=== PATIENT | female | born 1955 | race Caucasian/White ===

== ENCOUNTER → 2019-01-30 17:32 | Outpatient (CLI) | payer OTHER, SELFPAY ==
[2019-01-30 15:15] VITALS: BMI 23.4
[2019-02-05 11:19] LABS: HPV APTIMA, High Risk Negative (Negative)
== END ==
PROVIDERS: Referring Provider Nurse Practitioner Women's Health; Visit Provider Nurse Practitioner Women's Health
DX: Z12.4 Encounter for screening for malignant neoplasm of cervix (principal)
CPT/HCPCS: 87624; 88175; G0145

== ENCOUNTER → 2019-02-12 07:04 | Outpatient (CLI) | payer OTHER, SELFPAY ==
[2019-01-30 15:15] VITALS: BMI 23.4
--- NOTE | 2019-02-12 07:09 | BI_ITS ---
MAMMOGRAPHY - BILATERAL SCREENING REASON FOR EXAM: Female, 63 years old. Routine annual screening examination. PERTINENT HISTORY: Aunts with breast cancer. History of remote left excisional breast biopsy. TECHNIQUE: Digital bilateral breast jenelle (3D mammographic acquisition) in the CC and MLO projections. 2-D mediolateral oblique (MLO) and craniocaudad (CC) views of both breasts were obtained. CAD: Full Field Digital Mammography with Computer Added Detection was performed. COMPARISON: Comparison is made with prior outside examination dated November 16, 2011. FINDINGS: Breast Composition: The breasts are heterogeneously dense, which may obscure small masses. There are no dominant masses or suspicious calcifications. No other significant abnormalities are identified. There has been no significant change since the prior study. BI/SCREENING MAMM (CAD), BILAT IMPRESSION: Stable bilateral screening mammogram. Yearly follow-up mammogram recommended. (A) ASSESSMENT CATEGORY: BIRADS Category 1: Negative. A letter regarding these results will be sent to the patient by the facility within 30 days. Approximately 10% of breast cancers are not detected by mammography. A normal mammogram should not delay biopsy of a clinically suspicious abnormality. [id number] Electronically Signed: Jacob Crandall, at 14:30 EDT , Service support ,
[2019-02-12 09:50] LABS: Cholesterol 196 mg/dL (200); Glucose 92 mg/dL (74-106); High Density Lipoprotein 80 mg/dL; Triglycerides 58 mg/dL; Very Low Density Lipoprotein 12 mg/dL (5-40)
[2019-02-12 10:15] LABS: Vitamin D,25 Hydroxy 12.3 ng/mL (29.95-100.01)
== END ==
PROVIDERS: Referring Provider Obstetrics & Gynecology; Visit Provider Obstetrics & Gynecology
DX: Z12.31 Encounter for screening mammogram for malignant neoplasm of breast (principal); Z13.220 Encounter for screening for lipoid disorders; Z13.1 Encounter for screening for diabetes mellitus; Z13.21 Encounter for screening for nutritional disorder; Z80.3 Family history of malignant neoplasm of breast
CPT/HCPCS: 36415; 77063; 77067; 80061; 82306; 82947

== ENCOUNTER → 2022-05-30 | Outpatient (CLI) | payer MEDICARE, BC, SELFPAY ==
--- NOTE | 2022-05-30 11:41 | BI_ITS ---
MAMMOGRAPHY - BILATERAL SCREENING REASON FOR EXAM: Female, 66 years old. Routine annual screening examination. PERTINENT HISTORY: Aunt with breast cancer. Remote left excisional breast biopsy. TECHNIQUE: Digital bilateral breast uday (3D mammographic acquisition) in the CC and MLO projections. 2-D mediolateral oblique (MLO) and craniocaudad (CC) views of both breasts were obtained. CAD: Full Field Digital Mammography with Computer Added Detection was performed. COMPARISON: Comparison is made with prior study of 02/12/2019. FINDINGS: Breast Composition: The breasts are heterogeneously dense, which may obscure small masses. There are no dominant masses or suspicious calcifications. No other significant abnormalities are identified. There has been no significant change since the prior study. BI/SCRN MAMM (CAD)W/UDAY BILAT IMPRESSION: Stable bilateral screening mammogram. Yearly follow-up mammogram recommended. (A) ASSESSMENT CATEGORY: BIRADS Category 1: Negative. A letter regarding these results will be sent to the patient by the facility within 30 days. Approximately 10% of breast cancers are not detected by mammography. A normal mammogram should not delay biopsy of a clinically suspicious abnormality. [id number] Electronically Signed: Jacob Crandall MD at 12:55 EDT ,
[2022-05-30 13:47] LABS: Cholesterol 174 mg/dL (200); Glucose 92 mg/dL (74-106); High Density Lipoprotein 60 mg/dL; Thyroid Stim Hormone (TSH) 0.84 uIU/mL (0.358-3.74); Triglycerides 48 mg/dL; Very Low Density Lipoprotein 10 mg/dL (5-40)
[2022-05-30 14:30] LABS: Vitamin D,25 Hydroxy 33.4 ng/mL
[2022-06-03 12:19] LABS: HPV Reflexed? NOT INDICATED
== END | disposition home or self-care (01) ==
PROVIDERS: PCP Family Medicine; Referring Provider Obstetrics & Gynecology; Visit Provider Obstetrics & Gynecology
DX: Z12.31 Encounter for screening mammogram for malignant neoplasm of breast (principal); Z13.1 Encounter for screening for diabetes mellitus; Z13.220 Encounter for screening for lipoid disorders; Z01.419 Encounter for gynecological examination (general) (routine) without abnormal findings; Z13.29 Encounter for screening for other suspected endocrine disorder; Z13.21 Encounter for screening for nutritional disorder; Z80.3 Family history of malignant neoplasm of breast
CPT/HCPCS: 36415; 77063; 77067; 80061; 82306; 82947; 84443; 88175; G0145

== ENCOUNTER 2022-09-15 05:28 | Day surgery (SDC) | payer MEDICARE, BC, SELFPAY ==
[2022-09-15] VITALS (13 sets, daily range): BP systolic 97–135; BP diastolic 59–79; PULSE 59–70; RESP 16–18; TEMP 36.1–37; O2SAT 97–100; BMI 24.0
--- NOTE | 2022-09-15 05:57 | PCM.HP.STD ---
[facility] - General General Date of Service: 09/15/22 Chief Complaint: Screening for intestinal cancer HPI Narrative TETE HOWARD, is a 66 F who presents who presents for screening colonoscopy. Her previous one was 10 years prior. She has no particular complaints. No abdominal pain or bright red blood per rectum or melena. She otherwise enjoys good health. FORMERLY [facility] Medical History (Updated 09/12/22 @ 08:21 by Celena Waddell) Arthritis Cardiology follow-up encounter History of echocardiogram History of stress test Migraine headache MRSA infection Post-menopausal Wears glasses Home Medications calcium carbonate 500 mg-vitamin D3 3.125 mcg (125 unit) tablet 1 tab PO DAILY 09/12/22 [History Last Taken Unknown] Allergy/AdvReac Type Severity Reaction Status Date / Time codeine Allergy Mild nausea Verified 09/15/22 05:49 Family History Mother Hypertension Father Hypertension Heart disease Surgical History (Updated 09/12/22 @ 08:21 by Celena Waddell) History of History of colonoscopy Hx of bilateral cataract extraction Hx of left knee surgery Hx of right knee surgery S/P left breast biopsy s/p toe surgery Social History Smoking Status: Never smoker alcohol intake: never substance use type: does not use caffeine: Yes what type of physical activity do you participate in: none seatbelt use: always do you feel safe at home: Yes additional social history: -Gabriel- Retired Patient works at [employer] in [facility] Constitutional Constitutional: Reports systems reviewed and no addt'l complaints, except as documented Cardiovascular Cardiovascular: Denies chest pain Respiratory/Chest Respiratory/Chest: Denies shortness of breath at rest Gastrointestinal Gastrointestinal: Denies abdominal pain, change in bowel habits, hematochezia or melena Vital Signs Vital Signs Vital Signs: 09/15/22 05:50 09/15/22 05:52 Temperature 98.2 F Temperature Source Temporal Pulse Rate 67 Respiratory Rate 18 Respiratory Pattern Normal Blood Pressure 127/73 H Blood Pressure Mean 91 Blood Pressure Source Monitor Blood Pressure Position Semi-Fowlers Blood Pressure Location Left Arm Pulse Ox 100 Oxygen Delivery Method Room Air Weight Weight: 144 lb 6.4 oz Body Mass Index (BMI) 24.0 Physical Exam Const alert, oriented x3 and no apparent distress General Appearance: cooperative and comfortable Eyes General Eye: normal appearance of both eyes Neck General: normal visual inspection Chest inspection of chest normal Resp Effort and Inspection: able to speak in complete sentences and symmetric chest movement Auscultation: clear to auscultation bilaterally Cardio regular rate and regular rhythm GI soft to palpation, non-tender and non-distended Extremity no calf tenderness Neuro oriented x3 Psych thought process normal Assessment & Plan Assessment/Plan (1) Encounter for screening for malignant neoplasm of colon: PLAN: I recommended the patient a screening colonoscopy with possible biopsy or polypectomy as indicated. She is aware of the technique, benefit, risk, alternatives. She presents via open access today. We will proceed as noted. Chepe Jason M.D., F.A.C.S.
[2022-09-15] MEDS: Lactated Ringers 1,000 ML 15 ML IV (05:59)
--- NOTE | 2022-09-15 06:50 | OP.COLON_ITS ---
Patient Name: Suad Pereira Procedure Date: 09/15/2022 6:16 AM Date of : 1955 Age: 66 Procedure: Colonoscopy Indications: Screening for colorectal malignant neoplasm Providers: Chepe Jason MD Medicines: Midazolam 3.5 mg IV, Meperidine 100 mg IV Patient Profile: Last Colonoscopy: 10 years ago. Complications: No immediate complications. Procedure: Pre-Anesthesia Assessment: - Prior to the procedure, a History and Physical was performed, and patient medications and allergies were reviewed. The patient's tolerance of previous anesthesia was also reviewed. The risks and benefits of the procedure and the sedation options and risks were discussed with the patient. All questions were answered, and informed consent was obtained. Prior Anticoagulants: The patient has taken no previous anticoagulant or antiplatelet agents. ASA Grade Assessment: II - A patient with mild systemic disease. After reviewing the risks and benefits, the patient was deemed in satisfactory condition to undergo the procedure. After I obtained informed consent, the scope was passed under direct vision. Throughout the procedure, the patient's blood pressure, pulse, and oxygen saturations were monitored continuously. The Colonoscope was introduced through the anus and advanced to the cecum, identified by appendiceal orifice and ileocecal valve. The colonoscopy was performed without difficulty. The patient tolerated the procedure well. The quality of the bowel preparation was good. The ileocecal valve and the appendiceal orifice were photographed. Moderate Sedation: Moderate (conscious) sedation was personally administered by the endoscopist. The following parameters were monitored: oxygen saturation, heart rate, blood pressure, and response to care. Total physician intraservice time was 15 minutes. Scope In: 6:31:42 AM Scope Withdrawal Time 0 hours 6 minutes 49 seconds Scope Out: 6:45:59 AM Total Procedure Duration Time 0 hours 14 minutes 17 seconds Findings: Hemorrhoids were found on perianal exam. Multiple diverticula were found in the entire colon. The exam was otherwise without abnormality. Impression: - Hemorrhoids found on perianal exam. - Diverticulosis in the entire examined colon. - The examination was otherwise normal. - No specimens collected. Recommendation: - Discharge patient to home. - Resume previous diet. - Continue present medications. - Repeat colonoscopy in 10 years for screening purposes. Procedure Code(s): --- Professional --- 68305, Colonoscopy, flexible; diagnostic, including collection of specimen(s) by brushing or washing, when performed (separate procedure) 60690, 59, Moderate sedation services provided by the same physician or other qualified health director career services performing the diagnostic or therapeutic service that the sedation supports, requiring the presence of an independent trained observer to assist in the monitoring of the patient's level of consciousness and physiological status; initial 15 minutes of intraservice time, patient age 5 years or older Diagnosis Code(s): --- Professional --- Z12.11, Encounter for screening for malignant neoplasm of colon K64.9, Unspecified hemorrhoids K57.30, Diverticulosis of large intestine without perforation or abscess without bleeding CPT copyright 2017 [employer]. All rights reserved. The codes documented in this report are preliminary and upon manager social responsibility review may be revised to meet current compliance requirements. Chepe Jason MD 09/15/2022 6:50:09 AM This report has been signed electronically. Number of Addenda: 0 Note Initiated On: 09/15/2022 6:16 AM
--- NOTE | 2022-09-15 06:51 | OP.CCLET_ITS ---
09/15/2022 Chepe Meyer Md Re : Colonoscopy procedure for Suad Pereira Dear Betsy This procedure was performed on Thursday, September 15, 2022. My impressions and recommendations are as follows: Impressions : - Hemorrhoids found on perianal exam. - Diverticulosis in the entire examined colon. - The examination was otherwise normal. - No specimens collected. Recommendations : - Discharge patient to home. - Resume previous diet. - Continue present medications. - Repeat colonoscopy in 10 years for screening purposes. My findings are described in the full procedure note, which is enclosed. If I can be of further assistance, please feel free to contact me at Doctor phone number(s): Work: . Sincerely, Chepe Jason MD 09/15/2022 6:50:09 AM This report has been signed electronically.
== END 2022-09-15 07:52 | disposition home or self-care (01) ==
LOC: EN 05:29 → AC 05:29
PROVIDERS: PCP Family Medicine; Referring Provider Family Medicine; Visit Provider Surgery
PROC: 0DJD8ZZ Inspection of Lower Intestinal Tract, Via Natural or Artificial Opening Endoscopic (ICD-10-PCS; CPT 45378; principal; 2022-09-15 06:25)
DX: Z12.11 Encounter for screening for malignant neoplasm of colon (principal); K57.30 Diverticulosis of large intestine without perforation or abscess without bleeding; K64.9 Unspecified hemorrhoids; M19.90 Unspecified osteoarthritis, unspecified site; Z78.0 Asymptomatic menopausal state
CPT/HCPCS: G0121; 99152; 99153; J7120

== ENCOUNTER → 2022-11-22 | Outpatient (CLI) | payer MEDICARE, BC, SELFPAY ==
[2022-11-22 18:23] LABS: Pathologist Comment May follow
[2022-11-22 19:14] LABS: Synovial Fld Mononuclear WBC # 0.119 10^3/ul; Synovial Fld Mononuclear WBC % 94.5 %; Synovial Fld Polynuclear WBC # 0.007 10^3/uL; Synovial Fld Polynuclear WBC % 5.5 %
[2022-11-22 21:19] LABS: AUTO B FLUID DILUENT BKGD CT WBC <0.1 RBC <0.01 (W<.1,R<.01); Appearance /Synovial Fluid Clear (CLEAR); CRYSTALS, BODY FLUID See PATH REV; Color / Synovial Fluid Yellow (Pale Yellow); Source / Synovial Fluid NG; Source- Body Fluid SYNOVIAL
[2022-11-22 21:20] LABS: Lymph 15 %; Monocyte /Synovial Fluid 80 %; Neutrophil 5 % (0-25)
[2022-11-22 21:21] LABS: Body Fluid QC Type(s) BF2Q,BF3Q
[2022-11-23 15:07] LABS: RBC /Synovial Fluid 7 /mm3 (0)
[2022-11-24 09:41] LABS: Pathologist Review Reviewed
== END | disposition home or self-care (01) ==
PROVIDERS: PCP Family Medicine; Visit Provider Physician Assistant
DX: S83.8X1D Sprain of other specified parts of right knee, subsequent encounter (principal)
CPT/HCPCS: 87070; 87075; 87205; 89050; 89051; 89060

== ENCOUNTER → 2023-03-20 | Outpatient (CLI) | payer MEDICARE, BC, SELFPAY ==
--- NOTE | 2023-03-20 10:00 | ASPOS_PTH ---
PATIENT: TETE HOWARD LOC: LAB U#:[id number] AGE/SX: 67/F ROOM: RE03/20/[address]: Dr. Shashi Durant MD : 1955 BED: DIS: 03/20/2023 SPEC #: [id number] RECD: 03/20/23 10:26 STATUS: KATE BRIGHT #: [id number] RYAN: 03/20/23 10:[address]: Shashi Durant DEPT: CYTOLOGY RECD BY: Radha Díaz ENTERED: 03/20/23 10:27 SP TYPE: ASP HERE OTHR DR: Dr. Chepe Meyer MD Tissues: Mandible, NOS Procedures: Surgery Specimen Level IV Cytology Other Fine Needle Asp on Site HEADER OPERATION: Fine needle aspiration left submandibular mass PRE-OP DIAGNOSIS: Left submandibular mass TISSUE SUBMITTED: Left submandibular mass fluid DIAGNOSIS CYTOLOGY Left submandibular gland mass, fine needle aspiration (cytospin and cell block): Oncocytic cells present. See comment. AM:shari 03/21/2023 COMMENT An FNA is performed and the specimen is evaluated at the time of FNA by Dr. Mendoza. 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 Clinical correlation is suggested. Case has been reviewed in consultation with Dr. Sarabia who concurs with the above diagnosis. IDC:SJ CYTOLOGY STUDY Slides are reviewed. CYTOLOGY GROSS Received is 0.2 ml of reddish fluid labeled with the patient's name, and designated left submandibular mass. Five imprints and one pap are made from the submitted fluid and the rest is added to CytoLyt for cell block preparation. Submitted for cytology study. / AM:shari 03/20/2023 TC:5 CPT: 77468, 53724, 37177, 81443
== END | disposition home or self-care (01) ==
LOC: LAB 09:32
PROVIDERS: PCP Family Medicine; Referring Provider Otolaryngology; Visit Provider Otolaryngology
DX: R22.0 Localized swelling, mass and lump, head (principal); K11.23 Chronic sialoadenitis
CPT/HCPCS: 10021; 88161; 88305

== ENCOUNTER → 2023-04-26 | Outpatient (CLI) | payer MEDICARE, BC, SELFPAY ==
--- NOTE | 2023-04-26 07:30 | SUBM_PTH ---
PATIENT: TETE HOWARD LOC: REANNA U#:[id number] AGE/SX: 67/F ROOM: RE04/26/[address]: Dr. Shashi Durant MD : 1955 BED: DIS: 04/26/2023 SPEC #: [id number] RECD: 04/27/23 07:24 STATUS: KATE REQ #: [id number] RYAN: 04/26/23 07:[address]: Shashi Durant DEPT: SURGICAL PATHOLOGY RECD BY: Radha Díaz Tissues: Salivary gland, NOS Procedures: Surgery Specimen Level V Comments: @ Originally on account #[id number] Req #[id number] @ Ordering doctor for SUV edited from CONV. to @ by RGOOD at 04/27/23 142 @ Submitting doctor edited from CONV. to @ by RGOOD at 04/27/231421 HEADER OPERATION: Left submandibular gland excision PRE-OP DIAGNOSIS: Neoplasm of submandibular salivary glands TISSUE SUBMITTED: Left submandibular gland MICROSCOPIC DIAGNOSIS Left submandibular gland, excision: Chronic inflammation. Negative for malignancy. See comment. AVRIL:shari 04/30/2023 COMMENT The entire specimen is examined. No obvious tumor is noted. Please make reference to previous specimen ([id number]), left submandibular gland mass, FNA (smears and cell block) with diagnosis of ?oncocytic cells present.? MICROSCOPIC DESCRIPTION Slides are reviewed. GROSS DESCRIPTION Received in fixative is one container labeled with the patient's name and designated left submandibular gland. The specimen consists of irregular yellow glandular tissue weighing 10 gm and measuring 4.0 x 3.0 x 2.0 cm. Sections do not reveal any obvious mass lesion. The entire specimen is submitted in eight cassettes from one end to another end. / AVRIL:shari 04/27/2023 TC:3 CPT: 07604 ADDENDUM ADDENDUM ADDENDUM ADDENDUM ADDENDUM 05/14/2023 12:18 ADDENDUM 05/14/2023 12:18 ADDENDUM 05/14/2023 12:18 ADDENDUM 05/14/2023 12:18 ADDENDUM 05/14/2023 12:18 Multifocal oncocytic metaplasia noted. Case has been reviewed in consultation with Dr. Mendoza who concurs with the above diagnosis. IDC:AM
== END | disposition home or self-care (01) ==
LOC: LABSPEC 15:22
PROVIDERS: PCP Family Medicine; Referring Provider Otolaryngology; Visit Provider Otolaryngology
DX: K11.23 Chronic sialoadenitis (principal)
CPT/HCPCS: 88307

== ENCOUNTER → 2023-05-31 | Outpatient (CLI) | payer MEDICARE, BC, SELFPAY ==
--- NOTE | 2023-05-31 12:38 | BI_ITS ---
MAMMOGRAPHY - BILATERAL SCREENING REASON FOR EXAM: Female, 67 years old. Routine annual screening examination. PERTINENT HISTORY: Aunts with breast cancer. Remote left excisional breast biopsy. TECHNIQUE: Digital bilateral breast uday (3D mammographic acquisition) in the CC and MLO projections. 2-D mediolateral oblique (MLO) and craniocaudad (CC) views of both breasts were obtained. CAD: Full Field Digital Mammography with Computer Added Detection was performed. COMPARISON: Comparison is made with prior study dated May 30, 2022 and February 12, 2019. FINDINGS: Breast Composition: The breasts are heterogeneously dense, which may obscure small masses. There are no dominant masses or suspicious calcifications. No other significant abnormalities are identified. There has been no significant change since the prior study. BI/SCRN MAMM (CAD)W/UDAY BILAT IMPRESSION: Stable bilateral screening mammogram. Yearly follow-up mammogram recommended. (A) ASSESSMENT CATEGORY: BIRADS Category 1: Negative. A letter regarding these results will be sent to the patient by the facility within 30 days. Approximately 10% of breast cancers are not detected by mammography. A normal mammogram should not delay biopsy of a clinically suspicious abnormality. [id number] Electronically Signed: Jacob Crandall MD at 13:47 EDT ,
== END | disposition home or self-care (01) ==
LOC: OPBI 12:36
PROVIDERS: PCP Family Medicine; Referring Provider Obstetrics & Gynecology; Visit Provider Obstetrics & Gynecology
DX: Z12.31 Encounter for screening mammogram for malignant neoplasm of breast (principal)
CPT/HCPCS: 77063; 77067

== ENCOUNTER → 2023-06-25 | Outpatient (CLI) | payer MEDICARE, BC, SELFPAY ==
[2023-06-27 07:08] LABS: QNTFERON TB Mitogen Value > 10.00 IU/mL (.); QNTFERON TB Nil Value 0.05 IU/mL (.); QNTFERON TB1+ Ag Value 0.05 IU/mL (.); QNTFERON TB2+ Ag Value 0.07 IU/mL (.); QNTIFERON TB Positive Criteria Negative (Negative)
== END | disposition home or self-care (01) ==
LOC: LAB 17:35
PROVIDERS: PCP Family Medicine; Referring Provider Internal Medicine Pulmonary Disease; Visit Provider Internal Medicine Pulmonary Disease
DX: R05.9 Cough, unspecified (principal)
CPT/HCPCS: 86480

== ENCOUNTER → 2023-06-29 | Outpatient (CLI) | payer MEDICARE, BC, SELFPAY ==
--- NOTE | 2023-06-29 13:34 | CT_ITS ---
EXAM: CT CHEST WITHOUT INTRAVENOUS CONTRAST CLINICAL INDICATION: COUGH TECHNIQUE: Helically acquired images were obtained of the chest without intravenous contrast. This CT exam was performed using one or more of the following dose reduction techniques: automated exposure control, adjustment of the mA and/or kV according to patient size, and/or use of iterative reconstruction technique. COMPARISON: No relevant prior studies available. FINDINGS: LUNGS AND PLEURAL SPACES: Airspace disease in the left upper lobe. Mild airspace disease in the right upper lobe. Tree-in-bud pattern in the left lower lobe. No mass. No pleural effusion or thickening. HEART: Unremarkable. Heart size is normal. No pericardial effusion. No significant coronary artery calcifications. MEDIASTINUM: Unremarkable. No mediastinal or hilar adenopathy. Esophagus is unremarkable. No hiatal hernia. THYROID: Unremarkable. No thyroid lesions. BONES/JOINTS: Unremarkable. No suspicious lytic or blastic abnormality. VASCULATURE: Unremarkable. Thoracic aorta is non-dilated. CT/Chest without Contrast IMPRESSION: Bilateral airspace disease consistent with pneumonia. Electronically Signed: Erica Allison MD at 23:51 EDT Reading Location ID and State: [id number] / Tel , Service support ,
== END | disposition home or self-care (01) ==
LOC: CT 13:29
PROVIDERS: PCP Family Medicine; Referring Provider Internal Medicine Pulmonary Disease; Visit Provider Internal Medicine Pulmonary Disease
DX: R05.9 Cough, unspecified (principal); J18.9 Pneumonia, unspecified organism; R91.8 Other nonspecific abnormal finding of lung field
CPT/HCPCS: 71250

== ENCOUNTER 2023-07-04 07:25 | Day surgery (SDC) | payer MEDICARE, BC, SELFPAY ==
[2023-07-04] VITALS (7 sets, daily range): BP systolic 109–142; BP diastolic 69–86; PULSE 67–86; RESP 16; TEMP 35.9–36.6; O2SAT 98–100; BMI 21.4
[2023-07-04] MEDS: Lactated Ringers 1,000 ML 15 ML IV (08:07)
--- NOTE | 2023-07-04 08:30 | FLU_PTH ---
PATIENT: TETE HOWARD LOC: EN U#:[id number] AGE/SX: 67/F ROOM: RE07/04/[address]: Dr. Chepe Argueta MD : 1955 BED: DIS: 07/04/2023 SPEC #: [id number] RECD: 07/04/23 13:35 STATUS: KATE DEANGELO #: [id number] RYAN: 07/04/23 08:[address]: Chepe Argueta V DEPT: CYTOLOGY RECD BY: Radha Díaz ENTERED: 07/04/23 13:35 SP TYPE: Fluid OTHR DR: Dr. Chepe Meyer MD Tissues: A - Bronchus of left upper lobe B - Bronchus of left lower lobe Procedures: Special Stain Group II Special Stain Group I Surgery Specimen Level IV AFB Stain (control) GMS Stain (control) Cytospin Fluid HEADER OPERATION: Bronchoscopy (MAC) with lavage PRE-OP DIAGNOSIS: Rule out non-tuberculosis mycobacterium TISSUE SUBMITTED: A - Left upper lobe BAL, B - Left lower lobe BAL DIAGNOSIS CYTOLOGY A. Left upper lobe of lung, bronchioalveolar lavage (cytospin and cell block): Negative for malignant cells. Acute inflammation. Negative for acid-fast bacilli and fungal organisms. B. Left lower lobe of lung, bronchioalveolar lavage (cytospin and cell block): Negative for malignant cells. Acute inflammation. Negative for acid-fast bacilli and fungal organisms. AM:shari 07/05/2023 COMMENT A & B. AFB and GMS stains with matched controls were used in the evaluation of this case. CYTOLOGY STUDY Slides are reviewed. CYTOLOGY GROSS A - Received is 15 ml of pink cloudy mucoid fluid labeled with the patient's name and and designated per the requisition as left upper lobe BAL. Submitted for cytology preparation including cell block. B - Received is 10 ml of pink cloudy mucoid fluid labeled with the patient's name and and designated per the requisition as left lower lobe BAL. Submitted for cytology preparation including cell block. / shari 07/05/2023 TC:2 CPT: 93549 x2, 40978 x2, 25871 x4
[2023-07-04] MEDS: Phenylephrine 0.25% 15 ML NASAL.SRY 15 SPRAY NASAL (09:41)
[2023-07-04] MEDS: Lidocaine 2% (5ml sdv) 5 ML VIAL.MPF (09:41)
[2023-07-04] MEDS: Lidocaine Jelly 2% 20 ML Syringe (URO-JET) 1 APPLIC (09:41)
--- NOTE | 2023-07-04 09:56 | OP.BRONCH_ITS ---
Patient Name: Suad Pereira Procedure Date: 07/04/2023 9:14 AM Date of : 1955 Age: 67 Procedure: Bronchoscopy Indications: Unresolving left upper lobe infiltrate Providers: Chepe Argueta MD Medicines: Lidocaine applied to nares and subglottic space, Lidocaine 2% applied to nares 2 mL, Lidocaine 2% applied to the tracheobronchial tree 8 mL Complications: No immediate complications Procedure: Pre-Anesthesia Assessment: - A History and Physical has been performed. The patient's medications, allergies and sensitivities have been reviewed. - The risks and benefits of the procedure and the sedation options and risks were discussed with the patient. All questions were answered and informed consent was obtained. - Pre-procedure physical examination revealed no contraindications to sedation. After I obtained informed consent, the scope was passed under direct vision. Throughout the procedure, the patient's blood pressure, pulse, and oxygen saturations were monitored continuously. The bronchoscope was introduced through the left nostril and advanced to the tracheobronchial tree of both lungs. The procedure was accomplished without difficulty. The patient tolerated the procedure well. see anastheis note Findings: The bronchoscope was advanced until wedged at the desired location for bronchoalveolar lavage. BAL was performed in the LEE ANN inferior lingular segment (B5) of the lung and sent for cell count, bacterial culture, viral smears & culture, and fungal & AFB analysis and cytology. 80 mL of fluid were instilled. 30 mL were returned. The return was cloudy. Mucous plugs were present in the return fluid. Multiple specimens were obtained and pooled into one specimen, which was sent for analysis. Impression: - Unresolving left upper lobe infiltrate - Bronchoalveolar lavage was performed. Recommendation: - Await test results. - Await test results. Procedure Code(s): --- Professional --- 20260, Bronchoscopy, rigid or flexible, including fluoroscopic guidance, when performed; with bronchial alveolar lavage Diagnosis Code(s): --- Professional --- R91.8, Other nonspecific abnormal finding of lung field CPT copyright 2021 [employer]. All rights reserved. The codes documented in this report are preliminary and upon wheat buyer review may be revised to meet current compliance requirements. MD Chepe James MD 07/04/2023 9:55:11 AM This report has been signed electronically. Number of Addenda: 0 Note Initiated On: 07/04/2023 9:14 AM
[2023-07-04 10:40] LABS: Cytology, Body Fluid / CSF SEE PATHOLOGY REPORT
[2023-07-04 10:42] LABS: Cytology, Body Fluid / CSF SEE PATHOLOGY REPORT
[2023-07-04 12:59] LABS: Lymphocytes 3 %; Macrophages 1 %; Neutrophil (Segs) 96 %
[2023-07-04 13:00] LABS: Appearance/Body Fluid CLOUDY; Color/Body Fluid COLORLESS
[2023-07-04 13:01] LABS: Body Fluid QC Type(s) BF1Q; Red Cell Count/Body Fluid 1070 /mm3; White Blood Count/Body Fluid 2885 /mm3
[2023-07-04 13:07] LABS: Lymphocytes 3 %; Macrophages 4 %; Mesothelial Cells 0 %; Monocytes 1 %; Neutrophil (Segs) 92 %
[2023-07-04 13:08] LABS: Appearance/Body Fluid CLOUDY; Color/Body Fluid COLORLESS; Red Cell Count/Body Fluid 1582 /mm3; Source- Body Fluid BRONCHIAL LAVAGE; White Blood Count/Body Fluid 1183 /mm3
[2023-07-04 13:09] LABS: Body Fluid QC Type(s) BF1Q; Source- Body Fluid BRONCHIAL LAVAGE
[2023-07-05 13:00] LABS: Pathologist Comment/Body Fluid Reviewed
== END 2023-07-04 10:32 | disposition home or self-care (01) ==
LOC: EN 07:26
PROVIDERS: PCP Family Medicine; Referring Provider Family Medicine; Visit Provider Internal Medicine Pulmonary Disease
PROC: 0BJ08ZZ Inspection of Tracheobronchial Tree, Via Natural or Artificial Opening Endoscopic (ICD-10-PCS; CPT 31622; principal; 2023-07-04 08:30)
DX: J18.9 Pneumonia, unspecified organism (principal); I10 Essential (primary) hypertension; Z79.51 Long term (current) use of inhaled steroids; R07.1 Chest pain on breathing
CPT/HCPCS: 31624; J3490; 87015; 87070; 87101; 87116; 87205; 87206; 88108; 88305; 88312; 88313; 89050; J7120; J2405

== ENCOUNTER → 2024-04-21 | Outpatient (CLI) | payer MEDICARE, BC, SELFPAY ==
--- NOTE | 2024-04-21 13:08 | US_ITS ---
INDICATION: MULTIPLE NODULES EXAMINATION: Ultrasound US Thyroid (eg thyroid, parathyroid, parotid) TECHNIQUE: Gonzales scale and color doppler imaging was performed of the thyroid gland. COMPARISON: FINDINGS: RIGHT THYROID LOBE: 4.8 x 1.3 x 1.4 cm. Homogeneous echotexture with normal vascularity. [There is a lower pole heterogeneous 1.3 x 1.3 x 0.5 cm nodule LEFT THYROID LOBE: 3.6 x 1.6 x 1.4 cm. Homogeneous echotexture with normal vascularity. [There is an upper pole 1.0 x 0.6 x 0.5 cm solid nodule. ISTHMUS: 7 mm. Heterogeneous nodules or lobulated single nodule measuring 1.5 x 1.7 x 0.7 cm and 1.3 x 1.2 x 0.7 cm. US/Thyroid IMPRESSION: Bilateral heterogeneous nodules as noted. Cytologic evaluation if needed. Electronically Signed: Adolfo Queen DO at 21:07 EDT ,
== END | disposition home or self-care (01) ==
PROVIDERS: PCP Family Medicine; Referring Provider Family Medicine; Visit Provider Family Medicine
DX: Z12.31 Encounter for screening mammogram for malignant neoplasm of breast (principal); M85.88 Other specified disorders of bone density and structure, other site; E04.2 Nontoxic multinodular goiter; Z79.899 Other long term (current) drug therapy
CPT/HCPCS: 76536

== ENCOUNTER → 2024-05-19 | Outpatient (CLI) | payer MEDICARE, BC, SELFPAY ==
--- NOTE | 2024-05-19 09:00 | BI_ITS ---
MAMMOGRAPHY - BILATERAL DIAGNOSTIC REASON FOR EXAM: Female, 68 years old. left breast pain PERTINENT HISTORY: Non-contributory. TECHNIQUE: Digital examination. Mediolateral oblique (MLO) and craniocaudad (CC) views of both breasts were obtained. CAD: CAD was performed on this study. COMPARISON: 05/31/2023 FINDINGS: Breast Composition: The breasts are heterogeneously dense, which may obscure small masses. There are no dominant masses or suspicious calcifications. No other significant abnormalities are identified. BI/DIAG MAMM W/CAD, BILAT IMPRESSION: Stable bilateral diagnostic mammogram. ASSESSMENT CATEGORY: BIRADS Category 1: Negative. A letter regarding these results will be sent to the patient by the facility within 30 days. FOLLOW UP RECOMMENDATION: Yearly follow up mammogram recommended. (A) Approximately 10% of breast cancers are not detected by mammography. A normal mammogram should not delay biopsy of a clinically suspicious abnormality. Electronically Signed: Loyd Corona MD at 9:51 EDT ,
== END | disposition home or self-care (01) ==
LOC: OPBI 08:58
PROVIDERS: PCP Family Medicine; Referring Provider Nurse Practitioner Family; Visit Provider Nurse Practitioner Family
DX: N64.4 Mastodynia (principal)
CPT/HCPCS: 77062; 77066; G0279

== ENCOUNTER 2025-01-28 12:30 | Day surgery (SDC) | payer MEDICARE, BC, SELFPAY ==
--- NOTE | 2025-01-26 15:54 | PAT.ANESEVAL ---
Pre-Assessment Diagnosis/Proposed Procedure Planned Operative Procedure(s): BRONCHOSCOPY Anesthesia History Anesthesia History - energy project manager: Anesthesia History - energy project manager Hx Hospitalization No 01/26/25 15:23 Any Problems With Anesthesia No 01/26/25 15:23 Cholinesterase deficiency No 01/26/25 15:23 You/Your Family Experience No 01/26/25 15:23 fever (hyperthermia) with Relationship Recent Exposure to Contagious No 07/04/23 07:54 Disease Does patient have nerve No 01/26/25 15:23 stimulator Patient instructed to have device shut off --Does patient have Pacemaker or ICD? When Was Last Pacemaker Check QUESTION #4 FULL TEXT: You/Your Family Experience fever (hyperthermia) with Anesthesia Last Oral Intake Last Oral intake: Last Oral Intake NPO since Meds taken in AM with sips of water? Meds patient instructed to take am of surgery PONV PONV - energy project manager: PONV - energy project manager Female Yes 01/26/25 15:23 HX of Motion Sickness No 01/26/25 15:23 HX of N/V After Surgery No 01/26/25 15:23 Non-Smoker Yes 01/26/25 15:23 Duration of Surgery greater Yes 01/26/25 15:23 than 60 minutes Number of Risk Factors 3 01/26/25 15:23 PONV Score Moderate Risk 01/26/25 15:23 Height & Weight Height & Weight: Anesthesia: Height & Weight Height 5 ft 5 in 05/14/24 15:08 Respiratory Assessment Respiratory Assessment - energy project manager: Respiratory Tract Infection Hx - energy project manager Hx Respiratory Tract Infection No 01/26/25 15:23 STOP Sleep Apnea STOP Sleep Apnea - energy project manager: STOP Sleep Apnea - energy project manager Hx Hypertension No 01/26/25 15:23 Hx Sleep Apnea No 01/26/25 15:23 CPAP BIPAP Do you snore loudly (louder No 01/26/25 15:23 than talking or can be heard Do you often feel tired/ No 01/26/25 15:23 fatigued/ sleepy during daytime? Has anyone observed you stop No 01/26/25 15:23 breathing during sleep? STOP Results Negative 01/26/25 15:23 QUESTION #5 FULL TEXT : Do you snore loudly (louder than talking or can be heard through closed doors)? Tobacco Use History Tobacco Use History - energy project manager: Tobacco Use History - energy project manager Tobacco Use Smoking Status Never smoker 01/26/25 15:23 Hx Tobacco Use No 01/26/25 15:23 Years Smoking Packs Smoked per Day Smoking Cessation Date was within the last 15 years Hx Smoking Cessation Date Hx Smoking Cessation Counseling Hematologic Medial History Hematologic Hx - energy project manager: Hematologic Medical Hx - documentation improvement specialist Hx of Blood Transfusion No 01/26/25 15:23 Hx of Transfusion in last 3 No 01/26/25 15:23 Months Date of Last Transfusion (if within last 3 months) Ever experience any problems No 01/26/25 15:23 with transfusion(s)? Specify any problems Hx of Preganancy in last 3 No 01/26/25 15:23 Months Nurse Filling Out Transfusion DSCHRIBER 01/26/25 15:23 & Questions: Date: 01/26/25 01/26/25 15:23 Time: 15:24 01/26/25 15:23 Patient unable to answer at this time (ie. confused, unrespo /Reproduction History /Reproductive History - energy project manager: /Reproductive Hx- energy project manager Hx Now No 01/26/25 15:23 Gestational Age (in weeks): EDC: Hx Hx Para Hx Section SAB No 01/26/25 15:23 PFSH Medical History (Updated 01/26/25 @ 15:29 by Stephany Roberts) Pulmonary mycobacterial infection Non-smoker Multinodular goiter Wears glasses Post-menopausal MRSA infection Arthritis History of echocardiogram History of stress test Cardiology follow-up encounter Home Medications ?Medication ?Instructions ?Recorded ?Last Taken ?Type calcium 500 mg (as 1 tab PO DAILY 09/12/22 Unknown History carbonate)-vitamin D3 3.125 mcg (125 unit) tablet Allergy/AdvReac Type Severity Reaction Status Date / Time codeine Allergy Mild nausea Verified 01/26/25 15:21 Family History Mother Hypertension Father Hypertension Heart disease Surgical History (Updated 01/26/25 @ 15:29 by Stephany Roberts) History of bronchoscopy Hx of parotidectomy Hx of bilateral cataract extraction Hx of right knee surgery Hx of left knee surgery History of colonoscopy s/p toe surgery History of S/P left breast biopsy Social History Smoking Status: Never smoker alcohol intake: never substance use type: does not use caffeine: Yes what type of physical activity do you participate in: none seatbelt use: always do you feel safe at home: Yes additional social history: -Gabriel- Retired Patient works at [employer] in [place] [employer]: Pertinent Findings Pertinent Findings Stress test pertinent findings: 05/19/2022. Negative Echo (EF%) pertinent findings: 05/19/2022 normal size function EF 55 to 60%. PA pressure 28 Consult pertinent findings: Cardiology 12/03/2024 at [facility]. Atypical chest pain. Unlikely cardiac. Previous nuclear stress test normal. Hypertension. No change. 1 year follow-up. Recommendation Anesthesia Recommendation Anesthesia recommendation: OPTIMIZED for anesthesia
[2025-01-28] VITALS (7 sets, daily range): BP systolic 106–131; BP diastolic 60–73; PULSE 68–73; RESP 12–16; TEMP 36.5–36.9; O2SAT 95–100; BMI 20.5
--- NOTE | 2025-01-28 12:41 | PCM.PRE.AN2 ---
ASA Classification* ASA Classification ASA Classification: 3 Assessment & Plan Anesthesia* Anesthesia Assessment Anesthesia Assessment: Discussed sedation and/or anesthesia options, risks, benefits, and alternatives with patient/parents/legal guardian/POA. Questions invited. The patient/parents/legal guardian/POA seems to understand and agrees to proceed with anesthesia plan. Reviewed the physical assessment, medical history, allergy history and patient home medications list prior to surgery/procedure/anesthetic and documented any changes. Performed airway and anesthesia risk assessments. Anesthesia Type Anesthesia Type: MAC Anesthesia Focused Assessment* Airway Assessment Mouth opens: >3 cm Mallampati Score: II Focused Labs Anesthesia Preop lab: CBC CHEMISTRY Glucose 92 mg/dL (74-106) 05/30/22 12:39 05/30/22 TSH 0.84 uIU/mL (0.358-3.74) 05/30/22 12:39 05/30/22 COAG Pre-Assessment Diagnosis/Proposed Procedure Planned Operative Procedure(s): BRONCHOSCOPY Anesthesia History Anesthesia History - financial services assistant: Anesthesia History - financial services assistant Hx Hospitalization No 01/26/25 15:23 Any Problems With Anesthesia No 01/26/25 15:23 Cholinesterase deficiency No 01/26/25 15:23 You/Your Family Experience No 01/26/25 15:23 fever (hyperthermia) with Relationship Recent Exposure to Contagious No 07/04/23 07:54 Disease Does patient have nerve No 01/26/25 15:23 stimulator Patient instructed to have device shut off --Does patient have Pacemaker or ICD? When Was Last Pacemaker Check QUESTION #4 FULL TEXT: You/Your Family Experience fever (hyperthermia) with Anesthesia Last Oral Intake Last Oral intake: Last Oral Intake NPO since Meds taken in AM with sips of water? Meds patient instructed to take am of surgery PONV PONV - financial services assistant: PONV - financial services assistant Female Yes 01/26/25 15:23 HX of Motion Sickness No 01/26/25 15:23 HX of N/V After Surgery No 01/26/25 15:23 Non-Smoker Yes 01/26/25 15:23 Duration of Surgery greater Yes 01/26/25 15:23 than 60 minutes Number of Risk Factors 3 01/26/25 15:23 PONV Score Moderate Risk 01/26/25 15:23 Height & Weight Height & Weight: Anesthesia: Height & Weight Height 5 ft 5 in 05/14/24 15:08 Respiratory Assessment Respiratory Assessment - financial services assistant: Respiratory Tract Infection Hx - financial services assistant Hx Respiratory Tract Infection No 01/26/25 15:23 STOP Sleep Apnea STOP Sleep Apnea - financial services assistant: STOP Sleep Apnea - financial services assistant Hx Hypertension No 01/26/25 15:23 Hx Sleep Apnea No 01/26/25 15:23 CPAP BIPAP Do you snore loudly (louder No 01/26/25 15:23 than talking or can be heard Do you often feel tired/ No 01/26/25 15:23 fatigued/ sleepy during daytime? Has anyone observed you stop No 01/26/25 15:23 breathing during sleep? STOP Results Negative 01/26/25 15:23 QUESTION #5 FULL TEXT : Do you snore loudly (louder than talking or can be heard through closed doors)? Tobacco Use History Tobacco Use History - financial services assistant: Tobacco Use History - financial services assistant Tobacco Use Smoking Status Never smoker 01/26/25 15:23 Hx Tobacco Use No 01/26/25 15:23 Years Smoking Packs Smoked per Day Smoking Cessation Date was within the last 15 years Hx Smoking Cessation Date Hx Smoking Cessation Counseling Hematologic Medial History Hematologic Hx - financial services assistant: Hematologic Medical Hx - feed research aide Hx of Blood Transfusion No 01/26/25 15:23 Hx of Transfusion in last 3 No 01/26/25 15:23 Months Date of Last Transfusion (if within last 3 months) Ever experience any problems No 01/26/25 15:23 with transfusion(s)? Specify any problems Hx of Preganancy in last 3 No 01/26/25 15:23 Months Nurse Filling Out Transfusion DSCHRIBER 01/26/25 15:23 & Questions: Date: 01/26/25 01/26/25 15:23 Time: 15:24 01/26/25 15:23 Patient unable to answer at this time (ie. confused, unrespo /Reproduction History /Reproductive History - financial services assistant: /Reproductive Hx- financial services assistant Hx Now No 01/26/25 15:23 Gestational Age (in weeks): EDC: Hx Hx Para Hx Section SAB No 01/26/25 15:23 PFSH Medical History Pulmonary mycobacterial infection Non-smoker Multinodular goiter Wears glasses Post-menopausal MRSA infection Arthritis History of echocardiogram History of stress test Cardiology follow-up encounter Home Medications ?Medication ?Instructions ?Recorded ?Last Taken ?Type calcium 500 mg (as 1 tab PO DAILY 09/12/22 Unknown History carbonate)-vitamin D3 3.125 mcg (125 unit) tablet Allergy/AdvReac Type Severity Reaction Status Date / Time codeine Allergy Mild nausea Verified 01/26/25 15:21 Family History Mother Hypertension Father Hypertension Heart disease Surgical History History of bronchoscopy Hx of parotidectomy Hx of bilateral cataract extraction Hx of right knee surgery Hx of left knee surgery History of colonoscopy s/p toe surgery History of S/P left breast biopsy Social History Smoking Status: Never smoker alcohol intake: never substance use type: does not use caffeine: Yes what type of physical activity do you participate in: none seatbelt use: always do you feel safe at home: Yes additional social history: -Gabriel- Retired Patient works at [employer] in [place] Review of Systems (Anesthesia) ROS Narrative System reviewed and no additional complaints, except as documented.
[2025-01-28] MEDS: Lidocaine 2% (5ml sdv) 5 ML VIAL.MPF ×2 (14:02→14:08)
[2025-01-28] MEDS: Phenylephrine 0.25% 15 ML NASAL.SRY 15 SPRAY NASAL (14:02)
[2025-01-28] MEDS: Lidocaine Jelly 2% 20 ML Syringe (URO-JET) 1 APPLIC (14:07)
--- NOTE | 2025-01-28 14:11 | PCM.POST.ANE ---
Anesthesia: Postop Eval I Current Vital Signs Temperature: 97.8 F Pulse Rate: 68 Blood Pressure: 107/61 Respiratory Rate: 16 Pulse Ox: 96 Oxygen Delivery Method: Room Air Assessment Airway patent: Yes Spontaneous unlabored respirations: Yes Mental status: Awake nausea: No Vomiting: No Anesthesia Complication: No Fluid Hydration Crystalloid volume administer (ml): 0 Total IV fluid infused: 0 Progress Note Anesthesia document: Postop Eval 1 completed: Yes
--- NOTE | 2025-01-28 14:13 | OP.BRONCH_ITS ---
Patient Name: Suad Pereira Procedure Date: 01/28/2025 12:58 PM Date of : 1955 Age: 69 Procedure: Bronchoscopy Indications: Atelectasis of the left upper lobe Providers: Chepe Argueta MD Referring MD: Chepe Meyer Md Medicines: Lidocaine applied to nares and subglottic space, Lidocaine 2% applied to cords 8 mL Complications: No immediate complications Procedure: Pre-Anesthesia Assessment: - The History and Physical was reviewed prior to the procedure. The patient's medications, allergies and sensitivities have also been reviewed. After I obtained informed consent, the scope was passed under direct vision. Throughout the procedure, the patient's blood pressure, pulse, and oxygen saturations were monitored continuously.The procedure was accomplished without difficulty. The patient tolerated the procedure well. The bronchoscope was introduced through the and advanced to the. Findings: The bronchoscope was advanced until wedged at the desired location for bronchoalveolar lavage. BAL was performed in the LEE ANN anterior segment (B3) of the lung and sent for cell count, bacterial culture, viral smears & culture, fungal & AFB analysis and cytology for immunocompromised host protocol. 120 mL of fluid were instilled. 40 mL were returned. The return was cloudy. There were no mucoid plugs in the return fluid. [Multi samples]. Impression: - No specimens collected. MD Chepe James MD 01/28/2025 2:13:12 PM This report has been signed electronically. Number of Addenda: 0 Note Initiated On: 01/28/2025 12:58 PM
--- NOTE | 2025-01-28 14:29 | POSTOPAN2_ITS ---
Anesthesia Postop Eval I Sum Postop Eval Completion status Anesthesia document: Postop Eval 1 completed: Yes Anesthesia Postop Eval I Summary Anesthesia Postop Eval I Summary: Anesthesia Postop Eval I: Assessment Summary Airway patent Yes 01/28/25 14:12 [email or web address] Spontaneous unlabored Yes 01/28/25 14:12 [email or web address] respirations Mental status Awake 01/28/25 14:12 [email or web address] nausea No 01/28/25 14:12 [email or web address] Vomiting No 01/28/25 14:12 [email or web address] Anesthesia Postop Eval I: Fluid Summary Crystalloid volume administer 0 01/28/25 14:12 [email or web address] (ml) Colloids volume administered ( ml) Blood Product volume administered (ml) Total IV fluid infused 0 01/28/25 14:12 [email or web address] Anesthesia Postop Eval I: Summary Notes Anesthesia Complication No 01/28/25 14:12 [email or web address] Anesthesia Complication Comment: Post-operative progress note Anesthesia: Postop Eval II Evaluation Mental status: Awake Pain Level: 0 nausea: No Vomiting: No
--- NOTE | 2025-01-28 14:29 | PCM.POSTANE2 ---
Anesthesia Postop Eval I Sum Postop Eval Completion status Anesthesia document: Postop Eval 1 completed: Yes Anesthesia Postop Eval I Summary Anesthesia Postop Eval I Summary: Anesthesia Postop Eval I: Assessment Summary Airway patent Yes 01/28/25 14:12 [email or web address] Spontaneous unlabored Yes 01/28/25 14:12 [email or web address] respirations Mental status Awake 01/28/25 14:12 [email or web address] nausea No 01/28/25 14:12 [email or web address] Vomiting No 01/28/25 14:12 [email or web address] Anesthesia Postop Eval I: Fluid Summary Crystalloid volume administer 0 01/28/25 14:12 [email or web address] (ml) Colloids volume administered ( ml) Blood Product volume administered (ml) Total IV fluid infused 0 01/28/25 14:12 [email or web address] Anesthesia Postop Eval I: Summary Notes Anesthesia Complication No 01/28/25 14:12 [email or web address] Anesthesia Complication Comment: Post-operative progress note Anesthesia: Postop Eval II Evaluation Mental status: Awake Pain Level: 0 nausea: No Vomiting: No
[2025-01-28 14:41] LABS: Pathologist Comment/Body Fluid May follow
[2025-01-28 19:32] LABS: Neutrophil (Segs) 76 %
[2025-01-28 19:33] LABS: Lymphocytes 15 %; Mesothelial Cells 5 %; Monocytes 4 %
[2025-01-28 20:42] LABS: Appearance/Body Fluid TURBID; Color/Body Fluid COLORLESS; Source- Body Fluid BRONCHIAL LAVAGE
== END 2025-01-28 15:06 | disposition home or self-care (01) ==
LOC: EN 12:35 → AC 13:08
PROVIDERS: PCP Family Medicine; Referring Provider Family Medicine; Visit Provider Internal Medicine Pulmonary Disease
PROC: 0BJ08ZZ Inspection of Tracheobronchial Tree, Via Natural or Artificial Opening Endoscopic (ICD-10-PCS; CPT 31622; principal; 2025-01-28 13:15)
DX: J98.11 Atelectasis (principal); Z22.7 Latent tuberculosis; I10 Essential (primary) hypertension
CPT/HCPCS: 31624; 87015; 87070; 87101; 87116; 87205; 87206; 89050; A4216

== ENCOUNTER 2025-02-02 07:26 | Outpatient (CLI) | payer MEDICARE, BC, SELFPAY ==
--- NOTE | 2025-02-02 07:27 | CT_ITS ---
PROCEDURE: CHEST WITHOUT CONTRAST 02/02/2025 REASON FOR EXAM: NON TB MICROBACTERIAL TECHNIQUE: Chest CT without contrast. Coronal and Sagittal reconstruction series were provided. One or more dose reduction techniques were used (e.g., Automated exposure control, adjustment of the mA and/or kV according to patient size, use of iterative reconstruction technique COMPARISON: Comparison is made with prior study dated June 29, 2023. RADIATION DOSE SUMMARY: CTDlvol: 6.08 mGy DLP: 220.33 mGycm FINDINGS: Hardware: None Lymph nodes: No significant adenopathy seen. Heart and Vasculature: Unremarkable Coronary Artery Calcifications: Absent Lungs and Airways: Mild degree of scarring with focal bronchiectasis in the lingular segment of the left upper lobe. There is also evidence of mild scarring in the posterior aspect of the left upper lobe. There has been improvement as compared to prior study. Pleura: Unremarkable Upper Abdomen: Unremarkable Bones: Mild degree of degenerative changes. CT/Chest without Contrast IMPRESSION: Mild scarring in the lingula segment of the left upper lobe with focal bronchie ctasis as well as scarring in the posterior aspect of the left upper lobe. This has improved. Reading Location: [facility]
== END 2025-02-02 23:59 | disposition home or self-care (01) ==
LOC: CT 07:27
PROVIDERS: PCP Family Medicine; Referring Provider Internal Medicine Pulmonary Disease; Visit Provider Internal Medicine Pulmonary Disease
DX: A15.9 Respiratory tuberculosis unspecified (principal)
CPT/HCPCS: 71250

== ENCOUNTER → 2025-06-25 | Outpatient (CLI) | payer MEDICARE, BC, SELFPAY ==
--- NOTE | 2025-06-25 17:42 | CT_ITS ---
PROCEDURE: CHEST WITHOUT CONTRAST 06/25/2025 REASON FOR EXAM: PULMONARY MYCOBACTERIAL INFECTION TECHNIQUE: Chest CT without contrast. Coronal and Sagittal reconstruction series were provided. One or more dose reduction techniques were used (e.g., Automated exposure control, adjustment of the mA and/or kV according to patient size, use of iterative reconstruction technique RADIATION DOSE SUMMARY: CTDlvol: 6.1 mGy DLP: 222.73 mGycm COMPARISON: Prior study dated February 02, 2025. FINDINGS: Hardware: None Lymph nodes: Small benign-appearing axillary lymph nodes. Small mediastinal lymphadenopathy. Heart and Vasculature: The heart is not enlarged. Minimal anterior pericardial thickening. Coronary Artery Calcifications: Absent Lungs and Airways: Mild emphysematous changes are present. Stable minimal volume loss in the lingula segment of the left upper lobe with evidence of bronchiectasis and scarring. Nodular thickening of the left major fissure. The largest nodule measures 6.7 mm. This is located in the medial aspect of the fissure. This is unchanged. Pleura: Thickening of the left major fissure with the fissure nodules as described. Upper Abdomen: Unremarkable Bones: Degenerative changes of the thoracic spine. CT/Chest without Contrast IMPRESSION: Coronary artery calcification (CAC) is is absent Stable scarring in the lingular segment of the left upper lobe with stable appe arance of the nodular density seen in the left major fissure. Hyperinflation and mild degree of emphysematous changes. Reading Location: [facility]
--- OUTSIDE RECORDS SUMMARY | 2025-06-25 17:45 | XMS RPT_ITS | CCD ---
Author Organization [facility] Care Team Providers Care Motor Room Controller Name Role Phone Dr. Syl Valdez Attending Provider [phone] Dr. Benson Kasper Primary Care Provider Dr. Benson Kasper Referring Provider Dr. Benson Kasper Primary Care Provider Dr. Benson Kasper Referring Provider [phone] Dr. Benson Jason Attending Provider Dr. Benson Jason Other Provider MAJO DOWNS, DR THAPA Primary Care Unavailable MAJO DOWNS, DR THAPA Attending Unavailable MAJO DOWNS, DR THAPA Primary Care Unavailable MAJO DOWNS, DR THAPA Attending Unavailable MAJO DOWNS, DR THAPA Attending Unavailable MAJO DOWNS, DR THAPA Primary Care Unavailable Dr. Benson Kasper Primary Care Provider Dr. Benson Kasper Referring Provider Dr. Aryan Luis Attending Provider Dr. Syl Valdez Attending Provider MAJO DOWNS, Sanjay THAPA Unavailable SHASHI DURANT MD Unavailable [place] Unavailable Unavailable BENSON ARGUETA Unavailable Unavailable ORTHOPEDICS, GENERAL Unavailable Unavailable PHYSICAL THERAPY, CONSULT Unavailable Joe WERNER MD, ALANIS England Unavailable Yuliet ZARATE MD Unavailable Venita MALONE, Daisy Unavailable Unavailable Liberty Moss Unavailable Unavailable Adan MALONE, Judith Unavailable Unavaila dasha Madrid RN, Nava Unavailable Unavailable ALPHONSO DOWNS, VEENA Licona Unavailable [phone] ADRIANA DENNEY Unavailable Unavailable GRATE RN, IZAIAH Unavailable Unavailable Unavailable Unavailable KING HIMANSHU, ARYAN Garcia Unavailable Alanis Werner Primary Care Provider UnavailSanjay Bates MD Unavailable [phone] Sanjay Kasper MD Unavailable Sanjay Kasper MD Primary Care Provider [phone] Sanjay KASPER Primary Care Unavailable JASMIN JACKSON Attending Unavailabl e BENDARAM, LIBRADO COUCH Attending Unavaila ALANIS Howe Primary Care Unavailable BENDARAM, LIBRADO COUCH Attending Unavaila ALANIS Howe Primary Care Unavailable BENDARAM, LIBRADO COUCH Referring Unavaila ALANIS Howe Primary Care Unavailable ALANIS WERNER Primary Care Unavailable BENDARAM, LIBRADO COUCH Attending Unavaila ble KORSHERIF, Sanjay THAPA Primary Care Unavailable SELF Referring Unavailable BENDARAM, LIBRADO COUCH Attending Unavaila ble MAJO, Sanjay THAPA Primary Care Unavailable BENDARAM, LIBRADO KHOA Attending Unavaila ble MAJO, Sanjay THAPA Primary Care Unavailable BENDARAM, LIBRADO COUCH Referring Unavaila ble MAJO, R ALANIS Primary Care Unavailable BENDARAM, LIBRADO COUCH Referring Unavaila ble BENDARAM, LIBRADO COUCH Referring Unavaila ble ALANIS WERNER Primary Care Unavailable Dr. Benson Kasper MD Primary Care Provider [phone] Dr. Benson Kasper MD Referring Provider Dr. Benson Argueta MD, V Attending Provider Dr. Benson Argueta MD, V Referring Provider BENSON ARGUETA V Primary Care Unavailable Sanjay KASPER Consulting Unavailable BENSON ARGUETA V Admitting Unavailable BENSON ARGUETA V Attending Unavailable PROVIDER, UNKNOWN Consulting Unavailable PROVIDER, UNKNOWN Consulting Unavailable PROVIDER, UNKNOWN Consulting Unavailable BENSON ARGUETA V Primary Care Unavailable Sanjay KASPER Consulting Unavailable SIBILIA, BENSON V Admitting Unavailable SIBILIA, BENSON V Attending Unavailable PROVIDER, UNKNOWN Consulting Unavailable PROVIDER, UNKNOWN Consulting Unavailable PROVIDER, UNKNOWN Consulting Unavailable MAJO, Sanjay THAPA Consulting Unavailable BHAVIK GALVAN MD Admitting Unavailable BHAVIK GALVAN MD Attending Unavailable BHAVIK GALVAN MD Primary Care Unavailable PROVIDER, UNKNOWN Consulting Unavailable PROVIDER, UNKNOWN Consulting Unavailable PROVIDER, UNKNOWN Consulting Unavailable SIBILIA, BENSON V Primary Care Unavailable KORNHAUS, R ALANIS Referring Unavailable KORNHAUS, R ALANIS Consulting Unavailable SIBILIA, BENSON V Admitting Unavailable SIBILIA, BENSON V Attending Unavailable PROVIDER, UNKNOWN Consulting Unavailable PROVIDER, UNKNOWN Consulting Unavailable PROVIDER, UNKNOWN Consulting Unavailable SIBILIA, BENSON V Consulting Unavailable SIBILIA, BENSON V Primary Care Unavailable SIBILIA, BENSON V Admitting Unavailable SIBILIA, BENSON V Attending Unavailable PROVIDER, UNKNOWN Consulting Unavailable PROVIDER, UNKNOWN Consulting Unavailable PROVIDER, UNKNOWN Consulting Unavailable KORNHAUS, R ALANIS Consulting Unavailable SIBILIA, BENSON V Primary Care Unavailable SIBILIA, BENSON V Admitting Unavailable SIBILIA, BENSON V Attending Unavailable PROVIDER, UNKNOWN Consulting Unavailable PROVIDER, UNKNOWN Consulting Unavailable PROVIDER, UNKNOWN Consulting Unavailable SIBILIA, BENSON V Primary Care Unavailable KORNHAUS, R ALANIS Consulting Unavailable SIBILIA, BENSON V Admitting Unavailable SIBILIA, BENSON V Attending Unavailable PROVIDER, UNKNOWN Consulting Unavailable PROVIDER, UNKNOWN Consulting Unavailable PROVIDER, UNKNOWN Consulting Unavailable Kornhaus, Benson Primary Care Unavailable Kornhaus, Benson Referring Unavailable Sibilia, Benson V Attending Unavailable Sibilia, Benson V Referring Unavailable Kornhaus, Benson Primary Care Unavailable Sibilia, Benson V Attending Unavailable Kornhaus, Benson Primary Care Unavailable Sibilia, Benson V Attending Unavailable Sibilia, Benson V Referring Unavailable Syl Valdez Attending Unavailable Kornhaus, Benson Primary Care Unavailable Kornhaus, Benson Referring Unavailable Allergies Allergy Classification Reported Allergen(s) Allergy Type Date of Onset Reaction(s) Facility Opioid Agonists (5 sources) Codeine Drug Allergy 06-06-2023 [facility], [facility] (20 sources) Codeine; Translations: [CODEINE] Drug Allergy 06-27-2018 Vomiting [facility] (20 sources) Codeine Drug Allergy 06-06-2023 [facility] (1 source) Codeine Drug Allergy 01-28-2025 [facility] Repository Medications Current Medications Medication Drug Class(es) Dates Sig (Normalized) Sig (Original) calcium carbonate 750 mg chewable tablet (10 sources) take 1 tablet by mouth once daily calcium Carbonate 300 mg, 750mg, (TUMS) 300 mg (750 mg) chewable tablet Take 1 tablet by mouth once daily. Active calcium carbonate 1250 mg / cholecalciferol 125 unt oral tablet (20 sources) Vitamin D Start: 09-12-2022 Calcium Carbonate-Vitamin D3 (Calcium 500 + D (D3)) 500 mg-3.125 mcg (125 unit) Tablet Active 1 {tbl} PO DAILY September 12, 2022 12:00am Start: 07-01-2022 End: 02-16-2024 calcium carbonate 600 mg-vit lopez D3 10 mcg (400 unit) tablet ; 1 (one) Tablet bid for 30 days Quantity: 60 {Tablet} Refills: 2 Ordered: 16-Feb-2024 KRIA Nathan Start: 01-Jul-2022 End: 16-Feb-2024 Status: Inactive Start: 07-01-2022 take 1 tablet by [facility] twice daily calcium carbonate-vitamin D3 600 mg-10 mcg (400 unit) oral tablet ; 1 (one) Tablet bid for 30 days Quantity: 60 {Tablet} Refills: 2 Ordered: 01-Jul-2022 KIRA Arellano Judith Start: 01-Jul-2022 cephalexin 500 mg oral capsule (1 source) Cephalosporin Antibacterial Start: 11-21-2024 End: 11-26-2024 take 1 capsule by mouth three times daily cephALEXin (KEFLEX) 500 mg capsule Take 1 capsule by mouth three times a day for 5 days. 15 capsule 11/21/2024 11/26/2024 Active clobetasol propionate 0.5 mg/ml topical cream (4 sources) Corticosteroid Start: 11-21-2024 clobetasol (TEMOVATE) 0.05 % cream Apply topically bid to red, scaly patches or fissures on hands 60 g 11/21/2024 Active Start: 11-21-2024 clobetasol (TE MOVATE) 0.05 % cream Apply topically bid to hands when red/scaly/sore 120 g 2 11/21/2024 Active Completed/Discontinued Medications Medication Drug Class(es) Dates Sig (Normalized) Sig (Original) amoxicillin 875 mg / clavulanate 125 mg oral tablet (20 sources) Penicillin-class Antibacterial Start: 02-22-2023 End: 03-04-2023 take 1 tablet by mouth twice daily amoxicillin-pot clavulanate 875-125 mg oral tablet ; 1 (one) tablet bid for 10 days Quantity: 20 {Tablet} Refills: 0 Ordered: 05-Mar-2023 MD Sanjay KASPER Start: 22-Feb-2023 End: 04-Mar-2023 Status: Inactive Start: 12-07-2022 End: 12-14-2022 take 1 tablet by mouth twice daily amoxicillin-pot clavulanate 875-125 mg oral tablet ; 1 Tablet two times daily for 7 days Quantity: 14 {Tablet} Refills: 0 Ordered: 02-Jan-2023 MD VEENA WERNER Start: 07-Dec-2022 End: 14-Dec-2022 Status: Inactive Start: 11-20-2017 End: 11-30-2017 take 1 tablet by mouth twice daily Augmentin 875-125 MG Oral Tablet ; 1 (one) Tablet bid for 10 days Quantity: 20 {Tablet} Refills: 0 Ordered: 13-Mar-2018 MD Sanjay KASPER Start: 20-Nov-2017 End: 30-Nov-2017 Status: Inactive azithromycin 500 mg oral tablet (20 sources) Macrolide Antimicrobial Start: 05-14-2024 End: 01-26-2025 take 1 mg by mouth once daily Azithromycin 500 mg tablet Discontinued 0 PO .COMPLEX May 14, 2024 12:00am January 26, 2025 3:21pm For 500 mg dose pack: take 500 mg once daily for 3 days PO Start: 07-05-2023 take 1 tablet by boo three times weekly azithromycin (ZITHROMAX) 500 mg tablet Take 500 mg by mouth three times a week. Mon sun and sun07/05/2023 Active Comment on above: Dr. Ellie galeasbenzaprine hydrochloride 10 mg oral tablet (20 sources) Muscle Relaxant Start: 2014 End: 2015 take 1 tablet by mouth at bedtime as needed Cyclobenzaprine HCl 10 MG Oral Tablet ; 1 (one) Tablet at bedtime, as needed for 0 days Quantity: 7 {Tablet} Refills: 1 Ordered: 10-Nov-2016 KIRA Arellano Start: 23-Nov-2014 End: 10-Nov-2016 Status: Inactive Comments: Medication taken as needed. Comment on above: Medication taken as needed. doxycycline hyclate 100 mg oral tablet (20 sources) Tetracycline-class Drug Start: 2021 End: 2021 take 1 tablet by mouth twice daily Doxycycline Hyclate 100 MG Oral Tablet ; 1 (one) Tablet bid for 10 days Quantity: 20 {Tablet} Refills: 0 Ordered: 01-Jul-2022 MD Sanjay KASPER Start: 01-Jul-2022 End: 11-Jul-2022 Status: Inactive ethambutol hydrochloride 400 mg oral tablet (20 sources) Antimycobacterial Start: 2023 End: 2024 take 1 tablet by mouth three times weekly Ethambutol (Myambutol) 400 mg tablet Discontinued 400 mg PO 3 TIMES A WEEK May 14, 2024 12:00am January 26, 2025 3:22pm Start: 07-05-2023 take 1 tablet by mouth once et hambutol (MYAMBUTOL) 400 mg tablet Take 400 mg by mouth every Sunday, Sunday, and Sunday. 07/05/2023 Active ethambutoL 400 m g tablet ; 3 three times per week (400 mg) Comments: Dr. Argueta Comment on above: Dr. Argueta Fluticasone Furoate (20 sources) Corticosteroid Start: 05-31-2023 End: 01-26-2025 Fluticasone Furoate 200 mcg/actuation blister with device Discontinued 1 NMA INHALATION DAILY May 31, 2023 12:00am January 26, 2025 3:22pm Start: 05-31-2023 Fluticasone Fu roate Active 1 INH INHALATION DAILY May 31, 2023 12:00am Start: 11-10-2016 End: 11-20-2017 Fluticasone Propionate 50 MC G/ACT Nasal Suspension ; 1 (one) each nostril squirt two times daily for 0 days Quantity: 1 {Bottle} Refills: 5 Ordered: 20-Nov-2017 KIRA Madrid Start: 10-Nov-2016 End: 20-Nov-2017 Status: Inactive Arnuity Ellipta 200 mcg/actuation powder for inhalation ; 1 daily (200 mcg/actuat) Status: Inactive Arnuity Ellipta 200 mcg/actuation powder for inhalation ; 1 daily (200 mcg/actuat) iv contrast (will be provided with radiology test) (1 source) Start: 07-04-2024 End: 07-04-2024 inject 1 dose intravenously once, then inject 1 dose intravenously once iv contrast (will be provided with radiology test) Indications: Nontoxic multinodular goiter Inject 1 Each intravenously one time only for [address] Neck W IVCON No IV access, insert saline lock prior to the sedation, infusion, injection for imaging exam. Discontinue saline lock post exam. If Pt. has a central line or IVAD, may access for administration according to line specific nursing protocol. Once exam is complete flush line and de-access according to line specific nursing protocol in the CT contrast administration guidelines link. 1 Each 07/04/2024 07/04/2024 naproxen 500 mg oral tablet (20 sources) Nonsteroidal Anti-inflammatory Drug Start: 11-23-2014 End: 11-10-2016 take 1 tablet by mouth twice daily at mealtime Naproxen 500 MG Oral Tablet ; 1 (one) Tablet two times daily with food for 0 days Quantity: 20 {Tablet} Refills: 0 Ordered: 10-Nov-2016 KIRA Arellano Start: 23-Nov-2014 End: 10-Nov-2016 Status: Inactive rifAMPin 300 mg oral capsule (20 sources) Rifamycin Antibacterial Start: 05-14-2024 End: 01-26-2025 take 1 capsule by mouth three times weekly Rifampin 300 mg capsule Discontinued 300 mg PO 3 TIMES A WEEK May 14, 2024 12:00am January 26, 2025 3:22pm rifAMPin 300 mg capsule ; 2 Three times per week (300 mg) Comments: Dr. Argueta Comment on above: Dr. Argueta triamcinolone acetonide 1 mg/ml topical cream (20 sources) Corticosteroid Start: 02-22-2023 End: 03-05-2023 triamcinolone acetonide 0.1 % topical cream ; 1 (one) application bid prn itchiness for 14 days Quantity: 80 {Gram} Refills: 0 Ordered: 05-Mar-2023 Start: 22-Feb-2023 End: 05-Mar-2023 Status: Inactive Problems Active Problems Problem Classification Problem Date Documented Da te Episodic/Chronic Administrative/social admission (20 sources) Advance directive discussed with patient; Translations: [Other specified counseling] Onset: 01-09-2023 01-09-2023 Episodic Comment on above: 01/09/2023 Discussed Advance Directives with pt. Pt. does not have in place but will consider. Allergic reactions (20 sources) Eczema; Translations: [Dermatitis, unspecified] 02-22-2023 Episodic Cardiac dysrhythmias (20 sources) Palpitations; Translations: [Palpitations] 11-10-2016 Episodic Diseases of mouth; excluding dental (20 sources) Chronic sialadenitis; Translations: [Chronic sialoadenitis] Onset: 02-17-2023 03-13-2023 Episodic Comment on above: Left; Seeing Dr. Rios in [place] Diseases of white blood cells (20 sources) Leukopenia; Translations: [Decreased white blood cell count, unspecified] 03-05-2023 Chronic Headache; including migraine (20 sources) Daily headache; Translations: [Headache] 11-10-2016 Episodic Headache; including migraine (20 sources) Headache; including migraine 11-10-2016 Immunizations and screening for infectious disease (20 sources) Need for prophylactic vaccination and inoculation against influenza 09-11-2013 Episodic Nonmalignant breast conditions (2 sources) Pain of breast; Translations: [Mastodynia] 05-14-2024 Episodic Nonspecific chest pain (20 sources) Chest pain; Translations: [Chest pain, unspecified] 04-08-2012 Episodic Osteoarthritis (20 sources) Arthritis; Translations: [Unspecified osteoarthritis, unspecified site] Onset: 05-20-2024 11-10-2016 Chronic Osteoporosis (20 sources) Age-related osteoporosis without current pathological fracture; Translations: [Osteoporosis, unspecified] Onset: 04-19-2024 05-04-2023 Chronic Other and unspecified benign neoplasm (2 sources) Melanocytic nevus; Translations: [Melanocytic nevi, unspecified] 02-16-2024 Episodic Other bone disease and musculoskeletal deformities (20 sources) Osteopenia; Translations: [Other specified disorders of bone density and structure, unspecified site] 06-30-2022 Episodic Other bone disease and musculoskeletal deformities (3 sources) Other specified disorders of bone density and structure, unspecified site; Translations: [Disorder of bone and cartilage, unspecified] 05-04-2023 Episodic Other circulatory disease (20 sources) Elevated blood pressure reading without diagnosis of hypertension 06-06-2023 Episodic Comment on above: If needs meds b-bloc ker would be good for her. Other circulatory disease (20 sources) Elevated blood pressure; Translations: [Elevated blood-pressure reading, without diagnosis of hypertension] 02-22-2023 Episodic Other connective tissue disease (20 sources) Muscle pain; Translations: [Myalgia, unspecified site] 11-23-2014 Episodic Other connective tissue disease (20 sources) Foot pain; Translations: [Pain in unspecified foot] 07-24-2014 Episodic Other connective tissue disease (20 sources) Lateral epicondylitis 10-08-2012 Episodic Other lower respiratory disease (20 sources) Cough; Translations: [Cough] 11-20-2017 Episodic Other lower respiratory disease (20 sources) Radiologic infiltrate of lung ; Translations: [Other nonspecific abnormal finding of lung field] 02-22-2023 Episodic Other lower respiratory disease (20 sources) Nodule of lung; Translations: [Solitary pulmonary nodule] 07-01-2022 Episodic Other non-traumatic joint disorders (20 sources) Pain in right knee; Translations: [Pain in joint, lower leg] 12-07-2022 Episodic Other screening for suspected conditions (not mental disorders or infectious disease) (20 sources) Patient encounter status; Translations: [Encounter for screening for malignant neoplasm of colon] 07-21-2022 Episodic Other skin disorders (20 sources) Raised seborrheic keratosis; Translations: [Other seborrheic keratosis] 02-16-2024 Episodic Other skin disorders (1 source) Vesicular eczema; Translations: [Dyshidrosis [pompholyx]] 11-21-2024 Episodic Other skin disorders (1 source) Inflamed seborrheic keratosis; Translations: [Inflamed seborrheic keratosis] 11-21-2024 Episodic Other skin disorders (1 source) Dyshidrosis [pompholyx]; Translations: [Dyshidrotic eczema] Onset: 11-21-2024 Episodic Other upper respiratory infections (20 sources) Acute bacterial sinusitis; Translations: [Acute sinusitis, unspecified] 11-20-2017 Episodic Pneumonia (except that caused by tuberculosis or sexually transmitted disease) (20 sources) Non-tuberculous mycobacterial pneumonia; Translations: [Pulmonary mycobacterial infection] Onset: 06-17-2025 02-16-2024 Episodic Residual codes; unclassified (20 sources) Submandibular salivary gland swelling; Translations: [Localized edema] Onset: 01-09-2023 02-22-2023 Episodic Comment on above: Left more than right Skin and subcutaneous tissue infections (20 sources) Disorder due to infection; Translations: [Local infection of the skin and subcutaneous tissue, unspecified] Onset: 11-21-2024 12-11-2022 Episodic Sprains and strains (20 sources) Injury of knee; Translations: [Sprain of other specified parts of right knee, initial encounter] 03-05-2023 Episodic Thyroid disorders (20 sources) Multinodular goiter; Translations: [Nontoxic multinodular goiter] Onset: 06-17-2024 05-04-2023 Chronic Unclassified (20 sources) ER, 03/22/12, Chest pain, Admit Dr Beasley 03-25-2012 Unclassified (20 sources) !Patient notification of lab results - [facility]. The test(s) that you had done were/was a chest X-ray (Your chest xray was negative for a pneumonia. The radiologist said there was some hyperinflation that can be seen with COPD (chronic obstructive lung disease) but that she wouldn't necessarily say there is COPD present unless your clinical symptoms support that. Based on your history (you've not been a smoker) and my exam, I don't think COPD is at all likely. I would simply suggest that if you do not feel that your cough is clearing completely over the next month, you should follow up so that we may determine whether any further testing is indicated.). 11-21-2017 Viral infection (20 sources) Viral disease; Translations: [Viral infection, unspecified] 11-23-2014 Episodic Past or Other Problems Problem Classification Problem Date Documented Date Episodic/Chronic Other and unspecified benign neoplasm (12 sources) Hemangioma; Translations: [Hemangioma unspecified site] Onset: 06-27-2018 06-27-2018 Episodic Other and unspecified benign neoplasm (12 sources) Benign neoplasm of skin of lower limb; Translations: [Other benign neoplasm of skin of unspecified lower limb, including hip] Onset: 08-03-2009 Resolved: 01-01-2014 01-01-2014 Episodic Other diseases of veins and lymphatics (12 sources) Venous stasis; Translations: [Other specified disorders of veins] Onset: 06-27-2018 06-27-2018 Episodic Other lower respiratory disease (2 sources) Other nonspecific abnormal finding of lung field; Translations: [Other nonspecific abnormal finding of lung field] Onset: 07-01-2022 Episodic Other lower respiratory disease (2 sources) Solitary pulmonary nodule; Translations: [Solitary pulmonary nodule] Onset: 06-23-2022 Episodic Other skin disorders (12 sources) Lentiginosis; Translations: [Other melanin hyperpigmentation] Onset: 06-27-2018 06-27-2018 Episodic Other skin disorders (12 sources) Seborrheic keratosis; Translations: [Other seborrheic keratosis] Onset: 06-27-2018 06-27-2018 Episodic Pleurisy; pneumothorax; pulmonary collapse (1 source) Atelectasis; Translations: [Atelectasis] Onset: 02-04-2025 Episodic Residual codes; unclassified (12 sources) Family history of malignant neoplasm of skin; Translations: [Family history of malignant neoplasm of other organs or systems] Onset: 06-27-2018 06-27-2018 Episodic Tuberculosis (1 source) Respiratory tuberculosis unspecified; Translations: [Respiratory tuberculosis unspecified] Onset: 02-12-2025 Episodic Unclassified (20 sources) HYPERTENSION - There has been no associated chest pain, diaphoresis, dyspnea, edema, headache, palpitations, syncope, visual disturbances or weakness. Note for HYPERTENSION: BP from home 05/29/23 113/ 116/ 118/ 110/ 117/ 110/ 110/ 115/69 06-09-2023 Unclassified (20 sources) Pre-Op Visit - Note for Pre-op visit: Pt. scheduled at [facility] for right knee arthroscopy with partial med/lat meniscectomy on 03/09/23. 03-06-2023 Unclassified (20 sources) Rash - Note for Rash: Few weeks rash on back. C/O of buzzing sensation to area. 02-22-2023 Unclassified (20 sources) !Patient notification of lab results - Dr. Kasper. The test(s) that you had done were/was an ultrasound. (This showed several nodules that don't need to be biopsied at this time, but that should be rechecked in 1,2,3, and 5 years to monitor any changes.). You should call our office if you have any questions. 01-24-2023 Unclassified (20 sources) !Patient notification of lab results - Dr. Kasper. The test(s) that you had done were/was a CT scan (D/W pt on phone. No submandibular concerns but thyroid nodule and needs U/S. Pt. agrees.). 01-18-2023 Unclassified (20 sources) Blood pressure check - Note for Blood pressure check-up: Pt checks BP at home and it runs lower. She denies chest pain or headaches. 01-12-2023 Unclassified (20 sources) Injury - The patient reports that it was accidental and happened at home. The date of the injury was on 12-06-22. The injury is described as being located in the leg (right). Note for Injury: cat scratch 12-11-2022 Unclassified (20 sources) !Patient notification of lab results - Dr. Kasper. The test(s) that you had done were/was blood work (The white blood cell count was slightly low. These are cells that help fight infections. They were not so low that I am concerned that you will have a problem with infection, but the count should be repeated in 6 months to be certain that the count is stable. Please call to set up the test.). 07-03-2022 Unclassified (20 sources) Follow up Tests results - Note for Follow up to discuss laboratory test results: Here to review CT of 06/27/22 07-03-2022 Unclassified (20 sources) !Patient notification of lab results - Dr. Kasper. The test(s) that you had done were/was blood work. The results of your testing were normal . You should call our office if you have any questions. 06-26-2022 Unclassified (20 sources) Follow up Tests results - Note for Follow up to discuss laboratory test results: Abn in lungs on calcium scoring - CT recommended by specialist. 06-28-2022 Unclassified (20 sources) !Patient notification of lab results - Majo. The test(s) that you had done were/was blood work (The white blood cell count was slightly low. These are cells that help fight infections. They were not so low that I am concerned that you will have a problem with infection, but the count should be repeated in 3 months to be certain that the count is stable. The rest of the labs were normal). 11-21-2017 Unclassified (20 sources) cough - The onset of the cough has been acute and has been occurring in an intermittent pattern for months (2). The course has been increasing (over the last few days). The cough is characterized as productive of mucoid sputum (green). The symptoms have been associated with runny nose, while the symptoms have not been associated with fever or sore throat. Note for cough: Here for exam. 11-20-2017 Unclassified (20 sources) !Patient notification of lab results - Og. Note for !Patient notification of lab results : Devone, all your labwork looks excellent, including your cholesterol and sugar. I checked 2 labs concerning your arthritis. The one came back normal and the other one won't be back for some time yet. I will let you know if that one comes back positive (which would raise the concern for rheumatoid type arthritis). However, I expect it to be negative based on the other lab.Let us know if you have any questions. 11-12-2016 Unclassified (20 sources) Neck Pain - Symptoms include neck pain, neck stiffness and impaired range of motion. Symptoms are located in the entire neck. Onset was 1 week(s) ago (was lifting heavy object.). 11-23-2014 Unclassified (20 sources) [ADDITIONAL REASON] cough - The onset of the cough has been acute. The symptoms have been associated with runny nose (using mucinex.). Note for cough: . 11-23-2014 Unclassified (20 sources) Immunization - Influenza immunization was given. An immunization information sheet was provided. 09-11-2013 Unclassified (20 sources) Chest pain - Note for Chest pain: review stress tests.. 04-08-2012 Unclassified (20 sources) recheck - other illness (Review findings at physical 1 month ago. ). 12-19-2011 Unclassified (20 sources) Complete Physical - Female - The patient feels well with no complaints. Pap smear: Date: (several years ago in [place]). Note for Complete Physical - Female: has mamm scheduled for 11/16/2011, needs order 11-14-2011 Unclassified (20 sources) [ADDITIONAL REASON] Skin lesion - The skin lesion appeared gradually and has been occurring for 2 years. The skin lesion is characterized as brown, crusty and raised above the skin. The skin lesion is located on the trunk (right upper chest). There has been associated itching. 02-16-2024 Unclassified (7 sources) cough - The onset of the cough has been acute. The symptoms have been associated with runny nose (using mucinex.). Note for cough: . 11-23-2014 Unclassified (7 sources) [ADDITIONAL REASON] Neck Pain - Symptoms include neck pain, neck stiffness and impaired range of motion. Symptoms are located in the entire neck. Onset was 1 week(s) ago (was lifting heavy object.). 11-23-2014 Unclassified (4 sources) Skin lesion - The skin lesion appeared gradually and has been occurring for 2 years. The skin lesion is characterized as brown, crusty and raised above the skin. The skin lesion is located on the trunk (right upper chest). There has been associated itching. 02-16-2024 Unclassified (20 sources) !Patient notification of lab results - Dr. Kasper. The test(s) that you had done were/was a thyroid ultrasound (The radiologist is recommending further analysis of the cysts. Please follow up with Dr. uLis and we will send her the report). You should call our office if you have any questions. 04-23-2024 Unclassified (13 sources) !Patient notification of lab results - Dr. Kasper. The test(s) that you had done were/was a thyroid ultrasound (You had been referred to the chartered wealth manager last year regarding the thyroid nodules. Typically the follow up is handled by the chartered wealth manager but you had called this spring about the follow up ultrasounds that had been recommended by the radiologist in 2022. So I did order a follow up for this year but the radiologist this time indicated that they thought additional workup is needed. Since this is beyond my expertise, I again recommended having you follow up with endocrinology. However, we received a call from [facility] noting that you had declined to schedule a follow up at their office. I am concerned because the radiologist has concerns about the nodules and I think it's important for you to keep follow up with the chartered wealth manager. Please let us know if you would like to see a different chartered wealth manager or if there was some miscommunication and you would be willing to see the [facility] again. Regardless, I think it's very important for you to have this followed up under the care of an chartered wealth manager of your choice.Please let us know how we should proceed.). You should call our office if you have any questions. 05-05-2024 Unclassified (10 sources) !Patient notification of lab results - Dr. Kasper. The test(s) that you had done were/was a bone density study (This showed osteoporosis of the spine. At this point you will need to decide if you would be interested in taking medications to try to improve the bone density. These medications have potential side effects so not everyone chooses to take them. We can schedule you a visit to further discuss this or you may choose to discuss your options with your flag maker or your chartered wealth manager.). You should call our office if you have any questions. 05-12-2024 Results Test Name Value Interpretation Reference Range Facility HEPATIC FUNCTION PANELon Albumin [Mass/Vol] 3.9 g/dL Normal 3.4 - 5.0 [facility] Comment on above: Performed By: #### 2 91387 #### [address] [address] ALK PHOS 95 U/L Normal 46 - 116 [facility] Comment on above: Performed By: #### 2 02085 #### [facility],[address] [place] [address] ALT [Catalytic activity/Vol] 34 U/L Normal 16 - 63 [facility] Comment on above: Performed By: #### 2 95586 #### [address] [address] AST [Catalytic activity/Vol] 27 U/L Normal 13 - 39 [facility] Comment on above: Performed By: #### 2 45988 #### [address] [address] Bilirubin [Mass/Vol] 0.8 mg/dL Normal 0.2 - 1.0 [facility] Comment on above: Performed By: #### 2 65841 #### [facility],[address] [place] [address] Bilirubin.direct [Mass/Vol] 0.1 mg/dL Normal 0.0 - 0.2 [facility] Comment on above: Performed By: #### 2 27097 #### [facility],[address] [place] [address] Hepatic function 2000 panel Normal [facility] Comment on above: Result Comment: HEPA TIC FUNCTION PROFILE Performed By: #### 2 87655 #### [facility],[address] [place] [address] Protein [Mass/Vol] 7.5 g/dL Normal 6.4 - 8.2 [facility] Comment on above: Performed By: #### 2 10759 #### [facility],[address] [place] [address]159 Body Fluid Cell Count+Diffon 03-02-2025 PATH COMM/BF Reviewed Normal [facility] Comment on above: Order Comment: The r eference interval(s) and other method performance specifications are unavailable for this body fluid. Comparison of the result with concentration in the blood, serum, or plasma is recommended. Due to the viscosity of the specimen a cell count was unable to be performed. LEE ANN Result Comment: SEE REPORT IN PATIENT'S REPORT AMENDED REPORT 03/02/25 1158 PATH COMM/BF previously reported as: May follow Performed By: #### M 100.2400, L200.0200, M100.1999 #### [facility] [place], [address] C-REACTIVE PROTEINon 025 CRP [Mass/Vol] mg/L Normal 0.00 - 0.90 [facility] Comment on above: Performed By: #### 2 08256 #### [facility],[address] [place] [address] CBC + DIFFon 02-25-2025 Baso # 0.01 x10EE3/UL Normal 0.00 - 0.10 [facility] Comment on above: Performed By: #### 2 56557 #### [facility],[address] [place] [address] Basophils/100 WBC (Bld) 0.4 % Normal 0.0 - 2.0 [facility] Comment on above: Performed By: #### 2 80663 #### [facility],[address] [place] [address] CBC + DIFF Normal [facility] Comment on above: Result Comment: CBC- COMPLETE BLOOD COUNT Performed By: #### 2 15504 #### [facility],[address] [place] [address] EO # 0.13 x10EE3/UL Normal 0.00 - 0.50 [facility] Comment on above: Performed By: #### 2 96074 #### [facility],[address] [place] [address] Eosinophils/100 WBC (Bld) 4.4 % Normal 0.0 - 7.0 [facility] Comment on above: Performed By: #### 2 79041 #### [facility],[address] [place] [address] Erythrocyte distribution width (RBC) [Ratio] 12.7 % Normal 12.0 - 15.6 [facility] Comment on above: Performed By: #### 2 21388 #### [facility],[address] [place] [address] Hematocrit (Bld) [Volume fraction] 42.5 % Normal 34.0 - 46.0 [facility] Comment on above: Performed By: #### 2 15218 #### [facility],[address] [place] [address] Hemoglobin (Bld) [Mass/Vol] 15.0 g/dL Normal 12.0 - 16.0 [facility] Comment on above: Performed By: #### 2 16485 #### [facility],[address] [place] [address] Lymph # 0.79 x10EE3/UL Low 0.80 - 2.80 [facility] Comment on above: Performed By: #### 2 95939 #### [facility],[address] [place] [address] Lymphocytes/100 WBC (Bld) 27.5 % Normal 20.0 - 45.0 [facility] Comment on above: Performed By: #### 2 32707 #### [facility],[address] [place] [address] MANUAL DIFF N/A Normal [facility] Comment on above: Performed By: #### 2 74366 #### [facility],[address] [place] [address] MCH (RBC) [Entitic mass] 33 pg Normal 27 - 33 [facility] Comment on above: Performed By: #### 2 07564 #### [facility],[address] [place] [address] MCHC 35 X10 3 Normal 32 - 36 [facility] Comment on above: Performed By: #### 2 80212 #### [facility],[address] [place] [address] MCV (RBC) [Entitic vol] 92 fL Normal 80 - 99 [facility] Comment on above: Performed By: #### 2 14890 #### [facility],[address] [place] [address] Castro # 0.35 x10EE3/UL Normal 0.20 - 1.00 [facility] Comment on above: Performed By: #### 2 61488 #### [facility],[address] [place] [address] MONOS % 12.3 % High 0.0 - 10.0 [facility] Comment on above: Performed By: #### 2 38071 #### [facility],[address] [place] [address] Morphology Faraz (Bld) [Interp] N/A Normal [facility] Comment on above: Performed By: #### 2 26744 #### [facility],[address] [place] [address]137 Neut # 1.59 x10EE3/UL Normal 1.50 - 7.10 [facility] Comment on above: Performed By: #### 2 20856 #### [facility],[address] [place] [address] Neutrophils/100 WBC (Bld) 55.4 % Normal 46.0 - 76.0 [facility] Comment on above: Performed By: #### 2 69459 #### [facility],[address] [place] [address] PLATELET 159 x10EE3/UL Normal 150 - 450 [facility] Comment on above: Performed By: #### 2 04560 #### [facility],[address] [place] [address]273 Platelet mean volume (Bld) [Entitic vol] 8.1 fL Normal 6.6 - 10.5 [facility] Comment on above: Result Comment: AUTO MATED DIFFERENTIAL Performed By: #### 2 08182 #### [facility],[address] [place] [address] 14060 RBC 4.61 x 10EE6/UL Normal 4.10 - 5.30 [facility] Comment on above: Performed By: #### 2 62772 #### [facility],[address] [place] [address] WBC 2.9 x 10EE3/UL Low 4.5 - 10.8 [facility] Comment on above: Performed By: #### 2 72777 #### [facility],[address] [place] [address]37 CHEST 2 VIEWSon 02-25-2025 CHEST 2 VIEWS [place] [address] Patient: TETE HOWARD Phone#: : 1955 Age: 69 Gender: F Pt. Type: Out Account: [id number] Location: Ordering: BENSON ARGUETA Exam Date: 02/25/2025/6:02 Family Phys: Charge Code: [id number] Physician: [place] Order #: [id number] Dose#: PROCEDURE: X-RAY CHEST 2 VIEWS COMPARISON: [facility], BD, BONE DENSITY STUDY, 05/08/2024, 11:30. [facility], XR, CHEST 2 VIEWS, 02/21/2024, 5:38. INDICATIONS: Chest pain. FINDINGS: LUNGS: Normal. No significant pulmonary parenchymal abnormalities. VASCULATURE: Normal. Unremarkable pulmonary vasculature. CARDIAC: Normal. No cardiac silhouette abnormality or cardiomegaly. MEDIASTINUM: Normal. No visible mass or adenopathy. PLEURA: Normal. No effusion or pleural thickening. BONES: Normal. No fracture or visible bony lesion. OTHER: Negative. CONCLUSION: No acute disease. No significant change has occurred. Dictated by: Gali Coburn MD on 02/25/2025 at 8:16 Approved by: Gali Coburn MD on 02/25/2025 at 8:18 Normal [facility] SEDRATEon 02-25-2025 SEDRATE 2 mm/hr Normal 0 - 30 [facility] Comment on above: Performed By: #### 2 26548 #### [facility],[address] [place] [address] HEPATIC FUNCTION PANELon Albumin [Mass/Vol] 3.7 g/dL Normal 3.4 - 5.0 [facility] Comment on above: Performed By: #### 2 33192 #### [facility],[address] [place] [address] ALK PHOS 84 U/L Normal 46 - 116 [facility] Comment on above: Performed By: #### 2 06397 #### [facility],[address] [place] [address] ALT [Catalytic activity/Vol] 23 U/L Normal 16 - 63 [facility] Comment on above: Performed By: #### 2 78469 #### [facility],[address] [place] [address] AST [Catalytic activity/Vol] 18 U/L Normal 13 - 39 [facility] Comment on above: Performed By: #### 2 29038 #### [facility],[address] [place] [address] Bilirubin [Mass/Vol] 0.5 mg/dL Normal 0.2 - 1.0 [facility] Comment on above: Performed By: #### 2 60573 #### [facility],[address] [place] [address] Bilirubin.direct [Mass/Vol] 0.1 mg/dL Normal 0.0 - 0.2 [facility] Comment on above: Performed By: #### 2 38361 #### [facility],[address] [place] [address] Hepatic function 2000 panel Normal [facility] Comment on above: Result Comment: HEPA TIC FUNCTION PROFILE Performed By: #### 2 82886 #### [facility],[address] [place] [address] Protein [Mass/Vol] 7.0 g/dL Normal 6.4 - 8.2 [facility] Comment on above: Performed By: #### 2 79679 #### [facility],[address] [place] [address] Chest without Contraston Chest without Contrast [facility] [address] [place] [address] Chest without Contrast MR#: [id number] Acct: [id number] Name: TETE HOWARD Rep #: [id number] : 1955 F 69 From: Jacob wilson MD PCP: Dr. Benson Kasper MD Status: REG CLI Study: Chest without Contrast Date of Exam: 02/02/25 Exam# [id number] Ordering Dr: Benson Argueta MD PROCEDURE: CHEST WITHOUT CONTRAST 02/02/2025 REASON FOR EXAM: NON TB MICROBACTERIAL TECHNIQUE: Chest CT without contrast. Coronal and Sagittal reconstruction series were provided. One or more dose reduction techniques were used (e.g., Automated exposure control, adjustment of the mA and/or kV according to patient size, use of iterative reconstruction technique COMPARISON: Comparison is made with prior study dated June 29, 2023. RADIATION DOSE SUMMARY: CTDlvol: 6.08 mGy DLP: 220.33 mGycm FINDINGS: Hardware: None Lymph nodes: No significant adenopathy seen. Heart and Vasculature: Unremarkable Coronary Artery Calcifications: Absent Lungs and Airways: Mild degree of scarring with focal bronchiectasis in the lingular segment of the left upper lobe. There is also evidence of mild scarring in the posterior aspect of the left upper lobe. There has been improvement as compared to prior study. Pleura: Unremarkable Upper Abdomen: Unremarkable Bones: Mild degree of degenerative changes. CT/Chest without Contrast IMPRESSION: Mild scarring in the lingula segment of the left upper lobe with focal bronchiectasis as well as scarring in the posterior aspect of the left upper lobe. This has improved. Reading Location: [place] [address] CC: Dr. Benson Kasper MD; Dr. Benson Argueta MD Slotter Operator: Signed Normal [facility] No Panel Informationon 02-02 [facility], [employer].; [facility], [facility]. [facility], [facility].; [facility], [facility]. Gram Stainon 01-29-2025 GS UNK UNK HOLD TB CULTURE 6 WEEKS, SET UP SENSITIVITY Gram Stain 3+ Gram positive cocci 1+ Gram negative rods Rare White Blood Cells Normal [facility] Comment on above: Performed By: #### M 100.2400, L200.0200, M100.2000 #### [facility] [address] [place], [address] Respiratory Cultureon 2024 RESPC UNK UNK HOLD TB CULTURE 6 WEEKS, SET UP SENSITIVITY Mixed normal respiratory columb[place]. No Streptococcus pneumoniae, beta-hemolytic Streptococcus or Staphylococcus aureus isolated. Normal [facility] Comment on above: Performed By: #### M 100.2400, L200.0200, M100.2000 #### [facility] [address] [facility] [place], [address] Appearance (Body fld)Ordered By: Benson Argueta on 01-28-2025 Body Fluid Appearance TURBID [facility] Bronchoscopy Reporton 2024 Bronchoscopy Report [facility] Medical Records Department [address] [place] [address] Bronchoscopy Report MR#: [id number] Acct: [id number] Name: TETE HOWARD Rep #: [id number] : 1955 69 From: Benson Argueta MD PCP: Dr. Benson Kasper MD Status:REG [facility] Patient Name: Tete Howard Procedure Date: 01/28/2025 12:58 PM Date of : 1955 Age: 69 Procedure: Bronchoscopy Indications: Atelectasis of the left upper lobe Providers: Benson Argueta MD Referring MD: Benson Kasper Md Medicines: Lidocaine applied to nares and subglottic space, Lidocaine 2% applied to cords 8 mL Complications: No immediate complications Procedure: Pre-Anesthesia Assessment: - The History and Physical was reviewed prior to the procedure. The patient's medications, allergies and sensitivities have also been reviewed. After I obtained informed consent, the scope was passed under direct vision. Throughout the procedure, the patient's blood pressure, pulse, and oxygen saturations were monitored continuously.The procedure was accomplished without difficulty. The patient tolerated the procedure well. The bronchoscope was introduced through the and advanced to the. Findings: The bronchoscope was advanced until wedged at the desired location for bronchoalveolar lavage. BAL was performed in the LEE ANN anterior segment (B3) of the lung and sent for cell count, bacterial culture, viral smears culture, fungal AFB analysis and cytology for immunocompromised host protocol. 120 mL of fluid were instilled. 40 mL were returned. The return was cloudy. There were no mucoid plugs in the return fluid. [Multi samples]. Impression: - No specimens collected. MD Benson James MD 01/28/2025 2:13:12 PM This report has been signed electronically. Number of Addenda: 0 Note Initiated On: 01/28/2025 12:58 PM 01/28/25 1455 Date Benson Argueta MD Cosigner Signature: Date (if indicated) CC: Dr. Benson Kasper MD; Dr. Benson Argueta MD Date Dictated: 01/28/25 1258 Date Transcribed: Slotter Operator: RVS Signed Normal [facility] Cells counted Molgen (Bld/Ti ss) [#]Ordered By: Benson Argueta on 01-28-2025 Body Fluid Total Cells Counted TNP [facility] Comment on above: Test not performed Color (Body fld)Ordered By: Benson Argueta on 01-28-2025 Body Fluid Color COLORLESS [facility] Gram stainOrdered By: Benson Argueta on 01-28-2025 Microscopic observation Gram stain Nom (Unsp spec) [facility] - Hematology and Cell countson 01-28-2025 Lymphocytes (Bld) [#/Vol] 15 10*3/uL Normal [facility] - [facility] Work Phone: Lymphocytes/100 WBC (Body fl d)Ordered By: Benson Argueta on 01-28-2025 Body Fluid Lymphocytes 15 % [facility] MR/POSTOP.ANEon 01-28-2025 MR/POSTOP.ANE [facility] Medical Records Department [address] [place] [address] Anesthesia Postop Eval I 01/28/25 1411 MR#: [id number] Acct: [id number] Name: TETE HOWARD Rep #: [id number] : 1955 69 From: Sushant Pendleton CRNA PCP: Dr. Benson Kasper MD Status:REG [facility] Y Race: C Location: [place] [address] Anesthesia: Postop Eval I Current Vital Signs Temperature: 97.8 F Pulse Rate: 68 Blood Pressure: 107/61 Respiratory Rate: 16 Pulse Ox: 96 Oxygen Delivery Method: Room Air Assessment Airway patent: Yes Spontaneous unlabored respirations: Yes Mental status: Awake nausea: No Vomiting: No Anesthesia Complication: No Fluid Hydration Crystalloid volume administer (ml): 0 Total IV fluid infused: 0 Progress Note Anesthesia document: Postop Eval 1 completed: Yes 01/28/251411 Date Sushant Pendleton CRNA Cosigner Signature: Date CC: Signed Normal [facility] MR/[id number] 01-28-2025 MR/POSTOPAN2 [facility] Medical Records Department [address] [place] [address] Anesthesia Postop Eval II 01/28/25 1429 MR#: [id number] Acct: [id number] Name: TETE HOWARD Rep #: [id number] : 1955 69 From: Heriberto Ortez MD PCP: Dr. Benson Kasper MD Status:REG [facility] Y Race: C Location: [place] [address] Anesthesia Postop Eval I Sum Postop Eval Completion status Anesthesia document: Postop Eval 1 completed: Yes Anesthesia Postop Eval I Summary Anesthesia Postop Eval I Summary: Anesthesia Postop Eval I: Assessment Summary Airway patent Yes 01/28/25 14:12 LINUX [email or web address] Spontaneous unlabored Yes 01/28/25 14:12 LINUX ADMIN.[email or web address] respirations Mental status Awake 01/28/25 14:12 [employer] ADMIN[employer]PKEL nausea No 01/28/25 14:12 LINUX ADMIN.PKEL Vomiting No 01/28/25 14:12 LINUX ADMIN.PKEL Anesthesia Postop Eval I: Fluid Summary Crystalloid volume administer 0 01/28/25 14:12 LINUX ADMIN.PKEL (ml) Colloids volume administered ( ml) Blood Product volume administered (ml) Total IV fluid infused 0 01/28/25 14:12 LINUX ADMIN.PKEL Anesthesia Postop Eval I: Summary Notes Anesthesia Complication No 01/28/25 14:12 LINUX ADMIN.PKEL Anesthesia Complication Comment: Post-operative progress note Anesthesia: Postop Eval II Evaluation Mental status: Awake Pain Level: 0 nausea: No Vomiting: No 01/28/25 1429 Date Heriberto Barnes Signature: Date CC: Signed Normal [facility] Mesothelial cells/100 WBC (B vivien fld)Ordered By: Benson Argueta on 01-28-2025 Body Fluid Mesothelial Cells 5 % [facility] Microorganism identified Cx Nom (Unsp spec)Ordered By: Benson Argueta on 01-28-2025 Respiratory Culture or Staphylococcus au reus isolated. [facility] Monocyte detectionOrdered By : Benson Argueta on 01-28-2025 Body Fluid Monocytes 4 % [facility] No Panel InformationOrdered By: Benson Argueta on 01-28-2025 Body Fluid Comment 2 Not Reportable [facility] No Panel Informationon 01-28 [facility], [facility].; [facility] [employer] [facility] APPEAR/BF TURBID Normal [facility] [employer] [facility] [employer] [facility] Work Phone: BFTC# Normal [facility] [employer] [facility] [employer] [facility] Work Phone: COLOR/BF COLORLESS Normal [facility] Work Phone: GS See Note [facility] Work Phone: MESOTHELIAL 5 Normal [facility], [facility].; [facility] Work Phone: MONO/BF 4 Normal [facility] Work Phone: PATH COMM/BF May follow [facility], [facility].; [facility] Work Phone: PMN 76 [facility] Work Phone: RBC/BF Normal [facility] Work Phone: RESPC See Note Normal [facility] Work Phone: SOURCE/BF BRONCHIAL LAVAGE Normal [facility] Work Phone: WBC/BF Normal [facility] Work Phone: Pathologist interpretation ( Body fld) [Interp]Ordered By: Benson Argueta on 01-28-2025 Body Fluid Pathologist Comment May follow [facility] RBC (Body fld) [#/Vol]Ordere d By: Benson Argueta on 01-28-2025 Body Fluid RBC TNP [facility] Comment on above: Test not performed Segmented neutrophils (Body fld) [#/Vol]Ordered By: Benson Argueta on 01-28-2025 Body Fluid Neutrophils 76 % [facility] Specimen source Nom (Body fl d)Ordered By: Benson Argueta on 01-28-2025 Body Fluid Source BRONCHIAL LAVAGE [facility] WBC (Body fld) [#/Vol]Ordere d By: Benson Argueta on 01-28-2025 Body Fluid WBC TNP [facility] Comment on above: Test not performed MR/PAT.ANEon 01-26-2025 MR/PAT.ANE [facility] Medical Records Department [address] [place] [address] PAT - Anesthesia 01/26/25 1554 MR#: [id number] Acct: [id number] Name: TETE HOWARD Rep #: [id number] : 1955 69 From: Heriberto Ortez MD PCP: Dr. 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 When Was Last Pacemaker Check QUESTION #4 FULL TEXT: You/Your Family Experience fever (hyperthermia) with Anesthesia Last Oral Intake Last Oral intake: Last Oral Intake NPO since Meds taken in AM with sips of water? Meds patient instructed to take am of surgery PONV PONV - cinder block maker: PONV - cinder block maker Female Yes 01/26/25 15:23 HX of Motion Sickness No 01/26/25 15:23 HX of N/V After Surgery No 01/26/25 15:23 Non-Smoker Yes 01/26/25 15:23 Duration of Surgery greater Yes 01/26/25 15:23 than 60 minutes Number of Risk Factors 3 01/26/25 15:23 PONV Score Moderate Risk 01/26/25 15:23 Height Weight Height Weight: Anesthesia: Height Weight Height 5 ft 5 in 05/14/24 15:08 Respiratory Assessment Respiratory Assessment - cinder block maker: Respiratory Tract Infection Hx - cinder block maker Hx Respiratory Tract Infection No 01/26/25 15:23 STOP Sleep Apnea STOP Sleep Apnea - cinder block maker: STOP Sleep Apnea - cinder block maker Hx Hypertension No 01/26/25 15:23 Hx Sleep Apnea No 01/26/25 15:23 CPAP BIPAP Do you snore loudly (louder No 01/26/25 15:23 than talking or can be heard Do you often feel tired/ No 01/26/25 15:23 fatigued/ sleepy during daytime? Has anyone observed you stop No 01/26/25 15:23 breathing during sleep? STOP Results Negative 01/26/25 15:23 QUESTION #5 FULL TEXT : Do you snore loudly (louder than talking or can be heard through closed doors)? 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 confused, unrespo /Reproduction History /Reproductive History - cinder block maker: /Reproductive Hx- cinder block maker Hx Now No 01/26/25 15:23 Gestational Age (in weeks): EDC: Hx Hx Para Hx Section SAB No 01/26/25 15:23 PFSH Medical History (Updated 01/26/25 @ 15:29 by Stephany Roberts) Pulmonary mycobacterial infection Non-smoker Multinodular goiter Wears glasses Post-menopausal MRSA infection Arthritis History of echocardiogram History of stress test Cardiology follow-up encounter Home Medications ???Medication ???Instructions ???Recorded ???Last Taken ???Type calcium 500 mg (as 1 tab PO DAILY 09/12/22 Unknown Hi story carbonate)-vitamin D3 3.125 mcg (125 unit) tablet Allergy/AdvReac Type Severity Reaction Status Date / Time codeine Allergy Mild nausea Verified 01/26/25 15:21 Family History Mother Hypertension Father Hypertension Heart disease Surgical History (Updated 01/26/25 @ 15:29 by Stephany Roberts) History of bronchoscopy Hx of parotidectomy Hx of bilateral cataract extraction Hx of right knee surgery Hx of left knee surgery History of colonoscopy s/p toe surgery H (more content not included)... Normal [facility] No Panel Informationon 01-15 [facility] CNOVon 01-13-2025 CNOV Office Visit (ENWSTR ) TETE HOWARD ([id number]) 1955 F Date Time Provider Department 01/13/25 4:20 PM LIBRADO GUERRIER ENWSTR During your visit today, we recorded the following information about you: Temperature Pulse Blood pressure Weight 98.7 degrees 66/minute 124/76 57.3 kg Librado Guerrier MD 01/13/2025 6:50 PM Addendum [facility] Follow up note Chief Complaint: Multiple thyroid nodules, Osteoporosis HPI: Tete Howard is a 69 year old female who is coming today for evaluation of low BMD. She was seen by me on 06/17/24 for thyroid nodules and we discussed in detail about nodules and FNAB She was noted to have thyroid nodules when CT scan neck for salivary gland issue last year, further evaluation with thyroid US revealed multinodular goiter. She was seen by endocrinology and was recommended to monitor. 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 smoking: no Family history of thyroid cancer: no Family history of thyroid nodules: no Family history: Elisha's disease in sister Osteoporosis of spine: No hx of fragility fractures, no kidney stones No famiily history of osteo or hip fractures No hx of cancer personally, no radiation No bone health medications in the past Calcium +Vit D3 600 mg x2 +400 units daily, cheese every day, few almonds intermittently No HRT, steroids in the past Menopause 15 years ago No contraceptive use during reproductive years, normal after twin Interval history: 01/13/25: She reports she has been off of antibiotics for her lung problem for few weeks and already feels better with her joints, and going up the stairs. She feels that pain in her fingers is improved. She thinks that she does not have to start medications for osteoporosis. She reports she might be having bronchoscopy in 01/2025 after which a decision will be made if she needs to resume antibiotics PAST MEDICAL HISTORY Diagnosis Date Lung disease non tuberculosis mycrobactirium NONE PAST SURGICAL HISTORY Procedure Laterality Date BREAST BIOPSY Benign DELIVERY ONLY 1992 , low cervical COLONOSCOPY [place], age 51, rpt age 61 DILATION AND CURETTAGE DXAND/THER NONOBSTETRIC 2006 Dilation AND curettage - Benign pathology reviewed TONSILLECTOMY AND ADENOIDECTOMY ALLERGIES Allergen Reactions Codeine Vomiting Social History Tobacco Use Smoking status: Never Smokeless tobacco: Never Substance Use Topics Alcohol use: No Drug use: No FAMILY HISTORY Problem Relation Age of Onset Hypertension Mother Lipids Mother High Cholesterol GI Mother Heart Father heart attack and by-pass surgery Heart Paternal Grandmother heart attack Cancer Maternal Grandmother skin cancer Heart Maternal Aunt Several Maternal Aunts with heart disease Breast Cancer Maternal Aunt Breast Cancer Maternal Aunt Breast Cancer Other Maternal cousin - 50's Breast Cancer Other Maternal cousin - 50's MEDICATIONS: Current Outpatient Medications on File Prior to Visit Medication Sig azithromycin (ZITHROMAX) 500 mg tablet Take 500 mg by mouth three times a week. Sun and sun ethambutol (MYAMBUTOL) 400 mg tablet Take 400 mg by mouth every Sunday, Sunday, and Sunday. rifAMPin (RIFADIN) 300 mg capsule Take 600 mg by mouth three times a week. No current facility-administered medications on file prior to visit. REVIEW OF SYSTEMS: As per HPI PHYSICAL EXAMINATION: 01/13/25 1612 BP: 124/76 BP Site: Right Arm BP Position: Sitting BP Cuff Size: Regular Adult Pulse: 66 Temp: 37.1 ?C (98.7 ?F) TempSrc: Temporal Artery SpO2: 98% Weight: 57.3 kg (126 lb 6.4 oz) General: no acute distress, alert and orientated X 3, wears a mask Eyes:EOMI, anicteric sclera Neck - supple, no significant adenopathy Thyroid: enlarged in size, grossly asymmetric, bilateral palpable nodules Neuro: alert, oriented, normal speech, no focal findings noted CV: normal rate and regular rhythm, S1 and S2 normal. Chest: unlabored breathing on room air Musculoskeletal: no joint tenderness, deformity or swelling Extremities: no edema, no discoloration Skin: no rash or erythema LABS AND IMAGING Latest Ref Rng 06/17/2024 TSH 0.270 - 4.200 mIU/L 1.660 Latest Ref Rng 07/11/2024 08/04/2024 Protein, Total 6.3 - 8.0 g/dL 6.9 6.9 Albumin (more content not included)... Normal [facility] CNOVon 11-21-2024 CNOV Office Visit (DERMUP ) TETE HOWARD ([id number]) 1955 F Date Time Provider Department 1/3/25 9:45 AM JASMIN JACKSON During your visit today, we recorded the following information about you: Jasmin Jackson MD 11/21/2024 10:34 AM Signed HPI: Ms. Howard is a 69 year old female with a several month(s) history of painful, red rash on the hands that are cracked and open and sore. It does itch at times and she has used multiple hand creams without improvement. She works with [employer] all day so constantly in water. 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 It gets caught on her bra, has grown in size and bleeds when she washes over it with her washcloth or loofah. She is wondering about removal. No other particular skin concerns today. ALLERGIES Allergen Reactions Codeine Vomiting Current Outpatient Medications Medication Sig calcium Carbonate 300 mg, 750mg, (TUMS) 300 mg (750 mg) chewable tablet Take 1 tablet by mouth once daily. azithromycin (ZITHROMAX) 500 mg tablet Take 500 mg by mouth three times a week. Sun and sun ethambutol (MYAMBUTOL) 400 mg tablet Take 400 mg by mouth every Sunday, Sunday, and Sunday. rifAMPin (RIFADIN) 300 mg capsule Take 600 mg by mouth three times a week. cephALEXin (KEFLEX) 500 mg capsule Take 1 capsule by mouth three times a day for 5 days. clobetasol (TEMOVATE) 0.05 % cream Apply topically bid to red, scaly patches or fissures on hands clobetasol (TEMOVATE) 0.05 % cream Apply topically bid to hands when red/scaly/sore No current facility-administered medications for this visit. PAST MEDICAL HISTORY Diagnosis Date Lung disease non tuberculosis mycrobactirium NONE FAMILY HISTORY Problem Relation Age of Onset Hypertension Mother Lipids Mother High Cholesterol GI Mother Heart Father heart attack and by-pass surgery Heart Paternal Grandmother heart attack Cancer Maternal Grandmother skin cancer Heart Maternal Aunt Several Maternal Aunts with heart disease Breast Cancer Maternal Aunt Breast Cancer Maternal Aunt Breast Cancer Other Maternal cousin - 50's Breast Cancer Other Maternal cousin - 50's Social History Tobacco Use Smoking status: Never Smokeless tobacco: Never Substance Use Topics Alcohol use: No Drug use: No REVIEW OF SYSTEMS: Patient feels well and denies any recent fevers, chills, or nightsweats. PE: There were no vitals taken for this visit. General appearance: Well appearing, alert, in no acute distress, well-hydrated, well nourished. Skin: All areas examined including: scalp, face, conjunctiva/eyelids, lips/mouth, neck, chest, left upper extremity, right upper extremity, digits/nails. -erythematous scaly plaques of b/l hands with fissuring and swelling noted of right 3rd and 4th fingers -dark brown fissured papule of right breast Treated 1 lesion(s) of right breast with liquid nitrogen cryotherapy for two 10-15 second freeze/thaw cycles. Irritation after treatment is expected which can even include blister formation. This will heal in 7-10 days. Recommend application of white petrolatum to speed healing. Written and verbal instructions provided to patient. Patient left the clinic in good condition. ASSESSMENT/PLAN: 1. Dyshidrotic eczema - ICD9: 705.81, ICD10: L30.1 (primary diagnosis) -eRx sent for clobetasol 0.05% cream to apply topically BID -recommend sensitive skin care measures daily -Recommend liberal use of emollients such as white petrolatum, Aveeno, Eucerin, Aquaphor or Vanicream. Use is recommended twice per day, especially after contact with water. -discussed triggers and waxing/waning course with patient 2. Secondary impetiginization - ICD9: 684, ICD10: L01.1 - Systemic treatment with Cephalaxin (Keflex) x 5 days - Skin care and contagious disease precautions discussed - Follow up if symptoms persist or fail to resolve 3. Inflamed seborrheic keratosis - ICD9: 702.11, ICD10: L82.0 -right breast, treated today with cryotherapy, see note -benign, patient reassured Jasmin Jackson MD Return for If no improvement or if symptoms worsen. Jasmin Jackson MD 11/21/2024 9:54 AM Signed Cool down water temperature when washing hands to preserve the oils on the hands. Try to moisturize your hands when you can keep them out of water. Use the Rx cream twice a day until we get areas healed. Cerave cream or Neutrogena israeli formula for moisturizing cream. Vaseline on cracks/fissures to get them to heal. Allergies As of Date: 11/21/2024 Noted Allergy Reaction CODEINE 06/27/2018 11 - Vomiting Date Reviewed: 11/21/2024 Reviewed by: Bre Nur MA - Fully Assessed Reason for Visit: Derm Problem [33] Cmt: B/l hands - crack and bleed They are raw and very itchy LESION, SKIN [936] Cmt: Spot concern right chest (more content not included)... Normal [facility] HEPATIC FUNCTION PANELon Albumin [Mass/Vol] 3.7 g/dL Normal 3.4 - 5.0 [facility] Work Phone: Comment on above: Performed By: #### 2 [id number] #### [address] [address] ALK PHOS 80 U/L Normal 46 - [address] [facility].; [facility] [employer] [facility] Work Phone: Comment on above: Performed By: #### 2 [id number] #### [address] [address] ALT [Catalytic activity/Vol] 25 U/L Normal 16 - 63 [facility] Work Phone: Comment on above: Performed By: #### 2 [id number] #### [address] [address] AST [Catalytic activity/Vol] 21 U/L Normal 13 - 39 [facility].; [facility] Work Phone: Comment on above: Performed By: #### 2 [id number] #### [address] [address] Bilirubin [Mass/Vol] 0.9 mg/dL Normal 0.2 - 1.0 [facility] Work Phone: Comment on above: Performed By: #### 2 [id number] #### [facility],[address] [place], [place] [id number] Bilirubin.direct [Mass/Vol] 0.2 mg/dL Normal 0.0 - 0.2 [facility] Comment on above: Performed By: #### 2 65202 #### [facility],[address] [place], [place] [id number] Hepatic function 2000 panel Normal [facility] Comment on above: Result Comment: HEPA TIC FUNCTION PROFILE Performed By: #### 2 [id number] #### [facility],[address] [place], [place] [id number] Protein [Mass/Vol] 7.1 g/dL Normal 6.4 - 8.2 [facility] Work Phone: Comment on above: Performed By: #### 2 88934 #### [facility],[address] [place], [place] [id number] Laboratory - Chemistry and C hemistry - challengeon 11-16-2024 Bilirubin.conjugated [Mass/Vol] 0.2 mg/dL Normal 0.0 - 0.2 mg/dL [facility] Work Phone: Hepatic function 2000 panel Normal [facility] Work Phone: IGA [CCL]on 10-07-2024 IgA [Mass/Vol] 503 mg/dL High 70-400 [facility] Comment on above: Result Comment: [facility] [address] [place] [address] Yong Mathews III, M.D. [id number] Performed By: #### 2 [id number] #### [facility],[address] [place] [address] IGE [CCL]on 10-07-2024 IgE Qn [IU]/L Normal <114.0 [facility] Comment on above: Result Comment: Resu lt rechecked. [facility] [address] [place] [address] Yong Mathews III, M.D. [id number] Performed By: #### 2 11883 #### [facility],[address] [place] [address] IGG [CCL]on 10-07-2024 IgG [Mass/Vol] 935 mg/dL Normal 700-1600 [facility] Comment on above: Result Comment: [facility] [address] [place] [address] Yong Mathews III, M.D. [id number] Performed By: #### 2 [id number] #### [facility],[address] [place] [address] IGM [CCL]on 10-07-2024 IgM [Mass/Vol] 43 mg/dL Normal 40-230 [facility] Comment on above: Result Comment: [facility] [address] [place] [address] Yong Mathews III, M.D. [id number] Performed By: #### 2 [id number] #### [facility],[address] [place] [address] Laboratory - Chemistry and C hemistry - challengeon 10-04-2024 IgA [Mass/Vol] 503 mg/dL Abnormal 70 - 400 mg/dL [facility] Work Phone: IgE Qn [IU]/L Normal [facility]; [facility] Work Phone: IgG [Mass/Vol] 935 mg/dL Normal 700 - 1600 mg/dL [facility]. Work Phone: IgM [Mass/Vol] 43 mg/dL Normal 40 - 230 mg/dL [facility]; [facility] Work Phone: CNOVon 09-11-2024 CNOV Office Visit (ENWSTR ) TETE HOWARD ([id number]) 1955 F Date Time Provider Department 09/11/24 9:20 AM LIBRADO GUERRIER ENWSTR During your visit today, we recorded the following information about you: Temperature Pulse Blood pressure Weight 98.7 degrees 77/minute 128/76 57.4 kg Height 1.638 m Librado Guerrier MD 09/11/2024 7:06 PM Addendum [facility] Follow up note Chief Complaint: Multiple thyroid nodules, Osteoporosis HPI: Tete Howard is a 68 year old female who is coming today for evaluation of low BMD. She was seen by me on 06/17/24 for thyroid nodules and we discussed in detail about nodules and FNAB She was noted to have thyroid nodules when CT scan neck for salivary gland issue last year, further evaluation with thyroid US revealed multinodular goiter. She was seen by endocrinology and was recommended to monitor. 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 smoking: no Family history of thyroid cancer: no Family history of thyroid nodules: no Family history: Elisha's disease in sister Osteoporosis of spine: No hx of fragility fractures, no kidney stones No famiily history of osteo or hip fractures No hx of cancer personally, no radiation No bone health medications in the past Calcium +Vit D3 600 mg x2 +400 units daily, cheese every day, few almonds intermittently No HRT, steroids in the past Menopause 15 years ago No contraceptive use during reproductive years, normal after twin PAST MEDICAL HISTORY Diagnosis Date NONE PAST SURGICAL HISTORY Procedure Laterality Date BREAST BIOPSY Benign DELIVERY ONLY 1992 , low cervical COLONOSCOPY [place], age 51, rpt age 61 DILATION AND CURETTAGE DXAND/THER NONOBSTETRIC 2005 Dilation AND curettage - Benign pathology reviewed TONSILLECTOMY AND ADENOIDECTOMY ALLERGIES Allergen Reactions Codeine Vomiting Social History Tobacco Use Smoking status: Never Smokeless tobacco: Never Substance Use Topics Alcohol use: No Drug use: No FAMILY HISTORY Problem Relation Age of Onset Hypertension Mother Lipids Mother High Cholesterol GI Mother Heart Father heart attack and by-pass surgery Heart Paternal Grandmother heart attack Cancer Maternal Grandmother skin cancer Heart Maternal Aunt Several Maternal Aunts with heart disease Breast Cancer Maternal Aunt Breast Cancer Maternal Aunt Breast Cancer Other Maternal cousin - 50's Breast Cancer Other Maternal cousin - 50's MEDICATIONS: Current Outpatient Medications on File Prior to Visit Medication Sig azithromycin (ZITHROMAX) 500 mg tablet Take 500 mg by mouth three times a week. Sun and sun ethambutol (MYAMBUTOL) 400 mg tablet Take 400 mg by mouth every Sunday, Sunday, and Sunday. rifAMPin (RIFADIN) 300 mg capsule Take 600 mg by mouth three times a week. No current facility-administered medications on file prior to visit. REVIEW OF SYSTEMS: As per HPI PHYSICAL EXAMINATION: BP: 128/76 Temp: 37.1 ?C (98.7 ?F) Temp src: Temporal Artery Pulse: 77 SpO2: 98 % General: no acute distress, alert and orientated X 3, wears a mask Eyes:EOMI, pupils are equally round, anicteric sclera Neck - supple, no significant adenopathy Thyroid: enlarged in size, grossly asymmetric, bilateral palpable nodules Neuro: alert, oriented, normal speech, no focal findings noted CV: normal rate and regular rhythm, S1 and S2 normal. Chest: unlabored breathing on room air Abdominal: soft, non-tender. Bowel sounds normal. Musculoskeletal: no joint tenderness, deformity or swelling Extremities: no edema, no discoloration Skin: no rash or erythema LABS AND IMAGING Latest Ref Rng 06/17/2024 TSH 0.270 - 4.200 mIU/L 1.660 Latest Ref Rng 07/11/2024 08/04/2024 Protein, Total 6.3 - 8.0 g/dL 6.9 6.9 Albumin 3.9 - 4.9 g/dL 4.2 4.3 Calcium 8.5 - 10.2 mg/dL 8.9 9.3 Bilirubin, Total 0.2 - 1.3 mg/dL 0.6 0.4 Alkaline Phosphatase 34 - 123 U/L 72 77 AST 13 - 35 U/L 21 20 ALT 7 - 38 U/L 15 13 Glucose 74 - 99 mg/dL 86 100 (H) BUN 7 - 21 mg/dL 13 14 Creatinine 0.58 - 0.96 mg/dL 0.57 (L) 0.63 Sodium 136 - 144 mmol/L 137 140 Potassium 3.7 - 5.1 mmol/L 4.1 3.9 Chloride 98 - 107 mmol/L 103 105 CO2 22 - 30 mmol/L 23 24 Anion Gap 8 - 15 mmol/L 11 11 eGFR >=60 mL/min/1.73m? 100 97 Calcium, 24 (more content not included)... Normal [facility] HEPATIC FUNCTION PANELon Albumin [Mass/Vol] 3.8 g/dL Normal 3.4 - 5.0 [facility], [facility].; [facility] Work Phone: Comment on above: Performed By: #### 2 67289 #### [facility],[address] [place] [address] ALK PHOS 80 U/L Normal 46 - 116 [facility]; [facility] Work Phone: Comment on above: Performed By: #### 2 11513 #### [facility],[address] [place], [place] [id number] ALT [Catalytic activity/Vol] 24 U/L Normal 16 - 63 [facility].; [facility], [facility]. Work Phone: Comment on above: Performed By: #### 2 51783 #### [facility],[address] [place], [place] [id number] AST [Catalytic activity/Vol] 21 U/L Normal 13 - 39 [facility].; [facility], [facility]. Work Phone: Comment on above: Performed By: #### 2 77557 #### [facility],[address] [place], [place] [id number] Bilirubin [Mass/Vol] 0.9 mg/dL Normal 0.2 - 1.0 [facility]; [facility]. Work Phone: Comment on above: Performed By: #### 2 27994 #### [facility],[address] [place], [place] [id number] Bilirubin.direct [Mass/Vol] 0.2 mg/dL Normal 0.0 - 0.2 [facility] Comment on above: Performed By: #### 2 86643 #### [facility],[address] [place], [place] [id number] Hepatic function 2000 panel Normal [facility] Comment on above: Result Comment: HEPA TIC FUNCTION PROFILE Performed By: #### 2 19309 #### [facility],[address] [place], [place] [id number] Protein [Mass/Vol] 7.7 g/dL Normal 6.4 - 8.2 [facility].; [facility] Work Phone: Comment on above: Performed By: #### 2 26039 #### [facility],[address] [place] [address] Laboratory - Chemistry and C hemistry - challengeon 08-23-2024 Bilirubin.conjugated [Mass/Vol] 0.2 mg/dL Normal 0.0 - 0.2 mg/dL [facility]; [facility]. Work Phone: Hepatic function 2000 panel Normal [facility]; [facility] Work Phone: CALCIUM, 24 HR URINEon 08-04 Calcium (24H U) [Mass/Time] 153.4 mg/24 hr Normal 100.0-300. 0 [facility] Comment on above: Order Comment: Speci men Type: URINE SPECIMENOrdering Facility: [facility] Address: [address] [place] [address] Performed By: #### U CALCD ####[facility] LABCLIA [id number] [place] [address] [place] [facility] [id number] [place] [address] [place] PERIOD (HRS) 24 hr Normal [facility] Comment on above: Order Comment: Speci men Type: URINE SPECIMENOrdering Facility: [facility] Address: [address] [place] [address] Performed By: #### U CALCD ####[facility] LABCLIA [id number] [place] [address] [place] [address] [facility] [facility] [id number] [place] [address] [place] Specimen volume (24H U) 2.95 L Normal [facility] Comment on above: Order Comment: Speci men Type: URINE SPECIMENOrdering Facility: [facility] Address: [address] [place] [address] Performed By: #### U CALCD ####[facility] LABCLIA [id number] [address] [id number] [place] [address] [place] CREATININE, 24 HOUR URINEon 08-04-2024 Creatinine (24H U) [Mass/Time] 0.861 g/24 hr Normal 0.800-1.80 0 [facility] Comment on above: Order Comment: Speci men Type: URINE SPECIMENOrdering Facility: [facility] Address: [address] [place] [address] Performed By: #### U CRD ####[facility] LABCLIA [id number] [address] [id number] [place] [address] [place] PERIOD (HRS) 24 hr Normal [facility] Comment on above: Order Comment: Speci men Type: URINE SPECIMENOrdering Facility: [facility] Address: [address] [place] [address] Performed By: #### U CRD ####[facility] LABIA [id number] [address] [id number] [place] [address] [place] Specimen volume (24H U) 2.95 L Normal [facility] Comment on above: Order Comment: Speci men Type: URINE SPECIMENOrdering Facility: [facility] Address: [address] [place] [address] Performed By: #### U CRD ####[facility] LABIA [id number] [address] [id number] [place] [address] [place] Comp Metab 2000 Pnl SerPlon 08-04-2024 Albumin [Mass/Vol] 4.3 g/dL Normal 3.9 - 4.9 g/dL [facility] [place] [employer] [facility] Work Phone: Comment on above: Order Comment: Speci men Type: BLOOD SPECIMENOrdering Facility: [facility] Address: [address] [place] [address] Performed By: #### 2 4323-8 ####[facility] LABIA [id number] [place] [address] [place] ALP [Catalytic activity/Vol] 77 U/L Normal 34 - 123 U/L [facility] Work Phone: Comment on above: Order Comment: Speci men Type: BLOOD SPECIMENOrdering Facility: [facility] Address: [address] [place] [address] Performed By: #### 2 4323-8 ####[facility] LABIA [id number] [place] [address] [place] ALT [Catalytic activity/Vol] 13 U/L Normal 7 - 38 U/L [facility] Work Phone: Comment on above: Order Comment: Speci men Type: BLOOD SPECIMENOrdering Facility: [facility] Address: [address] [place] [address] Performed By: #### 2 4323-8 ####[facility] LABIA [id number] [place] [address] [place] Anion gap [Moles/Vol] 11 mmol/L Normal 8 - 15 mmol/L [facility] Work Phone: Comment on above: Order Comment: Speci men Type: BLOOD SPECIMENOrdering Facility: [facility] Address: [address] [place] [address] Performed By: #### 2 4323-8 ####[facility] LABCLIA [id number] [place] [address] [place] AST [Catalytic activity/Vol] 20 U/L Normal 13 - 35 U/L [facility].; [facility] Work Phone: Comment on above: Order Comment: Speci men Type: BLOOD SPECIMENOrdering Facility: [facility] Address: [address] [place] [address] Performed By: #### 2 4323-8 ####[facility] LABCLIA [id number] [place] [address] [place] Bilirubin [Mass/Vol] 0.4 mg/dL Normal 0.2 - 1 .3 mg/dL [facility].; [facility] Work Phone: Comment on above: Order Comment: Speci men Type: BLOOD SPECIMENOrdering Facility: [facility] Address: [address] [place] [address] Performed By: #### 2 4323-8 ####[facility] LABIA [id number] [place] [address] [place] Calcium [Mass/Vol] 9.3 mg/dL Normal 8.5 - 10. 2 mg/dL [facility].; [facility] Work Phone: Comment on above: Order Comment: Speci men Type: BLOOD SPECIMENOrdering Facility: [facility] Address: [address] [place] [address] Performed By: #### 2 4323-8 ####[facility] LABCLIA [id number] [place] [address] [place] Chloride [Moles/Vol] 105 mmol/L Normal 98 - 10 7 mmol/L [facility] Work Phone: Comment on above: Order Comment: Speci men Type: BLOOD SPECIMENOrdering Facility: [facility] Address: [address] [place] [address] Performed By: #### 2 4323-8 ####[facility] [id number] [place] [address] [place] CO2 [Moles/Vol] 24 mmol/L Normal 22 - 30 mmol/L [facility].; [facility] Work Phone: Comment on above: Order Comment: Speci men Type: BLOOD SPECIMENOrdering Facility: [facility] Address: [address] [place] [address] Performed By: #### 2 4323-8 ####[facility] [id number] [place] [address] [place] Creatinine [Mass/Vol] 0.63 mg/dL Normal 0.58 - 0.96 mg/dL [facility].; [facility] Work Phone: Comment on above: Order Comment: Speci men Type: BLOOD SPECIMENOrdering Facility: [facility] Address: [address] [place] [address] Performed By: #### 2 4323-8 ####[facility] [id number] [place] [address] [place] Glucose [Mass/Vol] 100 mg/dL Abnormal 74 - 99 mg/dL [facility].; [facility] Work Phone: Comment on above: Order Comment: Speci men Type: BLOOD SPECIMENOrdering Facility: [facility] Address: [address] [place] [address] Result Comment: The [place] Diabetes Association (ADA) provides guidance for cutoff values for fasting glucose and random glucose. The ADA defines fasting as no caloric intake for at least 8 hours. Fasting plasma glucose results between 100 to 125 mg/dL indicate increased risk for diabetes (prediabetes). Fasting plasma glucose results greater than or equal to 126 mg/dL meet the criteria for diagnosis of diabetes. In the absence of unequivocal hyperglycemia, results should be confirmed by repeat testing. In a patient with classic symptoms of hyperglycemia or hyperglycemic crisis, random plasma glucose results greater than or equal to 200 mg/dL meet the criteria for diagnosis of diabetes. Reference: Standards of Medical Care in Diabetes 2016, [place] [employer] Association. Diabetes Care. 2016.39(Suppl 1). Performed By: #### 2 4323-8 ####[facility] LABCLIA [id number] [place] [address] [place] Potassium [Moles/Vol] 3.9 mmol/L Normal 3.7 - 5.1 mmol/L [facility].; [facility]. Work Phone: Comment on above: Order Comment: Speci men Type: BLOOD SPECIMENOrdering Facility: [facility] Address: [address] [place] [address] Performed By: #### 2 4323-8 ####[facility] LABCLIA [id number] [place] [address] [place] Protein [Mass/Vol] 6.9 g/dL Normal 6.3 - 8.0 g/dL [facility].; [facility] Work Phone: Comment on above: Order Comment: Ritchiei men Type: BLOOD SPECIMENOrdering Facility: [facility] Address: [address] [place] [address] Performed By: #### 2 4323-8 ####[facility] LABCLIA [id number] [place] [address] [place] Sodium [Moles/Vol] 140 mmol/L Normal 136 - 144 mmol/L [facility].; [facility] Work Phone: Comment on above: Order Comment: Speci men Type: BLOOD SPECIMENOrdering Facility: [facility] Address: [address] [place] [address] Performed By: #### 2 4323-8 ####[facility] LABCLIA [id number] [address] STATES [facility] Urea nitrogen [Mass/Vol] 14 mg/dL Normal 7 - 21 mg/dL [facility] CenterJobPlanet; [facility]. Work Phone: Comment on above: Order Comment: Speci men Type: BLOOD SPECIMENOrdering Facility: [facility] Address: [address] [place] [address] Performed By: #### 2 4323-8 ####[facility] LABIA [id number] [place] [id number] [place] Comprehensive metabolic 2000 panelon 08-04-2024 Creatinine and Glomerular filtration rate.predicted panel (S/P/Bld) 97 mL/min/1.73m??? Normal >=60 [facility] Comment on above: Order Comment: Speci men Type: BLOOD SPECIMENOrdering Facility: [facility] Address: [address] [place] [address] Result Comment: Lauren mated Glomerular Filtration Rate (eGFR) is calculated using the 2020 CKD-EPI creatinine equation. This equation utilizes serum creatinine, sex, and age as parameters. The creatinine assay has traceable calibration to isotope dilution-mass spectrometry. Refer to KDIGO guidelines for clinical interpretation. In patients with unstable renal function, e.g. those with acute kidney injury, the eGFR may not accurately reflect actual GFR. Performed By: #### 2 4323-8 ####[facility] LABCLIA [id number] [place] [id number] [place] No Panel Informationon 08-04 Calcium 24h Ur-mRate 153.4 {mg/24_hr} Normal 100 .0 - 300.0 {mg/24_hr} [employer] [facility] [employer] [facility] [employer] [facility] Work Phone: Creat 24h Ur-mRate 0.861 {g/24_hr} Normal 0.800 - 1.800 {g/24_hr} [employer] [facility] [employer] [facility] [employer]. Work Phone: Creatinine + eGFR Pnl SerPlBld 97 {mL/min/1.73m???} Normal [employer] [facility] [employer] [facility] [employer] [facility] Work Phone: Performing Lab See Note Normal [employer] [facility] [employer]. Work Phone: PERIOD (HRS) 24 {hr} Normal [employer] [facility] [employer]. Work Phone: Sodium 24h Ur-sRate 127 {mmol/24_hr} Normal 40 - 220 {mmol/24_h r} [employer] [facility] [employer]. Work Phone: Sodium (24H U) [Moles/Time]o n 08-04-2024 PERIOD (HRS) 24 hr Normal [facility] Comment on above: Order Comment: Speci men Type: URINE SPECIMENOrdering Facility: [facility] Address: [address] [place] [address] Performed By: #### 2 956-1 ####[facility] LABCLIA [id number] [facility] [id number] [place] [address] [place] [facility] [id number] [place] [id number] [place] Sodium 24h Ur-sRateon 2023 Sodium (24H U) [Moles/Time] 127 mmol/24 hr Normal 40-220 [facility] Comment on above: Order Comment: Speci men Type: URINE SPECIMENOrdering Facility: [facility] Address: [address] [place] [address] Performed By: #### 2 956-1 ####[facility] LABCLIA [id number] [address] [id number] [address] OF [place] Specimen volume (24H U) 2.95 L Normal [facility] [employer] [facility] HealthcareJob[employer]; [place] - [facility] [employer] [facility] Work Phone: Comment on above: Order Comment: Speci men Type: URINE SPECIMENOrdering Facility: [facility] Address: [address] [place] [address] Performed By: #### 2 956-1 ####[facility] LABCLIA [id number] [address] [id number] [address] [place] CT CHEST WO IVCONon 07-14-[address] CHEST WO IVCON * * *Final Report* * * DATE OF EXAM: Jul 14 2024 4:03PM [facility] 0541 - CT CHEST WO IVCON / PROCEDURE REASON: chest wo * * * * Physician Interpretation * * * * EXAMINATION: CHEST CT WITHOUT CONTRAST CLINICAL HISTORY: Follow-up of lung nodules Technique: Spiral CT acquisition of the chest from the thoracic inlet to the upper abdomen without contrast. MQ: [id number] CT Radiation dose: Integrated Dose-length product (DLP) for this visit = 113 mGy*cm CT Dose Reduction Employed: Automated exposure control(AEC) and iterative recon Comparison: 06/08/2022 RESULT: Limitations: None. Lines, tubes, and devices: None. Lung parenchyma and airways: Clustered centrilobular/tree-in-bud opacities are noted in the dependent left upper and lower lobes. These have overall worsened, although some have minimally waxed and waned since prior examination. For example, there is a cluster of nodular opacities along the left major fissure, measuring up to 10 mm, increased since prior exam, image 94. Similarly, there are multifocal nodules in the superior segment of the left lower lobe, which have increased, image 77. There is associated bronchiectasis and bronchial wall thickening, most prominent in the inferior lingula, image 127. Similar such opacities are noted to a lesser extent in the right middle lobe, for example at image 126. Few foci of mucoid impactions are also noted in the right lung, for example in the right lower lobe at image 147. Biapical pleuroparenchymal scarring is noted, likely postinflammatory. Central airways are patent. Pleural space: No pleural effusion. No pleural thickening. Lower neck, lymph nodes, and mediastinum: Images of the neck are dictated separately. Few subcentimeter mediastinal and hilar lymph nodes are nonspecific. The esophagus is nondistended. Heart, pericardium, and thoracic vessels: The thoracic aorta is normal in caliber. Central pulmonary arteries are normal in size. Cardiac chambers are normal in size. No significant coronary calcifications are noted. Small pericardial effusion is noted. Bones and soft tissues: No destructive bone lesion. Chest wall is unremarkable. Mild degenerative changes are noted in the thoracic spine. Upper abdomen: Left extrarenal pelvis is noted. Localizer images: No additional findings. - IMPRESSION: Multifocal clusters of centrilobular/tree-in-bud opacities are noted, predominantly in the left lung, overall worsened since prior exam. There is associated bronchiectasis and bronchial wall thickening, most prominent in the lingula. 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 No new or increasing intrathoracic lymphadenopathy is noted. Slotter Operator: PSCB Transcribe Date/Time: Jul 15 2024 3:23P Dictated by : ISMAEL MOLINA MD This examination was interpreted and the report reviewed and electronically signed by: ISMAEL MOLINA MD on Jul 15 2024 3:35PM EST [id number] Normal [facility] CT NECK SOFT TISSUE W IVCONo n 07-14-2024 CT NECK SOFT TISSUE W IVCON * * *Final Report* * * DATE OF EXAM: Jul 14 2024 4:23PM [facility] 0013 - CT NECK SOFT TISSUE W IVCON / PROCEDURE REASON: Nontoxic multinodular goiter * * * * Physician Interpretation * * * * COMPARISONS: None. HISTORY: Nontoxic multinodular goiter. TECHNIQUE: CT neck with contrast. CT Contrast: IV [address] Dose-Length Product (DLP): 467 mGy*cm CT Dose Reduction Employed: Automated exposure control(AEC) and iterative recon RESULT: NECK CT: Acute abnormality: None. Incompletely evaluated multiple nodular and reticulonodular foci at left upper lobe lung (better noted on and for details refer to CT chest report performed concurrently). Uncomplicated submandibular gland resection. No recurrent mass within surgical bed. Slightly enlarged thyroid gland with non-enhancing multiple low-attenuation foci throughout gland with most significant at isthmus without focal abnormal single lesion or draining adenopathy or loss of tissue planes or pathological neck lymphadenopathy most consistent with patient's presumed history of goiter. If there is any concern for focal lesion or neoplasm then further workup with ultrasound and ultrasound-guided cytology may be of value if clinically indicated. Age expected mild osteopenia and spondylosis without any focal osseous abnormality. Symmetrical intracranial structures, orbits, sinuses, mastoids, skull base, lacrimal/parotid glands, superior mediastinum,, aerodigestive tract with mucosal lining, tissue planes and courses of vessels without soft tissue mass, loculated collections, abnormal enhancement or pathological neck lymphadenopathy. IMPRESSION: Findings compatible with patient's presumed history of goiter. Slotter Operator: POLLO Transcribe Date/Time: Jul 14 2024 4:32P Dictated by : CATRACHITA MANUEL MD This examination was interpreted and the report reviewed and electronically signed by: CATRACHITA MANUEL MD on Jul 14 2024 4:37PM EST [id number] Normal [facility] CT Neck W contrast Denise 06-20 IMPRESSION: Findings compatible with patient's presumed history of goiter. Slotter Operator: POLLO Transcribe Date/Time: Jul 14 2024 4:32P Dictated by : CATRACHITA MANUEL MD This examination was interpreted and the report reviewed and electronically signed by: CATRACHITA MANUEL MD on Jul 14 2024 4:37PM [facility] DIV[facility] OF RADIOLOGY * * *Final Report* * * DATE OF EXAM: Jul 14 2024 4:23PM [facility] 0013 - CT NECK SOFT TISSUE W IVCON / PROCEDURE REASON: Nontoxic multinodular goiter * * * * Physician Interpretation * * * * COMPARISONS: None. HISTORY: Nontoxic multinodular goiter. TECHNIQUE: CT neck with contrast. CT Contrast: IV [address] Dose-Length Product (DLP): 467 mGy*cm CT Dose Reduction Employed: Automated exposure control(AEC) and iterative recon RESULT: NECK CT: Acute abnormality: None. Incompletely evaluated multiple nodular and reticulonodular foci at left upper lobe lung (better noted on & for details refer to CT chest report performed concurrently). Uncomplicated submandibular gland resection. No recurrent mass within surgical bed. Slightly enlarged thyroid gland with non-enhancing multiple low-attenuation foci throughout gland with most significant at isthmus without focal abnormal single lesion or draining adenopathy or loss of tissue planes or pathological neck lymphadenopathy most consistent with patient's presumed history of goiter. If there is any concern for focal lesion or neoplasm then further workup with ultrasound and ultrasound-guided cytology may be of value if clinically indicated. Age expected mild osteopenia and spondylosis without any focal osseous abnormality. Symmetrical intracranial structures, orbits, sinuses, mastoids, skull base, lacrimal/parotid glands, superior mediastinum,, aerodigestive tract with mucosal lining, tissue planes and courses of vessels without soft tissue mass, loculated collections, abnormal enhancement or pathological neck lymphadenopathy. DIVISION OF RADIOLOGY [facility], [facility] * * *Final Report* * * DATE OF EXAM: Jul 14 2024 4:23PM [facility] 0013 - CT NECK SOFT TISSUE W IVCON / PROCEDURE REASON: Nontoxic multinodular goiter * * * * Physician Interpretation * * * * COMPARISONS: None. HISTORY: Nontoxic multinodular goiter. TECHNIQUE: CT neck with contrast. CT Contrast: IV [address] Dose-Length Product (DLP): 467 mGy*cm CT Dose Reduction Employed: Automated exposure control(AEC) and iterative recon RESULT: NECK CT: Acute abnormality: None. Incompletely evaluated multiple nodular and reticulonodular foci at left upper lobe lung (better noted on & for details refer to CT chest report performed concurrently). Uncomplicated submandibular gland resection. No recurrent mass within surgical bed. Slightly enlarged thyroid gland with non-enhancing multiple low-attenuation foci throughout gland with most significant at isthmus without focal abnormal single lesion or draining adenopathy or loss of tissue planes or pathological neck lymphadenopathy most consistent with patient's presumed history of goiter. If there is any concern for focal lesion or neoplasm then further workup with ultrasound and ultrasound-guided cytology may be of value if clinically indicated. Age expected mild osteopenia and spondylosis without any focal osseous abnormality. Symmetrical intracranial structures, orbits, sinuses, mastoids, skull base, lacrimal/parotid glands, superior mediastinum,, aerodigestive tract with mucosal lining, tissue planes and courses of vessels without soft tissue mass, loculated collections, abnormal enhancement or pathological neck lymphadenopathy. IMPRESSION IMPRESSION: Findings compatible with patient's presumed history of goiter. Slotter Operator[facility] Transcribe Date/Time: Jul 14 2024 4:32P Dictated by : CATRACHITA MANUEL MD This examination was interpreted and the report reviewed and electronically signed by: CATRACHITA MANUEL MD on Jul 14 2024 4:37PM EST [facility] Radiology Study observation (narrative) [facility] CT Neck W contrast IVOrdered By: [facility]cf Provider on 07-14-2024 [facility] 25(OH)D3 SerPl-mCncon 2023 25-hydroxyvitamin D3 [Mass/Vol] 28.6 ng/mL Low 31.0-80.0 [facility] Comment on above: Order Comment: Speci men Type: BLOOD SPECIMENOrdering Facility: [facility] Address: [address] [place] [address] Result Comment: Clas sification of 25 [place] Vitamin D status: Deficiency/Insufficiency: < or = 30 ng/ml. Sufficiency/Optimal Levels: 31-80 ng/mL Toxicity: > 100 ng/mL. Test performed by chemiluminescent immunoassay. Performed By: #### 1 989-3 ####[facility] LABCLIA [id number] [place] [address] [place] ALK PHOS BONE SPECon 024 ALK PHOSPHATASE, BONE 13.3 ug/L Normal Eas [facility].; [facility] Work Phone: Comment on above: Order Comment: Speci men Type: BLOOD SPECIMENOrdering Facility: [facility] Address: [address] [place] [address] Result Comment: INTERPRETIVE INFORMATION: Bone Specific Alkaline Phosphatase Premenopausal Female: 4.5 - 16.9 ug/L Postmenopausal Female: 7.0 - 22.4 ug/L INTERPRETIVE INFORMATION: Bone Specific Alkaline Phosphatase Liver alkaline phosphatase can affect the measurement of bone specific alkaline phosphatase in this assay. Each 100 U/L of liver alkaline phosphatase contributes an additional 2.5 to 5.8 ug/L to the bone specific alkaline phosphatase result. Performed By: [employer] [address] [place] [address] Platemaker: Armando Becerra MD, PhD CLIA Number: [id number] Performed By: #### A PBONE ####[facility] [id number] [place] [address] Collagen CTx SerPl-ncon C TELOPEPTIDE, BETA CROSS LINKED 562 pg/mL Normal 171 - 970 pg/mL [facility] Work Phone: Comment on above: Order Comment: Speci men Type: BLOOD SPECIMENOrdering Facility: [facility] Address: [address] [place], [place] [address] Performed By: #### 4 1171-0 ####[facility] LABCLIA [id number] [facility] [id number] [place] [address] [place] Comp Metab 2000 Pnl SerPlon 07-11-2024 Albumin [Mass/Vol] 4.2 g/dL Normal 3.9 - 4.9 g/dL [facility]. Work Phone: Comment on above: Order Comment: Speci men Type: BLOOD SPECIMENOrdering Facility: [facility] Address: [address] [place] [address] Performed By: #### 1 9123-9, 03475-2, 2777- ####[facility] LABCLIA [id number] [place] [address] [place] ALP [Catalytic activity/Vol] 72 U/L Normal 34 - 123 U/L [facility], [employer]. Work Phone: Comment on above: Order Comment: Speci men Type: BLOOD SPECIMENOrdering Facility: [facility] Address: [address] [place] [address] Performed By: #### 1 9123-9, 34992-6, 277- ####[facility] LABCLIA [id number] [place] [address] [place] ALT [Catalytic activity/Vol] 15 U/L Normal 7 - 38 U/L [facility] Work Phone: Comment on above: Order Comment: Speci men Type: BLOOD SPECIMENOrdering Facility: [facility] Address: [address] [place] [address] Performed By: #### 1 9123-9, 32343-8, 277- ####[facility] LABCLIA [id number] [place] [address] [place] Anion gap [Moles/Vol] 11 mmol/L Normal 8 - 15 mmol/L [facility] Work Phone: Comment on above: Order Comment: Speci men Type: BLOOD SPECIMENOrdering Facility: [facility] Address: [address] [place] [address] Performed By: #### 1 9123-9, 47144-9, 2777- ####[facility] LABCLIA [id number] [place] [address] [place] AST [Catalytic activity/Vol] 21 U/L Normal 13 - 35 U/L [facility].; [facility] Work Phone: Comment on above: Order Comment: Speci men Type: BLOOD SPECIMENOrdering Facility: [facility] Address: [address] [place], [place] [address] [address] Performed By: #### 1 9123-9, 13097-4, 2777- ####[facility] LABIA [id number] [place] [address] [place] Bilirubin [Mass/Vol] 0.6 mg/dL Normal 0.2 - 1 .3 mg/dL [facility].; [facility]. Work Phone: Comment on above: Order Comment: Speci men Type: BLOOD SPECIMENOrdering Facility: [facility] Address: [address] [place], [place] [address] [address] Performed By: #### 1 9123-9, 95743-5, 277- ####[facility] LABIA [id number] [place] [address] [place] Calcium [Mass/Vol] 8.9 mg/dL Normal 8.5 - 10. 2 mg/dL [facility].; [facility]. Work Phone: Comment on above: Order Comment: Speci men Type: BLOOD SPECIMENOrdering Facility: [facility] Address: [address] [place] [address] Performed By: #### 1 9123-9, 44710-6, 2777- ####[facility] LABCLIA [id number] [place] [address] [place] Chloride [Moles/Vol] 103 mmol/L Normal 98 - 10 7 mmol/L [facility] CenterV[facility] Inc.; [facility], Inc. Work Phone: Comment on above: Order Comment: Speci men Type: BLOOD SPECIMENOrdering Facility: [facility] Address: [address] [place] [address] Performed By: #### 1 9123-9, 77730-0, 2777-1 ####[facility] LABCLIA [id number] [place] [address] [place] CO2 [Moles/Vol] 23 mmol/L Normal 22 - 30 mmol/L [facility], [employer].; [facility], [employer]. Work Phone: Comment on above: Order Comment: Speci men Type: BLOOD SPECIMENOrdering Facility: [facility] Address: [address] [place] [address] Performed By: #### 1 9123-9, 05712-6, 2777-1 ####[facility] LABCLIA [id number] [place] [address] [place] Creatinine [Mass/Vol] 0.57 mg/dL Abnormal 0.58 - 0.96 mg/dL [facility], [employer].; [facility], Inc. Work Phone: Comment on above: Order Comment: Speci men Type: BLOOD SPECIMENOrdering Facility: [facility] Address: [address] [place] [address] Performed By: #### 1 9123-9, 56985-9, 2777-1 ####[facility] LABCLIA [id number] [place] [address] [place] Glucose [Mass/Vol] 86 mg/dL Normal 74 - 99 mg/dL [facility], [employer].; [facility], [employer]. Work Phone: Comment on above: Order Comment: Speci men Type: BLOOD SPECIMENOrdering Facility: [facility] Address: [address] [place], [place] [id number] Result Comment: The [place] Diabetes Association (ADA) provides guidance for cutoff values for fasting glucose and random glucose. The ADA defines fasting as no caloric intake for at least 8 hours. Fasting plasma glucose results between 100 to 125 mg/dL indicate increased risk for diabetes (prediabetes). Fasting plasma glucose results greater than or equal to 126 mg/dL meet the criteria for diagnosis of diabetes. In the absence of unequivocal hyperglycemia, results should be confirmed by repeat testing. In a patient with classic symptoms of hyperglycemia or hyperglycemic crisis, random plasma glucose results greater than or equal to 200 mg/dL meet the criteria for diagnosis of diabetes. Reference: Standards of Medical Care in Diabetes 2016, [place] Diabetes Association. Diabetes Care. 2016.39(Suppl 1). Performed By: #### 1 9123-9, 67418-2, 2777-1 ####[facility] LABCLIA [id number] [place] [address] [place] Potassium [Moles/Vol] 4.1 mmol/L Normal 3.7 - 5.1 mmol/L [facility] CenterF[facility].; [facility]PITALSees[facility] [employer] [facility] CenterF[facility]. Work Phone: Comment on above: Order Comment: Du miller Type: BLOOD SPECIMENOrdering Facility: [facility] Address: [address] [place], [place] [address] Performed By: #### 1 9123-9, 34468-3, 27705-19 ####[facility] LABCLIA [id number] [place] [id number] [place] Protein [Mass/Vol] 6.9 g/dL Normal 6.3 - 8.0 g/dL [facility] Center[facility].; [employer] [facility] Center[facility]. Work Phone: Comment on above: Order Comment: Du miller Type: BLOOD SPECIMENOrdering Facility: [facility] Address: [address] [place], [place] [id number] Performed By: #### 1 9123-9, 43712-5, 277-1 ####[facility] LABCLIA [id number] [place] [address] [place] Sodium [Moles/Vol] 137 mmol/L Normal 136 - 144 mmol/L [facility] CenterF[facility].; [facility]. Work Phone: Comment on above: Order Comment: Speci men Type: BLOOD SPECIMENOrdering Facility: [facility] Address: [address] [place] [address] Performed By: #### 1 9123-9, 85328-8, 2777-1 ####[facility] LABIA [id number] [place] [address] [place] Urea nitrogen [Mass/Vol] 13 mg/dL Normal 7 - 21 mg/dL [facility] CenterF[facility].; [facility]. Work Phone: Comment on above: Order Comment: Speci men Type: BLOOD SPECIMENOrdering Facility: [facility] Address: [address] [place] [address] Performed By: #### 1 9123-9, 19510-5, 2777-1 ####[facility] LABIA [id number] [place] [address] [place] Comprehensive metabolic 2000 panelon 07-11-2024 Creatinine and Glomerular filtration rate.predicted panel (S/P/Bld) 100 mL/min/1.73m??? Normal >=60 [facility] Comment on above: Order Comment: Speci men Type: BLOOD SPECIMENOrdering Facility: [facility] Address: [address] [place] [address] Result Comment: Lauren mated Glomerular Filtration Rate (eGFR) is calculated using the 2020 CKD-EPI creatinine equation. This equation utilizes serum creatinine, sex, and age as parameters. The creatinine assay has traceable calibration to isotope dilution-mass spectrometry. Refer to KDIGO guidelines for clinical interpretation. In patients with unstable renal function, e.g. those with acute kidney injury, the eGFR may not accurately reflect actual GFR. Performed By: #### 1 9123-9, 98188-9, 2777-1 ####[facility] LABCLIA [id number] [place] [address] [place] Magnesium SerPl-mCncon 07-11 Magnesium [Mass/Vol] 2.1 mg/dL Normal 1.7 - 2 .3 mg/dL [facility] [employer] [facility] Work Phone: Comment on above: Order Comment: Speci men Type: BLOOD SPECIMENOrdering Facility: [facility] Address: [address] [place] [address] Performed By: #### 1 9123-9, 26169-9, 2777-1 ####[facility] LABCLIA [id number] [address] [place] No Panel Informationon 07-11 25(OH)D3 SerPl-mCnc 28.6 ng/mL Abnormal 31.0 - 80.0 ng/mL [facility], [employer] [facility] [employer] [facility] [employer] Work Phone: Creatinine + eGFR Pnl SerPlBld 100 {mL/min/1.73m???} Normal [employer] [facility] [facility] [employer] Work Phone: Osteocalcin SerPl-mCnc 29.1 ng/mL Normal 8.6 - 37.6 ng/mL [facility] [employer] [facility] [employer] Work Phone: Performing Lab See Note Normal [employer] [facility] [facility] Work Phone: Osteocalcin SerPl-mCncon Osteocalcin [Mass/Vol] 29.1 ng/mL Normal 8.6-37.6 [facility] Comment on above: Order Comment: Speci men Type: BLOOD SPECIMENOrdering Facility: [facility] Address: [address] [place] [address] [place] [address] Performed By: #### 2 697-1 ####[facility] LABIA [id number] [address] [place] PTH-Intact [facility] Hospital[facility]20 Parathyrin.intact [Mass/Vol] 49 pg/mL Normal 15 - 65 pg/mL [facility].; [facility] Work Phone: Comment on above: Order Comment: Ritchiei men Type: BLOOD SPECIMENOrdering Facility: [facility] Address: [address] [place] [address] Performed By: #### 2 731-8 ####[facility]ITALIA [id number] [address] [place] Phosphate [facility]-ncon 07-11 Phosphate [Mass/Vol] 3.3 mg/dL Normal 2.7 - 4 .8 mg/dL [facility] CenterJobPlanet; [facility]Farm[facility] Work Phone: Comment on above: Order Comment: Du paul Type: BLOOD SPECIMENOrdering Facility: [facility] Address: [address] [place], [place] [address] [address] Performed By: #### 1 9123-9, 75687-2, 2777-1 ####[facility] LABIA [id number] [address] [place] Sara 07-07-2024 JUJUN Telephone (ENWSTR) TETE HOWARD ([id number]) 1955 F Date Time Provider Department 07/07/24 LIBRADO GUERRIER During your visit today, we recorded the following information about you: Parris Tate 07/07/2024 8:34 AM Signed Pt called in asking asking about the Neck CT that was ordered and was wondering if she could do that scan and the scan ordered by Dr. Argueta (Chest CT), pt is also confused that they are two different scans and the CT Soft tissue has not been dropped in her active tab yet Please review and advise and call pt Thank you ! Librado Guerrier MD 07/08/2024 8:36 AM Signed She was told to do CT neck to evaluate if thyroid is causing difficulty breathing, and specifically told her that she could schedule it on the same day as CT chest Thanks Su Flynn MA 07/08/2024 10:35 AM Signed Patient is scheduled for CT x2 on 07/17/24 at 340 pm. She will have labs completed prior to CT and will be NPO for atleast 4 hours. Su Flynn MA Allergies As of Date: 07/07/2024 Noted Allergy Reaction CODEINE 06/27/2018 11 - Vomiting Date Reviewed: 07/07/2024 Reviewed by: Key Cantrell, RT(R) - Fully Assessed Reason for Visit: Patient Update [1234] Cmt: CT scheduling Prescriptions as of 07/08/2024 - calcium Carbonate 300 mg, 750mg, (TUMS) 300 mg (750 mg) chewable tablet Take 1 tablet by mouth once daily. - azithromycin (ZITHROMAX) 500 mg tablet Take 500 mg by mouth three times a week. Sun and sun - ethambutol (MYAMBUTOL) 400 mg tablet Take 400 mg by mouth every Sunday, Sunday, and Sunday. - rifAMPin (RIFADIN) 300 mg capsule Take 600 mg by mouth three times a week. Problem List As Of Date 07/07/2024 Noted Resolved DTFB//// of Skin of Lower Limb, [D23.70] 08/03/2009 01/01/2014 Venous stasis [I87.8] 06/27/2018 Lentigines [L81.4] 06/27/2018 Seborrheic keratoses [L82.1] 06/27/2018 Angioma [D18.00] 06/27/2018 Family history of skin cancer [Z80.8] 06/27/2018 Encounter Status:Closed by SU FLYNN on 07/08/24 [facility] CNOVon 07-04-2024 CNOV Office Visit (ENWSTR ) TETE HOWARD ([id number]) 1955 F Date Time Provider Department 07/04/24 11:20 AM LIBRADO GUERRIER ENWSTR During your visit today, we recorded the following information about you: Temperature Pulse Blood pressure Weight 98.6 degrees 87/minute 112/68 56.7 kg Height 1.638 m Librado Guerrier MD 07/05/2024 4:13 PM Addendum [facility] Follow up note Chief Complaint: Multiple thyroid nodules, Osteoporosis HPI: Tete Howard is a 68 year old female who is coming today for evaluation of low BMD. She was seen by me on 06/17/24 for thyroid nodules and we discussed in detail about nodules and FNAB She was noted to have thyroid nodules when CT scan neck for salivary gland issue last year, further evaluation with thyroid US revealed multinodular goiter. She was seen by endocrinology and was recommended to monitor. 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 smoking: no Family history of thyroid cancer: no Family history of thyroid nodules: no Family history: Elisha's disease in sister Osteoporosis of spine: No hx of fragility fractures, no kidney stones No famiily history of osteo or hip fractures No hx of cancer personally, no radiation No bone health medications in the past Calcium +Vit D3 600 mg x2 +400 units daily, cheese every day, few almonds intermittently No HRT, steroids in the past Menopause 15 years ago No contraceptive use during reproductive years, normal after twin PAST MEDICAL HISTORY No date: NONE PAST SURGICAL HISTORY No date: BREAST BIOPSY Comment: Benign 1992: DELIVERY ONLY Comment: , low cervical No date: COLONOSCOPY Comment: Galileo, age 51, rpt age 61 2006: DILATION AND CURETTAGE DXAND/THER NONOBSTETRIC Comment: Dilation AND curettage - Benign pathology reviewed No date: TONSILLECTOMY AND ADENOIDECTOMY ALLERGIES Allergen Reactions Codeine Vomiting Social History Tobacco Use Smoking status: Never Smokeless tobacco: Never Substance Use Topics Alcohol use: No Drug use: No FAMILY HISTORY Problem Relation Age of Onset Hypertension Mother Lipids Mother High Cholesterol GI Mother Heart Father heart attack and by-pass surgery Heart Paternal Grandmother heart attack Cancer Maternal Grandmother skin cancer Heart Maternal Aunt Several Maternal Aunts with heart disease Breast Cancer Maternal Aunt Breast Cancer Maternal Aunt Breast Cancer Other Maternal cousin - 50's Breast Cancer Other Maternal cousin - 50's MEDICATIONS: Current Outpatient Medications on File Prior to Visit Medication Sig azithromycin (ZITHROMAX) 500 mg tablet Take 500 mg by mouth three times a week. Sun and sun ethambutol (MYAMBUTOL) 400 mg tablet Take 400 mg by mouth every Sunday, Sunday, and Sunday. rifAMPin (RIFADIN) 300 mg capsule Take 600 mg by mouth three times a week. No current facility-administered medications on file prior to visit. REVIEW OF SYSTEMS: As per HPI PHYSICAL EXAMINATION: BP: 112/68 Temp: 37 ?C (98.6 ?F) Temp src: Temporal Artery Pulse: 87 SpO2: 99 % General: no acute distress, alert and orientated X 3, wears a mask Eyes:EOMI, pupils are equally round, anicteric sclera Neck - supple, no significant adenopathy Thyroid: enlarged in size, grossly asymmetric, bilateral palpable nodules Neuro: alert, oriented, normal speech, no focal findings noted CV: normal rate and regular rhythm, S1 and S2 normal. Chest: unlabored breathing on room air Abdominal: soft, non-tender. Bowel sounds normal. Musculoskeletal: no joint tenderness, deformity or swelling Extremities: no edema, no discoloration Skin: no rash or erythema LABS AND IMAGING Latest Ref Rng 06/17/2024 TSH 0.270 - 4.200 mIU/L 1.660 Thyroid ultrasound (01/23/23): Findings: Right lobe: Large spongiform nodule in the right lobe/isthmus, a TR1 benign nodule. The nodule measures 2.2 x 5 x 11 mm. Nodule in the right lobe/isthmus measuring 13 x5x12 mm. The nodule is solid and hypoechoic a TR 4 moderately suspicious nodule. The right lobe measures 5.2 x 1.7 x 1.9 cm Left lobe: 2 nodules in the upper lobe measuring 5 x 7 mm TR 4 moderately suspicious nodule. A second spongiform nodule is seen in the left lobe measuring 2 x 4 x 3 mm, a TR 1 benign nodule. There is a cyst in the upp (more content not included)... Normal [facility] CNOVon 06-26-2024 CNOV Office Visit (ENWSTR ) BAN HOWARDPILAR Prem ([id number]) 1955 F Date Time Provider Department 06/26/24 1:00 PM LIBRADO GUERRIER ENWSTR During your visit today, we recorded the following information about you: Temperature Pulse Blood pressure Weight 98.1 degrees 108/minute 137/79 56.4 kg Height 1.638 m Librado Guerrier MD 06/26/2024 1:51 PM Signed Fine Needle Aspiration(FNA) Biopsy of thyroid nodule Tete Amaro Javiermarium was identified by name and date, acknowledges here to have a Fine Needle Aspiration(FNA) of 1.5 cm isthmic thyroid nodule performed. Risks, benefits and alternatives D/W patient by: Dr Guerrier Time/Date: June 26, 2024 1:15 PM Referred by: No referring provider defined for this encounter. Primary Topper Press Operator: Blood thinners: no Discussed the risk and benefits of the procedure in detail. Explained that it is done under US guidance. Usually we do 3-4 needle passes for each nodule to ensure adequate sample. Explained the five possible outcomes from the pathology: 1. benign 2. Malignant 3. Suspicious for malignancy 4. Insufficient sample 5. Follicular neoplasm Patient verbalised understanding. Informed consent obtained Time out procedure performed UNIVERSAL PROTOCOL / SAFETY CHECKLIST Procedure to be Performed: FNAB of 1.5 cm isthmic nodule Sign In: A Moment of CARE was completed. Personnel directly involved with the procedure wore the appropriate PPE (Personal Protective Equipment). Patient/Surrogate Stated/Verified: PATIENT VERIFIED(optional for EMERGENT procedures): Patient name, Date of , Relevant allergies, and The intended procedure Time Out Communication: Intended patient and procedure match the source documents. Consent documented and matches the intended procedure. Relevant labs, photos, and/or imaging studies have been reviewed. Sign Out: SIGN OUT (optional for EMERGENT procedures): All specimen containers correctly labeled. Librado Guerrier MD Procedure: Performed under ultrasound guidance Skin was prepped with alcohol swabs Ice and numbing spray were both used to numb the skin FNA Bx X 4 performed with a 25-G needle under U/S guidance for isthmic nodule by me (Librado Guerrier MD) During the aspiration needle was observed inside the nodule on 4 passes. Patient tolerated the procedure well Complications: NONE Character of Aspirate: On the 4 needle passes small amount of bloody liquid was obtained. Sign out communication: Patient was given instructions regarding any complications that may arise. Impression and Suggested Follow-up: Results will be communicated to the patient by Dr Guerrier and plans for management and follow up will be made based on these results. Discussed barium swallow for evaluation of dysphagia if benign results. She would also like to follow up with endocrinology for bone density MD Chey Christian, Librado Couch MD 06/26/2024 1:47 PM Signed You had Fine needle aspiration of a thyroid nodule. 1) If there is soreness to touch or swallowing, can use ice over the area as needed 2) Can use Tylenol 500 mg every 6-8 hrs as needed (avoid using Ibuprofen,Aleeve as these can cause increased bleeding) 3) If you develop intense pain and/or swelling at the site of biopsy, please go to the ER 4) Results with be available in one week. If you do not hear from us in that time frame, please call the office for an update. Allergies As of Date: 06/26/2024 Noted Allergy Reaction CODEINE 06/27/2018 11 - Vomiting Date Reviewed: 06/26/2024 Reviewed by: Su Flynn MA - Fully Assessed Reason for Visit: Thyroid Nodule [3960] Cmt: FNAB isthmus Primary Visit Diagnosis:Thyroid nodule [E04.1] Order(s):ENDO THYROID/LYMPH NODE FNA [4918385] Order #: [id number] CYTOLOGY NON-MARINE SUPERINTENDENT [PXF3131] Order #: [id number]. #:[id number] THYROID/PARATHYROID (POC) ENDO USE ONLY [[id number]] Order #: [id number]. #:[id number]: 1 Prescriptions as of 06/26/2024 - calcium Carbonate 300 mg, 750mg, (TUMS) 300 mg (750 mg) chewable tablet Take 1 tablet by mouth once daily. - azithromycin (ZITHROMAX) 500 mg tablet Take 500 mg by mouth three times a week. Sun and sun - ethambutol (MYAMBUTOL) 400 mg tablet Take 400 mg by mouth every Sunday, Sunday, and Sunday. - rifAMPin (RIFADIN) 300 mg capsule Take 600 mg by mouth three times a week. Problem List As Of Date 06/26/2024 Noted Resolved DTFB//// of Skin of Lower Limb, [D23.70] 08/03/2009 01/01/2014 Venous stasis [I87.8] 06/27/2018 Lentigines [L81.4] 06/27/2018 Seborrheic keratoses [L82.1] 06/27/2018 Angioma [D18.00] 06/27/2018 Family history of skin cancer [Z80.8] 06/27/2018 Other instructions from your clinician: You had Fine needle aspiration of a thyroid nodule. 1) If there is soreness to touch or swallowing, (more content not included)... Normal [facility] CNPNon 06-26-2024 CNPN Telephone (ENDWST) LEETETE Amaro ([id number]) 1955 F Date Time Provider Department 06/26/24 LIBRADO GUERRIER During your visit today, we recorded the following information about you: Suly Carmona MA 06/26/2024 2:13 PM Signed Patient states she had a thyroid needle biopsy today and had discussed having a barium swallow test. Patient has decided she would like to have that done. Can she have an order? Librado Guerrier MD 06/29/2024 7:24 PM Signed I would recommend waiting for the cytology results. If the results are benign, its better to do barium swallow to see if compression coming from thyroid to determine surgical intervention. I have explained this to her on the day of Biopsy Su Flynn MA 06/30/2024 8:16 AM Signed Sent my chart message with this information. Su Flynn MA Allergies As of Date: 06/26/2024 Noted Allergy Reaction CODEINE 06/27/2018 11 - Vomiting Date Reviewed: 06/26/2024 Reviewed by: Su Flynn MA - Fully Assessed Reason for Visit: Order for Barium swallow test [Other] Prescriptions as of 06/30/2024 - calcium Carbonate 300 mg, 750mg, (TUMS) 300 mg (750 mg) chewable tablet Take 1 tablet by mouth once daily. - azithromycin (ZITHROMAX) 500 mg tablet Take 500 mg by mouth three times a week. Sun and sun - ethambutol (MYAMBUTOL) 400 mg tablet Take 400 mg by mouth every Sunday, Sunday, and Sunday. - rifAMPin (RIFADIN) 300 mg capsule Take 600 mg by mouth three times a week. Problem List As Of Date 06/26/2024 Noted Resolved DTFB//// of Skin of Lower Limb, [D23.70] 08/03/2009 01/01/2014 Venous stasis [I87.8] 06/27/2018 Lentigines [L81.4] 06/27/2018 Seborrheic keratoses [L82.1] 06/27/2018 Angioma [D18.00] 06/27/2018 Family history of skin cancer [Z80.8] 06/27/2018 Encounter Status:Closed by SU FLYNN on 06/30/24 Normal [facility] CYTOLOGY NON-GYNon CASE REPORT Normal [facility] Comment on above: Order Comment: Speci men Type: SPECIMEN OBTAINED BY ASPIRATIONOrdering Facility: [facility] Address: [address] [place] [address] Result Comment: [facility] Cytology Report Case: [id number] Authorizing Provider: Librado Guerrier, Collected: 06/26/2024 01:46 PM Ordering Location: Endocrinology Received: 06/26/2024 03:59 PM Pathologist: Susy Forrest MD Specimen: Thyroid, Isthmus Performed By: #### C YTONON ####[facility] LABCLIA [id number] [place] [address] [place] CLINICAL HISTORY thyroid nodules Normal [facility] Comment on above: Order Comment: Speci men Type: SPECIMEN OBTAINED BY ASPIRATIONOrdering Facility: [facility] Address: [address] [place] [address] Result Comment: Afirma sample received Performed By: #### C YTONON ####[facility] LABIA [id number] [place] [address] [place] FINAL DIAGNOSIS Normal [facility] Comment on above: Order Comment: Speci men Type: SPECIMEN OBTAINED BY ASPIRATIONOrdering Facility: [facility] Address: [address] [place] [address] Result Comment: A - Thyroid, Isthmus, Aspirate/Fine Needle Aspirate Benign. Consistent with colloid nodule., Cyst contents. The following cell blocks were associated with this case: A1\X09\Cell Block, Alcohol Fixed\X09\ Performed By: #### C YTONON ####[facility] LABCLIA [id number] [place] [address] [place] FINAL PERFORMING LAB Normal [facility] Comment on above: Order Comment: Speci men Type: SPECIMEN OBTAINED BY ASPIRATIONOrdering Facility: [facility] Address: [address] [place] [address] Result Comment: Tech nical component, b2b appointment setter screening performed at [facility], [address] [place] [address] CLIA# [id number] Diagnostic interpretation performed at [facility], [address] [place] [address] CLIA# [id number] Platemaker: Yong Mathews M.D. Performed By: #### C YTONON ####[facility] LABIA [id number] [address] [place] GROSS DESCRIPTION Normal [facility] Comment on above: Order Comment: Speci men Type: SPECIMEN OBTAINED BY ASPIRATIONOrdering Facility: [facility] Address: [address] [place] [address] Result Comment: A. T hyroid, Isthmus 30 cc clear light pink CytoLyt with particles. ThinPrep and Cell Block prepared. Afirma sample received Performed By: #### C YTONON ####[facility] LABIA [id number] [place] [address] [place] US Thyroid glandon [facility] Radiology Study observation (narrative) [facility] CNOVon 06-17-2024 CNOV Office Visit (ENWSTR ) TETE HOWARD ([id number]) 1955 F Date Time Provider Department 06/17/24 3:40 PM LIBRADO GUERRIER During your visit today, we recorded the following information about you: Temperature Pulse Blood pressure Weight 98.6 degrees 82/minute 128/78 57.4 kg Height 1.638 m Librado Guerrier MD 06/20/2024 6:37 PM Signed [facility] Initial Clinic Visit Note Chief Complaint: Multiple thyroid nodules HPI: Tete Howard is a 68 year old female was referred for evaluation of a thyroid nodules. History in brief, she was noted to have thyroid nodules when CT scan were done on neck for salivary gland issue last year, further evaluation with thyroid US revealed multinodular goiter. She was recommended to monitor. She was seen by endocrinology. 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 Family history of thyroid cancer: no Family history of thyroid nodules: no Family history: Elisha's disease in sister PAST MEDICAL HISTORY Diagnosis Date NONE PAST SURGICAL HISTORY Procedure Laterality Date BREAST BIOPSY Benign DELIVERY ONLY 1992 , low cervical COLONOSCOPY [place], age 51, rpt age 61 DILATION AND CURETTAGE DXAND/THER NONOBSTETRIC 2005 Dilation AND curettage - Benign pathology reviewed TONSILLECTOMY AND ADENOIDECTOMY ALLERGIES Allergen Reactions Codeine Vomiting Social History Tobacco Use Smoking status: Never Smokeless tobacco: Never Substance Use Topics Alcohol use: No Drug use: No FAMILY HISTORY Problem Relation Age of Onset Hypertension Mother Lipids Mother High Cholesterol GI Mother Heart Father heart attack and by-pass surgery Heart Paternal Grandmother heart attack Cancer Maternal Grandmother skin cancer Heart Maternal Aunt Several Maternal Aunts with heart disease Breast Cancer Maternal Aunt Breast Cancer Maternal Aunt Breast Cancer Other Maternal cousin - 50's Breast Cancer Other Maternal cousin - 50's MEDICATIONS: Current Outpatient Medications on File Prior to Visit Medication Sig azithromycin (ZITHROMAX) 500 mg tablet Take 500 mg by mouth three times a week. Sun and sun ethambutol (MYAMBUTOL) 400 mg tablet Take 400 mg by mouth every Sunday, Sunday, and Sunday. rifAMPin (RIFADIN) 300 mg capsule Take 600 mg by mouth three times a week. No current facility-administered medications on file prior to visit. REVIEW OF SYSTEMS: As per HPI PHYSICAL EXAMINATION: BP: 128/78 Temp: 37 ?C (98.6 ?F) Temp src: Temporal Artery Pulse: 82 SpO2: 97 % General: no acute distress, alert and orientated X 3, wears a mask Eyes:EOMI, pupils are equally round, anicteric sclera Neck - supple, no significant adenopathy Thyroid: enlarged in size, grossly asymmetric, bilateral palpable nodules Neuro: alert, oriented, normal speech, no focal findings noted CV: normal rate and regular rhythm, S1 and S2 normal. Chest: unlabored breathing on room air Abdominal: soft, non-tender. Bowel sounds normal. Musculoskeletal: no joint tenderness, deformity or swelling Extremities: no edema, no discoloration Skin: no rash or erythema LABS AND IMAGING No labs available for thyroid function Thyroid ultrasound (01/23/23): Findings: Right lobe: Large spongiform nodule in the right lobe/isthmus, a TR1 benign nodule. The nodule measures 2.2 x 5 x 11 mm. Nodule in the right lobe/isthmus measuring 13 x5x12 mm. The nodule is solid and hypoechoic a TR 4 moderately suspicious nodule. The right lobe measures 5.2 x 1.7 x 1.9 cm Left lobe: 2 nodules in the upper lobe measuring 5 x 7 mm TR 4 moderately suspicious nodule. A second spongiform nodule is seen in the left lobe measuring 2 x 4 x 3 mm, a TR 1 benign nodule. There is a cyst in the upper pole measuring 3 x 2 x 3 mm. The left lobe measures 4.8 x 1.5 x 1.7 cm. Heterogeneous appearance of left lobe of the thyroid Isthmus: Isthmus measures 0.4 cm in thickness. Other: None Conclusion: Right lobe/isthmus TR 4 nodule, recommend follow-up at 1, 2, 3 and 5 years. 2. Left lobe TR4 nodule Thyroid ultrasound (01/23/2024): Findings: Right thyroid lobe: 4.8 x 1.3 x 1.4 cm. Homogeneous echotexture with normal vascularity. There is a lower pole heterogeneous 1.3 x 1.3 x 0.5 cm nodu (more content not included)... Normal [facility] No Panel Informationon 06-17 Performing Lab See Note Normal [employer]; [employer] Work Phone: THYROID STIMULATING HORMONEo n 06-17-2024 TSH Qn 1.660 m[IU]/L [facility] TSH Qnon 06-17-2024 Interpretation and review of laboratory results Normal [facility] TSH SerPl-aCncon 06-17-2024 TSH Qn 1.660 m[IU]/L Normal 0.270 - 4.200 {mIU/L} [place]; [employer] Work Phone: Comment on above: Order Comment: Speci men Type: BLOOD SPECIMENOrdering Facility: [facility] Address: [address] [place] [address] Performed By: #### 3 016-3 ####[facility] LABCLIA [id number] [address] [place] CNPNon 06-13-2024 CNPN Telephone (ENWSTR) TETE HOWARD ([id number]) 1955 F Date Time Provider Department 7/26/24 LIRBADO GUERRIER KHOA ENWSTR During your visit today, we recorded the following information about you: Funmi Watson RN 06/13/2024 3:03 PM Signed Record request faxed to Alanis Kasper' office requesting OV notes, thyroid labs, and thyroid US report pertaining to endocrinology referral for thyroid nodules. Fax confirmation received. Funmi Watson RN June 13, 2024 3:03 PM Allergies As of Date: 06/13/2024 Noted Allergy Reaction CODEINE 06/27/2018 11 - Vomiting Date Reviewed: 02/01/2022 Reviewed by: Catia Moreira PA-C - Fully Assessed Reason for Visit: Request Outside Medical Records [[id number]] Problem List As Of Date 06/13/2024 Noted Resolved DTFB//// of Skin of Lower Limb, [D23.70] 08/03/2009 01/01/2014 Venous stasis [I87.8] 06/27/2018 Lentigines [L81.4] 06/27/2018 Seborrheic keratoses [L82.1] 06/27/2018 Angioma [D18.00] 06/27/2018 Family history of skin cancer [Z80.8] 06/27/2018 Encounter Status:Closed by FUNMI WATSON on 06/13/24 Normal [facility] No Panel Informationon 06-13 [facility] [employer] [facility] No Panel Informationon 06-02 [facility], [facility].; [facility] [employer] [facility], [employer].; [facility] [employer] [facility] No Panel Informationon 05-26 [facility] [employer] [facility], [employer].; [facility] [employer] [facility] No Panel Informationon 05-19 [facility], [facility].; [facility] [employer] [facility] Laboratory - Chemistry and C hemistry - challengeon 05-15-2024 Albumin [Mass/Vol] 3.5 g/dL Normal 3.4 - 5.0 g/dL [facility]. Work Phone: ALT [Catalytic activity/Vol] 21 U/L Normal 16 - 63 U/L [facility]; [facility] Work Phone: AST [Catalytic activity/Vol] 16 U/L Normal 13 - 39 U/L [facility].; [facility]. Work Phone: Bilirubin [Mass/Vol] 0.9 mg/dL Normal 0.2 - 1 .0 mg/dL [facility]; [facility]. Work Phone: Bilirubin.conjugated [Mass/Vol] 0.2 mg/dL Normal 0.0 - 0.2 mg/dL [facility].; [facility], [facility]. Work Phone: Hepatic function 2000 panel Normal [facility]; [facility]. Work Phone: Protein [Mass/Vol] 7.1 g/dL Normal 6.4 - 8.2 g/dL [facility].; [facility], [facility]. Work Phone: No Panel Informationon 05-15 ALK PHOS 74 U/L Normal 46 - 116 U/L [facility].; [facility]. Work Phone: No Panel Informationon 05-12 [facility].; [facility]. No Panel Informationon 05-08 [facility].; [facility], [facility]. [facility].; [facility], [facility] No Panel Informationon 05-05 [facility].; [facility] [place] No Panel Informationon 04-25 [facility], [facility].; [facility], [facility], [facility].; [facility], [facility], [facility].; [facility], [facility] No Panel Informationon 04-24 [facility], [facility].; [facility], [facility]. [facility], [facility].; [facility], [facility]. No Panel Informationon 04-22 [facility], [facility].; [facility], [facility]. [facility], [facility], [facility].; [facility], [facility], [facility].; [facility], [facility], [facility].; [facility], [facility], [facility].; [facility], [facility], [facility].; [facility], [facility]. No Panel Informationon 04-15 [facility], [facility]. No Panel Informationon 04-09 [facility], [facility].; [facility], [facility]. No Panel Informationon 02-21 [facility], [facility].; [facility], [facility]. Laboratory - Chemistry and C hemistry - challengeon 02-21-2024 Albumin [Mass/Vol] 3.6 g/dL Normal 3.4 - 5.0 g/dL [facility].; [facility], [facility]. Work Phone: ALT [Catalytic activity/Vol] 25 U/L Normal 16 - 63 U/L [facility].; [facility], [employer] Work Phone: AST [Catalytic activity/Vol] 20 U/L Normal 13 - 39 U/L [facility]; [facility]. Work Phone: Bilirubin [Mass/Vol] 0.6 mg/dL Normal 0.2 - 1 .0 mg/dL [facility]; [facility] Work Phone: Bilirubin.conjugated [Mass/Vol] 0.2 mg/dL Normal 0.0 - 0.2 mg/dL [facility]; [facility]. Work Phone: Hepatic function 2000 panel Normal [facility]; [facility] Work Phone: Protein [Mass/Vol] 7.1 g/dL Normal 6.4 - 8.2 g/dL [facility]; [facility]. Work Phone: No Panel Informationon 02-20 ALK PHOS 86 U/L Normal 46 - 116 U/L [facility]; [facility] Work Phone: No Panel Informationon 02-18 [facility].; [facility], [facility]. [facility].; [facility], [facility], [facility] No Panel Informationon 02-15 [facility].; [facility], [facility].; [facility], [facility] No Panel Informationon 12-06 [facility].; [facility], [facility]. Laboratory - Chemistry and C hemistry - challengeon 10-25-2023 Albumin [Mass/Vol] 3.3 g/dL Abnormal 3.4 - 5.0 g/dL [facility]; [facility] Work Phone: ALT [Catalytic activity/Vol] 25 U/L Normal 14 - 59 U/L [facility]; [facility] Work Phone: AST [Catalytic activity/Vol] 15 U/L Normal 13 - 39 U/L [facility]; [facility] Work Phone: Bilirubin [Mass/Vol] 0.5 mg/dL Normal 0.2 - 1 .0 mg/dL [facility]; [facility] Work Phone: Bilirubin.conjugated [Mass/Vol] 0.1 mg/dL Normal 0.0 - 0.2 mg/dL [facility]; [facility] Work Phone: Hepatic function 2000 panel Normal [facility]; [facility] Work Phone: Protein [Mass/Vol] 7.4 g/dL Normal 6.4 - 8.2 g/dL [place] [facility]; [facility] Work Phone: No Panel Informationon 10-25 ALK PHOS 79 U/L Normal 46 - 116 U/L [facility]; [facility] Work Phone: Laboratory - Chemistry and C hemistry - challengeon 09-15-2023 Albumin [Mass/Vol] 3.5 g/dL Normal 3.4 - 5.0 g/dL [facility]; [facility] Work Phone: ALT [Catalytic activity/Vol] 27 U/L Normal 14 - 59 U/L [facility]; [facility] Work Phone: AST [Catalytic activity/Vol] 23 U/L Normal 13 - 39 U/L [facility]; [facility] Work Phone: Bilirubin [Mass/Vol] 0.6 mg/dL Normal 0.2 - 1 .0 mg/dL [facility]; [facility] Work Phone: Bilirubin.conjugated [Mass/Vol] 0.1 mg/dL Normal 0.0 - 0.2 mg/dL [facility]; [facility] Work Phone: Hepatic function 2000 panel Normal [facility]; [facility] Work Phone: Protein [Mass/Vol] 7.1 g/dL Normal 6.4 - 8.2 g/dL [facility]; [facility] Work Phone: No Panel Informationon 09-15 ALK PHOS 87 U/L Normal 46 - 116 U/L [facility]; [facility] Work Phone: Laboratory - Chemistry and C hemistry - challengeon 08-26-2023 Albumin [Mass/Vol] 3.6 g/dL Normal 3.4 - 5.0 g/dL [facility]; [facility] Work Phone: ALT [Catalytic activity/Vol] 39 U/L Normal 14 - 59 U/L [facility]; [facility] Work Phone: AST [Catalytic activity/Vol] 22 U/L Normal 13 - 39 U/L [facility]; [facility] Work Phone: Bilirubin [Mass/Vol] 0.7 mg/dL Normal 0.2 - 1 .0 mg/dL [facility]; [facility] Work Phone: Bilirubin.conjugated [Mass/Vol] 0.2 mg/dL Normal 0.0 - 0.2 mg/dL [facility]; [facility] Work Phone: Hepatic function 2000 panel Normal [facility]; [facility] Work Phone: Protein [Mass/Vol] 7.2 g/dL Normal 6.4 - 8.2 g/dL [facility]; [facility] Work Phone: Laboratory - Hematology and Cell countson 08-26-2023 CBC panel Auto (Bld) Normal [facility]; [facility] Work Phone: Erythrocyte distribution width (RBC) [Ratio] 13.0 % Normal 12.0 - 15.6 % [facility]; [facility] Work Phone: Hematocrit (Bld) [Volume fraction] 40.7 % Normal 34.0 - 46.0 % [facility]; [facility] Work Phone: Hemoglobin (Bld) [Mass/Vol] 13.8 g/dL Normal 12.0 - 16.0 g/dL [facility]; [facility] Work Phone: MCH (RBC) [Entitic mass] 31 pg Normal 27 - 33 pg [facility]; [facility] Work Phone: MCHC (RBC) [Mass/Vol] 34 {X10_3} Normal 32 - 3 6 {X10_3} [facility]; [facility] Work Phone: MCV (RBC) [Entitic vol] 93 fL Normal 80 - 99 fL [facility]; [facility] Work Phone: Platelet mean volume (Bld) [Entitic vol] 8.0 fL Normal 6.6 - 10.5 fL [facility]; [facility] Work Phone: Platelets (Bld) [#/Vol] 175 {x10EE3/UL} Normal 150 - 450 {x10EE3/UL } [facility]; [facility] Work Phone: RBC (Bld) [#/Vol] 4.40 {x_10EE6/UL} Normal 4.10 - 5.30 {x_10EE6/U L} [facility]; [facility] Work Phone: WBC (Bld) [#/Vol] 4.7 {x_10EE3/UL} Normal 4.5 - 10.8 {x_10EE3/U L} [facility] Work Phone: No Panel Informationon 08-26 ALK PHOS 118 U/L Abnormal 46 - 116 U/L [facility]; [facility] Work Phone: Laboratory - Chemistry and C hemistry - challengeon 07-14-2023 Albumin [Mass/Vol] 3.3 g/dL Abnormal 3.4 - 5.0 g/dL [facility]; [facility] Work Phone: ALT [Catalytic activity/Vol] 24 U/L Normal 14 - 59 U/L [facility]; [facility] Work Phone: AST [Catalytic activity/Vol] 16 U/L Normal 13 - 39 U/L [facility]; [facility] Work Phone: Bilirubin [Mass/Vol] 0.4 mg/dL Normal 0.2 - 1 .0 mg/dL [facility]; [facility] Work Phone: Bilirubin.conjugated [Mass/Vol] 0.1 mg/dL Normal 0.0 - 0.2 mg/dL [facility]; [facility] Work Phone: Hepatic function 2000 panel Normal [facility]; [facility] Work Phone: Protein [Mass/Vol] 7.2 g/dL Normal 6.4 - 8.2 g/dL [facility]; [facility] Work Phone: Laboratory - Hematology and Cell countson 07-14-2023 Basophils (Bld) [#/Vol] 0.10 {x10EE3/UL} Normal 0.00 - 0.10 {x10EE3/UL } [facility]; [facility] Work Phone: Basophils/100 WBC (Bld) 1.1 % Normal 0.0 - 2.0 % [facility]; [facility] Work Phone: Eosinophils (Bld) [#/Vol] 0.10 {x10EE3/UL} Normal 0.00 - 0.50 {x10EE3/UL } [facility]; [facility] Work Phone: Eosinophils/100 WBC (Bld) 1.7 % Normal 0.0 - 7.0 % [facility]; [facility] Work Phone: Erythrocyte distribution width (RBC) [Ratio] 12.6 % Normal 12.0 - 15.6 % [facility]; [facility] Work Phone: Hematocrit (Bld) [Volume fraction] 40.2 % Normal 34.0 - 46.0 % [facility]; [facility] Work Phone: Hemoglobin (Bld) [Mass/Vol] 13.5 g/dL Normal 12.0 - 16.0 g/dL [facility]; [facility] Work Phone: Lymphocytes (Bld) [#/Vol] 0.70 {x10EE3/UL} Abnormal 0.80 - 2.80 {x10EE3/UL } [facility]; [facility] Work Phone: Lymphocytes/100 WBC (Bld) 13.4 % Abnormal 20.0 - 45.0 % [facility]; [facility] Work Phone: MCH (RBC) [Entitic mass] 31 pg Normal 27 - 33 pg [facility]; [facility] Work Phone: MCHC (RBC) [Mass/Vol] 34 {X10_3} Normal 32 - 3 6 {X10_3} [facility] Work Phone: MCV (RBC) [Entitic vol] 92 fL Normal 80 - 99 fL [facility]; [facility] Work Phone: Monocytes (Bld) [#/Vol] 0.70 {x10EE3/UL} Normal 0.20 - 1.00 {x10EE3/UL } [facility].; [facility]. Work Phone: Monocytes/100 WBC (Bld) 13.9 % Abnormal 0.0 - 10.0 % [facility]; [facility] Work Phone: Morphology Faraz (Bld) [Interp] N/A Normal [facility]; [facility]. Work Phone: Neutrophils (Bld) [#/Vol] 3.70 {x10EE3/UL} Normal 1.50 - 7.10 {x10EE3/UL } [facility].; [facility]. Work Phone: Neutrophils/100 WBC (Bld) 69.9 % Normal 46.0 - 76.0 % [facility]; [facility] Work Phone: Platelet mean volume (Bld) [Entitic vol] 7.8 fL Normal 6.6 - 10.5 fL [facility]; [facility] Work Phone: Platelets (Bld) [#/Vol] 212 {x10EE3/UL} Normal 150 - 450 {x10EE3/UL } [facility]; [facility]. Work Phone: RBC (Bld) [#/Vol] 4.37 {x_10EE6/UL} Normal 4.10 - 5.30 {x_10EE6/U L} [facility].; [facility]. Work Phone: WBC (Bld) [#/Vol] 5.3 {x_10EE3/UL} Normal 4.5 - 10.8 {x_10EE3/U L} [facility].; [facility]. Work Phone: No Panel Informationon 07-14 ALK PHOS 87 U/L Normal 46 - 116 U/L [facility].; [facility] Work Phone: CBC + DIFF Normal [facility].; [facility]. Work Phone: MANUAL DIFF N/A Normal [facility].; [facility]. Work Phone: Body fluid appearanceOrdered By: Benson Argueta on 07-04-2023 Appearance (Body fld) CLOUDY [facility] Body fluid color determinati onOrdered By: Benson Argueta on 07-04-2023 Color (Body fld) COLORLESS [facility] Body fluid leukocytes count (number/volume)Ordered By: Benson Argueta on 07-04-2023 WBC (Body fld) [#/Vol] 1183 /mm3 [facility] Body fluid lymphocytes/100 l eukocytesOrdered By: Benson Argueta on 07-04-2023 Lymphocytes/100 WBC (Body fld) 3 % [facility] Body fluid macrophage countO rdered By: Benson Argueta on 07-04-2023 Macrophages (Body fld) [#/Vol] 4 % [facility] Body fluid mesothelial cell percentageOrdered By: Benson Argueat on 07-04-2023 Mesothelial cells/100 WBC (Body fld) 0 % [facility] Body fluid segmented neutrop hils count (number/volume)Ordered By: Benson Argueta on 07-04-2023 Segmented neutrophils (Body fld) [#/Vol] 92 % [facility] Laboratory - Hematology and Cell countson 07-04-2023 Lymphocytes (Bld) [#/Vol] 3 10*3/uL Normal [employer], [employer]. Work Phone: No Panel Informationon 07-04 APPEAR/BF CLOUDY Normal [employer].; [employer], [employer]. Work Phone: COLOR/BF COLORLESS Normal [employer], [employer]. Work Phone: CUF See Note Normal [employer], [employer] Work Phone: CYTOLOGY,BF/CSF SEE PATHOLOGY REPORT Normal [employer].; [employer], [employer] Work Phone: GS See Note Normal [employer].; [employer], [employer] Work Phone: MACROPHAGES 1 [employer], [employer] Work Phone: MACROPHAGES 4 Normal [employer], [employer] Work Phone: MESOTHELIAL 0 Normal [employer].; [employer], [employer] Work Phone: MONO/BF 1 [employer], [employer] Work Phone: PATH COMM/BF Reviewed Normal [employer].; [facility], [employer] Work Phone: PMN [address] [facility].; [facility], [employer] Work Phone: PMN 92 Normal [facility], Inc.; [facility], [employer] Work Phone: RBC/BF 1070 /mm3 Normal [facility], Inc.; [facility], [employer] Work Phone: RBC/BF 1582 /mm3 Normal [facility].; [facility], [employer] Work Phone: RESPC See Note Normal [facility], Inc.; [facility], [employer] Work Phone: SOURCE/BF BRONCHIAL LAVAGE Normal [facility], Inc.; [facility], [employer] Work Phone: Special Stain Group II See Note Normal [facility], Inc.; [facility], [employer] Work Phone: tafb See Note Normal [facility], Inc.; [facility], [employer] Work Phone: tAFBC See Note Normal [facility], Inc.; [facility], [employer] Work Phone: WBC/BF 2885 /mm3 Normal [facility], Inc.; [facility], [employer] Work Phone: WBC/BF 1183 /mm3 Normal [facility], Inc.; [facility], [employer] Work Phone: No Panel InformationOrdered By: Benson Argueta on 07-04-2023 Body Fluid Comment 2 Not Reportable [facility] Body Fluid Pathologist Comment May follow [facility] Body Fluid RBC 1582 /mm3 [facility] Specimen source identificati on of body fluidOrdered By: Benson Argueta on 07-04-2023 Specimen source Nom (Body fld) BRONCHIAL LAVAGE [facility] Comment on above: LEFT UPPER LOBEPrevi ous reported result: BRONCHIAL LAVAGE Edited by: ALMA on 07/04/23:1309 AMENDED REPORT 07/04/23 1309 SOURCE/BF previously reported as: [employer]ON[employer]IAL [employer]AV[employer] Thin prep Papanicolaou smear with manual screeningOrdered By: Benson Argueta on 07-04-2023 Thin prep Papanicolaou smear with manual screening 1 % [facility] Total cell countOrdered By: Benson Argueta on 07-04-2023 Cells counted [employer] (Bld/Tiss) [#] Not Reportable [facility] No Panel Informationon 06-25 QFT MITOGEN BRI > 10.00 [facility] Work Phone: QFT NIL VALUE 0.05 {IU/mL} Normal [facility] Work Phone: QFT TB GOLD+ Comment Normal [facility] Work Phone: QFT TB POS CRIT Negative Normal [facility] Work Phone: QFT TB1+ AG BRI 0.05 {IU/mL} Normal [facility] [employer] [facility] Work Phone: QFT TB2+ AG BRI 0.07 {IU/mL} Normal [facility] [employer] [facility] Work Phone: Qualitative QuantiFERON-TB g old in tube testOrdered By: Benson Argueta on 06-25-2023 M. tuberculosis tuberculin stim IFN-g Ql (Bld) 0.05 IU/mL . [facility] Thin prep Papanicolaou smear with manual screeningOrdered By: Benson Argueta on 06-25-2023 Thin prep Papanicolaou smear with manual screening Comment . [facility] Comment on above: QuantiFERON-TB Gold Plus is a qualitative indirect test forM tuberculosis infection (including disease) and isintended for use in conjunction with risk assessment,radiography, and other medical and diagnostic evaluations.The QuantiFERON-TB Gold Plus result is determined bysubtracting the Nil value from either TB antigen (Ag)value. The Mitogen tube serves as a control for the test. Thin prep Papanicolaou smear with manual screening 0.07 IU/mL . [facility] Thin prep Papanicolaou smear with manual screening 0.05 IU/mL . [facility] Thin prep Papanicolaou smear with manual screening > 10.00 IU/mL . [facility] Thin prep Papanicolaou smear with manual screening Negative Negative [facility] Comment on above: No response to M tub erculosis antigens detected.Infection with M tuberculosis is unlikely, but high riskindividuals should be considered for additional testing(ATS/IDSA/CDC Clinical Practice Guidelines, 2017). Thereference range is an Antigen minus Nil result of <0.35IU/mL.The specimen received for QuantiFERON testing was incubatedby the ordering institution. Specific procedures outlinedin our Directory of Services and in the package insert forthe QuantiFERON Gold (In Tube) test must be followed toenable for proper stimulation of cells for the productionof interferon gamma. Chemiluminescence immunoassaymethodologyPerformed at: [facility] [address] [id number] Director: Ismael Albrecht PhD, Phone: [phone] Laboratory - Chemistry and C hemistry - challengeon 04-08-2023 Anion gap [Moles/Vol] 12 mmol/L Normal 10 - 2 0 mmol/L [facility]; [facility]. Work Phone: Calcium [Mass/Vol] 8.7 mg/dL Normal 8.5 - 10. 1 mg/dL [facility]; [facility] Work Phone: Chloride [Moles/Vol] 105 mmol/L Normal 98 - 10 7 mmol/L [facility]; [facility] Work Phone: CO2 [Moles/Vol] 26.8 mmol/L Normal 21.0 - 32.0 mmol/L [facility]; [facility] Work Phone: Creatinine [Mass/Vol] 0.69 mg/dL Normal 0.55 - 1.02 mg/dL [facility]; [facility] Work Phone: GFR/1.73 sq M.predicted among blacks MDRD (S/P/Bld) [Vol rate/Area] mL/min/{1.73_m2} Normal 60 - 999 {ML/MINUTE } [facility].; [facility] Work Phone: GFR/1.73 sq M.predicted MDRD (S/P/Bld) [Vol rate/Area] mL/min/{1.73_m2} Normal 60 - 999 {ML/MINUTE } [facility].; [facility]. Work Phone: Glucose [Mass/Vol] 98 mg/dL Normal 74 - 106 mg/dL [facility]; [facility] Work Phone: Potassium [Moles/Vol] 3.8 mmol/L Normal 3.5 - 5.1 mmol/L [facility]; [facility] Work Phone: Sodium [Moles/Vol] 140 mmol/L Normal 136 - 145 mmol/L [facility]; [facility] Work Phone: Urea nitrogen [Mass/Vol] 14 mg/dL Normal 7 - 18 mg/dL [facility]; [facility] Work Phone: Laboratory - Hematology and Cell countson 04-08-2023 Basophils (Bld) [#/Vol] 0.00 {x10EE3/UL} Normal 0.00 - 0.10 {x10EE3/UL } [facility]; [facility] Work Phone: Basophils/100 WBC (Bld) 1.1 % Normal 0.0 - 2.0 % [facility]; [facility] Work Phone: Eosinophils (Bld) [#/Vol] 0.10 {x10EE3/UL} Normal 0.00 - 0.50 {x10EE3/UL } [facility]; [facility] Work Phone: Eosinophils/100 WBC (Bld) 2.0 % Normal 0.0 - 7.0 % [facility]; [facility] Work Phone: Erythrocyte distribution width (RBC) [Ratio] 13.1 % Normal 12.0 - 15.6 % [facility]; [facility] Work Phone: Hematocrit (Bld) [Volume fraction] 43.9 % Normal 34.0 - 46.0 % [facility]; [facility] Work Phone: Hemoglobin (Bld) [Mass/Vol] 14.3 g/dL Normal 12.0 - 16.0 g/dL [facility]; [facility] Work Phone: Lymphocytes (Bld) [#/Vol] 0.80 {x10EE3/UL} Normal 0.80 - 2.80 {x10EE3/UL } [facility]; [facility] Work Phone: Lymphocytes/100 WBC (Bld) 23.9 % Normal 20.0 - 45.0 % [facility]; [facility] Work Phone: MCH (RBC) [Entitic mass] 31 pg Normal 27 - 33 pg [facility]; [facility] Work Phone: MCHC (RBC) [Mass/Vol] 33 {X10_3} Normal 32 - 3 6 {X10_3} [facility]; [facility]. Work Phone: MCV (RBC) [Entitic vol] 95 fL Normal 80 - 99 fL [facility]; [facility] Work Phone: Monocytes (Bld) [#/Vol] 0.40 {x10EE3/UL} Normal 0.20 - 1.00 {x10EE3/UL } [facility]; [facility] Work Phone: Monocytes/100 WBC (Bld) 10.8 % Abnormal 0.0 - 10.0 % [facility]; [facility]. Work Phone: Morphology Faraz (Bld) [Interp] N/A Normal [facility]; [facility] Work Phone: Neutrophils (Bld) [#/Vol] 2.20 {x10EE3/UL} Normal 1.50 - 7.10 {x10EE3/UL } [facility]. Work Phone: Neutrophils/100 WBC (Bld) 62.2 % Normal 46.0 - 76.0 % [facility].; [facility]. Work Phone: Platelet mean volume (Bld) [Entitic vol] 8.7 fL Normal 6.6 - 10.5 fL [facility].; [facility]. Work Phone: Platelets (Bld) [#/Vol] 176 {x10EE3/UL} Normal 150 - 450 {x10EE3/UL } [facility].; [facility]. Work Phone: RBC (Bld) [#/Vol] 4.64 {x_10EE6/UL} Normal 4.10 - 5.30 {x_10EE6/U L} [facility].; [facility]. Work Phone: WBC (Bld) [#/Vol] 3.5 {x_10EE3/UL} Abnormal 4.5 - 10.8 {x_10EE3/U L} [facility].; [facility]. Work Phone: Laboratory - Microbiology an d Antimicrobial susceptibilityon 04-08-2023 Bacteria identified Respiratory culture Nom (Unsp spec) See Note Normal [facility]. Work Phone: No Panel Informationon 04-08 AGE 67 {years} Normal [facility].; [facility]. Work Phone: BMP with eGFR Normal [facility].; [facility] CampusJobPlanet Work Phone: CBC + DIFF Normal [facility]; [facility] Work Phone: MANUAL DIFF N/A Normal [facility].; [facility] Work Phone: No Panel Informationon 03-20 Surgery Specimen Level IV See Note Normal [facility].; [facility] Work Phone: Laboratory - Chemistry and C hemistry - challengeon 03-15-2023 CRP [Mass/Vol] mg/L Normal 0.00 - 0.90 mg/dL [facility]; [facility] Work Phone: Laboratory - Hematology and Cell countson 03-15-2023 ESR (Bld) [Velocity] 12 mm/h Normal 0 - 30 mm/h [facility].; [facility] Work Phone: .Auto Diffon 03-06-2023 Basophil, Absolute 0.0 10 3/mcL Normal 0.0-0.3 [facility] ([place]) Comment on above: Performed By: #### G FR, BMP #### [address] [address] Basophils/100 WBC (Bld) 0.5 % Normal 0.0-2.5 [facility] ([place]) Comment on above: Performed By: #### G FR, BMP #### [address] [address] Eosinophil, Absolute 0.1 10 3/mcL Normal 0.0-0.7 [facility] ([place]) Comment on above: Performed By: #### G FR, BMP #### [address] [address] Eosinophils/100 WBC (Bld) 0.8 % Normal 0.0-6.0 [facility] ([place]) Comment on above: Performed By: #### G FR, BMP #### [address] [address] Lymphocyte, Absolute 1.0 10 3/mcL Normal 0.9-4.3 [facility] ([place]) Comment on above: Performed By: #### G FR, BMP #### [address] [address] Lymphocytes/100 WBC (Bld) 11.6 % Low 20.0-40.0 [facility] ([place]) Comment on above: Performed By: #### G FR, BMP #### [address] [address] Monocyte, Absolute 0.8 10 3/mcL Normal 0.1-1.4 [facility] ([place]) Comment on above: Performed By: #### G FR, BMP #### [address] [address] Monocytes/100 WBC (Bld) 9.1 % Normal 2.0-13.0 [facility] ([place]) Comment on above: Performed By: #### G FR, BMP #### [address] [address] [address] Neutrophils/100 WBC (Bld) 78.0 % High 50.0-75.0 [facility] ([place]) Comment on above: Performed By: #### G FR, BMP #### [address] [address] .NEUABSon 03-06-2023 Neutrophil, Absolute 6.5 10 3/mcL Normal 2.3-8.1 [facility] ([place]) Comment on above: Performed By: #### G FR, BMP #### [address] [address] CBCon 03-06-2023 Erythrocyte distribution width (RBC) [Ratio] 12.7 % Normal 11.5-15.5 [facility] ([place]) Comment on above: Performed By: #### G FR, BMP #### [address] [address] Hematocrit (Bld) [Volume fraction] 41.6 % Normal 34.0-46.0 [facility] ([place]) Comment on above: Performed By: #### G FR, BMP #### [place] [address] Hgb 13.9 G/dL Normal 12.0-16.0 [facility] ([place]) Comment on above: Performed By: #### G FR, BMP #### [place] [id number] MCH (RBC) [Entitic mass] 31.5 pg Normal 27.0-33.0 [facility] ([place]) Comment on above: Performed By: #### Christine FR, BMP #### [place] [address] MCHC 33.4 G/dL Normal 32.0-36.0 [facility] ([place]) Comment on above: Performed By: #### Christine FR, BMP #### [place] [address] MCV (RBC) [Entitic vol] 94.1 fL Normal 80.0-99.0 [facility] ([place]) Comment on above: Performed By: #### Christine FR, BMP #### [place] [id number] Platelet 187 10 3/mcL Normal 150-450 [facility] ([place]) Comment on above: Performed By: #### G FR, BMP #### [place] [address] Platelet mean volume (Bld) [Entitic vol] 8.8 fL Normal 6.6-10.5 [facility] ([place]) Comment on above: Performed By: #### G FR, BMP #### [place] [address] RBC 4.42 10 6/mcL Normal 4.10-5.30 [facility] ([place]) Comment on above: Performed By: #### G FR, BMP #### [place] [id number] WBC 8.3 10 3/mcL Normal 4.5-10.8 [facility] ([place]) Comment on above: Performed By: #### G FR, BMP #### [place] [address] Laboratory - Hematology and Cell countson 03-05-2023 Basophils (Bld) [#/Vol] 0.0 {10^3/mcL} Normal 0.0 - 0.3 {10^3/mcL} [facility] [employer] [facility] [facility] [employer] Work Phone: Basophils/100 WBC (Bld) 0.5 % Normal 0.0 - 2.5 % [facility] [employer] [facility] [facility] [employer] Work Phone: Eosinophils/100 WBC (Bld) 0.8 % Normal 0.0 - 6.0 % [facility], [employer].; [facility] [employer] Work Phone: Erythrocyte distribution width (RBC) [Ratio] 12.7 % Normal 11.5 - 15.5 % [facility] [employer] Hematocrit (Bld) [Volume fraction] 41.6 % Normal 34.0 - 46.0 % [facility] [employer], [employer].; [facility] [employer] [facility], [employer]. Hemoglobin (Bld) [Mass/Vol] 13.9 g/dL Normal 12.0 - 16.0 g/dL [facility], [employer].; [facility] [employer] Lymphocytes (Bld) [#/Vol] 1.0 {10^3/mcL} Normal 0.9 - 4.3 {10^3/mcL} [facility] Healthcare[facility].; [facility] [employer] Work Phone: Lymphocytes/100 WBC (Bld) 11.6 % Abnormal 20.0 - 40.0 % [facility] [employer] Work Phone: MCH (RBC) [Entitic mass] 31.5 pg Normal 27.0 - 33.0 pg [facility] Healthcare[facility]arm[facility].; [facility], [facility]. MCHC (RBC) [Mass/Vol] 33.4 g/dL Normal 32.0 - 36.0 g/dL [facility].; [facility], [facility] MCV (RBC) [Entitic vol] 94.1 fL Normal 80.0 - 99.0 fL [facility].; [facility], [facility] Monocytes (Bld) [#/Vol] 0.8 {10^3/mcL} Normal 0.1 - 1.4 {10^3/mcL} [facility].; [facility], [employer]. Work Phone: Monocytes/100 WBC (Bld) 9.1 % Normal 2.0 - 13.0 % [facility].; [facility]. Work Phone: Neutrophils (Bld) [#/Vol] 6.5 {10^3/mcL} Normal 2.3 - 8.1 {10^3/mcL} [facility].; [facility], [employer]. Work Phone: Neutrophils/100 WBC (Bld) 78.0 % Abnormal 50.0 - 75.0 % [facility].; [facility] Work Phone: Platelet mean volume (Bld) [Entitic vol] 8.8 fL Normal 6.6 - 10.5 fL [facility].; [facility], [facility]. Platelets (Bld) [#/Vol] 187 {10^3/mcL} Normal 150 - 450 {10^3/mcL} [facility] [employer].; [facility], [facility]. RBC (Bld) [#/Vol] 4.42 {10^6/mcL} Normal 4.10 - 5.30 {10^6/mcL} [facility] [employer].; [facility], [facility]. WBC (Bld) [#/Vol] 8.3 {10^3/mcL} Normal 4.5 - 10 .8 {10^3/mcL} [facility]; [facility] No Panel Informationon 03-05 Basophil, Absolute 0.0 {10^3/mcL} Normal 0.0 - 0 .3 {10^3/mcL} [facility].; [facility] Work Phone: Eosinophil, Absolute 0.1 {10^3/mcL} Normal 0.0 - 0.7 {10^3/mcL} [facility].; [facility]. Work Phone: Lymphocyte, Absolute 1.0 {10^3/mcL} Normal 0.9 - 4.3 {10^3/mcL} [facility].; [facility] Work Phone: Monocyte, Absolute 0.8 {10^3/mcL} Normal 0.1 - 1 .4 {10^3/mcL} [facility].; [facility] Work Phone: Neutrophil, Absolute 6.5 {10^3/mcL} Normal 2.3 - 8.1 {10^3/mcL} [facility].; [facility] Work Phone: Laboratory - Chemistry and C hemistry - challengeon 01-16-2023 Anion gap [Moles/Vol] 13 mmol/L Normal 10 - 2 0 mmol/L [facility]; [facility] Work Phone: Calcium [Mass/Vol] 9.0 mg/dL Normal 8.5 - 10. 1 mg/dL [facility] HospitalMy[facility]; [facility] Work Phone: Chloride [Moles/Vol] 110 mmol/L Abnormal 98 - 10 7 mmol/L [facility]; [facility]. Work Phone: CO2 [Moles/Vol] 25.9 mmol/L Normal 21.0 - 32.0 mmol/L [facility]; [facility] Work Phone: Creatinine [Mass/Vol] 0.64 mg/dL Normal 0.55 - 1.02 mg/dL [facility]; [facility] Work Phone: GFR/1.73 sq M.predicted among blacks MDRD (S/P/Bld) [Vol rate/Area] mL/min/{1.73_m2} Normal 60 - 999 {ML/MINUTE } [facility].; [facility]. Work Phone: GFR/1.73 sq M.predicted MDRD (S/P/Bld) [Vol rate/Area] mL/min/{1.73_m2} Normal 60 - 999 {ML/MINUTE } [facility].; [facility]. Work Phone: Glucose [Mass/Vol] 96 mg/dL Normal 74 - 106 mg/dL [facility]; [facility]. Work Phone: Potassium [Moles/Vol] 4.1 mmol/L Normal 3.5 - 5.1 mmol/L [facility]; [facility]. Work Phone: Sodium [Moles/Vol] 145 mmol/L Normal 136 - 145 mmol/L [facility]; [facility] Work Phone: Urea nitrogen [Mass/Vol] 17 mg/dL Normal 7 - 18 mg/dL [facility].; [facility]. Work Phone: No Panel Informationon 01-16 AGE 67 {years} Normal [facility].; [facility]. Work Phone: BMP with eGFR Normal [facility]; [facility] Work Phone: Anaerobic cultureOrdered By: Missy Tapia on 11-27-2022 Bacteria identified Anaer cx Nom (Unsp spec) No growth in 5 days. [facility] Bacterial body fluid culture Ordered By: Missy Tapia on 11-27-2022 Bacteria identified Cx Nom (Body fld) Culture exhibits no growth. [facility] Gram stain for investigation of transfusion reactionOrdered By: Missy Tapia on 11-23-2022 Microscopic observation Gram stain Nom (Unsp spec) [facility] Laboratory - Chemistry and C hemistry - challengeon 11-23-2022 CRP [Mass/Vol] mg/L Normal 0.00 - 0.90 mg/dL [facility].; [facility], [facility]. Work Phone: Laboratory - Hematology and Cell countson 11-23-2022 Basophils (Bld) [#/Vol] 0.00 {x10EE3/UL} Normal 0.00 - 0.10 {x10EE3/UL } [facility].; [facility]. Work Phone: Basophils/100 WBC (Bld) 0.7 % Normal 0.0 - 2.0 % [facility].; [facility]. Work Phone: Eosinophils (Bld) [#/Vol] 0.10 {x10EE3/UL} Normal 0.00 - 0.50 {x10EE3/UL } [facility]; [facility] Work Phone: Eosinophils/100 WBC (Bld) 1.0 % Normal 0.0 - 7.0 % [facility]; [facility] Work Phone: Erythrocyte distribution width (RBC) [Ratio] 12.8 % Normal 12.0 - 15.6 % [facility]; [facility] Work Phone: ESR (Bld) [Velocity] 4 mm/h Normal 0 - 30 mm/h [facility]; [facility] Work Phone: Hematocrit (Bld) [Volume fraction] 41.1 % Normal 34.0 - 46.0 % [facility]; [facility] Work Phone: Hemoglobin (Bld) [Mass/Vol] 13.9 g/dL Normal 12.0 - 16.0 g/dL [facility]; [facility] Work Phone: Lymphocytes (Bld) [#/Vol] 1.20 {x10EE3/UL} Normal 0.80 - 2.80 {x10EE3/UL } [facility]; [facility] Work Phone: Lymphocytes/100 WBC (Bld) 21.0 % Normal 20.0 - 45.0 % [facility]; [facility] Work Phone: MCH (RBC) [Entitic mass] 31 pg Normal 27 - 33 pg [facility]; [facility] Work Phone: MCHC (RBC) [Mass/Vol] 34 {X10_3} Normal 32 - 3 6 {X10_3} [facility].; [facility] Work Phone: MCV (RBC) [Entitic vol] 91 fL Normal 80 - 99 fL [facility]; [facility] Work Phone: Monocytes (Bld) [#/Vol] 0.40 {x10EE3/UL} Normal 0.20 - 1.00 {x10EE3/UL } [facility]; [facility] Work Phone: Monocytes/100 WBC (Bld) 7.9 % Normal 0.0 - 10.0 % [facility]; [facility] Work Phone: Morphology Faraz (Bld) [Interp] N/A Normal [facility]; [facility] Work Phone: Neutrophils (Bld) [#/Vol] 4.00 {x10EE3/UL} Normal 1.50 - 7.10 {x10EE3/UL } [facility].; [facility]. Work Phone: Neutrophils/100 WBC (Bld) 69.4 % Normal 46.0 - 76.0 % [facility]; [facility] Work Phone: Platelet mean volume (Bld) [Entitic vol] 8.9 fL Normal 6.6 - 10.5 fL [facility]; [facility] Work Phone: Platelets (Bld) [#/Vol] 176 {x10EE3/UL} Normal 150 - 450 {x10EE3/UL } [facility]; [facility] Work Phone: RBC (Bld) [#/Vol] 4.50 {x_10EE6/UL} Normal 4.10 - 5.30 {x_10EE6/U L} [facility].; [facility]. Work Phone: WBC (Bld) [#/Vol] 5.7 {x_10EE3/UL} Normal 4.5 - 10.8 {x_10EE3/U L} [facility].; [facility] Work Phone: No Panel Informationon 11-23 CBC + DIFF Normal [facility].; [facility]. Work Phone: MANUAL DIFF N/A Normal [facility].; [facility] Work Phone: * Body fluid crystals type b y light microscopyOrdered By: Missy Tapia on 11-22-2022 Crystals LM Nom (Body fld) See PATH REV [facility] Comment on above: CRYSTAL RESULT IS PRELIMINARY. SEE PATH REVIEW FOR FINAL REPORT. Blood lymphocytes/100 leukoc ytesOrdered By: Missy Tapia on 11-22-2022 Lymphocytes/100 WBC (Bld) 15 % [facility] Color of Synovial fluidOrder ed By: Missy Tapia on 11-22-2022 Color (Syn fld) Yellow Pale Yellow [facility] Determination of appearance of synovial fluidOrdered By: Missy Tapia on 11-22-2022 Appearance (Syn fld) Clear CLEAR [facility] Laboratory - Hematology and Cell countson 11-22-2022 Lymphocytes (Bld) [#/Vol] 15 10*3/uL Normal [facility].; [facility] Work Phone: Monocytes (Bld) [#/Vol] 80 10*3/uL Normal [facility] Healthcare[facility] Inc.; [facility], Inc[employer] Work Phone: WBC (Bld) [#/Vol] 0.007 10*3/uL Normal [facility] [employer] Work Phone: No Panel InformationOrdered By: Missy Tapia on 11-22-2022 Synovial Fluid Mononuclear WBCs 0.119 10^3/ul [facility] Synovial Fluid Mononuclear WBCs % 94.5 % [facility] Synovial Fluid Polynuclear WBCs 0.007 10^3/uL [facility] Synovial Fluid Polynuclear WBCs % 5.5 % [facility] Synovial Fluid Total Cells Counted 0.1590 10^3/uL 0.000-0.00 0 [facility] Comment on above: This is the Total Nu mber of Nucleated Cell Types in the Body Fluid. No Panel Informationon 11-22 BFC See Note Normal [employer] [facility]ITAL[facility] [employer] Work Phone: CRYSTALS/BF See PATH REV Normal [facility] [employer] [facility].; [facility] [employer] Work Phone: CUAN See Note Normal [facility].; [facility] [employer] Work Phone: GS See Note Normal [facility].; [facility] [employer] Work Phone: NEUTROPHIL 5 Normal 0 - 25 [facility].; [facility] [employer] Work Phone: PATH COM/SYFL May follow Normal [facility] CenterDe[facility] HealthcareF[facility].; [place] [employer] [facility] [employer] Work Phone: PATH REV Reviewed Normal [facility] [employer].; [facility] [employer] [facility], [employer]. Work Phone: SOURCE/BF SYNOVIAL Normal [facility].; [facility]. Work Phone: SYBF [place] WBC# 0.119 {10_3/ul} Normal [facility].; [facility], Inc[employer] Work Phone: SYBF [place] WBC% 94.[address] [facility].; [facility] [employer] Work Phone: SYBF PMN WBC% 5.[address] [facility].; [facility]. Work Phone: SYN Tot Cell Ct 0.1590 {10_3/uL} Abnormal 0.000 - 0.000 {10_3/uL} [facility].; [facility], Inc[employer] Work Phone: SYNOVIAL CASEY. Clear Normal [facility].; [facility], [facility]. Work Phone: SYNOVIAL COLOR Yellow Normal [facility].; [facility], [facility]. Work Phone: SYNOVIAL RBC 7 /mm3 Abnormal [facility].; [facility], [facility]. Work Phone: SYNOVIAL SOURCE NG Normal [facility].; [facility], [facility]. Work Phone: SYNOVIAL WBC 0.1260 {10_3/uL} Abnormal 0.000 - 0.002 {10_3/uL} [facility], Inc[employer] Work Phone: Review by pathologistOrdered By: Missy Tapia on 11-22-2022 Pathologist review Faraz (Unsp spec) [Interp] May follow [facility] Pathologist review Faraz (Unsp spec) [Interp] Reviewed [facility] Comment on above: Previous reported re sult: Will follow Edited by: ANILA on 11/24/22:0941Scant nondiagnostic crystalline debris present.Sean Mendoza D.O. 11/24/22 AMENDED REPORT 11/24/22 0941 PATH REV previously reported as: Will follow Specimen source identificati on of body fluidOrdered By: Missy Tapia on 11-22-2022 Specimen source Nom (Body fld) SYNOVIAL [facility] Specimen source Nom (Body fld) NG [facility] Synovial fluid erythrocytes count (number/volume)Ordered By: Missy Tapia on 11-22-2022 RBC (Syn fld) [#/Vol] 7 /mm3 0-0 [facility] Comment on above: Previous reported re sult: 0.000 10^6/uLEdited by: BETH on 11/23/22:1507 Synovial fluid leukocytes co unt (number/volume)Ordered By: Missy Tapia on 11-22-2022 WBC (Syn fld) [#/Vol] 0.1260 10^3/uL 0.00 0-0.00 2 [facility] Synovial fluid monocyte perc entageOrdered By: Missy Tapia on 11-22-2022 Monocytes/100 WBC (Syn fld) 80 % [facility] Synovial fluid neutrophil pe rcentageOrdered By: Missy Tapia on 11-22-2022 Neutrophils/100 WBC (Syn fld) 5 % 0-25 [facility] No Panel Informationon 08-11 Hepatitis B Surf. Ag Negative Normal [facility]; [facility] Work Phone: Hepatitis C Ab IA Negative Normal [facility]; [facility] Work Phone: HepB SurfaceAb,Quant <8.00 Abnormal [facility]; [facility] Work Phone: .ANATon 07-03-2022 ABEL Pattern 1 Homogeneous Normal [facility] ([place]) Comment on above: Result Comment: At [place], an ABEL titer of less than 160 is not considered suggestive of significant rheumatoid disease. If clinical suspicion is high, suggest repeat testing in 1-2 months. Performed By: #### G , BMP #### [address] [address] ABEL Titer 1 80 Normal [facility] ([place]) Comment on above: Performed By: #### G , BMP #### [address] [address] ANAon 07-03-2022 ABEL See Titer Normal Neg 40 [facility] ([place]) Comment on above: Result Comment: ABEL Screen and Titer methodology is an immunofluorescent technique utilizing Hep2 Substrate. Performed By: #### G , BMP #### [address] [address] RFon 07-03-2022 Rheumatoid Factor <6.0 Normal <=6.0 [facility] ([place]) Comment on above: Result Comment: RF I gM Antibody by Enzyme Immunoassay: Negative < or = 6 Positive > 6 A positive result indicates the presence of RF antibodies and suggests the possibility of rheumatoid arthritis. A negative result indicates no RF IgM antibody or levels below the negative cut-off of the assay. Results of this assay should be used in conjunction with clinical findings and other serological tests. These results were obtained with the [employer] QUANTA Lite RF IgM AURELIA. RF IgM values obtained with different manufacturers' assay methods may not be used interchangeably. The magnitude of the reported IgM levels cannot be correlated to an endpoint titer. Performed By: #### G , BMP #### [address] [address] .Auto Diffon 07-01-2022 Basophil, Absolute 0.0 10 3/mcL Normal 0.0-0.3 [facility] ([place]) Comment on above: Performed By: #### A JASMEET, GFR, ESR, CMP, ABEL, CRP, RF #### [address] [address] Basophils/100 WBC (Bld) 0.9 % Normal 0.0 - 2.5 % [facility] ([place]) Comment on above: Performed By: #### A JASMEET, GFR, ESR, CMP, ABEL, CRP, RF #### [address] [address] Eosinophil, Absolute 0.1 10 3/mcL Normal 0.0-0.7 [facility] ([place]) Comment on above: Performed By: #### A JASMEET, GFR, ESR, CMP, ABEL, CRP, RF #### [address] [address] Eosinophils/100 WBC (Bld) 2.7 % Normal 0.0 - 6.0 % [facility] ([place]) Comment on above: Performed By: #### A JASMEET, GFR, ESR, CMP, ABEL, CRP, RF #### [address] [address] Lymphocyte, Absolute 0.9 10 3/mcL Normal 0.9-4.3 [facility] ([place]) Comment on above: Performed By: #### A JASMEET, GFR, ESR, CMP, ABEL, CRP, RF #### [address] [address] Lymphocytes/100 WBC (Bld) 23.1 % Normal 20.0 - 40.0 % [facility] ([place]) Comment on above: Performed By: #### A JASMEET, GFR, ESR, CMP, ABEL, CRP, RF #### [address] [address] Monocyte, Absolute 0.4 10 3/mcL Normal 0.1-1.4 [facility] ([place]) Comment on above: Performed By: #### A JASMEET, GFR, ESR, CMP, ABEL, CRP, RF #### [address] [address] Monocytes/100 WBC (Bld) 10.0 % Normal 2.0 - 13.0 % [facility] ([place]) Comment on above: Performed By: #### A JASMEET, GFR, ESR, CMP, ABEL, CRP, RF #### [address] [address] Neutrophils/100 WBC (Bld) 63.3 % Normal 50.0 - 75.0 % [facility] ([place]) Comment on above: Performed By: #### A JASMEET, GFR, ESR, CMP, ABEL, CRP, RF #### [address] [address] .GFRon 07-01-2022 GFR >60 Normal [facility] ([place]) Comment on above: Result Comment: GFR Population mean for , Non- Americans Ages 20-29 = 116 mL/min/1.73 sq.m. Ages 30-39 = 107 mL/min/1.73 sq.m. Ages 40-49 = 99 mL/min/1.73 sq.m. Ages 50-59 = 93 mL/min/1.73 sq.m. Ages 60-69 = 85 mL/min/1.73 sq.m. Ages 70+ = 75 mL/min/1.73 sq.m. Chronic Kidney Disease: Less than 60 mL/min/1.73 square meters End Stage Renal Disease: Less than 15 mL/min/1.73 square meters Performed By: #### A JASMEET, GFR, ESR, CMP, ABEL, CRP, RF #### [address] [address] GFR Non- >60 Normal [facility] ([place]) Comment on above: Result Comment: GFR Population mean for , Non- Americans Ages 20-29 = 116 mL/min/1.73 sq.m. Ages 30-39 = 107 mL/min/1.73 sq.m. Ages 40-49 = 99 mL/min/1.73 sq.m. Ages 50-59 = 93 mL/min/1.73 sq.m. Ages 60-69 = 85 mL/min/1.73 sq.m. Ages 70+ = 75 mL/min/1.73 sq.m. Chronic Kidney Disease: Less than 60 mL/min/1.73 square meters End Stage Renal Disease: Less than 15 mL/min/1.73 square meters Performed By: #### A JASMEET, GFR, ESR, CMP, ABEL, CRP, RF #### [address] [address] .MDWon 07-01-2022 Monocyte Distribution Width Not performed Normal 0.00-20.00 [facility] ([place]) Comment on above: Result Comment: MDW testing performed only on adult ER patients between the ages of 18-89 years. Performed By: #### A JASMEET, GFR, ESR, CMP, ABEL, CRP, RF #### [address] [address] .NEUABSon 07-01-2022 Neutrophil, Absolute 2.5 10 3/mcL Normal 2.3-8.1 [facility] ([place]) Comment on above: Performed By: #### A JASMEET, GFR, ESR, CMP, ABEL, CRP, RF #### [place] [address] CBCon 07-01-2022 Erythrocyte distribution width (RBC) [Ratio] 12.8 % Normal 11.5 - 15.5 % [facility].; [facility], [facility]. Comment on above: Performed By: #### A JASMEET, GFR, ESR, CMP, ABEL, CRP, RF #### [place] [address] Hematocrit (Bld) [Volume fraction] 41.2 % Normal 34.0 - 46.0 % [facility], [facility].; [facility], [facility]. Comment on above: Performed By: #### A JASMEET, GFR, ESR, CMP, ABEL, CRP, RF #### [place] [address] Hgb 14.1 G/dL Normal 12.0-16.0 [facility] ([place]) Comment on above: Performed By: #### A JASMEET, GFR, ESR, CMP, ABEL, CRP, RF #### [place] [address] MCH (RBC) [Entitic mass] 30.8 pg Normal 27.0 - 33.0 pg [facility], [facility].; [facility], [facility]. Comment on above: Performed By: #### A JASMEET, GFR, ESR, CMP, ABEL, CRP, RF #### [place] [id number] MCHC 34.2 G/dL Normal 32.0-36.0 [facility] ([place]) Comment on above: Performed By: #### A JASMEET, GFR, ESR, CMP, ABEL, CRP, RF #### [address] [address] MCV (RBC) [Entitic vol] 90.2 fL Normal 80.0 - 99.[address] [facility].; [facility]. Comment on above: Performed By: #### A JASMETE, GFR, ESR, CMP, ABEL, CRP, RF #### [address] [address] Platelet 195 10 3/mcL Normal 150-450 [facility] ([place]) Comment on above: Performed By: #### A JASMEET, GFR, ESR, CMP, ABEL, CRP, RF #### [address] [address] Platelet mean volume (Bld) [Entitic vol] 8.3 fL Normal 6.6 - 10.5 fL [facility]. Comment on above: Performed By: #### A JASMEET, GFR, ESR, CMP, ABEL, CRP, RF #### [address] [address] RBC 4.56 10 6/mcL Normal 4.10-5.30 [facility] ([place]) Comment on above: Performed By: #### A JASMEET, GFR, ESR, CMP, ABEL, CRP, RF #### [address] [address] WBC 3.9 10 3/mcL Low 4.5-10.8 [facility] ([place]) Comment on above: Performed By: #### A JASMEET, GFR, ESR, CMP, ABEL, CRP, RF #### [address] [address] CMPon 07-01-2022 Albumin Level 4.0 G/dL Normal 3.2-4.8 [facility] ([place]) Comment on above: Performed By: #### A JASMEET, GFR, ESR, CMP, ABEL, CRP, RF #### [address] [address] Albumin/Globulin [Mass ratio] 1.2 {ratio} Normal 0.9 - 1.6 {ratio} [facility].; [facility]. Comment on above: Performed By: #### A JASMEET, GFR, ESR, CMP, ABEL, CRP, RF #### [place] [address] ALP [Catalytic activity/Vol] 114 U/L Normal 38 - 126 U/L [facility].; [facility]. Comment on above: Performed By: #### A JASMEET, GFR, ESR, CMP, ABEL, CRP, RF #### [place] [id number] ALT [Catalytic activity/Vol] 20 U/L Normal 10-49 [facility] ([place]) Comment on above: Performed By: #### A JASMEET, GFR, ESR, CMP, ABEL, CRP, RF #### [place] [id number] AST [Catalytic activity/Vol] 22 U/L Normal 8 - 34 U/L [facility].; [facility]. Comment on above: Performed By: #### A JASMEET, GFR, ESR, CMP, ABEL, CRP, RF #### [place] [id number] Bili Total 1.20 mg/dL Normal 0.20-1.20 [facility] ([place]) Comment on above: Result Comment: Use of this assay is not recommended for patients undergoing treatment with eltrombopag due to the potential for falsely elevated results. Performed By: #### A JASMEET, GFR, ESR, CMP, ABEL, CRP, RF #### [place] [id number] BUN/Creatinine Ratio 17.4 ratio Normal 10.0-22.0 [facility] ([place]) Comment on above: Performed By: #### A JASMEET, GFR, ESR, CMP, ABEL, CRP, RF #### [place] [id number] Calcium [Mass/Vol] 9.4 mg/dL Normal 8.7 - 10. 4 mg/dL [facility].; [facility], [facility]. Comment on above: Performed By: #### A JASMEET, GFR, ESR, CMP, ABEL, CRP, RF #### [address] [address] Chloride [Moles/Vol] 108 mmol/L Normal 98 - 11 0 meq/L [facility].; [facility], [facility]. Comment on above: Performed By: #### A JASMEET, GFR, ESR, CMP, ABEL, CRP, RF #### [address] [address] CO2 [Moles/Vol] 30 mmol/L Normal 22 - 32 meq/L [facility]; [facility], [facility]. Comment on above: Performed By: #### A JASMEET, GFR, ESR, CMP, ABEL, CRP, RF #### [place] [id number] Creatinine [Mass/Vol] 0.69 mg/dL Normal 0.50 - 1.20 mg/dL [facility].; [facility], [facility]. Comment on above: Performed By: #### A JASMEET, GFR, ESR, CMP, ABEL, CRP, RF #### [address] [address] Electrolyte Balance 7.0 mEq/L Normal 4.0 - 15 .0 meq/L [facility]; [facility], [facility]. Comment on above: Performed By: #### A JASMEET, GFR, ESR, CMP, ABEL, CRP, RF #### [address] [address] Globulin 3.2 G/dL Normal 1.5-3.8 [facility] ([place]) Comment on above: Performed By: #### A JASMEET, GFR, ESR, CMP, ABEL, CRP, RF #### [address] [address] Glucose [Mass/Vol] 90 mg/dL Normal 82 - 115 mg/dL [facility].; [facility], [facility] Comment on above: Performed By: #### A JASMEET, GFR, ESR, CMP, ABEL, CRP, RF #### [address] [address] Potassium [Moles/Vol] 4.2 mmol/L Normal 3.5 - 5.0 meq/L [facility]; [facility] Comment on above: Performed By: #### A JASMEET, GFR, ESR, CMP, ABEL, CRP, RF #### [address] [address] Sodium [Moles/Vol] 145 mmol/L Normal 136 - 145 meq/L [facility]; [facility] Comment on above: Performed By: #### A JASMEET, GFR, ESR, CMP, ABEL, CRP, RF #### [address] [address] Total Protein 7.2 G/dL Normal 5.7-8.2 [facility] ([place]) Comment on above: Result Comment: No te - New Reference Range in effect 20 Performed By: #### A JASMEET, GFR, ESR, CMP, ABEL, CRP, RF #### [address] [address] Urea nitrogen [Mass/Vol] 12.0 mg/dL Normal 8.0 - 22.0 mg/dL [facility]; [facility]. Comment on above: Performed By: #### A JASMEET, GFR, ESR, CMP, ABEL, CRP, RF #### [address] [address] CRPon 07-01-2022 CRP [Mass/Vol] mg/L Normal 0.0 - 1.0 mg/dL [facility]; [facility]. Comment on above: Result Comment: No te - New Reference Range in effect 20 Performed By: #### A JASMEET, GFR, ESR, CMP, ABEL, CRP, RF #### [address] [address] ESRon 07-01-2022 Erythrocyte Sed Rate 8 mm/hr Normal 0-30 [facility] ([place]) Comment on above: Performed By: #### A JASMEET, GFR, ESR, CMP, ABEL, CRP, RF #### [place] [id number] [address] [place] [address] Laboratory - Chemistry and C hemistry - challengeon 07-01-2022 Albumin BCP dye [Mass/Vol] 4.0 g/dL Normal 3.2 - 4.8 g/dL [facility], [facility].; [employer] [facility] ALT No additional P-5'-P [Catalytic activity/Vol] 20 U/L Normal 10 - 49 U/L [facility], [facility] ALT With P-5'-P [Catalytic activity/Vol] 20 U/L Normal 10 - 49 U/L [facility], [facility] AST With P-5'-P [Catalytic activity/Vol] 22 U/L Normal 8 - 34 U/L [facility].; [facility], [facility] Bilirubin [Mass/Vol] 1.20 mg/dL Normal 0.20 - 1.20 mg/dL [facility].; [facility], [facility] GFR/1.73 sq M.predicted among blacks MDRD (S/P/Bld) [Vol rate/Area] mL/min/{1.73_m2} Normal [facility].; [facility], [facility]. Work Phone: GFR/1.73 sq M.predicted among non-blacks MDRD (S/P/Bld) [Vol rate/Area] mL/min/{1.73_m2} Normal [facility].; [facility] [employer] [facility] [facility] Work Phone: Globulin (S) [Mass/Vol] 3.2 g/dL Normal 1.5 - 3.8 g/dL [facility] [employer] [facility] Protein [Mass/Vol] 7.2 g/dL Normal 5.7 - 8.2 g/dL [facility]; [facility], [facility] Urea nitrogen/Creatinine [Mass ratio] 17.4 {ratio} Normal 10.0 - 22.0 {ratio} [facility]; [facility], [facility] Laboratory - Hematology and Cell countson 07-01-2022 Basophils (Bld) [#/Vol] 0.0 {10^3/mcL} Normal 0.0 - 0.3 {10^3/mcL} [facility]; [facility] Work Phone: ESR Photometric method (Bld) [Velocity] 8 mm/h Normal 0 - 30 mm/h [facility]; [facility], [facility] Hemoglobin (Bld) [Mass/Vol] 14.1 g/dL Normal 12.0 - 16.0 g/dL [facility]; [facility] Lymphocytes (Bld) [#/Vol] 0.9 {10^3/mcL} Normal 0.9 - 4.3 {10^3/mcL} [facility]; [facility], [facility] Work Phone: MCHC (RBC) [Mass/Vol] 34.2 g/dL Normal 32.0 - 36.0 g/dL [facility]; [facility] Monocyte distribution width Auto (Bld) [Entitic vol] Not Performed-Not Performed Normal 0.00 - 20.00 [facility]; [facility]. Work Phone: Monocytes (Bld) [#/Vol] 0.4 {10^3/mcL} Normal 0.1 - 1.4 {10^3/mcL} [facility]; [facility] Work Phone: Neutrophils (Bld) [#/Vol] 2.5 {10^3/mcL} Normal 2.3 - 8.1 {10^3/mcL} [facility].; [facility], [facility]. Work Phone: Platelets (Bld) [#/Vol] 195 {10^3/mcL} Normal 150 - 450 {10^3/mcL} [facility].; [facility], [facility]. RBC (Bld) [#/Vol] 4.56 {10^6/mcL} Normal 4.10 - 5.30 {10^6/mcL} [facility].; [facility], [facility]. WBC (Bld) [#/Vol] 3.9 {10^3/mcL} Abnormal 4.5 - 10 .8 {10^3/mcL} [facility].; [facility], [facility]. Laboratory - Serology - non- microon 07-01-2022 Nuclear Ab IF (S) [Titer] 80-[address] [facility].; [facility]. Work Phone: Nuclear Ab IF Ql (S) See Titer-See Titer Normal [facility].; [facility], [facility]. Nuclear Ab pattern IF (S) [Interp] Homogeneous-Homogeneous Normal [facility]3].; [facility], [facility]. Work Phone: Rheumatoid factor IgM IA Qn (S) <6.0 Normal [facility].; [facility], [facility]. No Panel Informationon 07-01 Basophil, Absolute 0.0 {10^3/mcL} Normal 0.0 - 0 .3 {10^3/mcL} [facility].; [facility], [facility]. Work Phone: Eosinophil, Absolute 0.1 {10^3/mcL} Normal 0.0 - 0.7 {10^3/mcL} [employer] [facility] [employer] [facility] Work Phone: Lymphocyte, Absolute 0.9 {10^3/mcL} Normal 0.9 - 4.3 {10^3/mcL} [employer] [facility] [employer] - [employer] [facility] Work Phone: Monocyte, Absolute 0.4 {10^3/mcL} Normal 0.1 - 1 .4 {10^3/mcL} [employer] [facility] [employer]. Work Phone: Neutrophil, Absolute 2.5 {10^3/mcL} Normal 2.3 - 8.1 {10^3/mcL} [employer] Work Phone: .GFRon 06-24-2022 GFR >60 Normal [facility] ([place]) Comment on above: Result Comment: GFR Population mean for , Non- Americans Ages 20-29 = 116 mL/min/1.73 sq.m. Ages 30-39 = 107 mL/min/1.73 sq.m. Ages 40-49 = 99 mL/min/1.73 sq.m. Ages 50-59 = 93 mL/min/1.73 sq.m. Ages 60-69 = 85 mL/min/1.73 sq.m. Ages 70+ = 75 mL/min/1.73 sq.m. Chronic Kidney Disease: Less than 60 mL/min/1.73 square meters End Stage Renal Disease: Less than 15 mL/min/1.73 square meters Performed By: #### G , BMP #### [place] [address] GFR Non- >60 Normal [facility] ([place]) Comment on above: Result Comment: GFR Population mean for , Non- Americans Ages 20-29 = 116 mL/min/1.73 sq.m. Ages 30-39 = 107 mL/min/1.73 sq.m. Ages 40-49 = 99 mL/min/1.73 sq.m. Ages 50-59 = 93 mL/min/1.73 sq.m. Ages 60-69 = 85 mL/min/1.73 sq.m. Ages 70+ = 75 mL/min/1.73 sq.m. Chronic Kidney Disease: Less than 60 mL/min/1.73 square meters End Stage Renal Disease: Less than 15 mL/min/1.73 square meters Performed By: #### Christine MCKEON, BMP #### [address] [address] [facility] BUN/Creatinine Ratio 23.5 ratio High 10.0-22.0 [facility] ([place]) Comment on above: Performed By: #### Christine MCKEON, BMP #### [address] [address] Calcium [Mass/Vol] 9.3 mg/dL Normal 8.7-10.4 Pending sale to [facility] ([place]) Comment on above: Performed By: #### Christine MCKEON, BMP #### [address] [address] Chloride [Moles/Vol] 106 mmol/L Normal 98-110 [facility] ([place]) Comment on above: Performed By: #### Christine MCKEON, BMP #### [address] [address] CO2 [Moles/Vol] 27 mmol/L Normal 22-32 [facility] ([place]) Comment on above: Performed By: #### Christine MCKEON, BMP #### [address] [address] Creatinine [Mass/Vol] 0.68 mg/dL Normal 0.50-1.20 [facility] ([place]) Comment on above: Performed By: #### Christine MCKEON, BMP #### [address] [address] Electrolyte Balance 10.0 mEq/L Normal 4.0-15.0 [facility] ([place]) Comment on above: Performed By: #### Christine MCKEON, BMP #### [address] [address] Glucose [Mass/Vol] 81 mg/dL Low 82-115 Pending [facility] to [facility] ([place]) Comment on above: Performed By: #### G FR, BMP #### [address] [address] Potassium [Moles/Vol] 4.2 mmol/L Normal 3.5-5.0 [facility] ([place]) Comment on above: Result Comment: Spec imen slightly hemolyzed. Performed By: #### G FR, BMP #### [address] [address] Sodium [Moles/Vol] 143 mmol/L Normal 136-145 Pending [facility] to [facility] ([place]) Comment on above: Performed By: #### G FR, BMP #### [address] [address] Urea nitrogen [Mass/Vol] 16.0 mg/dL Normal 8.0-22.0 [facility] ([place]) Comment on above: Performed By: #### G FR, BMP #### [address] [address] Laboratory - Chemistry and C hemistry - challengeon 06-23-2022 GFR/1.73 sq M.predicted among blacks MDRD (S/P/Bld) [Vol rate/Area] mL/min/{1.73_m2} Normal [facility].; [facility], [facility]. Work Phone: GFR/1.73 sq M.predicted among non-blacks MDRD (S/P/Bld) [Vol rate/Area] mL/min/{1.73_m2} Normal [facility].; [facility]. Work Phone: Laboratory - Chemistry and C hemistry - challengeon 06-22-2022 Calcium [Mass/Vol] 9.3 mg/dL Normal 8.7 - 10. 4 mg/dL [facility].; [facility]. Chloride [Moles/Vol] 106 mmol/L Normal 98 - 11 0 meq/L [facility].; [facility] CO2 [Moles/Vol] 27 mmol/L Normal 22 - 32 meq/L [facility]; [facility] Creatinine [Mass/Vol] 0.68 mg/dL Normal 0.50 - 1.20 mg/dL [facility]; [facility] Glucose [Mass/Vol] 81 mg/dL Abnormal 82 - 115 mg/dL [facility]; [facility] Potassium [Moles/Vol] 4.2 mmol/L Normal 3.5 - 5.0 meq/L [facility]; [facility] Sodium [Moles/Vol] 143 mmol/L Normal 136 - 145 meq/L [facility]; [facility] Urea nitrogen [Mass/Vol] 16.0 mg/dL Normal 8.0 - 22.0 mg/dL [facility]; [facility] Urea nitrogen/Creatinine [Mass ratio] 23.5 {ratio} Abnormal 10.0 - 22.0 {ratio} [facility]; [facility] No Panel Informationon 06-22 Electrolyte Balance 10.0 meq/L Normal 4.0 - 15 .0 meq/L [facility]; [facility] CT CARDIAC SCORINGon 022 CT CARDIAC SCORING Patient Name: TETE HOWARD STUDY: CT CARDIAC SCORING; 06/08/2022 6:34 pm INDICATION: R07.9 Chest pain, unspecified I10 Essential (primary) hypertension M19.90 Unspecified osteoarthritis, unspecified site . COMPARISON: None. ACCESSION NUMBER(S): [id number] ORDERING CLINICIAN: JOSE FLOWER TECHNIQUE: Using prospective ECG gating, CT scan of the coronary arteries was performed without intravenous contrast. Coronary calcium scoring was performed according to the method of Agatston. FINDINGS: The score and distribution of calcium in the coronary arteries is as follows: LM 0 LAD 0 LCx 0 RCA 0 Total 0 The visualized mid/lower ascending thoracic aorta measures 3.2 cm in diameter. The heart is normal in size. No pericardial effusion is present. No gross evidence of mediastinal or hilar lymphadenopathy or masses is identified. The right lung is clear. There are areas of tree-in-bud appearance, in the left lower lobe postero medially consistent with bronchiolar infection or pneumonia. A noncalcified nodule measuring 4.6 mm is seen in the left lower lobe at image 22 of series 3. Mild bronchiectasis is seen, in the lingular segment of the left upper lobe. CT scanning of the chest is recommended. The visualized subdiaphragmatic structures appear intact. IMPRESSION: 1. Coronary artery calcium score of 0*. *Coronary artery calcium scoring may be helpful in predicting the risk for future coronary heart disease events. According to the [place] [employer] Clinical Expert Consensus Task Force, such testing provides important prognostic information in patients with more than one coronary heart disease risk factor. The coronary artery calcium score correlates with the annual risk of a non-fatal myocardial infarction or coronary heart disease . Coronary artery score Annual Risk 0-99 0.4% 100-399 1.3% >400 2.4% These three breakpoints correspond to lower, intermediate and high risk states for future coronary events. Such information should be used, along with appropriate clinical judgment, to make decisions regarding the intensity of risk factor management strategies to treat blood lipids and to modify other non-lipid coronary risk factors. Reference: Williams P et al. Circulation. 2007; 115:402-426 2. Tree-in-bud appearance, left lower lobe suggestive of infection. 4.6 mm nodule left lower lobe. CT scanning of the chest recommended. Electronically signed by: JACE SOUTH MD [facility] percentageon 2021 Cholesterol [Mass/Vol] 174 mg/dL Normal [facility] Work Phone: Comment on above: <200 mg/dL Desirable 200-240 mg/dL Borderline >240 mg/dL High Risk Glucose [Mass/Vol] 92 mg/dL Normal 74 - 106 mg/dL [facility] Work Phone: Triglyceride [Mass/Vol] 48 mg/dL Normal [facility] Work Phone: Comment on above: The drugs N-Acetylcy steine and Metamizole may falsely depress this assay.Serum Triglycerides Reference Interval Normal <150 mg/dL Borderline high 150 - 199 mg/dL High 200 - 499 mg/dL Very High > or = 500 mg/dL Cervical or vagninal specime n microscopic examination by cytology stain (reported ason 05-30-2022 Cytology report Cyto stain Doc (Cvx/Vag) Comment . [facility] Work Phone: Comment on above: The Pap smear is a s creening test designed to aid in thedetection of premalignant and malignant conditions of theuterine cervix. It is not a diagnostic procedure andshould not be used as the sole means of detecting cervicalcancer. Both false-positive and false-negative reports dooccur. Laboratory - Cytologyon 05-19 Food General Manager Cyto stain Nom (Cvx/Vag) [ID] Comment . [facility] Work Phone: Comment on above: Prem Chapin ytotechnologist (ASCP) Laboratory - Miscellaneous t estson 05-30-2022 Service comment (Unsp spec) [Interp] Comment . [facility] Work Phone: Comment on above: This liquid based Th inPrep(R) pap test was screened withthe use of an image guided system. Service comment (Unsp spec) [Interp] . . [facility] Work Phone: No Panel Informationon 05-30 Human Papillomavirus Screen Comment . [facility] Work Phone: Comment on above: The HPV DNA reflex prem lacey were not met with this specimenresult therefore, no HPV testing was performed.Performed at: [address] [place] [id number] Director: Aura Melo MD, Phone: [phone] Pap Smear QC Review Comment . [facility] Work Phone: Comment on above: Suzy Garrison, Cyto technologist Pathology report final diagnosis Narrative Comment . [facility] Work Phone: Comment on above: NEGATIVE FOR INTRAEP ITHELIAL LESION OR MALIGNANCY.CELLULAR CHANGES ASSOCIATED WITH ATROPHY ARE PRESENT.THIS SPECIMEN WAS RESCREENED PART OF OUR BID MANAGER PROGRAM. ADEQ Comment Normal [facility] [employer] [facility] [facility] Work Phone: COMM . Normal [facility], [facility] Work Phone: COMMENT Comment Normal [facility], [facility] Work Phone: DIAG Comment Normal [facility], [facility], [facility] Work Phone: HPV RFLX Comment Normal [facility], [facility], [facility] Work Phone: PAPSMR Comment Normal [facility], [facility], [facility] Work Phone: PERFORM Comment Normal [facility], [facility] Work Phone: QC REV Comment Normal [facility], [facility] [employer] [facility] Work Phone: TSH 0.84 {uIU/mL} Normal 0.358 - 3.74 {uIU/mL} [facility] [employer] [facility] [facility] [facility] [employer] [facility] [facility] Work Phone: Vitamin D 25-OH 33.4 ng/mL Normal [facility], [facility] Work Phone: Thyroid Stimulating Hormone (TSH) 0.84 uIU/mL 0.358-3.74 [facility] Work Phone: Vitamin D 25-Hydroxy 33.4 ng/mL [facility] Work Phone: Comment on above: Vitamin D 25(OH) Sta tus Range Deficiency <20 ng/mL (50nmol/L) Insufficiency 20 - 30 ng/mL (50 - 75 nmol/L) Sufficiency 30 - 100 ng/mL (75 - 250 nmol/L) Toxicity >100 ng/mL (>250 nmol/L) Serum or plasma cholesterol in HDL measurement (mass/volume)on 05-30-2022 Cholesterol in HDL [Mass/Vol] 60 mg/dL Normal [facility] Work Phone: Comment on above: The drugs N-Acetylcy steine and Metamizole may falsely depress this assay. Reference Range HDL <40 mg/dL Low HDL Cholesterol HDL >or= 60 mg/dL High HDL Cholesterol Serum or plasma cholesterol in VLDL measurement (mass/volume)on 05-30-2022 Cholesterol in VLDL [Mass/Vol] 10 mg/dL Normal 5 - 40 mg/dL [facility] Work Phone: Serum or plasma low density lipoprotein (LDL) cholesterol measurement (mass/volume)on 05-30-2022 Cholesterol in LDL [Mass/Vol] 104 mg/dL Normal 0 - 130 mg/dL [facility] Work Phone: Laboratory - Chemistry and C hemistry - challengeon 04-04-2021 CRP [Mass/Vol] mg/L Normal 0.00 - 0.90 mg/dL [facility] Work Phone: Urate [Mass/Vol] 4.3 mg/dL Normal 2.6 - 6.0 mg/dL [facility] Work Phone: Laboratory - Hematology and Cell countson 04-04-2021 ESR (Bld) [Velocity] 8 mm/h Normal 0 - 30 mm/h [facility] Work Phone: Laboratory - Chemistry and C hemistry - challengeon 02-12-2019 Cholesterol [Mass/Vol] 196 mg/dL Normal [facility], [facility]. Work Phone: Cholesterol in HDL [Mass/Vol] 80 mg/dL Normal [facility].; [facility], [facility]. Work Phone: Cholesterol in LDL [Mass/Vol] 104 mg/dL Normal 0 - 130 mg/dL [facility].; [facility] Work Phone: Cholesterol in VLDL [Mass/Vol] 12 mg/dL Normal 5 - 40 mg/dL [facility].; [facility], [facility]. Work Phone: Glucose [Mass/Vol] 92 mg/dL Normal 74 - 106 mg/dL [facility].; [facility], [facility] Work Phone: Triglyceride [Mass/Vol] 58 mg/dL Normal [facility].; [facility], [facility]. Work Phone: No Panel Informationon 02-12 Vitamin D 25-OH 12.3 ng/mL Abnormal 29.95 - 100.01 ng/mL [facility].; [facility], [facility]. Work Phone: No Panel Informationon 01-30 ADEQ Comment Normal [facility].; [facility], [facility] Work Phone: COMM . Normal [facility].; [facility], [facility] Work Phone: DIAGN Comment [facility] Work Phone: HPV APTIMA, HR Negative Normal [facility].; [facility] Work Phone: PAPSMR Comment Normal [facility].; [facility], [facility]. Work Phone: PERFORM Comment Normal [facility].; [facility], [facility]. Work Phone: TEST METHOD Comment Normal [facility].; [facility], [facility]. Work Phone: Laboratory - Chemistry and C hemistry - challengeon 11-20-2017 Albumin [Mass/Vol] 4.3 g/dL Normal 3.4 - 4.8 g/dL [facility].; [facility], [facility]. Albumin [Mass/Vol] 1.5 g/dL Normal 0.9 - 1.6 [facility], [facility].; [facility], [facility]. ALT [Catalytic activity/Vol] 24 U/L Normal 8 - 35 U/L [facility].; [facility], [facility]. ALT No additional P-5'-P [Catalytic activity/Vol] 24 U/L Normal 8 - 35 U/L [facility].; [facility], [facility] Anion gap [Moles/Vol] 12 mmol/L Normal 10 - 2 0 mmol/L [facility].; [facility], [facility]. AST [Catalytic activity/Vol] 19 U/L Normal 13 - 39 U/L [facility].; [facility], [facility] Bilirubin [Mass/Vol] 1.2 mg/dL Normal 0.0 - 1 .5 mg/dL [facility].; [facility], [facility] Calcium [Mass/Vol] 9.5 mg/dL Normal 8.6 - 10. 2 mg/dL [facility], [facility].; [facility], [facility] Chloride [Moles/Vol] 102 mmol/L Normal 98 - 10 7 mmol/L [facility], [facility].; [facility], [facility]. CO2 [Moles/Vol] 30.1 mmol/L Normal 21.0 - 31.0 mmol/L [facility].; [facility], [facility] Creatinine [Mass/Vol] 0.7 mg/dL Normal 0.6 - 1.2 mg/dL [facility].; [facility], [facility]. GFR/1.73 sq M.predicted among blacks MDRD (S/P/Bld) [Vol rate/Area] mL/min/{1.73_m2} Normal 60 - 999 {ML/MINUTE } [facility].; [facility], [facility]. GFR/1.73 sq M.predicted MDRD (S/P/Bld) [Vol rate/Area] mL/min/{1.73_m2} Normal 60 - 999 {ML/MINUTE } [facility].; [facility], [facility]. Globulin (S) [Mass/Vol] 2.9 g/dL Normal 1.5 - 3.8 g/dL [facility].; [facility], [facility]. Glucose [Mass/Vol] 88 mg/dL Normal 74 - 106 mg/dL [facility].; [facility], [facility]. Potassium [Moles/Vol] 4.1 mmol/L Normal 3.5 - 5.1 mmol/L [facility].; [facility], [facility] Protein [Mass/Vol] 7.2 g/dL Normal 6.4 - 8.3 g/dL [facility].; [facility], [facility]. Sodium [Moles/Vol] 140 mmol/L Normal 136 - 145 mmol/L [facility].; [facility], [facility]. Urea nitrogen [Mass/Vol] 14 mg/dL Normal 6 - 20 mg/dL [facility].; [facility], [facility]. Urea nitrogen/Creatinine [Mass ratio] 20 {ratio} Normal 0 - 30 {ratio} [facility].; [facility], [facility] Laboratory - Hematology and Cell countson 11-20-2017 Basophils (Bld) [#/Vol] 0.00 {x10EE3/UL} Normal 0.00 - 0.10 {x10EE3/UL } [facility]; [facility] Basophils/100 WBC (Bld) 0.2 % Normal 0.0 - 2.0 % [facility].; [facility], [facility] CBC panel Auto (Bld) Normal [facility]; [facility] Eosinophils (Bld) [#/Vol] 0.10 {x10EE3/UL} Normal 0.00 - 0.50 {x10EE3/UL } [facility]; [facility] Eosinophils/100 WBC (Bld) 1.2 % Normal 0.0 - 7.0 % [facility]; [facility] Erythrocyte distribution width (RBC) [Ratio] 13.1 % Normal 12.0 - 15.6 % [facility]; [facility], [facility] Hematocrit (Bld) [Volume fraction] 42.9 % Normal 34.0 - 46.0 % [facility]; [facility] Hemoglobin (Bld) [Mass/Vol] 14.5 g/dL Normal 12.0 - 16.0 g/dL [facility]; [facility], [facility] Lymphocytes (Bld) [#/Vol] 0.70 {x10EE3/UL} Abnormal 0.80 - 2.80 {x10EE3/UL } [facility].; [facility], [facility] Lymphocytes/100 WBC (Bld) 15.7 % Abnormal 20.0 - 45.0 % [facility]; [facility], [facility] MCH (RBC) [Entitic mass] 31 pg Normal 27 - 33 pg [facility]; [facility], [facility] MCHC (RBC) [Mass/Vol] 34 {X10_3} Normal 32 - 3 6 {X10_3} [facility].; [facility], [facility]. MCV (RBC) [Entitic vol] 93 fL Normal 80 - 99 fL [facility].; [facility], [facility]. Monocytes (Bld) [#/Vol] 0.70 {x10EE3/UL} Normal 0.20 - 1.00 {x10EE3/UL } [facility], [facility].; [facility], [facility] Monocytes/100 WBC (Bld) 16.5 % Abnormal 0.0 - 10.0 % [facility].; [facility], [facility] Morphology Faraz (Bld) [Interp] N/A Normal [facility].; [facility], [facility]. Neutrophils (Bld) [#/Vol] 2.90 {x10EE3/UL} Normal 1.50 - 7.10 {x10EE3/UL } [facility], [facility].; [facility], [facility]. Neutrophils/100 WBC (Bld) 66.4 % Normal 46.0 - 76.0 % [facility].; [facility], [facility]. Platelet mean volume (Bld) [Entitic vol] 8.3 fL Normal 6.6 - 10.5 fL [facility] [employer] [facility].; [facility], [facility]. Platelets (Bld) [#/Vol] 216 {x10EE3/UL} Normal 150 - 450 {x10EE3/UL } [facility] [employer] [facility], [facility]. RBC (Bld) [#/Vol] 4.62 {x_10EE6/UL} Normal 4.10 - 5.30 {x_10EE6/U L} [facility] [employer] [facility], [employer].; [facility] [employer] [facility], [facility]. WBC (Bld) [#/Vol] 4.4 {x_10EE3/UL} Abnormal 4.5 - 10.8 {x_10EE3/U L} [facility] [employer] [facility].; [facility] No Panel Informationon 11-20 AGE 62 {years} Normal [facility], [facility]. ALK PHOS 77 U/L Normal 38 - 126 U/L [facility] [employer] [facility], [employer]. CMP with eGFR Normal [facility], [facility]. MANUAL DIFF N/A Normal [facility], [facility]. Laboratory - Chemistry and C hemistry - challengeon 11-10-2016 Anion gap [Moles/Vol] 12 mmol/L Normal 10 - 2 0 mmol/L [facility]; [facility], [facility]. Calcium [Mass/Vol] 8.9 mg/dL Normal 8.6 - 10. 2 mg/dL [facility].; [facility], [employer]. Chloride [Moles/Vol] 106 mmol/L Normal 98 - 10 7 mmol/L [facility], [facility]. Cholesterol [Mass/Vol] 160 mg/dL Normal 0 - 200 mg/dL [facility], [facility]. Cholesterol in HDL [Mass or moles/Vol] 56 mg/dL Normal 40 - 60 mg/dL [facility].; [facility], [facility]. Cholesterol in LDL [Mass/Vol] 95 mg/dL Normal 0 - 129 mg/dL [facility].; [facility], [facility]. Cholesterol.total/Cho lesterol in HDL [Mass ratio] 2.9 {ratio} Normal 0.0 - 5.0 [facility], [facility] CO2 [Moles/Vol] 29.0 mmol/L Normal 21.0 - 31.0 mmol/L [facility].; [facility], [facility] Creatinine [Mass/Vol] 0.6 mg/dL Normal 0.6 - 1.2 mg/dL [facility], [facility]. GFR/1.73 sq M.predicted among blacks MDRD (S/P/Bld) [Vol rate/Area] mL/min/{1.73_m2} Normal 60 - 999 {ML/MINUTE } [facility].; [facility], [facility]. GFR/1.73 sq M.predicted MDRD (S/P/Bld) [Vol rate/Area] mL/min/{1.73_m2} Normal 60 - 999 {ML/MINUTE } [facility].; [facility], [facility] Glucose [Mass/Vol] 90 mg/dL Normal 74 - 106 mg/dL [facility]; [facility], [facility] Lipid 1996 panel Normal [facility]; [facility], [facility] Potassium [Moles/Vol] 3.9 mmol/L Normal 3.5 - 5.1 mmol/L [facility]; [facility], [facility] Sodium [Moles/Vol] 143 mmol/L Normal 136 - 145 mmol/L [facility].; [facility], [facility]. Triglyceride [Mass/Vol] 45 mg/dL Normal 0 - 150 mg/dL [facility].; [facility], [facility]. TSH Qn 0.71 m[IU]/L Normal 0.34 - 5.60 {uIU/ml} [facility]; [facility], [facility] Urea nitrogen [Mass/Vol] 13 mg/dL Normal 6 - 20 mg/dL [facility].; [facility], [facility]. Laboratory - Hematology and Cell countson 11-10-2016 ESR (Bld) [Velocity] 7 mm/h Normal 0 - 30 mm/h [facility]; [facility], [facility] No Panel Informationon 11-10 AGE 61 {years} Normal [facility].; [facility], [facility] BMP with eGFR Normal [facility]; [facility], [facility] RHEUMATOID FACTOR [QUEST] Normal [facility] No Panel Informationon 11-14 Pathology MARINE SUPERINTENDENT SEE BELOW Normal [facility].; [facility] Vital Signs Date Time Vital Sign Value Performing Clinician Kaleb amaya 01-28-2025 14:25-0400 Body temperature 97.7 [degF] Dr. Benson Kasper MD Work Phone: [facility] 01-28-2025 14:25-0400 Diastolic blood pressure 66 mm[Hg] Dr. Benson Kasper MD Work Phone: [facility] 01-28-2025 14:25-0400 Heart rate 73 /min Dr. Benson Kasper MD Work Phone: [facility] 01-28-2025 14:25-0400 Respiratory rate 16 /min Dr. Benson Kasper MD Work Phone: [facility] 01-28-2025 14:25-0400 SaO2% (BldA) [Mass fraction] 98 % Dr. Benson Kasper MD Work Phone: [facility] 01-28-2025 14:25-0400 Systolic blood pressure 119 mm[Hg] Dr. Benson Kasper MD Work Phone: [facility] 01-28-2025 12:53-0400 Body height 165.[address] Benson Kasper MD Work Phone: [facility] 01-28-2025 12:53-0400 Body mass index (BMI) [Ratio] 20.5 kg/m2 Dr. Benson Kasper MD Work Phone: [facility] 01-28-2025 12:53-0400 Body weight [address] Benson Kasper MD Work Phone: [facility] 01-13-2025 16:12-0500 Body mass index (BMI) [Ratio] 21.36 kg/m2 Librado Guerrier MD Work Phone: [facility] 01-13-2025 16:12-0500 Body temperature 98.71 [degF] Librado Guerrier MD Work Phone: [facility] 01-13-2025 16:12-0500 Body weight 57.34 kg Librado Guerrier MD Work Phone: [facility] 01-13-2025 16:12-0500 Diastolic blood pressure 76 mm[Hg] Librado Guerrier MD Work Phone: [facility] 01-13-2025 16:12-0500 Heart rate 66 /min Librado Guerrier MD Work Phone: [facility] 01-13-2025 16:12-0500 SaO2% (BldA) [Mass fraction] 98 % Librado Guerrier MD Work Phone: [facility] 01-13-2025 16:12-0500 Systolic blood pressure 124 mm[Hg] Librado Guerrier MD Work Phone: [facility] 09-11-2024 09:19-0400 Body height 163.8 cm Librado Guerrier MD Work Phone: [facility] 09-11-2024 09:19-0400 Body mass index (BMI) [Ratio] 21.4 kg/m2 Librado Guerrier MD Work Phone: [facility] 09-11-2024 09:19-0400 Body temperature 98.71 [degF] Librado Guerrier MD Work Phone: [facility] 09-11-2024 09:19-0400 Body weight 57.42 kg Librado Guerrier MD Work Phone: [facility] 09-11-2024 09:19-0400 Diastolic blood pressure 76 mm[Hg] Librado Guerrier MD Work Phone: [facility] 09-11-2024 09:19-0400 Heart rate 77 /min Librado Guerrier MD Work Phone: [facility] 09-11-2024 09:19-0400 SaO2% (BldA) [Mass fraction] 98 % Librado Guerrier MD Work Phone: [facility] 09-11-2024 09:19-0400 Systolic blood pressure 128 mm[Hg] Librado Guerrier MD Work Phone: [facility] 07-04-2024 11:11-0400 Body height 163.8 cm Librado Guerrier MD Work Phone: [facility] 07-04-2024 11:11-0400 Body mass index (BMI) [Ratio] 21.12 kg/m2 Librado Guerrier MD Work Phone: [facility] 07-04-2024 11:11-0400 Body temperature 98.6 [degF] Librado Guerrier MD Work Phone: [facility] 07-04-2024 11:11-0400 Body weight 56.7 kg Librado Guerrier MD Work Phone: [facility] 07-04-2024 11:11-0400 Diastolic blood pressure 68 mm[Hg] Librado Guerrier MD Work Phone: [facility] 07-04-2024 11:11-0400 Heart rate 87 /min Librado Guerrier MD Work Phone: [facility] 07-04-2024 11:11-0400 SaO2% (BldA) [Mass fraction] 99 % Librado Guerrier MD Work Phone: [facility] 07-04-2024 11:11-0400 Systolic blood pressure 112 mm[Hg] Librado Guerrier MD Work Phone: [facility] 06-26-2024 13:14-0400 Body height 163.8 cm Librado Guerrier MD Work Phone: [facility] 06-26-2024 13:14-0400 Body mass index (BMI) [Ratio] 21.02 kg/m2 Librado Guerrier MD Work Phone: [facility] 06-26-2024 13:14-0400 Body temperature 98.1 [degF] Librado Guerrier MD Work Phone: [facility] 06-26-2024 13:14-0400 Body weight 56.43 kg Librado Guerrier MD Work Phone: [facility] 06-26-2024 13:14-0400 Diastolic blood pressure 79 mm[Hg] Librado Guerrier MD Work Phone: [facility] 06-26-2024 13:14-0400 Heart rate 108 /min Librado Guerrier MD Work Phone: [facility] 06-26-2024 13:14-0400 SaO2% (BldA) [Mass fraction] 98 % Librado Guerrier MD Work Phone: [facility] 06-26-2024 13:14-0400 Systolic blood pressure 137 mm[Hg] Librado Guerrier MD Work Phone: [facility] 06-17-2024 15:48-0400 Body height 163.8 cm Librado Guerrier MD Work Phone: [facility] 06-17-2024 15:48-0400 Body mass index (BMI) [Ratio] 21.4 kg/m2 Librado Guerrier MD Work Phone: [facility] 06-17-2024 15:48-0400 Body temperature 98.6 [degF] Librado Guerrier MD Work Phone: [facility] 06-17-2024 15:48-0400 Body weight 57.42 kg Librado Guerrier MD Work Phone: [facility] 06-17-2024 15:48-0400 Diastolic blood pressure 78 mm[Hg] Librado Guerrier MD Work Phone: [facility] 06-17-2024 15:48-0400 Heart rate 82 /min Librado Guerrier MD Work Phone: [facility] 06-17-2024 15:48-0400 SaO2% (BldA) [Mass fraction] 97 % Librado Guerrier MD Work Phone: [facility] 06-17-2024 15:48-0400 Systolic blood pressure 128 mm[Hg] Librado Guerrier MD Work Phone: [facility] 02-16-2024 08:59-0400 Body height 163.83 cm Sanjay KASPER MD Work Phone: [facility] [employer] [facility]; [facility] 02-16-2024 08:59-0400 Body mass index (BMI) [Ratio] 21.8 kg/m2 Sanjay KASPER MD Work Phone: [facility] [employer] [facility]; [facility] 02-16-2024 08:59-0400 Body surface area Derived from formula 1.63 m2 Sanjay KASPER MD Work Phone: [facility] [employer] [facility]; [employer] [facility] [employer] [facility] 02-16-2024 08:59-0400 Body temperature 97.7 [degF] Sanjay KASPER MD Work Phone: [facility]; [employer] [facility] [employer] [facility] Comment on above: Method: Oral 02-16-2024 08:59-0400 Body weight 58.51 kg Sanjay KASPER MD Work Phone: [employer] [facility]; [employer] [facility] [employer] [facility] 02-16-2024 08:59-0400 Diastolic blood pressure 59 mm[Hg] Sanjay KASPER MD Work Phone: [facility]; [employer] [facility] [employer] [facility] Comment on above: Patient Position: Sitting; Cuff Location : Left Arm; Cuff Size: Standard 02-16-2024 08:59-0400 Heart rate 78 /min Sanjay KASPER MD Work Phone: [facility]; [facility] Comment on above: Pattern: Regular 02-16-2024 08:59-0400 Inhaled oxygen concentration 21 % Sanjay KASPER MD Work Phone: [facility]; [facility] Comment on above: Room air 02-16-2024 08:59-0400 SaO2% (BldA) [Mass fraction] 98 % Sanjay KASPER MD Work Phone: [facility]; [facility] 02-16-2024 08:59-0400 Systolic blood pressure 110 mm[Hg] Sanjay KASPER MD Work Phone: [facility]; [facility] Comment on above: Patient Position: Sitting; Cuff Location : Left Arm; Cuff Size: Standard 07-04-2023 10:08-0400 Body temperature 98 [degF] Dr. Benson Kasper Work Phone: [facility] 07-04-2023 10:08-0400 Diastolic blood pressure 69 mm[Hg] Dr. Benson Kasper Work Phone: [facility] 07-04-2023 10:08-0400 Heart rate 82 /min Dr. Benson Kasper Work Phone: [facility] 07-04-2023 10:08-0400 Respiratory rate 16 /min Dr. Benson Kasper Work Phone: [facility] 07-04-2023 10:08-0400 SaO2% (BldA) [Mass fraction] 98 % Dr. Benson Kasper Work Phone: [facility] 07-04-2023 10:08-0400 Systolic blood pressure 120 mm[Hg] Dr. Benson Kasper Work Phone: [facility] 07-04-2023 10:00-0400 Inhaled oxygen flow rate 2 L/min Dr. Benson Kasper Work Phone: [facility] 07-04-2023 07:54-0400 Body height 165.[address] Benson Kasper Work Phone: [facility] 07-04-2023 07:54-0400 Body mass index (BMI) [Ratio] 21.4 kg/m2 Dr. Benson Kasper Work Phone: [facility] 07-04-2023 07:54-0400 Body weight 58.[address] Benson Kasper Work Phone: [facility] 06-06-2023 15:09-0400 Body height 163.83 cm Sanjay KASPER MD Work Phone: [facility] 06-06-2023 15:09-0400 Body mass index (BMI) [Ratio] 22.48 kg/m2 Sanjay KASPER MD Work Phone: [facility] [employer] [facility] 06-06-2023 15:09-0400 Body surface area Derived from formula 1.65 m2 Sanjay KASPER MD Work Phone: [facility] [employer] [facility].; [facility] [employer] [facility] 06-06-2023 15:09-0400 Body weight 60.33 kg Sanjay KASPER MD Work Phone: [facility] [employer] [facility] 06-06-2023 15:09-0400 Diastolic blood pressure 69 mm[Hg] Sanjay KASPER MD Work Phone: [facility] [employer] [facility] [employer] [facility] [employer] [facility] Comment on above: Patient Position: Sitting; Cuff Location : Left Arm; Cuff Size: Standard 06-06-2023 15:09-0400 Heart rate 91 /min R ALANIS KORNHAUS MD Work Phone: [facility].; [facility] Comment on above: Pattern: Regular 06-06-2023 15:09-0400 Systolic blood pressure 115 mm[Hg] Sanjay KASPER MD Work Phone: [facility].; [facility] Comment on above: Patient Position: Sitting; Cuff Location : Left Arm; Cuff Size: Standard 05-31-2023 13:140400 Body height 166.[address] Benson Kasper Work Phone: [facility] 05-31-2023 13:13-0400 Body mass index (BMI) [Ratio] 21.9 kg/m2 Dr. Benson Kasper Work Phone: [facility] 05-31-2023 13:13-0400 Body weight 60.[address] Benson Kasper Work Phone: [facility] 05-31-2023 13:13-0400 Diastolic blood pressure 70 mm[Hg] Dr. Benson Kasper Work Phone: [facility] 05-31-2023 13:13-0400 Systolic blood pressure 151 mm[Hg] Dr. Benson Kasper Work Phone: [facility] 05-04-2023 13:29-0400 Body mass index (BMI) [Ratio] 20.3 kg/m2 Dr. Benson Kasper Work Phone: [facility] 05-04-2023 13:29-0400 Body temperature 98.3 [degF] Dr. Benson Kasper Work Phone: [facility] 05-04-2023 13:29-0400 Body weight 56.[address] Benson Kasper Work Phone: [facility] 05-04-2023 13:29-0400 Diastolic blood pressure 75 mm[Hg] Dr. Benson Kasper Work Phone: [facility] 05-04-2023 13:29-0400 Heart rate 80 /min Dr. Benson Kasper Work Phone: [facility] 05-04-2023 13:29-0400 Respiratory rate 16 /min Dr. Benson Kasper Work Phone: [facility] 05-04-2023 13:29-0400 SaO2% (BldA) [Mass fraction] 98 % Dr. Benson Kasper Work Phone: [facility] 05-04-2023 13:29-0400 Systolic blood pressure 149 mm[Hg] Dr. Benson Kasper Work Phone: [facility] 03-05-2023 13:57-0400 Body height 163.83 cm Sanjay KASPER MD Work Phone: [employer] [facility] [employer] 03-05-2023 13:57-0400 Body mass index (BMI) [Ratio] 23.66 kg/m2 Sanjay KASPER MD Work Phone: [employer] [facility] [employer]. 03-05-2023 13:57-0400 Body surface area Derived from formula 1.69 m2 Sanjay KASPER MD Work Phone: [employer] [facility] [employer]. 03-05-2023 13:57-0400 Body weight 63.5 kg Sanjay KASPER MD Work Phone: [employer] [facility] [employer]. 03-05-2023 13:57-0400 Diastolic blood pressure 80 mm[Hg] Sanjay KASPER MD Work Phone: [employer].; [place] [employer] [facility] [employer]. Comment on above: Patient Position: Sitting; Cuff Location : Left Arm; Cuff Size: Standard 03-05-2023 13:57-0400 Heart rate 89 /min Sanjay KASPER MD Work Phone: [facility] [employer] [facility] Comment on above: Pattern: Regular 03-05-2023 13:57-0400 Systolic blood pressure 134 mm[Hg] Sanjay KASPER MD Work Phone: [facility] [employer] [facility] Comment on above: Patient Position: Sitting; Cuff Location : Left Arm; Cuff Size: Standard 02-22-2023 15:07-0400 Body height 163.83 cm IZAIAH MOE RN [facility], [employer] [facility] 02-22-2023 15:07-0400 Body mass index (BMI) [Ratio] 23.49 kg/m2 IZAIAH MOE RN [facility], [employer].; [facility], [employer] 02-22-2023 15:07-0400 Body surface area Derived from formula 1.69 m2 IZAIAH MOE RN [facility], [employer].; [facility] [employer] [facility], [employer] 02-22-2023 15:07-040 Body weight 63.05 kg IZAIAH GRATE KIRA [facility], [employer].; [facility] [employer] [facility], [employer] 02-22-2023 15:07-0400 Diastolic blood pressure 73 mm[Hg] IZAIAH GRATE KIRA [facility], [employer].; [facility] [employer] [facility] Comment on above: Patient Position: Sitting; Cuff Location : Right Arm; Cuff Size: Standard 02-22-2023 15:07-0400 Heart rate 91 /min IZAIAH GRATE KIRA [facility] [employer] [facility], [employer] [facility] [employer] [facility] Comment on above: Pattern: Regular 02-22-2023 15:07-0400 Systolic blood pressure 135 mm[Hg] IZAIAH GRATE KIRA [facility] [employer] [facility], [employer].; [facility] [employer] [facility] Comment on above: Patient Position: Sitting; Cuff Location : Right Arm; Cuff Size: Standard 01-09-2023 16:03-0500 Body height 163.83 cm Nava Madrid RN [facility], Inc.; [facility], Inc[facility] 01-09-2023 16:03-0500 Body mass index (BMI) [Ratio] 23.32 kg/m2 Nava Madrid RN [facility], Inc.; [facility], Inc[facility] 01-09-2023 16:03-0500 Body surface area Derived from formula 1.68 m2 Nava Madrid RN [facility], Inc.; [facility], Inc[facility] 01-09-2023 16:03-0500 Body weight 62.6 kg Nava Madrid RN [facility], Inc.; [facility], Inc[facility] 01-09-2023 16:03-0500 Diastolic blood pressure 83 mm[Hg] Nava Madrid RN [facility], Inc.; [employer] [facility], Inc. Comment on above: Patient Position: Sitting; Cuff Location : Left Arm; Cuff Size: Large 01-09-2023 16:03-0500 Heart rate 81 /min Nava Madrid RN [facility], Inc.; [employer] [facility], Inc[employer] Comment on above: Pattern: Regular 01-09-2023 16:03-0500 Systolic blood pressure 153 mm[Hg] Nava Madrid RN [facility], Inc.; [employer] [facility], Inc[facility] Comment on above: Patient Position: Sitting; Cuff Location : Left Arm; Cuff Size: Large 12-07-2022 15:59-0500 Body height 163.83 cm Judith Arellano RN [facility], Inc.; [employer] [facility], Inc[employer] 12-07-2022 15:59-0500 Body mass index (BMI) [Ratio] 24.17 kg/m2 Judith Arellano RN [facility], Inc.; [facility], Inc[facility] 12-07-2022 15:59-0500 Body surface area Derived from formula 1.71 m2 Judith Arellano RN [facility], Inc.; [employer] [facility], Inc[employer] 12-07-2022 15:59-0500 Body temperature 97.7 [degF] Judith Arellano [facility] Comment on above: Method: Oral 12-07-2022 15:59-0500 Body weight 64.86 kg Judith Arellano RN [facility] 12-07-2022 15:59-0500 Diastolic blood pressure 93 mm[Hg] Judith Arellano RN [facility] Comment on above: Patient Position: Sitting; Cuff Location : Left Arm; Cuff Size: Large 12-07-2022 15:59-0500 Heart rate 81 /min Judith Aerllano RN [facility] Comment on above: Pattern: Regular 12-07-2022 15:59-0500 Systolic blood pressure 167 mm[Hg] Judith Arellano RN [facility] Comment on above: Patient Position: Sitting; Cuff Location : Left Arm; Cuff Size: Large 09-15-2022 07:27-0400 Body temperature 98.6 [degF] Dr. Benson Kasper Work Phone: [facility] 09-15-2022 07:27-0400 Diastolic blood pressure 62 mm[Hg] Dr. Benson Kasper Work Phone: [facility] 09-15-2022 07:27-0400 Heart rate 59 /min Dr. Benson Kasper Work Phone: [facility] 09-15-2022 07:27-0400 Respiratory rate 16 /min Dr. Benson Kasper Work Phone: [facility] 09-15-2022 07:27-0400 SaO2% (BldA) [Mass fraction] 97 % Dr. Benson Kasper Work Phone: [facility] 09-15-2022 07:27-0400 Systolic blood pressure 101 mm[Hg] Dr. Benson Kasper Work Phone: [facility] 09-15-2022 05:52-0400 Body height 165.[address] Benson Kasper Work Phone: [facility] 09-15-2022 05:52-0400 Body mass index (BMI) [Ratio] 24 kg/m2 Dr. Benson Kasper Work Phone: [facility] 09-15-2022 05:52-0400 Body weight 65.[address] Benson Kasper Work Phone: [facility] 07-01-2022 09:56-0400 Body height 163.83 cm IZAIAH MOE RN [facility], [employer] 07-01-2022 09:56-0400 Body mass index (BMI) [Ratio] 25.86 kg/m2 IZAIAH MOE RN [facility], [employer].; [facility]. 07-01-2022 09:56-0400 Body surface area Derived from formula 1.76 m2 IZAIAH MOE RN [facility]. 07-01-2022 09:56-0400 Body weight 69.4 kg IZAIAH MOE RN [facility], [facility].; [facility] [employer] [facility]. 07-01-2022 09:56-0400 Diastolic blood pressure 76 mm[Hg] IZAIAH MOE RN [facility] [employer] [facility].; [facility] [employer] [facility] Comment on above: Patient Position: Sitting; Cuff Location : Left Arm; Cuff Size: Standard 07-01-2022 09:56-0400 Heart rate 73 /min IZAIAH MOE RN [facility] [employer] [facility], [facility].; [employer] [facility] [employer] [facility] Comment on above: Pattern: Regular 07-01-2022 09:56-0400 Systolic blood pressure 125 mm[Hg] IZAIAH MOE RN [facility] [employer] [facility], Inc.; [employer] [facility] [employer] [facility] Comment on above: Patient Position: Sitting; Cuff Location : Left Arm; Cuff Size: Standard 06-22-2022 16:16-0400 Body height 163.83 cm IZAIAH MOE RN [facility], [facility].; [facility], [facility]. 06-22-2022 16:16-0400 Body mass index (BMI) [Ratio] 26.06 kg/m2 IZAIAH MOE RN [facility], [facility].; [facility]. 06-22-2022 16:16-0400 Body surface area Derived from formula 1.76 m2 IZAIAH MOE RN [facility], [facility].; [facility]. 06-22-2022 16:16-0400 Body weight 69.95 kg IZAIAH MOE RN [facility], [facility].; [facility]. 06-22-2022 16:16-0400 Diastolic blood pressure 92 mm[Hg] IZAIAH MOE RN [facility], [facility].; [facility], [facility]. Comment on above: Patient Position: Sitting; Cuff Location : Left Arm; Cuff Size: Standard 06-22-2022 16:16-0400 Heart rate 91 /min IZAIAH MOE RN [facility], [facility].; [facility], [facility]. Comment on above: Pattern: Regular 06-22-2022 16:16-0400 Systolic blood pressure 154 mm[Hg] IZAIAH MOE RN [facility], [facility].; [facility], [facility]. Comment on above: Patient Position: Sitting; Cuff Location : Left Arm; Cuff Size: Standard 05-30-2022 12:03-0400 Body height 166.[address] Syl Valdez Work Phone: [facility] Work Phone: 05-30-2022 12:03-0400 Body mass index (BMI) [Ratio] 25.4 kg/m2 Dr. Syl Valdez Work Phone: [facility] Work Phone: 05-30-2022 12:01-0400 Body weight 70.[address] Syl Valdez Work Phone: [facility] Work Phone: 11-20-2017 09:21-0500 Body height 163.83 cm Nava Madrid RN [facility] [employer] [facility], [employer] 11-20-2017 09:21-0500 Body mass index (BMI) [Ratio] 21.46 kg/m2 Nava Madrid RN [facility] [employer] [facility], [employer].; [employer] 11-20-2017 09:21-0500 Body surface area Derived from formula 1.62 m2 Nava Madrid RN [facility] [employer] [facility], Inc.; [employer] [facility] [employer] 11-20-2017 09:21-0500 Body temperature 97.8 [degF] Nava Madrid RN [facility] [employer] [facility], [employer] Comment on above: Method: Oral 11-20-2017 09:21-0500 Body weight 57.61 kg Nava Madrid RN [facility] [employer] [facility], [employer] 11-20-2017 09:21-0500 Diastolic blood pressure 85 mm[Hg] Nava Madrid RN [facility] [employer] [facility], [employer] Comment on above: Patient Position: Sitting; Cuff Location : Left Arm; Cuff Size: Large 11-20-2017 09:21-0500 Heart rate 76 /min Nava Madrid RN [facility] [employer] [facility], [employer] Comment on above: Pattern: Regular 11-20-2017 09:21-0500 Systolic blood pressure 135 mm[Hg] Nava Madrid RN [facility] [employer] [facility], [employer] Comment on above: Patient Position: Sitting; Cuff Location : Left Arm; Cuff Size: Large 11-10-2016 09:40-0500 Body height 163.83 cm Judith Arellano RN [facility] [employer] [facility], [employer] 11-10-2016 09:40-0500 Body mass index (BMI) [Ratio] 22.98 kg/m2 Judith Arellano RN [facility], Inc.; [facility], Inc[employer] 11-10-2016 09:40-0500 Body surface area Derived from formula 1.67 m2 Judith Arellano RN [facility], Inc.; [facility], [employer] 11-10-2016 09:40-0500 Body temperature 97.6 [degF] Judith Arellano RN [facility], Inc.; [employer] [facility] [employer] [facility] Comment on above: Method: Oral 11-10-2016 09:40-0500 Body weight 61.69 kg Judith Arellano RN [facility], Inc.; [facility], [employer] 11-10-2016 09:40-0500 Diastolic blood pressure 83 mm[Hg] Judith Arellano RN [facility] [employer] [facility], [employer].; [facility] [employer] [facility], [employer] Comment on above: Patient Position: Sitting; Cuff Location : Left Arm; Cuff Size: Large 11-10-2016 09:40-0500 Heart rate 73 /min Judith Arellano RN [facility] [employer] [facility], [employer].; [facility] [employer] [facility], [employer] Comment on above: Pattern: Regular 11-10-2016 09:40-0500 Systolic blood pressure 149 mm[Hg] Judith Arellano RN [facility] [employer] [facility], [employer].; [employer] [facility] [employer] [facility], [employer] Comment on above: Patient Position: Sitting; Cuff Location : Left Arm; Cuff Size: Large 11-23-2014 09:25-0500 Body height 166.37 cm Judith Arellano RN [facility] [employer] [facility], [employer].; [facility] [employer] [facility] 11-23-2014 09:25-0500 Body mass index (BMI) [Ratio] 25.56 kg/m2 Judith Arellano RN [facility] [employer] [facility], [employer].; [facility], [employer] 11-23-2014 09:25-0500 Body surface area Derived from formula 1.79 m2 Judith Arellano RN [facility] [employer] [facility], [employer].; [facility] [employer] [facility] 11-23-2014 09:25-0500 Body temperature 97.8 [degF] Judith Arellano RN [facility], Inc.; [employer] [facility] [employer] [facility], [employer]. Comment on above: Method: Oral 11-23-2014 09:25-0500 Body weight 70.76 kg Judith Arellano RN [facility], Inc.; [employer] [facility] [employer] [facility] 11-23-2014 09:25-0500 Diastolic blood pressure 102 mm[Hg] Judith Arellano RN [facility], Inc.; [facility] [employer] [facility] Comment on above: Patient Position: Sitting; Cuff Location : Left Arm; Cuff Size: Large 11-23-2014 09:25-0500 Heart rate 78 /min Judith Arellaon RN [facility], [employer] [facility] [employer] [facility], [employer]. Comment on above: Pattern: Regular 11-23-2014 09:25-0500 Systolic blood pressure 157 mm[Hg] Judith Arellano RN [facility], Inc.; [employer] [facility] [employer] [facility] Comment on above: Patient Position: Sitting; Cuff Location : Left Arm; Cuff Size: Large 04-08-2012 11:180400 Body height 166.37 cm Judith Arellano RN [facility], Inc.; [facility], [employer] 04-08-2012 11:18-0400 Body mass index (BMI) [Ratio] 26.06 kg/m2 Judith Arellano RN [facility], Inc.; [facility], [employer] 04-08-2012 11:18-0400 Body surface area Derived from formula 1.8 m2 Judith Arellano RN [facility], Inc.; [facility], [employer] 04-08-2012 11:18-0400 Body weight 72.12 kg Judith Arellano RN [facility], Inc.; [employer] [facility] [employer] [facility], [employer] 04-08-2012 11:18-0400 Diastolic blood pressure 76 mm[Hg] Judith Arellano RN [facility], [employer] [facility] [employer] [facility], [employer]. Comment on above: Patient Position: Sitting; Cuff Location : Left Arm; Cuff Size: Large 04-08-2012 11:18-0400 Heart rate 84 /min Judith Arellano RN [facility], [employer] [facility] [employer] [facility], [employer]. Comment on above: Pattern: Regular 04-08-2012 11:18-0400 Systolic blood pressure 122 mm[Hg] Judith Arellano RN [facility] [employer] [facility], [employer] [facility] [employer] [facility], [employer] Comment on above: Patient Position: Sitting; Cuff Location : Left Arm; Cuff Size: Large 12-19-2011 09:35-0500 Body height 166.37 cm Judith Arellano RN [facility], Inc.; [employer] [facility] [employer] [facility] 12-19-2011 09:35-0500 Body mass index (BMI) [Ratio] 26.71 kg/m2 Judith Arellano RN [facility] [employer] [facility], Inc.; [employer] [facility], Inc[employer] 12-19-2011 09:35-0500 Body surface area Derived from formula 1.82 m2 Judith Arellano RN [facility] [employer] [facility], [employer].; [employer] [facility] [employer] [facility], [employer] 12-19-2011 09:35-0500 Body weight 73.94 kg Judith Arellano RN [facility], Inc.; [employer] [facility] [employer] [facility], [employer] 12-19-2011 09:35-0500 Diastolic blood pressure 79 mm[Hg] Judith Arellano RN [facility] [employer] [facility], [employer] [facility] [employer] [facility], [employer]. Comment on above: Patient Position: Sitting; Cuff Location : Right Arm; Cuff Size: Large 12-19-2011 09:35-0500 Heart rate 76 /min Judith Arellano RN [facility] [employer] [facility], [employer] [facility] [employer] [facility], [employer]. Comment on above: Pattern: Regular 12-19-2011 09:35-0500 Systolic blood pressure 130 mm[Hg] Judith Arellano RN [facility] [employer] [facility], Inc[employer] [facility] [employer] [facility] Comment on above: Patient Position: Sitting; Cuff Location : Right Arm; Cuff Size: Large 11-14-2011 13:56-0500 Body height 166.37 cm Sanjay KASPER MD Work Phone: [employer] 11-14-2011 13:56-0500 Body mass index (BMI) [Ratio] 28.02 kg/m2 Sanjay KASPER MD Work Phone: [employer] 11-14-2011 13:56-0500 Body surface area Derived from formula 1.86 m2 Sanjay KASPER MD Work Phone: [employer] 11-14-2011 13:56-0500 Body weight 77.57 kg Sanjay KASPER MD Work Phone: [employer] 11-14-2011 13:56-0500 Diastolic blood pressure 83 mm[Hg] Sanjay KASPER MD Work Phone: [employer] Comment on above: Patient Position: Sitting; Cuff Location : Left Arm; Cuff Size: Standard 11-14-2011 13:56-0500 Heart rate 98 /min Sanjay KASPER MD Work Phone: [employer]; [employer] Comment on above: Pattern: Regular 11-14-2011 13:56-0500 Systolic blood pressure 149 mm[Hg] Sanjay KASPER MD Work Phone: [employer] Comment on above: Patient Position: Sitting; Cuff Location : Left Arm; Cuff Size: Standard Encounters Encounter Date Encounter Type Care Provider Facility Start: 06-25-2025 [facility] Start: 05-19-2025 End: 05-19-2025 ambulatory BENSON ARGUETA [facility] Start: 02-25-2025 End: 02-25-2025 ambulatory [facility] Start: 02-17-2025 End: 02-17-2025 ambulatory [facility] Start: 02-02-2025 End: 02-02-[address] Benson Argueta MD -Cat Scan, [facility] Work Phone: Start: 02-02-2025 End: 02-02-[address] Benson Kasper MD Work Phone: [facility] Work Phone: Start: 01-28-2025 End: 01-28-2025 Admission to same day surgery center Dr. Benson Argueta MD -Endoscopy Work Phone: Start: 01-28-2025 End: 01-28-[address] Benson Kasper MD Work Phone: [facility] Work Phone: Start: 01-13-2025 End: 01-13-2025 ambulatory Sanjay KASPER Facility:[facility] Start: 01-13-2025 End: 01-13-2025 Patient encounter procedure Librado Guerrier MD Work Phone: Endocrinology Comment on above: Age-related osteopor osis without current pathological fracture (Primary Dx); Nontoxic multinodular goiter Start: 11-21-2024 End: 11-21-2024 Patient encounter procedure Jasmin Jackson MD Work Phone: [facility] Comment on above: Dyshidrotic eczema ( Primary Dx); Secondary impetiginization; Inflamed seborrheic keratosis Start: 11-21-2024 End: 11-21-2024 ambulatory Sanjay KASPER Facility:[id number] Start: 11-16-2024 End: 11-16-2024 ambulatory [facility] Start: 10-04-2024 End: 10-04-2024 ambulatory [facility] Start: 09-11-2024 End: 09-11-2024 ambulatory Sanjay KASPER Facility:[facility] Start: 09-11-2024 End: 09-11-2024 Patient encounter procedure Librado Guerrier MD Work Phone: Endocrinology Comment on above: Age-related osteopor osis without current pathological fracture [M81.0] (Primary Dx); Nontoxic multinodular goiter [E04.2] Start: 08-23-2024 End: 08-23-2024 ambulatory [facility] Start: 08-04-2024 End: 08-04-2024 ambulatory [facility] Facility:[facility] Start: 07-25-2024 End: 07-25-2024 Patient Msg Librado Guerrier MD Work Phone: Endocrinology Comment on above: Lab order placed Start: 07-14-2024 End: 07-15-2024 ambulatory [facility] Facility:[facility] Start: 07-14-2024 End: 07-14-2024 Subsequent hospital visit by physician Fabiola [facility] ([facility]) Work Phone: Cat Scan Comment on above: Nontoxic multinodula r goiter [E04.2] Start: 07-11-2024 End: 07-11-2024 ambulatory LIBRADO GUERRIER Facility:[facility] Start: 07-07-2024 End: 07-08-2024 Telephone encounter Librado Guerrier MD Work Phone: Endocrinology Comment on above: Patient Update (FABIOLA s jonas) Start: 07-04-2024 End: 07-04-2024 ambulatory LIBRADO GUERRIER Facility:[facility] Start: 07-04-2024 End: 07-04-2024 Patient encounter procedure Librado Guerrier MD Work Phone: Endocrinology Comment on above: Nontoxic multinodula r goiter (Primary Dx); Osteoporosis without current pathological fracture, unspecified osteoporosis type Start: 07-03-2024 ambulatory Syl Manuel lity:BMS Start: 06-30-2024 ambulatory Librado Guerrier MD Work Phone: Endocrinology Comment on above: Barium Swallow Start: 06-30-2024 E-mail encounter fro m caregiver Librado Guerrier MD Work Phone: Endocrinology Start: 06-26-2024 Telephone encounter Librado Guerrier MD Work Phone: Endocrinology Comment on above: Order for Barium swa llow test Start: 06-26-2024 End: 06-26-2024 ambulatory LIBRADO GUERRIER Facility:[facility] Start: 06-26-2024 End: 06-26-2024 Patient encounter procedure Librado Guerrier MD Work Phone: Endocrinology Comment on above: Thyroid nodule (Prim bryant Dx) Start: 06-17-2024 End: 06-17-2024 ambulatory LIBRADO GUERRIER Facility:[facility] Start: 06-17-2024 End: 06-17-2024 Patient encounter procedure Librado Guerrier MD Work Phone: Endocrinology Comment on above: Thyroid nodule (Prim bryant Dx) Start: 06-13-2024 Telephone encounter Librado Guerrier MD Work Phone: Endocrinology Comment on above: Request Outside [facility] Records Start: 05-20-2024 End: 07-09-2024 ambulatory Sanjay KASPER [facility] Start: 05-12-2024 End: 05-12-2024 Results Review Sanjay KASPER MD Work Phone: [employer] Start: 05-05-2024 End: 05-05-2024 Results Review Sanjay KASPER MD Work Phone: [employer] Start: 04-23-2024 End: 04-23-2024 Follow-up encounter Sanjay KASPER MD Work Phone: [employer] Start: 04-09-2024 End: 04-09-2024 Procedure Order Sanjay KASPER MD [facility] Start: 02-16-2024 End: 02-16-2024 Office outpatient visit 15 minutes San[facility] Start: 02-16-2024 Review Sanjay [facility]ASPER MD Work [facility]: [facility] Start: 07-09-2023 End: 07-09-2023 Historical Summary Sanjay KASPER MD Work Phone: [facility] Start: 07-04-2023 End: 07-04-2023 Admission to same day surgery center Dr. Benson Kasper Work Phone: [facility] Work Phone: Start: 07-04-2023 End: 07-04-[address] Benson Kasper Work Phone: [facility] Work Phone: Start: 06-29-2023 End: 06-29-[address] Benson Kasper Work Phone: [facility] Work Phone: Start: 06-29-2023 End: 06-29-[address] Benson Kasper Work Phone: [facility]Cat [facility], [facility] Work Phone: Start: 06-25-2023 End: 06-25-[address] Benson Kasper Work Phone: [facility] Work Phone: Start: 06-06-2023 End: 06-06-2023 Historical Summary Sanjay KASPER MD Work [facility]: [facility] Start: 06-06-2023 End: 06-06-2023 Office outpatient visit 15 minutes Sanjay KASPER MD [facility] Start: 05-31-2023 End: 05-31-[address] Benson Kasper Work Phone: [facility] Work Phone: Start: 05-31-2023 End: 05-31-[address] Benson Kasper Work Phone: [facility] Work Phone: Start: 05-05-2023 End: 05-05-2023 Historical Summary Sanjay KASPER MD Work Phone: [facility] Start: 05-04-2023 End: 05-04-2023 Historical Summary Sanjay KASPER MD Work Phone: [facility] Start: 05-04-2023 End: 05-04-[address] Benson Kasper Work Phone: [facility] Endocrinology Work Phone: Start: 04-26-2023 End: 04-26-2023 ambulatory [facility] Work Phone: Start: 04-26-2023 End: 04-26-2023 Patient encounter procedure [facility], Specimen Start: 03-28-2023 End: 03-28-2023 Historical Summary Sanjay KASPER MD Work Phone: [facility] Start: 03-20-2023 End: 03-20-2023 ambulatory [facility] Work Phone: Start: 03-20-2023 End: 03-20-2023 Patient encounter procedure [facility] Start: 03-13-2023 End: 03-13-2023 Historical Summary Sanjay KASPER MD Work Phone: [employer] Start: 03-12-2023 End: 03-12-2023 Historical Summary Sanjay KASPER MD Work Phone: [employer] [facility] [employer]. Start: 03-05-2023 End: 03-10-[address] ALANIS KASPER MD Facility:A Start: 03-05-2023 End: 03-05-2023 Office outpatient visit 15 minutes Sanjay KASPER MD Work Phone: [facility] [employer] Start: 02-22-2023 End: 02-22-2023 Office outpatient visit 15 minutes Sanjay KASPER MD Work Phone: [facility] [employer] [facility] [employer] Start: 01-24-2023 End: 01-24-2023 Results Review Sanjay KASPER MD Work Phone: [employer] Start: 01-22-2023 End: 01-22-2023 Historical Summary Sanjay KASPER MD Work Phone: [employer] [facility] [employer] Start: 01-17-2023 End: 01-17-2023 Procedure Order Sanjay KASPER MD Work Phone: [employer] [facility] [employer]. Start: 01-12-2023 End: 01-12-2023 Procedure Order Sanjay KASPER MD Work Phone: [employer] Start: 01-09-2023 End: 01-09-2023 Office outpatient visit 15 minutes Sanjay KASPER MD Work Phone: [facility] [employer] Start: 12-07-2022 End: 12-07-2022 Office outpatient visit 15 minutes Sanjay KASPER MD Work Phone: [facility] [place] [employer]. Start: 11-22-2022 End: 11-22-[address] Benson Kasper Work Phone: [facility] Work Phone: Start: 11-22-2022 End: 11-22-[address] Benson Kasper Work Phone: [facility], Specimen Start: 11-14-2022 End: 11-14-2022 Historical Summary Sanjay KASPER MD Work Phone: [facility] [employer]. Start: 11-11-2022 End: 11-11-2022 Office outpatient visit 15 minutes Sanjay KASPER MD Work Phone: [facility] [employer]. Start: 09-18-2022 End: 09-18-2022 Results Review Sanjay KASPER MD Work Phone: [facility] [employer]. Start: 09-15-2022 Non-patient / Non-visit Dr. Mari Kasper Work Phone: [facility] Start: 09-15-2022 End: 09-15-2022 Admission to same day surgery center Dr. Benson Kasper Work Phone: [facility] Start: 08-14-2022 End: 08-14-2022 Historical Summary Sanjay KASPER MD Work Phone: [facility] [employer]. Start: 07-14-2022 End: 07-14-2022 Historical Summary Sanjay KASPER MD Work Phone: [facility] [employer]. Start: 07-03-2022 End: 07-03-2022 Results Review Sanjay KASPER MD Work Phone: [facility] [employer]. Start: 07-01-2022 End: 07-06-[address] ALANIS KASPER MD Facility:A Start: 07-01-2022 End: 07-01-2022 Office outpatient visit 15 minutes Sanjay KASPER MD Work Phone: [employer] Start: 06-26-2022 End: 06-26-2022 Results Review Sanjay KASPER MD Work Phone: [employer] Start: 06-23-2022 End: 06-28-[address] ALANIS KASPER MD Facility:A Start: 06-22-2022 End: 06-22-2022 Office outpatient visit 25 minutes Sanjay KASPER MD Work Phone: [employer] Start: 06-17-2022 End: 06-17-2022 Historical Summary Sanjay KASPER MD Work Phone: [employer] Start: 06-05-2022 End: 06-05-2022 Historical Summary Sanjay KASPER MD Work Phone: [employer] Start: 05-30-[address] Syl Valdez Work Phone: [facility] Start: 05-30-2022 End: 05-30-[address] Syl Valdez Work Phone: [facility] Start: 05-29-2022 End: 05-29-2022 Historical Summary Sanjay KASPER MD Work Phone: [employer] Start: 05-23-2022 End: 05-24-2022 Historical Summary Sanjay KASPER MD Work Phone: [employer] Start: 02-17-2019 End: 02-17-2019 Historical Summary Sanjay KASPER MD Work Phone: [employer] Start: 08-09-2018 End: 08-09-2018 Historical Summary Sanjay KASPER MD Work Phone: [employer] Start: 11-21-2017 End: 11-21-2017 Historical Summary Sanjay KASPER MD Work Phone: [employer] Start: 11-21-2017 End: 11-21-2017 Follow-up encounter Sanjay KASPER MD Work Phone: [employer] Start: 11-21-2017 End: 11-21-2017 Results Review Sanjay KASPER MD Work Phone: [employer] Start: 11-20-2017 End: 11-20-2017 Office outpatient visit 15 minutes Sanjay KASPER MD Work Phone: [employer]. Start: 03-26-2017 End: 03-26-2017 Historical Summary Sanjay KASPER MD Work Phone: [employer]. Start: 11-12-2016 End: 11-12-2016 Results Review Sanjay KASPER MD Work Phone: [employer] Start: 11-10-2016 End: 11-10-2016 Office outpatient visit 25 minutes Sanjay KASPER MD Work Phone: [employer]. Start: 11-23-2014 End: 11-23-2014 Office outpatient visit 15 minutes Sanjay KASPER MD Work Phone: [employer]. Start: 07-24-2014 End: 07-24-2014 Historical Summary Sanjay KASPER MD Work Phone: [employer] Start: 09-11-2013 End: 09-11-2013 Injection/immunization only Sanjay KASPER MD Work Phone: [place] [facility] [employer]. Start: 10-08-2012 End: 10-08-2012 Procedure Order Sanjay KASPER MD Work Phone: [employer] [facility] [employer]. Start: 08-22-2012 End: 08-22-2012 Injection/immunization only Sanjay KASPER MD Work Phone: [facility] [place] Start: 04-08-2012 End: 04-08-2012 Patient encounter procedure Sanjay KASPER MD Work Phone: [facility] [employer]. Start: 04-04-2012 End: 04-04-2012 Results Review Sanjay KASPER MD Work Phone: [facility] [employer]. Start: 04-01-2012 End: 04-05-2012 ERRONEOUS ENTRY Sanjay KASPER MD Work Phone: [facility] [employer]. Start: 03-29-2012 End: 03-29-2012 Results Review Sanjay KASPER MD Work Phone: [facility] [employer]. Start: 03-29-2012 End: 03-29-2012 Procedure Order Sanjay KASPER MD Work Phone: [employer] Start: 03-25-2012 End: 03-25-2012 Results Review Sanjay KASPER MD Work Phone: [facility] [employer]. Start: 12-19-2011 End: 12-19-2011 Patient encounter procedure Sanjay KASPER MD Work Phone: [employer] [facility] [employer]. Start: 11-20-2011 End: 11-20-2011 Results Review Sanjay KASPER MD Work Phone: [facility] [employer] Start: 11-14-2011 End: 11-14-2011 Historical Summary Sanjay KASPER MD Work Phone: [employer] Start: 11-14-2011 End: 11-14-2011 Patient encounter procedure Sanjay KASPER MD Work Phone: [employer] [facility] [employer] Start: 11-14-2011 End: 11-14-2011 Routine general medical examination at a health care facility Sanjay KASPER MD [facility] [employer] [facility] [employer] Start: 11-10-2011 End: 11-10-2011 Historical Summary Sanjay KASPER MD Work Phone: [employer] [facility] [employer] Start: 07-12-2010 End: 07-12-2010 Historical Summary Sanjay KASPER MD Work Phone: [employer] [facility] [employer] Procedures Date Procedure Procedure Detail Performing Clinician Start: 02-02-2025 CT of chest without contrast Dr. Benson Kasper MD Work Phone: Start: 01-28-2025 Acid fast bacilli culture Dr. Benson Kasper MD Work Phone: Start: 01-28-2025 End: 01-28-2025 bronchoscopy Sanjay KASPER MD Work Phone: Comment on above: Dr. Argueta Start: 01-28-2025 Gram stain microscopy D smith Kasper MD Work Phone: Start: 01-28-[address] Mari Kasper MD Work Phone: Start: 01-28-[address] l culture Dr. Benson Kasper MD Work Phone: Start: 01-28-[address] Benson Kasper MD Work Phone: Start: 07-14-2024 Ct soft tissue neck w/contrast material Librado Guerrier MD Work Phone: Start: 06-26-2024 Us soft tissue head & neck real time imge docm Librado Guerrier MD Work Phone: Start: 05-12-2024 End: 05-12-2024 Dxa bone density study 1/> sites axial skel Sanjay KASPER MD Work Phone: Start: 02-16-2024 End: 02-16-2024 Dischrg meds reconciled w/current med list Sanjay KASPER MD Work Phone: Start: 07-04-2023 End: 07-04-2023 bronchoscopy Sanjay KASPER MD Work Phone: Comment on above: to explore persisten t LEE ANN infiltrate; mucous plugging noted. Start: 07-04-[address] Benson Kasper Work Phone: Start: 06-29-2023 CT of chest without contrast Dr. Benson Kasper Work Phone: Start: 06-06-2023 End: 06-06-2023 Dischrg meds reconciled w/current med list Sanjay KASPER MD Work Phone: Start: 05-31-2023 End: 05-31-2023 Screening mammography Daisy Nathan RN Comment on above: Normal. Start: 03-19-2023 End: 03-19-2023 arthroscopy R knee Tamara Patel Comment on above: [facility]; meni scal tears Start: 03-05-2023 End: 03-05-2023 Dischrg meds reconciled w/current med list Sanjay KASPER MD Work Phone: Start: 02-22-2023 End: 02-22-2023 Dischrg meds reconciled w/current med list Sanjay KASPER MD Work Phone: Start: 01-24-2023 End: 01-24-2023 Us soft tissue head & neck real time imge docm Sanjay KASPER MD Work Phone: Start: 01-17-2023 End: 01-17-2023 Ct soft tissue neck w/contrast material Sanjay KASPER MD Work Phone: Comment on above: Submandibular gland swelling (Left greater than Right) Start: 01-09-2023 End: 01-09-2023 Dischrg meds reconciled w/current med list Sanjay KASPER MD Work Phone: Start: 12-02-2022 End: 12-02-2022 Anna Nathan RN Comment on above: at [facility] Start: 09-15-2022 End: 09-15-2022 Screening colonoscopy IZAIAH MOE RN Comment on above: Normal. Rpt. 10 year s Start: 09-15-[address] Benson Kasper Work Phone: Start: 09-08-2022 End: 09-08-2022 Prevnar 20 Daisy Nathan RN Comment on above: at [facility] Start: 09-08-2022 End: 09-08-2022 Vaccination given Daisy Nathan RN Comment on above: Moderna & 06/02/22 (P monica) & Moderna 10/04/21 & 02/23/21 & 01/26/21 Start: 07-01-2022 End: 07-01-2022 Dischrg meds reconciled w/current med list Sanjay KASPER MD Work Phone: Start: 06-28-2022 End: 06-28-2022 Ct thorax w/contrast material Sanjay KASPER MD Work Phone: Start: 05-30-2022 End: 05-30-2022 Microscopic examination of cervical Papanicolaou smear IZAIAH MOE RN Comment on above: Negative. 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 Start: 05-30-2022 Screening mammography D smith Valdez Work Phone: Start: 05-19-2022 End: 05-19-2022 Cardiovascular Stress Test - Cardiolyte Sanjay KASPER MD Work Phone: Comment on above: EF 55% Start: 05-19-2022 End: 05-19-2022 Cardiovascular stress testing Sanjay KASPER MD Work Phone: Comment on above: equivocal exercise s tress test Start: 05-19-2022 End: 05-19-2022 Coronary Calcium Score (zero) IZAIAH MOE RN Start: 08-08-2018 End: 08-08-2018 Adakatharina MOE RN Start: 11-20-2017 End: 11-21-2017 Chest x-ray Sanjay KASPER MD Work Phone: Start: 11-19-2017 End: 11-19-2017 Plain chest X-ray Sanjay KASPER MD Work Phone: Comment on above: hyperinflation; coul d be COPD if clinically supported; Start: 01-01-2014 Lipid 1996 panel - S leidy or Plasma Librado Guerrier MD Work Phone: Start: 11-14-2011 End: 11-14-2011 Obtaining screen pap smear Yuliet ZARATE MD Work Phone: Start: 06-22-2008 End: 06-22-2008 Td IZAIAH MOE RN Start: 01-28-2008 Colonoscopy Librado sweeney MD Work Phone: Start: 11-19-1992 End: 11-19-1992 section Tamara Patel Anaerobic microbial culture Dr. Benson Kasper Work Phone: arthroscopic knee surgery Montes Comment on above: Left. Right. Bacterial culture Dr. Benson Kasper Work Phone: Biopsy of breast Tamara Bowers fraser Philip WERNER MD Work Phone: Comment on above: 03/28/12, NL Investigation of tra nsfusion reaction Dr. Benson Kasper Work Phone: Left cervical lymph node excisional biopsy Sanjay KASPER MD Work Phone: Comment on above: Dr. Durant; benign ( Warthin's Tumor) Magnetic resonance imaging Sanjay KASPER MD Work Phone: Comment on above: Right. MRI Knee R te ars of medial and lateral meniscus Tonsillectomy Tamara adams Comment on above: and adenoids x-lap for infertility Tamara Waters Jorge Plan of Treatment Date Care Activity Detail Author Start: 08-31-2033 Urine microalbumin profile DTaP,Tdap,Td Vaccine (3 - Td or Tdap) [facility] Start: 08-08-2028 Urine microalbumin profile DTaP,Tdap,Td Vaccine (2 - Td or Tdap) [facility] Start: 08-04-2027 Diabetes Screening Diabetes Screenin g [facility] Start: 07-11-2027 Diabetes Screening Diabetes Screenin g [facility] Start: 07-13-2025 End: 07-13-2025 Patient encounter procedure 07/13/2025 4:00 PM EDT Office Visit Endocrinology [address] [place], [place] [id number] Librado Guerrier MD [address] [place] [address] 5 mth f/u Endocrinology Comment on above: 5 mth f/u Start: 07-06-2025 End: 07-06-2025 Patient encounter procedure 07/06/2025 7:00 AM EDT Appointment Radiology [address] [place], [place] [id number] THYROID Radiology Comment on above: THYROID Start: 07-04-2025 End: 08-03-2025 US Thyroid gland US THYROID/PARATHYROID Radiology Routine Nontoxic multinodular goiter Expected: 07/04/2025, Expires: 08/03/2025 [facility] Work Phone: Comment on above: Expected: 07/04/2025 , Expires: 08/03/2025 Start: 01-29-2025 Covid-19 Vaccine ( season) Covid-19 Vaccine ( season) [facility] Start: 01-28-2025 Brncc w/brncl alveolar lavage DX BRONCHOSCOPE/LAVAGE [facility] Start: 01-28-2025 Microscopic observat ion [Identifier] in Unspecified specimen by Gram stain Gram Stain [facility] Start: 01-28-2025 Respiratory Culture Respiratory Cult ure [facility] Start: 01-28-2025 Patient discharge [facility] Start: 01-28-2025 Respiratory microbia l culture [facility] Start: 01-13-2025 End: 01-13-2025 Patient encounter procedure 01/13/2025 4:20 PM EST Office Visit Endocrinology [address] [place] [address] Librado Guerrier MD [address] [place] [address] 4 MTH F/U Endocrinology Comment on above: 4 MTH F/U Start: 11-19-2024 Advance Directive Discussion Advance Directive Discussion [facility] Start: 10-06-2024 End: 10-06-2024 ambulatory 10/06/2024 7:00 AM EST Results Only Polina [facility] [address] [place] [address] [facility] Start: 10-04-2024 End: 01-03-2025 Calcium.ionized [Moles/volume] in Blood CALCIUM, IONIZED Lab Routine Osteoporosis without current pathological fracture, unspecified osteoporosis type Expected: 10/04/2024, Expires: 01/03/2025 [facility] Comment on above: Expected: 10/04/2024 , Expires: 01/03/2025 Start: 09-08-2024 End: 09-08-2024 Patient encounter procedure 09/08/2024 9:20 AM EDT Office Visit Endocrinology [address] [place] [address] Librado Guerrier MD [address] [place] [address] 2 MTH F/U Endocrinology Comment on above: 2 MTH F/U Start: 08-11-2024 End: 08-11-2024 Patient encounter procedure 08/11/2024 11:20 AM EDT Office Visit Endocrinology [address] [place] [address] Librado Guerrier MD [address] [place] [address] f/u review- Bone density scan Endocrinology Comment on above: f/u review- Bone den sity scan Start: 08-04-2024 End: 08-04-2024 ambulatory 08/04/2024 7:15 AM EDT Results Only Polina Olguin [facility] [address] [place] [address] Polina [facility] Start: 07-25-2024 End: 10-24-2024 Comprehensive metabolic 2000 panel - Serum or Plasma COMPREHENSIVE METABOLIC PANEL Lab Routine Osteoporosis without current pathological fracture, unspecified osteoporosis type Expected: 07/25/2024, Expires: 10/24/2024 [facility] Work Phone: Comment on above: Expected: 07/25/2024 , Expires: 10/24/2024 Start: 07-20-2024 Covid-19 Vaccine () Covid-19 Vaccine () [facility] Start: 07-20-2024 Influenza vaccination Influenza Vacc ine (#1) [facility] Start: 07-14-2024 End: 07-14-2024 Patient encounter procedure 07/14/2024 3:40 PM EDT Appointment Cat Scan [address] [place] [address] COUGH Cat Scan Comment on above: COUGH Start: 07-14-2024 End: 07-14-2024 ambulatory 07/14/2024 3:15 PM EDT Results Only Polina Olguin [facility] [address] [place] [address] Polina Higginswn [facility] Start: 07-11-2024 End: 07-11-2024 ambulatory 07/11/2024 4:45 PM EDT Results Only Polina Olguin [facility] [address] [place] [address] Polina [place] [facility] Start: 07-08-2024 Covid-19 Vaccine ( season) Covid-19 Vaccine () [facility] Start: 07-04-2024 End: 10-03-2024 25-hydroxyvitamin D3 [Mass/volume] in Serum or Plasma VITAMIN D 25 HYDROXY Lab Routine Osteoporosis without current pathological fracture, unspecified osteoporosis type Expected: 07/04/2024, Expires: 10/03/2024 [facility] Comment on above: Expected: 07/04/2024 , Expires: 10/03/2024 Start: 07-04-2024 End: 10-03-2024 ALK PHOS BONE SPEC ALK PHOS BONE SPEC Lab Routine Osteoporosis without current pathological fracture, unspecified osteoporosis type Expected: 07/04/2024, Expires: 10/03/2024 [facility] Comment on above: Expected: 07/04/2024 , Expires: 10/03/2024 Start: 07-04-2024 End: 10-03-2024 Collagen crosslinked C-telopeptide [Mass/volume] in Serum or Plasma C TELOPEPTIDE, BETA Lab Routine Osteoporosis without current pathological fracture, unspecified osteoporosis type Expected: 07/04/2024, Expires: 10/03/2024 [facility] Comment on above: Expected: 07/04/2024 , Expires: 10/03/2024 Start: 07-04-2024 End: 10-03-2024 Comprehensive metabolic 2000 panel - Serum or Plasma COMPREHENSIVE METABOLIC PANEL Lab Routine Osteoporosis without current pathological fracture, unspecified osteoporosis type Expected: 07/04/2024, Expires: 10/03/2024 [facility] Comment on above: Expected: 07/04/2024 , Expires: 10/03/2024 Start: 07-04-2024 End: 10-03-2024 Magnesium [Mass/volume] in Serum or Plasma MAGNESIUM Lab Routine Osteoporosis without current pathological fracture, unspecified osteoporosis type Expected: 07/04/2024, Expires: 10/03/2024 [facility] Comment on above: Expected: 07/04/2024 , Expires: 10/03/2024 Start: 07-04-2024 End: 10-03-2024 Osteocalcin [Mass/volume] in Serum or Plasma OSTEOCALCIN BLD Lab Routine Osteoporosis without current pathological fracture, unspecified osteoporosis type Expected: 07/04/2024, Expires: 10/03/2024 [facility] Comment on above: Expected: 07/04/2024 , Expires: 10/03/2024 Start: 07-04-2024 End: 10-03-2024 Parathyrin.intact [Mass/volume] in Serum or Plasma PTH INTACT Lab Routine Osteoporosis without current pathological fracture, unspecified osteoporosis type Expected: 07/04/2024, Expires: 10/03/2024 [facility] Comment on above: Expected: 07/04/2024 , Expires: 10/03/2024 Start: 07-04-2024 End: 10-03-2024 Phosphate [Mass/volume] in Serum or Plasma PHOSPHORUS INORGANIC Lab Routine Osteoporosis without current pathological fracture, unspecified osteoporosis type Expected: 07/04/2024, Expires: 10/03/2024 [facility] Comment on above: Expected: 07/04/2024 , Expires: 10/03/2024 Start: 07-04-2024 End: 07-04-2024 Patient encounter procedure 07/04/2024 11:20 AM EDT Office Visit Endocrinology [address] [place] [address] Librado Guerrier MD [address] [place] [address] f/u review- Bone density scan Endocrinology Comment on above: f/u review- Bone den sity scan Start: 06-26-2024 End: 06-26-2024 Patient encounter procedure 06/26/2024 3:00 PM EDT Office Visit Endocrinology [address] [place] [address] Librado Guerrier MD [address] [place] [address] biopsy Endocrinology Comment on above: biopsy Start: 06-17-2024 End: 06-17-2024 Patient encounter procedure 06/17/2024 3:40 PM EDT Office Visit Endocrinology [address] [place] [address] Librado Guerrier MD [address] [place] [address] thyroid nodules - sent rec req to PCP for OV notes, labs, imaging Endocrinology Comment on above: thyroid nodules - se nt rec req to PCP for OV notes, labs, imaging Start: 04-09-2024 Dxa bone density raul dy 1/> sites axial skel DEXA BONE DENSITY STUDY OF AXIAL SKELETON (54087) Start: 09-Apr-2024 [facility]; [facility] [employer] [facility] Start: 04-09-2024 Screening digital breast tomosynthesis bi SCREENING MAMMOGRAPHY WITH TOMOSYNTHESIS (20568) 3D - Bilateral Start: 09-Apr-2024 Intent Comments: Please schedule 7 or later [facility]; [employer] [facility] [employer] [facility] Comment on above: Please schedule 05.31 or later Start: 04-09-2024 Us soft tissue head & neck real time imge docm US THYROID ([id number]) Start: 09-Apr-2024 Intent [facility] [employer]; [employer] [facility] [employer]. Start: 01-26-2024 Patient encounter procedure Medical; BLOOD PRESSURE CHECK - [facility] [employer] [facility] [facility] Start: 26-Jan-2024 9:00 MD Sanjay KASPER Appointment Request [facility] [employer] [facility] [facility] Start: 11-19-2023 Advance Directive Discussion Advance Directive Discussion [facility] Start: 07-20-2023 Covid-19 Vaccine ( season) Covid-19 Vaccine ( season) [facility] Start: 07-04-2023 Fungal Culture Fungal Culture [facility] Start: 07-04-2023 Microscopic observat ion [Identifier] in Unspecified specimen by Gram stain Gram Stain [facility] Start: 07-04-2023 Respiratory microbia l culture Respiratory Culture [facility] Start: 07-04-2023 [facility] Start: 07-04-2023 Patient discharge [facility] Start: 03-25-2023 Us soft tissue head & neck real time imge docm THYROID ULTRASOUND ([id number]) Start: 25-Mar-2023 [facility] Start: 02-23-2023 Us soft tissue head & neck real time imge docm THYROID ULTRASOUND ([id number]) Start: 23-Feb-2023 Intent [facility] Start: 01-27-2023 Shingrix Vaccine (3 of 3) Shingrix Vaccine (3 of 3) [facility] Start: 01-24-2023 Us soft tissue head & neck real time imge docm THYROID ULTRASOUND ([id number]) Start: 24-Jan-2023 [facility], [employer]. Start: 01-12-2023 Basic metabolic pane l calcium total [facility] Start: 01-09-2023 Adv care pln/ no alt dcsn mkr docd or refusal ADV CARE PLAN DISCUSSED & DOCUMENTED, NO SURROGATE OR PLAN (1124F) Start: 09-Jan-2023 Intent [facility] [employer] [facility] [facility] [employer] Start: 09-15-2022 Patient discharge [facility] Start: 05-30-2022 Patient referral [facility] Work Phone: Start: 2021 Screening for osteoporosis Bone Density Screening [facility] Start: 01-01-2019 Lipid panel Lipid Screening [facility] Start: 02-17-2018 Blood count complete auto&auto difrntl wbc [facility].; [facility] [employer] Start: 01-27-2018 Screening for malign ant neoplasm of colon [facility] Start: 01-01-2017 Diabetes Screening Diabetes Screenin g [facility] Start: 2016 RSV Vaccine (1 - 1-d ose 60+ series) RSV Vaccine (1 - 1-dose 60+ series) [facility] Start: 01-08-2015 Screening for malign ant neoplasm of breast Mammogram Screening [facility] Start: 01-08-2015 Screening for malign ant neoplasm of colon Fecal Occult Blood [facility] Start: 07-24-2014 Radex foot complete minimum 3 views X-RAY FOOT - COMPLETE - 3 VIEWS ([id number]) Start: 24-Jul-2014 Intent Comments: left foot [employer]; [employer]. Comment on above: left foot Start: 03-29-2012 Cv strs tst xers&/or rx cont ecg w/si&r CARDIOVASCULAR EXERCISE STRESS TEST - WITH IMAGING (31604) (16977) Start: 29-Mar-2012 Intent [employer]; [employer] Start: 11-14-2011 Mammogram, screening MAMMOGRAM , SCREENING (59470) Start: 14-Nov-2011 Intent [employer]; [employer]. Start: 11-14-2011 Patient Education MAMMOGRAM IN FORMATION Indication: Screening mammogram Start: 14-Nov-2011 Instruction Type: Patient Education [employer]; [employer]. Start: 2001 Screening for malign ant neoplasm of colon [facility] Start: 1974 Anxiety Screening Anxiety Screening [facility] Start: 1974 Depression Screening Depression Scre ening [facility] Start: 1974 Hepatitis C screening Hepatitis C [facility] Acid fast bacilli culture [facility] Bacteria identified in Sputum by Respiratory culture [facility] CALCIUM, 24 HR URINE CALCIUM, 24 HR URINE Lab Routine Osteoporosis without current pathological fracture, unspecified osteoporosis type Ordered: 07/04/2024 [facility] Comment on above: Ordered: 07/04/2024 Cell count [facility] CREATININE, 24 HOUR URINE CREATININE, 24 HOUR URINE Lab Routine Osteoporosis without current pathological fracture, unspecified osteoporosis type Ordered: 07/04/2024 [facility] Comment on above: Ordered: 07/04/2024 End: 08-03-2025 CT Neck W contrast IV CT NECK SOFT TISSUE W IVCON Radiology Routine Nontoxic multinodular goiter 1 Occurrences starting 07/04/2024 until 08/03/2025 [facility] Comment on above: 1 Occurrences starti ng 07/04/2024 until 08/03/2025 CYTOLOGY NON-MARINE SUPERINTENDENT CYTOLOGY NON-GY N Lab Routine Thyroid nodule 06/26/2024 1:46 PM EDT [facility] Cytology report of B vivien fluid Cyto stain [facility] DXA Bone [Mass/Area] Bone density [facility] Work Phone: ENDO THYROID/LYMPH N ODE FNA ENDO THYROID/LYMPH NODE [facility] Procedures Routine Thyroid nodule Ordered: 06/26/2024 [facility] Work Phone: Comment on above: Ordered: 06/26/2024 Erythrocytes [#/volu me] in Body fluid [facility] Laboratory data interpretation [facility] Microscopic observat ion [Identifier] in Unspecified specimen by Gram stain [facility] Mycobacterium sp identified in Unspecified specimen by Organism specific culture [facility] Patient referral [facility] Work Phone: End: 08-03-2025 RF videography Hypopharynx and Esophagus Views W liquid and paste contrast PO during swallowing XR MODIFIED BARIUM SWALLOW W SPEECH THERAPY Radiology Routine Nontoxic multinodular goiter 1 Occurrences starting 07/04/2024 until 08/03/2025 [facility] Comment on above: 1 Occurrences starti ng 07/04/2024 until 08/03/2025 Sodium [Moles/time] in 24 hour Urine SODIUM 24 HR URINE Lab Routine Osteoporosis without current pathological fracture, unspecified osteoporosis type Ordered: 07/04/2024 [facility] Comment on above: Ordered: 07/04/2024 Specimen description [facility] Specimen processing [facility] Vitamin D, 25-hydrox y measurement [facility] White blood cell count [facility] Immunizations Immunization Date Immunization Notes Care Provider [facility] 08-31-2023 influenza virus vaccine, unspecified formulation Librado Guerrier MD Work Phone: [facility] 08-19-2023 COVID-Moderna (100 MCG/0.5 ML) Sajnay KASPER MD Work Phone: [facility]; [facility] 08-19-2023 Influenza, quad (aIIV4), adjv, 0.5 IM Sanjay KASPER MD Work Phone: [facility]; [facility] 08-19-2023 RSV, recombinant, protein subunit RSVpreF, 0.5 mL Sanjay KASPER MD Work Phone: [facility]; [facility] 12-02-2022 zoster vaccine recombinant Sanjay KASPER MD Work Phone: [facility]; [facility] Comment on above: at [facility] 09-08-2022 COVID-Moderna (100 MCG/0.5 ML) Sanjay KASPER MD Work Phone: [facility]; [facility] 09-08-2022 Pneumococcal conjuga te, 20 valent (PCV20) Sanjay KASPER MD Work Phone: [facility]; [facility] Comment on above: at [facility] 06-02-2022 COVID-Pfizer (30 MCG/0.3 ML) Sanjay KASPER MD Work Phone: [facility]; [facility] 10-04-2021 COVID-Moderna (100 MCG/0.5 ML) Sanjay KASPER MD Work Phone: [facility]; [facility] 02-23-2021 COVID-Moderna (100 MCG/0.5 ML) Sanjay KASPER MD Work Phone: [facility] 01-26-2021 COVID-Moderna (100 MCG/0.5 ML) Sanjay KASPER MD Work Phone: [facility]; [facility] 09-02-2020 influenza virus vaccine, unspecified formulation Librado Guerrier MD Work Phone: [facility] 08-08-2018 tetanus toxoid, redu roque diphtheria toxoid, and acellular pertussis vaccine, adsorbed Sanjay KASPER MD Work Phone: [facility]; [employer] [facility] [employer] Comment on above: given at [facility] 03-20-2017 zoster vaccine, live R ALANIS ENRIQUEZ MD Work Phone: [facility] [employer] [facility]; [employer] [facility] [employer] [facility] Comment on above: @ [facility] 09-11-2013 influenza, seasonal, injectable Sanjay KASPER MD Work Phone: [facility] [employer]; [employer] [facility] [employer] Comment on above: Site: Deltoid (Left) VIS Given: * Inactivated Influenza Vaccine (06/28/2010) 09-11-2013 IMMUNIZATION ADMIN ([id number]) Sanjay KASPER MD Work Phone: [facility]; [employer] [facility] [employer] 08-22-2012 influenza, seasonal, injectable Sanjay KASPER MD Work Phone: [facility] [employer]; [employer] [facility] [employer]. Comment on above: Site: Deltoid (Left) VIS Given: * Inactivated Influenza Vaccine (06/28/2010) 08-22-2012 IMMUNIZATION ADMIN ([id number]) Sanjay KASPER MD Work Phone: [employer]; [employer] [facility] [employer] 06-22-2008 tetanus and diphther ia toxoids, adsorbed, preservative free, for adult use (2 Lf of tetanus toxoid and 2 Lf of diphtheria toxoid) Sanjay KASPER MD Work Phone: [facility] [employer]; [employer] [facility] [employer] Payers Date Payer Category Payer Self-pay [id number] 2021 [facility] DICARE SUPPLEMENT [id number] 2021 Medicare [id number] 2021 Unknown 2021 Medicare [id number] 2021 Unknown [id number] 1955 Unknown [id number] [id number]. 2.627 1956 Unknown [id number] [id number]. 2.627 1955 Unknown [id number] 2.16840.1.403740.3.579. 2.627 1955 Unknown [id number] 2.16.840.1.834741.3.579. 2.651 1955 Unknown [id number] 2.16.840.1.749319.3.579. 2.651 1955 Unknown [id number] 2.16.840.1.426435.3.579. 2.651 1955 Unknown [id number] 2.16.840.1.192318.3.579. 2.651 1956 Unknown [id number] 2.16.840.1.505316.3.579. 2.651 1955 Unknown [id number] 2.16.840.1.022457.3.579. 2.651 1955 Unknown [id number] 2.16.840.1.505003.3.579. 2.651 Private Health Insurance [facility] [id number] Unknown [id number] 2.16.840.1.163508.3.579. 2.462 Unknown [id number] 2.16.840.1.867937.3.579. 2.462 Unknown [id number] 2.16.840.1.894891.3.579. 2.462 Unknown [id number] 2.16.840.1.504971.3.579. 2.462 Social History Date Type Detail Facility Start: 05-30-2022 End: 07-03-2023 Tobacco smoking status CAIS Unknown if ever smoked [facility] Start: 1955 Sex Assigned At Female [facility] Alcohol Use: Alcohol Use: ; N ever used alcohol. [employer] [facility] [employer] [facility] Highest Education Level Attained: Highest Education Level Attained: ; High school graduate. [employer]; [facility] [employer]. Marital status: Marital status: ; . [employer] [facility] [employer]. Start: 02-01-2022 End: 06-17-2024 Most Recent Primary Occupation Most Recent Primary Occupation [facility] [employer] [facility] [employer] Tobacco use: Tobacco use: ; N ever smoker. [employer] [facility] [employer], [employer]. High school graduate [employer] [facility] [employer] Work Phone: Start: 01-26-2025 Never smoked tobacco [facility] - [facility]. Work Phone: Start: 02-01-2022 End: 01-13-2025 Alcohol intake Current non-drinker of alcohol (finding) [facility] Start: 02-01-2022 End: 06-17-2024 Tobacco use panel [facility] Adult Depression Screening Assessment 0 [facility] Start: 09-24-2021 Gender identity Identifies as female gender (finding) [facility] Start: 09-24-2021 Sexual orientation Heterosexual (fin ding) [facility] Start: 01-28-2025 End: 02-08-2025 Sex Female (finding) [facility] NEGATED: Highlighted row [facility] NEGATED: Highlighted row Not [facility] Goals Date Patient Goal Desired Activity /State Mental Status Date Assessment Result Facility 01-28-2025 Cognitive function Touch/Shaking [facility] Work Phone: 01-28-2025 Cognitive function Patient Orien tation Person;Place;Time [facility] Work Phone: 07-04-2023 Cognitive function Voice/Name [facility] Work Phone: 09-15-2022 Cognitive function Voice/Name [facility] Work Phone: Clinical Notes 05-30-2022 to 02-02-2025 Note Date & Type Note Facility 02-02-2025 Radiology Diagnostic study note [facility] Imaging Services [address], [place] [address] Chest without Contrast MR#: [id number] Acct: [id number] Name: TETE HOWARD Rep #: [id number] : 1955 F 69 From: Zachary Crandall MD PCP: Dr. Benson Kasper MD Status: RE G CLI Study:Chest without Contrast Date of Exam: 02/02/25 Exam# [id number] Ordering Dr: Benson Argueta MD PROCEDURE: CHEST WITHOUT CONTRAST 02/02/2025 REASON FOR EXAM: NON TB MICROBACTERIAL TECHNIQUE: Chest CT without contrast. Coronal and Sagittal reconstruction series were provided. One or more dose reduction techniques were used (e.g., Automated exposure control, adjustment of the mA and/or kV according to patient size, use of iterative reconstruction technique COMPARISON: Comparison is made with prior study dated June 29, 2023. RADIATION DOSE SUMMARY: CTDlvol: 6.08 mGy DLP: 220.33 mGycm FINDINGS: Hardware: None Lymph nodes: No significant adenopathy seen. Heart and Vasculature: Unremarkable Coronary Artery Calcifications: Absent Lungs and Airways: Mild degree of scarring with focal bronchiectasis in the lingular segment of the left upper lobe. There is also evidence of mild scarring in the posterior aspect of the left upper lobe. There has been improvement as compared to prior study. Pleura: Unremarkable Upper Abdomen: Unremarkable Bones: Mild degree of degenerative changes. CT/Chest without Contrast IMPRESSION: Mild scarring in the lingula segment of the left upper lobe with focal bronchiectasis as well as scarring in the posterior aspect of the left upper lobe. This has improved. Reading Location: [place] [address] CC: Dr. Benson Kasper MD; Dr. Benson Argueta MD ~ Slotter Operator: Signed [facility] 01-28-2025 Procedure note [facility] 01-28-2025 Consult note Note Date/Time January 28, 2025 12:42pm [facility] Medical Records Department [address] [place] [address] Pre-Anesthesia Evaluation 01/28/25 1241 MR#: [id number] Acct: [id number] Name: TETE HOWARD Rep #:[id number] : 1955 69 From: Heriberto Ortez MD PCP: Dr. Benson Kasper MD Status:RE G [facility] Y Race: C Location: EN ASA Classification* ASA Classification ASA Classification: 3 Assessment & Plan Anesthesia* Anesthesia Assessment Anesthesia Assessment: Discussed sedation and/or anesthesia options, risks, benefits, and alternatives with patient/parents/legal guardian/POA. Questions invited. The patient/parents/legal guardian/POA seems to understand and agrees to proceedwith anesthesia plan. Reviewed the physical assessment, medical history, allergy history and patient home medications list prior to surgery/procedure/anesthetic and documented any changes. Performed airway and anesthesia risk assessments. Anesthesia Type Anesthesia Type: MAC Anesthesia Focused Assessment* Airway Assessment Mouth opens: >3 cm Mallampati Score: II Focused Labs Anesthesia Preop lab: CBC CHEMISTRY Glucose 92 mg/dL (74-106) 05/30/22 12:39 05/30/22 TSH 0.84 uIU/mL (0.358-3.74) 05/30/22 12:39 COAG Pre-Assessment Diagnosis/Proposed Procedure Planned Operative Procedure(s): BRONCHOSCOPY Anesthesia History Anesthesia History - cinder block maker: Anesthesia History - cinder block maker Hx Hospitalization No 01/26/25 15:23 Any Problems With Anesthesia No 01/26/25 15:23 Cholinesterase deficiency No 01/26/25 15:23 You/Your Family Experience No 01/26/25 15:23 fever (hyperthermia) with Relationship Recent Exposure to Contagious No 07/04/23 07:54 Disease Does patient have nerve No 01/26/25 15:23 stimulator Patient instructed to have device shut off --Does patient have Pacemaker or ICD? When Was Last Pacemaker Check QUESTION #4 FULL TEXT: You/Your Family Experience fever (hyperthermia) with Anesthesia Last Oral Intake Last Oral intake: Last Oral Intake NPO since Meds taken in AM with sips of water? Meds patient instructed to take am of surgery PONV PONV - cinder block maker: PONV - cinder block maker Female Yes 01/26/25 15:23 HX of Motion Sickness No 01/26/25 15:23 HX of N/V After Surgery No 01/26/25 15:23 Non-Smoker Yes 01/26/25 15:23 Duration of Surgery greater Yes 01/26/25 15:23 than 60 minutes Number of Risk Factors 3 01/26/25 15:23 PONV Score Moderate Risk 01/26/25 15:23 Height & Weight Height & Weight: Anesthesia: Height & Weight Height 5 ft 5 in 05/14/24 15:08 Respiratory Assessment Respiratory Assessment - cinder block maker: Respiratory Tract Infection Hx - cinder block maker Hx Respiratory Tract Infection No 01/26/25 15:23 STOP Sleep Apnea STOP Sleep Apnea - cinder block maker: STOP Sleep Apnea - cinder block maker Hx Hypertension No 01/26/25 15:23 Hx Sleep Apnea No 01/26/25 15:23 CPAP BIPAP Do you snore loudly (louder No 01/26/25 15:23 than talking or can be heard Do you often feel tired/ No 01/26/25 15:23 fatigued/ sleepy during daytime? Has anyone observed you stop No 01/26/25 15:23 breathing during sleep? STOP Results Negative 01/26/25 15:23 QUESTION #5 FULL TEXT : Do you snore loudly (louder than talking or can be heard through closed doors)? 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 Specify any problems Hx of Preganancy in last 3 No 01/26/25 15:23 Months Nurse Filling Out Transfusion DSCHRIBER 01/26/25 15:23 & Questions: Date: 01/26/25 01/26/25 15:23 Time: 15:24 01/26/25 15:23 Patient unable to answer at this time (ie. confused, unrespo /Reproduction History /Reproductive History - cinder block maker: /Reproductive Hx- cinder block maker Hx Now No 01/26/25 15:23 Gestational Age (in weeks): EDC: Hx Hx Para Hx Section SAB No 01/26/25 15:23 PFSH Medical History Pulmonary mycobacterial infection Non-smoker Multinodular goiter Wears glasses Post-menopausal MRSA infection Arthritis History of echocardiogram History of stress test Cardiology follow-up encounter Home Medications ?Medication ?Instructions ?Recorded ?Last Taken ?Type calcium 500 mg (as 1 tab PO DAILY 09/12/22 Unkn own History carbonate)-vitamin D3 3.125 mcg (125 unit) tablet Allergy/AdvReac Type Severity Reaction Status Date / Time codeine Allergy Mild nausea Verified 01/26/25 15:21 Family History Mother Hypertension Father Hypertension Heart disease Surgical History History of bronchoscopy Hx of parotidectomy Hx of bilateral cataract extraction Hx of right knee surgery Hx of left knee surgery History of colonoscopy s/p toe surgery History of S/P left breast biopsy Social History Smoking Status: Never smoker alcohol intake: never substance use type: does not use caffeine: Yes what type of physical activity do you participate in: none seatbelt use: always do you feel safe at home: Yes additional social history: -Gabriel- Retired Patient works at [employer] in [place] Review of Systems (Anesthesia) ROS Narrative System reviewed and no additional complaints, except as documented. 01/28/25 1242 <Electronically signed by Heriberto Ortez MD > Date _ Heriberto Ortez MD Cosigner Signature: Date CC: ~ Signed [facility] Work Phone: 1(404) 656-369803-12-2025 Consult note [facility] Medical Records Department [address] [place] [address] Anesthesia Postop Eval II 01/28/25 1429 MR#: [id number] Acct: [id number] Name: TETE HOWARD Rep #:[id number] : 1955 69 From: Heriberto Ortez MD PCP: Dr. Benson Kasper MD Status:RE G KYLEC Y Race: C Location: [facility]12-1 Anesthesia Postop Eval I Sum Postop Eval Completion status Anesthesia document: Postop Eval 1 completed: Yes Anesthesia Postop Eval I Summary Anesthesia Postop Eval I Summary: Anesthesia Postop Eval I: Assessment Summary Airway patent Yes 01/28/25 14:12 [email or web address] Spontaneous unlabored Yes 01/28/25 14:12 [email or web address] respirations Mental status Awake 01/28/25 14:12 [email or web address] nausea No 01/28/25 14:12 [email or web address] Vomiting No 01/28/25 14:12 [email or web address] Anesthesia Postop Eval I: Fluid Summary Crystalloid volume administer 0 01/28/25 14:12 [email or web address] (ml) Colloids volume administered ( ml) Blood Product volume administered (ml) Total IV fluid infused 0 01/28/25 14:12 [email or web address] Anesthesia Postop Eval I: Summary Notes Anesthesia Complication No 01/28/25 14:12 [email or web address] Anesthesia Complication Comment: Post-operative progress note Anesthesia: Postop Eval II Evaluation Mental status: Awake Pain Level: 0 nausea: No Vomiting: No 01/28/25 1429 > Date _ Heriberto Barnes Signature: Date CC: ~ Signed [facility]03-12-2025 Consult note [facility] Medical Records Department [address] [place] [address] Anesthesia Postop Eval I 01/28/25 1411 MR#: [id number] Acct: [id number] Name: TETE HOWARD SHANTHI Rep #:[id number] : 1955 69 From: Sushant Pendleton CRNA PCP: Dr. Benson Kasper MD Status:RE G SDC Y Race: C Location: [place] [address] Anesthesia: Postop Eval I Current Vital Signs Temperature: 97.8 F Pulse Rate: 68 Blood Pressure: 107/61 Respiratory Rate: 16 Pulse Ox: 96 Oxygen Delivery Method: Room Air Assessment Airway patent: Yes Spontaneous unlabored respirations: Yes Mental status: Awake nausea: No Vomiting: No Anesthesia Complication: No Fluid Hydration Crystalloid volume administer (ml): 0 Total IV fluid infused: 0 Progress Note Anesthesia document: Postop Eval 1 completed: Yes 01/28/25 1412 y LINUX ADMIN> Date _ Sushant Pendleton LINUX ADMIN Cosigner Signature: Date CC: ~ Signed [facility]03-12-2025 Consult note [facility] Medical Records Department [address] [place] [address] Pre-Anesthesia Evaluation 01/28/25 1241 MR#: [id number] Acct: [id number] Name: TETE HOWARD Rep #:[id number] : 1955 69 From: Heriberto Ortez MD PCP: Dr. Benson Kasper MD Status:[facility] Y Race: C Location: ASA Classification* ASA Classification ASA Classification: 3 Assessment & Plan Anesthesia* Anesthesia Assessment Anesthesia Assessment: Discussed sedation and/or anesthesia options, risks, benefits, and alternatives with patient/parents/legal guardian/POA. Questions invited. The patient/parents/legal guardian/POA seems to understand and agrees to proceedwith anesthesia plan. Reviewed the physical assessment, medical history, allergy history and patient home medications list prior to surgery/procedure/anesthetic and documented any changes. Performed airway and anesthesia risk assessments. Anesthesia Type Anesthesia Type: MAC Anesthesia Focused Assessment* Airway Assessment Mouth opens: >3 cm Mallampati Score: II Focused Labs Anesthesia Preop lab: CBC CHEMISTRY Glucose 92 mg/dL (74-106) 05/30/22 12:39 05/30/22 TSH 0.84 uIU/mL (0.358-3.74) 05/30/22 12:39 COAG Pre-Assessment Diagnosis/Proposed Procedure Planned Operative Procedure(s): BRONCHOSCOPY Anesthesia History Anesthesia History - cinder block maker: Anesthesia History - cinder block maker Hx Hospitalization No 01/26/25 15:23 Any Problems With Anesthesia No 01/26/25 15:23 Cholinesterase deficiency No 01/26/25 15:23 You/Your Family Experience No 01/26/25 15:23 fever (hyperthermia) with Relationship Recent Exposure to Contagious No 07/04/23 07:54 Disease Does patient have nerve No 01/26/25 15:23 stimulator Patient instructed to have device shut off --Does patient have Pacemaker or ICD? When Was Last Pacemaker Check QUESTION #4 FULL TEXT: You/Your Family Experience fever (hyperthermia) with Anesthesia Last Oral Intake Last Oral intake: Last Oral Intake NPO since Meds taken in AM with sips of water? Meds patient instructed to take am of surgery PONV PONV - cinder block maker: PONV - cinder block maker Female Yes 01/26/25 15:23 HX of Motion Sickness No 01/26/25 15:23 HX of N/V After Surgery No 01/26/25 15:23 Non-Smoker Yes 01/26/25 15:23 Duration of Surgery greater Yes 01/26/25 15:23 than 60 minutes Number of Risk Factors 3 01/26/25 15:23 PONV Score Moderate Risk 01/26/25 15:23 Height & Weight Height & Weight: Anesthesia: Height & Weight Height 5 ft 5 in 05/14/24 15:08 Respiratory Assessment Respiratory Assessment - cinder block maker: Respiratory Tract Infection Hx - cinder block maker Hx Respiratory Tract Infection No 01/26/25 15:23 STOP Sleep Apnea STOP Sleep Apnea - cinder block maker: STOP Sleep Apnea - cinder block maker Hx Hypertension No 01/26/25 15:23 Hx Sleep Apnea No 01/26/25 15:23 CPAP BIPAP Do you snore loudly (louder No 01/26/25 15:23 than talking or can be heard Do you often feel tired/ No 01/26/25 15:23 fatigued/ sleepy during daytime? Has anyone observed you stop No 01/26/25 15:23 breathing during sleep? STOP Results Negative 01/26/25 15:23 QUESTION #5 FULL TEXT : Do you snore loudly (louder than talking or can be heard through closeddoors)? 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 Specify any problems Hx of Preganancy in last 3 No 01/26/25 15:23 Months Nurse Filling Out Transfusion DSCHRIBER 01/26/25 15:23 & Questions: Date: 01/26/25 01/26/25 15:23 Time: 15:24 01/26/25 15:23 Patient unable to answer at this time (ie. confused, unrespo /Reproduction History /Reproductive History - cinder block maker: /Reproductive Hx- cinder block maker Hx Now No 01/26/25 15:23 Gestational Age (in weeks): EDC: Hx Hx Para Hx Section SAB No 01/26/25 15:23 PFSH Medical History Pulmonary mycobacterial infection Non-smoker Multinodular goiter Wears glasses Post-menopausal MRSA infection Arthritis History of echocardiogram History of stress test Cardiology follow-up encounter Home Medications ?Medication ?Instructions ?Recorded ?Last Taken ?Type calcium 500 mg (as 1 tab PO DAILY 09/12/22 Unkn own History carbonate)-vitamin D3 3.125 mcg (125 unit) tablet Allergy/AdvReac Type Severity Reaction Status Date / Time codeine Allergy Mild nausea Verified 01/26/25 15:21 Family History Mother Hypertension Father Hypertension Heart disease Surgical History History of bronchoscopy Hx of parotidectomy Hx of bilateral cataract extraction Hx of right knee surgery Hx of left knee surgery History of colonoscopy s/p toe surgery History of S/P left breast biopsy Social History Smoking Status: Never smoker alcohol intake: never substance use type: does not use caffeine: Yes what type of physical activity do you participate in: none seatbelt use: always do you feel safe at home: Yes additional social history: -Gabriel- Retired Patient works at [employer] in [place] Review of Systems (Anesthesia) ROS Narrative System reviewed and no additional complaints, except as documented. 01/28/25 1242 > Date _ [facility]tez [facility]: Date CC: ~ Signed [facility]02-25-2025 Instructions* Patient Instructions* Librado Guerrier MD - 01/13/2025 4:29 PM EST Please take upto Vitamin D3 1000 units daily, can take upto 1000 mg to 1200 mg of calcium through diet and supplements Continue weight bearing exercise, including walking, tread mill, jogging etc Please complete the imaging for thyroid before next follow up [facility] NoteHNO ID: [id number] Author: LIBRADO GUERRIER MD Service: ? Author Type: Physician Type: Progress Notes Filed: 01/13/2025 18:50 Note Text: [facility] Follow up note Chief Complaint: Multiple thyroid nodules, Osteoporosis HPI: Tete Howard is a 69 year old female who is coming today for evaluation of low BMD. She was seen by me on 06/17/24 for thyroid nodules and we discussed in detail about nodules and FNAB She was noted to have thyroid nodules when CT scan neck for salivary gland issue last year, further evaluation with thyroid US revealed multinodular goiter. She was seen by endocrinology and was recommended to monitor. 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 smoking: no Family history of thyroid cancer: no Family history of thyroid nodules: no Family history: Elisha's disease in sister Osteoporosis of spine: No hx of fragility fractures, no kidney stones No famiily history of osteo or hip fractures No hx of cancer personally, no radiation No bone health medications in the past Calcium +Vit D3 600 mg x2 +400 units daily, cheese every day, few almonds intermittently No HRT, steroids in the past Menopause 15 years ago No contraceptive use during reproductive years, normal after twin Interval history: 01/13/25: She reports she has been off of antibiotics for her lung problem for few weeks and already feels better with her joints, and going up the stairs. She feels that pain in her fingers is improved. She thinks that she does not have to start medications for osteoporosis. She reports she might be having bronchoscopy in 01/2025 after which a decision will be made if she needs to resume antibiotics PAST MEDICAL HISTORY Diagnosis Date Lung disease non tuberculosis mycrobactirium NONE PAST SURGICAL HISTORY Procedure Laterality Date BREAST BIOPSY Benign DELIVERY ONLY 1992 , low cervical COLONOSCOPY [place], age 51, rpt age 61 DILATION AND CURETTAGE DXAND/THER NONOBSTETRIC 2006 Dilation AND curettage - Benign pathology reviewed TONSILLECTOMY AND ADENOIDECTOMY ALLERGIES Allergen Reactions Codeine Vomiting Social History Tobacco Use Smoking status: Never Smokeless tobacco: Never Substance Use Topics Alcohol use: No Drug use: No FAMILY HISTORY Problem Relation Age of Onset Hypertension Mother Lipids Mother High Cholesterol GI Mother Heart Father heart attack and by-pass surgery Heart Paternal Grandmother heart attack Cancer Maternal Grandmother skin cancer Heart Maternal Aunt Several Maternal Aunts with heart disease Breast Cancer Maternal Aunt Breast Cancer Maternal Aunt Breast Cancer Other Maternal cousin - 50's Breast Cancer Other Maternal cousin - 50's MEDICATIONS: Current Outpatient Medications on File Prior to Visit Medication Sig azithromycin (ZITHROMAX) 500 mg tablet Take 500 mg by mouth three times a week. Sun and sun ethambutol (MYAMBUTOL) 400 mg tablet Take 400 mg by mouth every Sunday, Sunday, and Sunday. rifAMPin (RIFADIN) 300 mg capsule Take 600 mg by mouth three times a week. No current facility-administered medications on file prior to visit. REVIEW OF SYSTEMS: As per HPI PHYSICAL EXAMINATION: 01/13/25 1612 BP: 124/76 BP Site: Right Arm BP Position: Sitting BP Cuff Size: Regular Adult Pulse: 66 Temp: 37.1 ?C (98.7 ?F) TempSrc: Temporal Artery SpO2: 98% Weight: 57.3 kg (126 lb 6.4 oz) General: no acute distress, alert and orientated X 3, wears a mask Eyes:EOMI, anicteric sclera Neck - supple, no significant adenopathy Thyroid: enlarged in size, grossly asymmetric, bilateral palpable nodules Neuro: alert, oriented, normal speech, no focal findings noted CV: normal rate and regular rhythm, S1 and S2 normal. Chest: unlabored breathing on room air Musculoskeletal: no joint tenderness, deformity or swelling Extremities: no edema, no discoloration Skin: no rash or erythema LABS AND IMAGING Latest Ref Rng 06/17/2024 TSH 0.270 - 4.200 mIU/L 1.660 Latest Ref Rng 07/11/2024 08/04/2024 Protein, Total 6.3 - 8.0 g/dL 6.9 6.9 Albumin 3.9 - 4.9 g/dL 4.2 4.3 Calcium 8.5 - 10.2 mg/dL 8.9 9.3 Bilirubin, Total 0.2 - 1.3 mg/dL 0.6 0.4 Alkaline Phosphatase 34 - 123 U/L 72 77 AST 13 - 35 U/L 21 20 ALT 7 - 38 U/L 15 13 Glucose 74 - 99 mg/dL 86 100 (H) BUN 7 - 21 mg/dL 13 14 Creatinine 0.58 - 0.96 mg/dL 0.57 (L) (more content not included)...[facility]02-25-2025 History of Present illness Narrative* Librado Guerrier MD - 01/13/2025 4:09 PM EST [facility] Follow up note Chief Complaint: Multiple thyroid nodules, Osteoporosis HPI: Tete Howard is a 69 year old female who is coming today for evaluation of low BMD. She was seen by me on 06/17/24 for thyroid nodules and we discussed in detail about nodules and FNAB She was noted to have thyroid nodules when CT scan neck for salivary gland issue last year, furtherevaluation with thyroid US revealed multinodular goiter. She was seen by endocrinology and was recommended to monitor. 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: no Family history of thyroid cancer: no Family history of thyroid nodules: no Family history: Elisha's disease in sister Osteoporosis of spine: No hx of fragility fractures, no kidney stones No famiily history of osteo or hip fractures No hx of cancer personally, no radiation No bone health medications in the past Calcium +Vit D3 600 mg x2 +400 units daily, cheese every day, few almonds intermittently No HRT, steroids in the past Menopause 15 years ago No contraceptive use during reproductive years, normal after twin Interval history: 01/13/25: She reports she has been off of antibiotics for her lung problem for few weeks and already feels better with her joints, and going up the stairs. She feels that pain in her fingers is improved. She thinks that she does not have to start medications for osteoporosis. She reports she might be having bronchoscopy in 01/2025 after which a decision will be made if she needs to resume antibiotics PAST MEDICAL HISTORY Diagnosis Date Lung disease non tuberculosis mycrobactirium NONE PAST SURGICAL HISTORY Procedure Laterality Date BREAST BIOPSY Benign DELIVERY ONLY 1992 , low cervical COLONOSCOPY [place], age 51, rpt age 61 DILATION & CURETTAGE DX&/THER NONOBSTETRIC 2005 Dilation & curettage - Benign pathology reviewed TONSILLECTOMY & ADENOIDECTOMY <AGE 13 ALLERGIES Allergen Reactions Codeine Vomiting Social History Tobacco Use Smoking status: Never Smokeless tobacco: Never Substance Use Topics Alcohol use: No Drug use: No FAMILY HISTORY Problem Relation Age of Onset Hypertension Mother Lipids Mother High Cholesterol GI Mother Heart Father heart attack and by-pass surgery Heart Paternal Grandmother heart attack Cancer Maternal Grandmother skin cancer Heart Maternal Aunt Several Maternal Aunts with heart disease Breast Cancer Maternal Aunt Breast Cancer Maternal Aunt Breast Cancer Other Maternal cousin - 50's Breast Cancer Other Maternal cousin - 50's MEDICATIONS: Current Outpatient Medications on File Prior to Visit Medication Sig azithromycin (ZITHROMAX) 500 mg tablet Take 500 mg by mouth three times a week. Sun and sun ethambutol (MYAMBUTOL) 400 mg tablet Take 400 mg by mouth every Sunday, Sunday, and Sunday. rifAMPin (RIFADIN) 300 mg capsule Take 600 mg by mouth three times a week. No current facility-administered medications on file prior to visit. REVIEW OF SYSTEMS: As per HPI PHYSICAL EXAMINATION: 01/13/25 1612 BP: 124/76 BP Site: Right Arm BP Position: Sitting BP Cuff Size: Regular Adult Pulse: 66 Temp: 37.1 C (98.7 F) TempSrc: Temporal Artery SpO2: 98% Weight: 57.3 kg (126 lb 6.4 oz) General: no acute distress, alert and orientated X 3, wears a mask Eyes:EOMI, anicteric sclera Neck - supple, no significant adenopathy Thyroid: enlarged in size, grossly asymmetric, bilateral palpable nodules Neuro: alert, oriented, normal speech, no focal findings noted CV: normal rate and regular rhythm, S1 and S2 normal. Chest: unlabored breathing on room air Musculoskeletal: no joint tenderness, deformity or swelling Extremities: no edema, no discoloration Skin: no rash or erythema LABS AND IMAGING Latest Ref Rng 06/17/2024 TSH 0.270 - 4.200 mIU/L 1.660 Latest Ref Rng 07/11/2024 08/04/2024 Protein, Total 6.3 - 8.0 g/dL 6.9 6.9 Albumin 3.9 - 4.9 g/dL 4.2 4.3 Calcium 8.5 - 10.2 mg/dL 8.9 9.3 Bilirubin, Total 0.2 - 1.3 mg/dL 0.6 0.4 Alkaline Phosphatase 34 - 123 U/L 72 77 AST 13 - 35 U/L 21 20 ALT 7 - 38 U/L 15 13 Glucose 74 - 99 mg/dL 86 100 (H) BUN 7 - 21 mg/dL 13 14 Creatinine 0.58 - 0.96 mg/dL 0.57 (L) 0.63 Sodium 136 - 144 mmol/L 137 140 Potassium 3.7 - 5.1 mmol/L 4.1 3.9 Chloride 98 - 107 mmol/L 103 105 CO2 22 - 30 mmol/L 23 24 Anion Gap 8 - 15 mmol/L 11 11 eGFR >=60 mL/min/1.73m 100 97 Calcium, 24 Hr Urine 100.0 - 300.0 mg/24 hr 153.4 Period hr 24 Period hr 24 Period hr 24 Urine Volume 24 hour mL 2,950 Urine Volume 24 hour mL 2,950 Urine Volume 24 hour mL 2,950 Sodium, 24 hr Urine 40 - 220 mmol/24 hr 127 Creatinine 24 hr Ur 0.800 - 1.800 g/24 hr 0.861 Phosphorus 2.7 - 4.8 mg/dL 3.3 Magnesium 1.7 - 2.3 mg/dL 2.1 Vitamin D 25 Hydroxy 31.0 - 80.0 ng/mL 28.6 (L) Alk Phosphatase, Bone ug/L 13.3 C Telopeptide, Beta Cross Linked 171 - 970 pg/mL 562 Osteocalcin 8.6 - 37.6 ng/mL 29.1 PTH, Intact 15 - 65 pg/mL 49 Latest Ref Rng 08/04/2024 Protein, Total 6.3 - 8.0 g/dL 6.9 Albumin 3.9 - 4.9 g/dL 4.3 Calcium 8.5 - 10.2 mg/dL 9.3 Bilirubin, Total 0.2 - 1.3 mg/dL 0.4 Alkaline Phosphatase 34 - 123 U/L 77 AST 13 - 35 U/L 20 ALT 7 - 38 U/L 13 Glucose 74 - 99 mg/dL 100 (H) BUN 7 - 21 mg/dL 14 Creatinine 0.58 - 0.96 mg/dL 0.63 Sodium 136 - 144 mmol/L 140 Potassium 3.7 - 5.1 mmol/L 3.9 Chloride 98 - 107 mmol/L 105 CO2 22 - 30 mmol/L 24 Anion Gap 8 - 15 mmol/L 11 eGFR >=60 mL/min/1.73m 97 Calcium, 24 Hr Urine 100.0 - 300.0 mg/24 hr 153.4 Period hr 24 Period hr 24 Period hr 24 Urine Volume 24 hour mL 2,950 Urine Volume 24 hour mL 2,950 Urine Volume 24 hour mL 2,950 Sodium, 24 hr Urine 40 - 220 mmol/24 hr 127 Creatinine 24 hr Ur 0.800 - 1.800 g/24 hr 0.861 Legend: (L) Low (H) High Thyroid ultrasound (01/23/23): Findings: Right lobe: Large spongiform nodule in the right lobe/isthmus, a TR1 benign nodule. The nodule measures 2.2 x 5 x 11 mm. Nodule in the right lobe/isthmus measuring 13 x5x12 mm. The nodule is solid and hypoechoic a TR 4 moderately suspicious nodule. The right lobe measures 5.2 x 1.7 x 1.9 cm Left lobe: 2 nodules in the upper lobe measuring 5 x 7 mm TR 4 moderately suspicious nodule. A second spongiform nodule is seen in the left lobe measuring 2 x 4 x 3 mm, a TR 1 benign nodule. There kandace cyst in the upper pole measuring 3 x 2 x 3 mm. The left lobe measures 4.8 x 1.5 x 1.7 cm. Heterogeneous appearance of left lobe of the thyroid Isthmus: Isthmus measures 0.4 cm in thickness. Other: None Conclusion: Right lobe/isthmus TR 4 nodule, recommend follow-up at 1, 2, 3 and 5 years. 2. Left lobe TR4 nodule Thyroid ultrasound (01/23/2024): Findings: Right thyroid lobe: 4.8 x 1.3 x 1.4 cm. Homogeneous echotexture with normal vascularity. There is alower pole heterogeneous 1.3 x 1.3 x 0.5 cm nodule Left thyroid lobe: 3.6 x 1.6 x 1.4 cm. Homogeneous echotexture with normal vascularity. There is anupper pole 1.0 x 0.6 x 0.5 cm solid nodule Isthmus: 7 mm. Heterogeneous nodules a lobulated single nodule measuring 1.5 x 1.7 x 0.7 cm and 1.3x 1.2 x 0.7 cm Impression: Bilateral heterogeneous nodules as noted. Cytological evaluation if needed. DXA: 05/08/24: PROCEDURE: BONE DENSITY STUDY TECHNIQUE: Lumbar vertebral and proximal femoral dual-energy X-ray absorptiometry (DXA) was performed on a central Talk Local device. COMPARISON: [facility], , BONE DENSITY STUDY, 06/27/2022, 11:07. SPINE ANALYSIS RESULTS: Average lumbar bone mineral density (BMD) (g/cm2): 0.838 Lumbar T-score (standard deviation relative to young adult mean BMD): -2.9 Lumbar Z-score (standard deviation relative to age matched control group): -1.0 Change since prior spine examination: Bone loss greater than expected for physiologic change. Consider further clinical evaluation. SPINE CLASSIFICATION: Osteoporosis (T-score < -2.5). HIP ANALYSIS RESULTS: Left femoral bone mineral density (BMD) (g/cm2): 0.846 Right femoral bone mineral density (BMD) (g/cm2): 0.87 Femur T-score (standard deviation relative to young adult mean BMD): -1.2 Femur Z-score (standard deviation relative to age matched control group): 0.3 Change since prior hip examination: Bone loss greater than expected for physiologic change. Consider further clinical evaluation. HIP CLASSIFICATION (World Health Organization): Osteopenia (T-score -1.0 to -2.5). ADDITIONAL FINDINGS: No significant additional findings. Ten year probability of major osteoporotic fracture 7.7%. Ten year probability of hip fracture 0.7%. CT neck and soft tissue: 07/14/24 RESULT: NECK CT: Acute abnormality: None. Incompletely evaluated multiple nodular and reticulonodular foci at left upper lobe lung (better noted on & for details refer to CT chest report performed concurrently). Uncomplicated submandibular gland resection. No recurrent mass within surgical bed. Slightly enlarged thyroid gland with non- enhancing multiple low-attenuation foci throughout gland with most significant at isthmus without focal abnormal singlelesion or draining adenopathy or loss of tissue planes or pathological neck lymphadenopathy most consistent with patient's presumed history of goiter. If there is any concern for focal lesion or neoplasm then further workup with ultrasound and ultrasound-guided cytology may be of value if clinically indicated. Age expected mild osteopenia and spondylosis without any focal osseous abnormality. Symmetrical intracranial structures, orbits, sinuses, mastoids, skull base, lacrimal/parotid glands, superior mediastinum, aerodigestive tract with mucosal lining, tissue planes and courses of vessels without soft tissue mass, loculated collections, abnormal enhancement or pathological neck lymphadenopathy. IMPRESSION: Findings compatible with patient's presumed history of goiter. ASSESSMENT AND PLAN: Tete Howard is a 69 year old female presenting to endocrinology for follow up of Osteoporosis and multinodular goiter Osteoporosis: On dxa scan done on 05/08/24 Her calcium and D intake seems adequate (taking supplements) Calcium labs ordered to check for secondary causes, including 24 hr urine calcium levels and are normal, no secondary causes identified Discussed with patient that most likely could be age/postmenopausal related Fosamax would be an appropriate medication for her, due to no contraindications and being treatmentnaive. Side effects/complications, duration of therapy discussed. Encouraged weight bearing exercise, strongly advised exercising caution while walking to avoid falls and lifting weights Explained that osteoporosis is different the joint problem which is osteoarthritis. I recommended fosamax for low BMD in spine She does not want to start fosamax now, would like to give me some time until she could get the bronchoscopy to see if she will be started on antibiotics again. I did explain that the antibiotics might not have any interfere with the [facility] health medications She would like to undergo another DXA scan, but advised that there is no indication at this time asno treatment was initiated, nor she had a fracture. I discussed this will be approved by insurance only every 2 years She understands, but she would like to wait until next follow up for osteo medication She did ask a lot of questions about inflammation and how it can be treated, and I reviewed chronicinflammation can lower BMD, but then acute inflammation vs chronic inflammation difference explained to her, and that treatment depends on the type of imflammation Multinodular goiter: discussed on last visit First diagnosed in 2022, with US thyroid in 01/2023 and 01/2024, done in [facility]. After reviewing the characteristics of the nodules, FNAB of 1.5 cm isthmic thyroid nodule was performed on 06/26/2024, resulted benign Due to symptoms of dysphagia and difficulty breathing, with FNAB coming back as benign, I recommended confirming these symptoms are from thyroid, to proceed with management accordingly CT neck done for evaluation of compressive symptoms. Reviewed images and no compression of trachea found, although this was not evaluated by Radiology despite this being the reason doing the imaging.I discussed with patient that her symptoms are less likely due to thyroid and surgery might not be beneficial Discussed continuing to monitor the nodule with US thyroid- TSH and imaging in 06/2025 Follow up 5 to 6 months after thyroid USG Librado Guerrier MD [facility] Endocrinology and Metabolism [place] [facility] Medical Decision Making: Problems: Moderate: 1+ chronic illnesses with change Data: Unique test result(s) reviewed: 3+ Risk: Moderate: Moderate risk from testing/treatment Medical Decision Making Level: 4 - Moderate documented in this encounterUniversity Hospitals [facility]01-03-2025 Instructions* Patient Instructions* Jasmin Jackson MD - 11/21/2024 9:54 AM EST Cool down water temperature when washing hands to preserve the oils on the hands. Try to moisturizeyour hands when you can keep them out of water. Use the Rx cream twice a day until we get areas healed. Cerave cream or Neutrogena israeli formula for moisturizing cream. Vaseline on cracks/fissures to get them to heal. documented in this encounterUniversity Hospitals Ahuja [facility] Center01-03-2025 NoteHNO ID: [id number] Author: JASMIN JACKSON MD Service: ? Author Type: Physician Type: Progress Notes Filed: 11/21/2024 10:34 Note Text: HPI: Ms. Howard is a 69 year old female with a several month(s) history of painful, red rash on the hands that are cracked and open and sore. It does itch at times and she has used multiple hand creams without improvement. She works with [employer] all day so constantly in water. 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 It gets caught on her bra, has grown in size and bleeds when she washes over it with her washcloth or loofah. She is wondering about removal. No other particular skin concerns today. ALLERGIES Allergen Reactions Codeine Vomiting Current Outpatient Medications Medication Sig calcium Carbonate 300 mg, 750mg, (TUMS) 300 mg (750 mg) chewable tablet Take 1 tablet by mouth once daily. azithromycin (ZITHROMAX) 500 mg tablet Take 500 mg by mouth three times a week. Sun and sun ethambutol (MYAMBUTOL) 400 mg tablet Take 400 mg by mouth every Sunday, Sunday, and Sunday. rifAMPin (RIFADIN) 300 mg capsule Take 600 mg by mouth three times a week. cephALEXin (KEFLEX) 500 mg capsule Take 1 capsule by mouth three times a day for 5 days. clobetasol (TEMOVATE) 0.05 % cream Apply topically bid to red, scaly patches or fissures on hands clobetasol (TEMOVATE) 0.05 % cream Apply topically bid to hands when red/scaly/sore No current facility-administered medications for this visit. PAST MEDICAL HISTORY Diagnosis Date Lung disease non tuberculosis mycrobactirium NONE FAMILY HISTORY Problem Relation Age of Onset Hypertension Mother Lipids Mother High Cholesterol GI Mother Heart Father heart attack and by-pass surgery Heart Paternal Grandmother heart attack Cancer Maternal Grandmother skin cancer Heart Maternal Aunt Several Maternal Aunts with heart disease Breast Cancer Maternal Aunt Breast Cancer Maternal Aunt Breast Cancer Other Maternal cousin - 50's Breast Cancer Other Maternal cousin - 50's Social History Tobacco Use Smoking status: Never Smokeless tobacco: Never Substance Use Topics Alcohol use: No Drug use: No REVIEW OF SYSTEMS: Patient feels well and denies any recent fevers, chills, or nightsweats. PE: There were no vitals taken for this visit. General appearance: Well appearing, alert, in no acute distress, well-hydrated, well nourished. Skin: All areas examined including: scalp, face, conjunctiva/eyelids, lips/mouth, neck, chest, left upper extremity, right upper extremity, digits/nails. -erythematous scaly plaques of b/l hands with fissuring and swelling noted of right 3rd and 4th fingers -dark brown fissured papule of right breast Treated 1 lesion(s) of right breast with liquid nitrogen cryotherapy for two 10-15 second freeze/thaw cycles. Irritation after treatment is expected which can even include blister formation. This will heal in 7-10 days. Recommend application of white petrolatum to speed healing. Written and verbal instructions provided to patient. Patient left the clinic in good condition. ASSESSMENT/PLAN: 1. Dyshidrotic eczema - ICD9: 705.81, ICD10: L30.1 (primary diagnosis) -eRx sent for clobetasol 0.05% cream to apply topically BID -recommend sensitive skin care measures daily -Recommend liberal use of emollients such as white petrolatum, Aveeno, Eucerin, Aquaphor or Vanicream. Use is recommended twice per day, especially after contact with water. -discussed triggers and waxing/waning course with patient 2. Secondary impetiginization - ICD9: 684, ICD10: L01.1 - Systemic treatment with Cephalaxin (Keflex) x 5 days - Skin care and contagious disease precautions discussed - Follow up if symptoms persist or fail to resolve 3. Inflamed seborrheic keratosis - ICD9: 702.11, ICD10: L82.0 -right breast, treated today with cryotherapy, see note -benign, patient reassured Jasmin Jackson MD Return for If no improvement or if symptoms worsen.[facility] [id number] History of Present illness Narrative* Jasmin Jackson MD - 11/21/2024 9:47 AM EST HPI: Ms. Howard is a 69 year old female with a several month(s) history of painful, red rash on the handsthat are cracked and open and sore. It does itch at times and she has used multiple hand creams without improvement. She works with [employer] all day so constantly in water. 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 It gets caught on her bra, has grown in size and bleeds when she washes over it with her washcloth or loofah. She is wondering about removal. No other particular skin concerns today. ALLERGIES Allergen Reactions Codeine Vomiting Current Outpatient Medications Medication Sig calcium Carbonate 300 mg, 750mg, (TUMS) 300 mg (750 mg) chewable tablet Take 1 tablet by mouth oncedaily. azithromycin (ZITHROMAX) 500 mg tablet Take 500 mg by mouth three times a week. Sun and sun ethambutol (MYAMBUTOL) 400 mg tablet Take 400 mg by mouth every Sunday, Sunday, and Sunday. rifAMPin (RIFADIN) 300 mg capsule Take 600 mg by mouth three times a week. cephALEXin (KEFLEX) 500 mg capsule Take 1 capsule by mouth three times a day for 5 days. clobetasol (TEMOVATE) 0.05 % cream Apply topically bid to red, scaly patches or fissures on hands clobetasol (TEMOVATE) 0.05 % cream Apply topically bid to hands when red/scaly/sore No current facility-administered medications for this visit. PAST MEDICAL HISTORY Diagnosis Date Lung disease non tuberculosis mycrobactirium NONE FAMILY HISTORY Problem Relation Age of Onset Hypertension Mother Lipids Mother High Cholesterol GI Mother Heart Father heart attack and by-pass surgery Heart Paternal Grandmother heart attack Cancer Maternal Grandmother skin cancer Heart Maternal Aunt Several Maternal Aunts with heart disease Breast Cancer Maternal Aunt Breast Cancer Maternal Aunt Breast Cancer Other Maternal cousin - 50's Breast Cancer Other Maternal cousin - 50's Social History Tobacco Use Smoking status: Never Smokeless tobacco: Never Substance Use Topics Alcohol use: No Drug use: No REVIEW OF SYSTEMS: Patient feels well and denies any recent fevers, chills, or nightsweats. PE: There were no vitals taken for this visit. General appearance: Well appearing, alert, in no acute distress, well-hydrated, well nourished. Skin: All areas examined including: scalp, face, conjunctiva/eyelids, lips/mouth, neck, chest, leftupper extremity, right upper extremity, digits/nails. -erythematous scaly plaques of b/l hands with fissuring and swelling noted of right 3rd and 4th fingers -dark brown fissured papule of right breast Treated 1 lesion(s) of right breast with liquid nitrogen cryotherapy for two 10- 15 second freeze/thaw cycles. Irritation after treatment is expected which can even include blister formation. This will heal in 7-10 days. Recommend application of white petrolatum to speed healing. Written and verbal i nstructions provided to patient. Patient left the clinic in good condition. ASSESSMENT/PLAN: 1. Dyshidrotic eczema - ICD9: 705.81, ICD10: L30.1 (primary diagnosis) -eRx sent for clobetasol 0.05% cream to apply topically BID -recommend sensitive skin care measures daily -Recommend liberal use of emollients such as white petrolatum, Aveeno, Eucerin, Aquaphor or Vanicream. Use is recommended twice per day, especially after contact with water. -discussed triggers and waxing/waning course with patient 2. Secondary impetiginization - ICD9: 684, ICD10: L01.1 - Systemic treatment with Cephalaxin (Keflex) x 5 days - Skin care and contagious disease precautions discussed - Follow up if symptoms persist or fail to resolve 3. Inflamed seborrheic keratosis - ICD9: 702.11, ICD10: L82.0 -right breast, treated today with cryotherapy, see note -benign, patient reassured Jasmin Jackson MD Return for If no improvement or if symptoms worsen. documented in this encounterUniversity Hospitals [facility]10-24-2024 NoteHNO ID: [id number] Author: LIBRADO GUERRIER MD Service: ? Author Type: Physician Type: Progress Notes Filed: 09/11/2024 19:06 Note Text: [facility] Follow up note Chief Complaint: Multiple thyroid nodules, Osteoporosis HPI: Tete Howard is a 68 year old female who is coming today for evaluation of low BMD. She was seen by me on 06/17/24 for thyroid nodules and we discussed in detail about nodules and FNAB She was noted to have thyroid nodules when CT scan neck for salivary gland issue last year, further evaluation with thyroid US revealed multinodular goiter. She was seen by endocrinology and was recommended to monitor. 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 smoking: no Family history of thyroid cancer: no Family history of thyroid nodules: no Family history: Elisha's disease in sister Osteoporosis of spine: No hx of fragility fractures, no kidney stones No famiily history of osteo or hip fractures No hx of cancer personally, no radiation No bone health medications in the past Calcium +Vit D3 600 mg x2 +400 units daily, cheese every day, few almonds intermittently No HRT, steroids in the past Menopause 15 years ago No contraceptive use during reproductive years, normal after twin PAST MEDICAL HISTORY Diagnosis Date NONE PAST SURGICAL HISTORY Procedure Laterality Date BREAST BIOPSY Benign DELIVERY ONLY 1992 , low cervical COLONOSCOPY [place], age 51, rpt age 61 DILATION AND CURETTAGE DXAND/THER NONOBSTETRIC 2005 Dilation AND curettage - Benign pathology reviewed TONSILLECTOMY AND ADENOIDECTOMY ALLERGIES Allergen Reactions Codeine Vomiting Social History Tobacco Use Smoking status: Never Smokeless tobacco: Never Substance Use Topics Alcohol use: No Drug use: No FAMILY HISTORY Problem Relation Age of Onset Hypertension Mother Lipids Mother High Cholesterol GI Mother Heart Father heart attack and by-pass surgery Heart Paternal Grandmother heart attack Cancer Maternal Grandmother skin cancer Heart Maternal Aunt Several Maternal Aunts with heart disease Breast Cancer Maternal Aunt Breast Cancer Maternal Aunt Breast Cancer Other Maternal cousin - 50's Breast Cancer Other Maternal cousin - 50's MEDICATIONS: Current Outpatient Medications on File Prior to Visit Medication Sig azithromycin (ZITHROMAX) 500 mg tablet Take 500 mg by mouth three times a week. Sun and sun ethambutol (MYAMBUTOL) 400 mg tablet Take 400 mg by mouth every Sunday, Sunday, and Sunday. rifAMPin (RIFADIN) 300 mg capsule Take 600 mg by mouth three times a week. No current facility-administered medications on file prior to visit. REVIEW OF SYSTEMS: As per HPI PHYSICAL EXAMINATION: BP: 128/76 Temp: 37.1 ?C (98.7 ?F) Temp src: Temporal Artery Pulse: 77 SpO2: 98 % General: no acute distress, alert and orientated X 3, wears a mask Eyes:EOMI, pupils are equally round, anicteric sclera Neck - supple, no significant adenopathy Thyroid: enlarged in size, grossly asymmetric, bilateral palpable nodules Neuro: alert, oriented, normal speech, no focal findings noted CV: normal rate and regular rhythm, S1 and S2 normal. Chest: unlabored breathing on room air Abdominal: soft, non-tender. Bowel sounds normal. Musculoskeletal: no joint tenderness, deformity or swelling Extremities: no edema, no discoloration Skin: no rash or erythema LABS AND IMAGING Latest Ref Rng 06/17/2024 TSH 0.270 - 4.200 mIU/L 1.660 Latest Ref Rng 07/11/2024 08/04/2024 Protein, Total 6.3 - 8.0 g/dL 6.9 6.9 Albumin 3.9 - 4.9 g/dL 4.2 4.3 Calcium 8.5 - 10.2 mg/dL 8.9 9.3 Bilirubin, Total 0.2 - 1.3 mg/dL 0.6 0.4 Alkaline Phosphatase 34 - 123 U/L 72 77 AST 13 - 35 U/L 21 20 ALT 7 - 38 U/L 15 13 Glucose 74 - 99 mg/dL 86 100 (H) BUN 7 - 21 mg/dL 13 14 Creatinine 0.58 - 0.96 mg/dL 0.57 (L) 0.63 Sodium 136 - 144 mmol/L 137 140 Potassium 3.7 - 5.1 mmol/L 4.1 3.9 Chloride 98 - 107 mmol/L 103 105 CO2 22 - 30 mmol/L 23 24 Anion Gap 8 - 15 mmol/L 11 11 eGFR >=60 mL/min/1.73m? 100 97 Calcium, 24 Hr Urine 100.0 - 300.0 mg/24 hr 153.4 Period hr 24 Period hr 24 Period hr 24 Urine Volume 24 hour mL 2,950 Urine Volume 24 hour mL 2,950 Urine Volume 24 hour mL 2,950 Sodium, 24 hr Urine 40 - 220 mmol/24 hr 127 Creatinine 24 hr Ur 0.800 - 1.800 g/24 hr 0.861 Phosphorus 2.7 - 4.8 mg/dL 3.3 M (more content not included)...[facility]10-24-2024 History of Present illness Narrative* Librado Guerrier MD - 09/11/2024 9:46 AM EDT [facility] Follow up note Chief Complaint: Multiple thyroid nodules, Osteoporosis HPI: Devone C Polen is a 68 year old female who is coming today for evaluation of low BMD. She was seen by me on 06/17/24 for thyroid nodules and we discussed in detail about nodules and FNAB She was noted to have thyroid nodules when CT scan neck for salivary gland issue last year, furtherevaluation with thyroid US revealed multinodular goiter. She was seen by endocrinology and was recommended to monitor. 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: no Family history of thyroid cancer: no Family history of thyroid nodules: no Family history: Elisha's disease in sister Osteoporosis of spine: No hx of fragility fractures, no kidney stones No famiily history of osteo or hip fractures No hx of cancer personally, no radiation No bone health medications in the past Calcium +Vit D3 600 mg x2 +400 units daily, cheese every day, few almonds intermittently No HRT, steroids in the past Menopause 15 years ago No contraceptive use during reproductive years, normal after twin PAST MEDICAL HISTORY Diagnosis Date NONE PAST SURGICAL HISTORY Procedure Laterality Date BREAST BIOPSY Benign DELIVERY ONLY 1992 , low cervical COLONOSCOPY [place], age 51, rpt age 61 DILATION & CURETTAGE DX&/THER NONOBSTETRIC 2006 Dilation & curettage - Benign pathology reviewed TONSILLECTOMY & ADENOIDECTOMY <AGE 13 ALLERGIES Allergen Reactions Codeine Vomiting Social History Tobacco Use Smoking status: Never Smokeless tobacco: Never Substance Use Topics Alcohol use: No Drug use: No FAMILY HISTORY Problem Relation Age of Onset Hypertension Mother Lipids Mother High Cholesterol GI Mother Heart Father heart attack and by-pass surgery Heart Paternal Grandmother heart attack Cancer Maternal Grandmother skin cancer Heart Maternal Aunt Several Maternal Aunts with heart disease Breast Cancer Maternal Aunt Breast Cancer Maternal Aunt Breast Cancer Other Maternal cousin - 50's Breast Cancer Other Maternal cousin - 50's MEDICATIONS: Current Outpatient Medications on File Prior to Visit Medication Sig azithromycin (ZITHROMAX) 500 mg tablet Take 500 mg by mouth three times a week. Mon wed and sun ethambutol (MYAMBUTOL) 400 mg tablet Take 400 mg by mouth every Sunday, Sunday, and Sunday. rifAMPin (RIFADIN) 300 mg capsule Take 600 mg by mouth three times a week. No current facility-administered medications on file prior to visit. REVIEW OF SYSTEMS: As per HPI PHYSICAL EXAMINATION: BP: 128/76 Temp: 37.1 C (98.7 F) Temp src: Temporal Artery Pulse: 77 SpO2: 98 % General: no acute distress, alert and orientated X 3, wears a mask Eyes:EOMI, pupils are equally round, anicteric sclera Neck - supple, no significant adenopathy Thyroid: enlarged in size, grossly asymmetric, bilateral palpable nodules Neuro: alert, oriented, normal speech, no focal findings noted CV: normal rate and regular rhythm, S1 and S2 normal. Chest: unlabored breathing on room air Abdominal: soft, non-tender. Bowel sounds normal. Musculoskeletal: no joint tenderness, deformity or swelling Extremities: no edema, no discoloration Skin: no rash or erythema LABS AND IMAGING Latest Ref Rng 06/17/2024 TSH 0.270 - 4.200 mIU/L 1.660 Latest Ref Rng 07/11/2024 08/04/2024 Protein, Total 6.3 - 8.0 g/dL 6.9 6.9 Albumin 3.9 - 4.9 g/dL 4.2 4.3 Calcium 8.5 - 10.2 mg/dL 8.9 9.3 Bilirubin, Total 0.2 - 1.3 mg/dL 0.6 0.4 Alkaline Phosphatase 34 - 123 U/L 72 77 AST 13 - 35 U/L 21 20 ALT 7 - 38 U/L 15 13 Glucose 74 - 99 mg/dL 86 100 (H) BUN 7 - 21 mg/dL 13 14 Creatinine 0.58 - 0.96 mg/dL 0.57 (L) 0.63 Sodium 136 - 144 mmol/L 137 140 Potassium 3.7 - 5.1 mmol/L 4.1 3.9 Chloride 98 - 107 mmol/L 103 105 CO2 22 - 30 mmol/L 23 24 Anion Gap 8 - 15 mmol/L 11 11 eGFR >=60 mL/min/1.73m 100 97 Calcium, 24 Hr Urine 100.0 - 300.0 mg/24 hr 153.4 Period hr 24 Period hr 24 Period hr 24 Urine Volume 24 hour mL 2,950 Urine Volume 24 hour mL 2,950 Urine Volume 24 hour mL 2,950 Sodium, 24 hr Urine 40 - 220 mmol/24 hr 127 Creatinine 24 hr Ur 0.800 - 1.800 g/24 hr 0.861 Phosphorus 2.7 - 4.8 mg/dL 3.3 Magnesium 1.7 - 2.3 mg/dL 2.1 Vitamin D 25 Hydroxy 31.0 - 80.0 ng/mL 28.6 (L) Alk Phosphatase, Bone ug/L 13.3 C Telopeptide, Beta Cross Linked 171 - 970 pg/mL 562 Osteocalcin 8.6 - 37.6 ng/mL 29.1 PTH, Intact 15 - 65 pg/mL 49 Legend: (L) Low (H) High Thyroid ultrasound (01/23/23): Findings: Right lobe: Large spongiform nodule in the right lobe/isthmus, a TR1 benign nodule. The nodule measures 2.2 x 5 x 11 mm. Nodule in the right lobe/isthmus measuring 13 x5x12 mm. The nodule is solid and hypoechoic a TR 4 moderately suspicious nodule. The right lobe measures 5.2 x 1.7 x 1.9 cm Left lobe: 2 nodules in the upper lobe measuring 5 x 7 mm TR 4 moderately suspicious nodule. A second spongiform nodule is seen in the left lobe measuring 2 x 4 x 3 mm, a TR 1 benign nodule. There kandace cyst in the upper pole measuring 3 x 2 x 3 mm. The left lobe measures 4.8 x 1.5 x 1.7 cm. Heterogeneous appearance of left lobe of the thyroid Isthmus: Isthmus measures 0.4 cm in thickness. Other: None Conclusion: Right lobe/isthmus TR 4 nodule, recommend follow-up at 1, 2, 3 and 5 years. 2. Left lobe TR4 nodule Thyroid ultrasound (01/23/2024): Findings: Right thyroid lobe: 4.8 x 1.3 x 1.4 cm. Homogeneous echotexture with normal vascularity. There is alower pole heterogeneous 1.3 x 1.3 x 0.5 cm nodule Left thyroid lobe: 3.6 x 1.6 x 1.4 cm. Homogeneous echotexture with normal vascularity. There is anupper pole 1.0 x 0.6 x 0.5 cm solid nodule Isthmus: 7 mm. Heterogeneous nodules a lobulated single nodule measuring 1.5 x 1.7 x 0.7 cm and 1.3x 1.2 x 0.7 cm Impression: Bilateral heterogeneous nodules as noted. Cytological evaluation if needed. DXA: 05/08/24: PROCEDURE: BONE DENSITY STUDY TECHNIQUE: Lumbar vertebral and proximal femoral dual-energy X-ray absorptiometry (DXA) was performed on a central Talk Local device. COMPARISON: [facility], BONE DENSITY STUDY, 06/27/2022, 11:07. SPINE ANALYSIS RESULTS: Average lumbar bone mineral density (BMD) (g/cm2): 0.838 Lumbar T-score (standard deviation relative to young adult mean BMD): -2.9 Lumbar Z-score (standard deviation relative to age matched control group): -1.0 Change since prior spine examination: Bone loss greater than expected for physiologic change. Consider further clinical evaluation. SPINE CLASSIFICATION: Osteoporosis (T-score < -2.5). HIP ANALYSIS RESULTS: Left femoral bone mineral density (BMD) (g/cm2): 0.846 Right femoral bone mineral density (BMD) (g/cm2): 0.87 Femur T-score (standard deviation relative to young adult mean BMD): -1.2 Femur Z-score (standard deviation relative to age matched control group): 0.3 Change since prior hip examination: Bone loss greater than expected for physiologic change. Consider further clinical evaluation. HIP CLASSIFICATION (World Health Organization): Osteopenia (T-score -1.0 to -2.5). ADDITIONAL FINDINGS: No significant additional findings. Ten year probability of major osteoporotic fracture 7.7%. Ten year probability of hip fracture 0.7%. CT neck and soft tissue: 07/14/24 RESULT: NECK CT: Acute abnormality: None. Incompletely evaluated multiple nodular and reticulonodular foci at left upper lobe lung (better noted on & for details refer to CT chest report performed concurrently). Uncomplicated submandibular gland resection. No recurrent mass within surgical bed. Slightly enlarged thyroid gland with non- enhancing multiple low-attenuation foci throughout gland with most significant at isthmus without focal abnormal singlelesion or draining adenopathy or loss of tissue planes or pathological neck lymphadenopathy most consistent with patient's presumed history of goiter. If there is any concern for focal lesion or neoplasm then further workup with ultrasound and ultrasound-guided cytology may be of value if clinically indicated. Age expected mild osteopenia and spondylosis without any focal osseous abnormality. Symmetrical intracranial structures, orbits, sinuses, mastoids, skull base, lacrimal/parotid glands, superior mediastinum, aerodigestive tract with mucosal lining, tissue planes and courses of vessels without soft tissue mass, loculated collections, abnormal enhancement or pathological neck lymphadenopathy. IMPRESSION: Findings compatible with patient's presumed history of goiter. ASSESSMENT AND PLAN: Tete Howard is a 68 year old female presenting to endocrinology for evaluation of Osteoporosis and results of FNAB Osteoporosis: On dxa scan done on 05/08/24 Her calcium and D intake seems adequate (taking supplements) Calcium labs ordered to check for secondary causes, including 24 hr urine calcium levels and are normal, no secondary causes identified Discussed with patient that most likely could be age/postmenopausal related Fosamax would be an appropriate medication for her, due to no contraindications and being treatmentnaive. Side effects/complications, duration of therapy discussed. She would like to wait until dec 2024 when she might be able to d/c antibiotic medications for her respiratory issues Encouraged weight bearing exercise, strongly advised exercising caution while walking to avoid falls and lifting weights Multinodular goiter: First diagnosed in 2022, with US thyroid in 01/2023 and 01/2024, done in [facility]. After reviewing the characteristics of the nodules, FNAB of 1.5 cm isthmic thyroid nodule was performed on 06/26/2024, resulted benign Due to symptoms of dysphagia and difficulty breathing, with FNAB coming back as benign, I recommended confirming these symptoms are from thyroid, to proceed with management accordingly CT neck done for evaluation of compressive symptoms. Reviewed images and no compression of trachea found, although this was not evaluated by Radiology despite this being the reason doing the imaging.I discussed with patient that her symptoms are less likely due to thyroid and surgery might not be beneficial Discussed continuing to monitor the nodule with US thyroid- TSH and imaging in one year Follow up in January 2025 to discuss starting fosamax Librado Guerrier MD [facility] Endocrinology and Metabolism [place] [facility] Medical Decision Making: Problems: Moderate: 1+ chronic illnesses with change Data: Unique test result(s) reviewed: 3+ Risk: Moderate: Drug management and Moderate risk from testing/treatment Medical Decision Making Level: 4 - Moderate documented in this encounterUniversity Hospitals [facility]08-20-2024 Telephone encounter Note * Telephone Encounter - Su Flynn MA - 07/08/2024 10:32 AM EDT Patient is scheduled for CT x2 on 07/17/24 at 340 pm. She will have labs completed prior to CT and will be NPO for atleast 4 hours. Su Flynn MA [facility]08-20-2024 Miscellaneous Notes* Telephone Encounter - Su Flynn MA - 07/08/2024 10:32 AM EDT Patient is scheduled for CT x2 on 07/17/24 at 340 pm. She will have labs completed prior to CT and will be NPO for atleast 4 hours. Su Flynn MA * Telephone Encounter - Librado Guerrier MD - 07/08/2024 8:36 AM EDT She was told to do CT neck to evaluate if thyroid is causing difficulty breathing, and specificallytold her that she could schedule it on the same day as CT chest Thanks * Telephone Encounter - Parris Tate - 07/07/2024 8:29 AM EDT Pt called in asking asking about the Neck CT that was ordered and was wondering if she could do that scan and the scan ordered by Dr. Argueta (Chest CT), pt is also confused that they are two different scans and the CT Soft tissue has not been dropped in her active tab yet Please review and advise and call pt Thank you ! documented in this encounterUniversity Hospitals [facility]08-20-2024 Telephone encounter Note * Telephone Encounter - Librado Guerrier MD - 07/08/2024 8:36 AM EDT She was told to do CT neck to evaluate if thyroid is causing difficulty breathing, and specificallytold her that she could schedule it on the same day as CT chest Thanks [facility] Work Phone: 1(144) 893-395408-19-2024 Telephone encounter Note* Telephone Encounter - Parris Tate - 07/07/2024 8:29 AM EDT Pt called in asking asking about the Neck CT that was ordered and was wondering if she could do that scan and the scan ordered by Dr. Argueta (Chest CT), pt is also confused that they are two different scans and the CT Soft tissue has not been dropped in her active tab yet Please review and advise and call pt Thank you ! [facility]08-16-2024 Instructions* Patient Instructions* Librado Guerrier MD - 07/04/2024 11:35 AM EDT 24 hr urine calcium sample collection It s very important to do the 24 hour urine collection correctly: First, you must stop any calcium and vitamin D supplements that you are taking for at least 3 weeks prior to doing the test. Prior to starting the test, you need to pick up worker the specially prepared collection jug at the center where the urine sample will be dropped off when completed. On the day you start the urine collection: discard the first morning urine on day#1 (the day you start the collection). collect all urine therafter for the entire day, through the night, and include the first morning urine on day #2 (when the test is stopped). if you lose or sprill any urine, or flush any urine accidentally te test cannot be interpreted and should be stopped. When you return the sample: bring the sample in as soon as it is completed - on the same day you finish the collection if possible. have blood drawn on the day you return the urine sample. I ll review these results with you once they ve been completed. This may take up to 10-14 days. Also ordered are some imaging studies for symptoms of difficulty swallowing and difficulty breathing documented in this encounterUniversity Hospitals Ahu[facility]08-16-2024 NoteHNO ID: [id number] Author: LIBRADO GUERRIER MD Service: ? Author Type: Physician Type: Progress Notes Filed: 07/05/2024 16:13 Note Text: [facility] Follow up note Chief Complaint: Multiple thyroid nodules, Osteoporosis HPI: Tete Howard is a 68 year old female who is coming today for evaluation of low BMD. She was seen by me on 06/17/24 for thyroid nodules and we discussed in detail about nodules and FNAB She was noted to have thyroid nodules when CT scan neck for salivary gland issue last year, further evaluation with thyroid US revealed multinodular goiter. She was seen by endocrinology and was recommended to monitor. 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 smoking: no Family history of thyroid cancer: no Family history of thyroid nodules: no Family history: Elisha's disease in sister Osteoporosis of spine: No hx of fragility fractures, no kidney stones No famiily history of osteo or hip fractures No hx of cancer personally, no radiation No bone health medications in the past Calcium +Vit D3 600 mg x2 +400 units daily, cheese every day, few almonds intermittently No HRT, steroids in the past Menopause 15 years ago No contraceptive use during reproductive years, normal after twin PAST MEDICAL HISTORY No date: NONE PAST SURGICAL HISTORY No date: BREAST BIOPSY Comment: Benign 1992: DELIVERY ONLY Comment: , low cervical No date: COLONOSCOPY Comment: Galileo, age 51, rpt age 61 2006: DILATION AND CURETTAGE DXAND/THER NONOBSTETRIC Comment: Dilation AND curettage - Benign pathology reviewed No date: TONSILLECTOMY AND ADENOIDECTOMY ALLERGIES Allergen Reactions Codeine Vomiting Social History Tobacco Use Smoking status: Never Smokeless tobacco: Never Substance Use Topics Alcohol use: No Drug use: No FAMILY HISTORY Problem Relation Age of Onset Hypertension Mother Lipids Mother High Cholesterol GI Mother Heart Father heart attack and by-pass surgery Heart Paternal Grandmother heart attack Cancer Maternal Grandmother skin cancer Heart Maternal Aunt Several Maternal Aunts with heart disease Breast Cancer Maternal Aunt Breast Cancer Maternal Aunt Breast Cancer Other Maternal cousin - 50's Breast Cancer Other Maternal cousin - 50's MEDICATIONS: Current Outpatient Medications on File Prior to Visit Medication Sig azithromycin (ZITHROMAX) 500 mg tablet Take 500 mg by mouth three times a week. Sun and sun ethambutol (MYAMBUTOL) 400 mg tablet Take 400 mg by mouth every Sunday, Sunday, and Sunday. rifAMPin (RIFADIN) 300 mg capsule Take 600 mg by mouth three times a week. No current facility-administered medications on file prior to visit. REVIEW OF SYSTEMS: As per HPI PHYSICAL EXAMINATION: BP: 112/68 Temp: 37 ?C (98.6 ?F) Temp src: Temporal Artery Pulse: 87 SpO2: 99 % General: no acute distress, alert and orientated X 3, wears a mask Eyes:EOMI, pupils are equally round, anicteric sclera Neck - supple, no significant adenopathy Thyroid: enlarged in size, grossly asymmetric, bilateral palpable nodules Neuro: alert, oriented, normal speech, no focal findings noted CV: normal rate and regular rhythm, S1 and S2 normal. Chest: unlabored breathing on room air Abdominal: soft, non-tender. Bowel sounds normal. Musculoskeletal: no joint tenderness, deformity or swelling Extremities: no edema, no discoloration Skin: no rash or erythema LABS AND IMAGING Latest Ref Rng 06/17/2024 TSH 0.270 - 4.200 mIU/L 1.660 Thyroid ultrasound (01/23/23): Findings: Right lobe: Large spongiform nodule in the right lobe/isthmus, a TR1 benign nodule. The nodule measures 2.2 x 5 x 11 mm. Nodule in the right lobe/isthmus measuring 13 x5x12 mm. The nodule is solid and hypoechoic a TR 4 moderately suspicious nodule. The right lobe measures 5.2 x 1.7 x 1.9 cm Left lobe: 2 nodules in the upper lobe measuring 5 x 7 mm TR 4 moderately suspicious nodule. A second spongiform nodule is seen in the left lobe measuring 2 x 4 x 3 mm, a TR 1 benign nodule. There is a cyst in the upper pole measuring 3 x 2 x 3 mm. The left lobe measures 4.8 x 1.5 x 1.7 cm. Heterogeneous appearance of left lobe of the thyroid Isthmus: Isthmus measures 0.4 cm in thickness. Other: None Conclusion: Right lobe/isthmus TR 4 nodule, recommend follow-up at 1, 2, 3 and 5 years. 2. Left lobe TR4 nodu (more content not included)...[facility] 07-04-2024 History of Present illness Narrative* Librado Guerrier MD - 07/04/2024 11:19 AM EDT [facility] Follow up note Chief Complaint: Multiple thyroid nodules, Osteoporosis HPI: Tete Howard is a 68 year old female who is coming today for evaluation of low BMD. She was seen by me on 06/17/24 for thyroid nodules and we discussed in detail about nodules and FNAB She was noted to have thyroid nodules when CT scan neck for salivary gland issue last year, furtherevaluation with thyroid US revealed multinodular goiter. She was seen by endocrinology and was recommended to monitor. 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: no Family history of thyroid cancer: no Family history of thyroid nodules: no Family history: Elisha's disease in sister Osteoporosis of spine: No hx of fragility fractures, no kidney stones No famiily history of osteo or hip fractures No hx of cancer personally, no radiation No bone health medications in the past Calcium +Vit D3 600 mg x2 +400 units daily, cheese every day, few almonds intermittently No HRT, steroids in the past Menopause 15 years ago No contraceptive use during reproductive years, normal after twin PAST MEDICAL HISTORY No date: NONE PAST SURGICAL HISTORY No date: BREAST BIOPSY Comment: Benign 1992: DELIVERY ONLY Comment: , low cervical No date: COLONOSCOPY Comment: Galileo, age 51, rpt age 61 2006: DILATION & CURETTAGE DX&/THER NONOBSTETRIC Comment: Dilation & curettage - Benign pathology reviewed No date: TONSILLECTOMY & ADENOIDECTOMY <AGE 13 ALLERGIES Allergen Reactions Codeine Vomiting Social History Tobacco Use Smoking status: Never Smokeless tobacco: Never Substance Use Topics Alcohol use: No Drug use: No FAMILY HISTORY Problem Relation Age of Onset Hypertension Mother Lipids Mother High Cholesterol GI Mother Heart Father heart attack and by-pass surgery Heart Paternal Grandmother heart attack Cancer Maternal Grandmother skin cancer Heart Maternal Aunt Several Maternal Aunts with heart disease Breast Cancer Maternal Aunt Breast Cancer Maternal Aunt Breast Cancer Other Maternal cousin - 50's Breast Cancer Other Maternal cousin - 50's MEDICATIONS: Current Outpatient Medications on File Prior to Visit Medication Sig azithromycin (ZITHROMAX) 500 mg tablet Take 500 mg by mouth three times a week. Sun and sun ethambutol (MYAMBUTOL) 400 mg tablet Take 400 mg by mouth every Sunday, Sunday, and Sunday. rifAMPin (RIFADIN) 300 mg capsule Take 600 mg by mouth three times a week. No current facility-administered medications on file prior to visit. REVIEW OF SYSTEMS: As per HPI PHYSICAL EXAMINATION: BP: 112/68 Temp: 37 C (98.6 F) Temp src: Temporal Artery Pulse: 87 SpO2: 99 % General: no acute distress, alert and orientated X 3, wears a mask Eyes:EOMI, pupils are equally round, anicteric sclera Neck - supple, no significant adenopathy Thyroid: enlarged in size, grossly asymmetric, bilateral palpable nodules Neuro: alert, oriented, normal speech, no focal findings noted CV: normal rate and regular rhythm, S1 and S2 normal. Chest: unlabored breathing on room air Abdominal: soft, non-tender. Bowel sounds normal. Musculoskeletal: no joint tenderness, deformity or swelling Extremities: no edema, no discoloration Skin: no rash or erythema LABS AND IMAGING Latest Ref Rng 06/17/2024 TSH 0.270 - 4.200 mIU/L 1.660 Thyroid ultrasound (01/23/23): Findings: Right lobe: Large spongiform nodule in the right lobe/isthmus, a TR1 benign nodule. The nodule measures 2.2 x 5 x 11 mm. Nodule in the right lobe/isthmus measuring 13 x5x12 mm. The nodule is solid and hypoechoic a TR 4 moderately suspicious nodule. The right lobe measures 5.2 x 1.7 x 1.9 cm Left lobe: 2 nodules in the upper lobe measuring 5 x 7 mm TR 4 moderately suspicious nodule. A second spongiform nodule is seen in the left lobe measuring 2 x 4 x 3 mm, a TR 1 benign nodule. There kandace cyst in the upper pole measuring 3 x 2 x 3 mm. The left lobe measures 4.8 x 1.5 x 1.7 cm. Heterogeneous appearance of left lobe of the thyroid Isthmus: Isthmus measures 0.4 cm in thickness. Other: None Conclusion: Right lobe/isthmus TR 4 nodule, recommend follow-up at 1, 2, 3 and 5 years. 2. Left lobe TR4 nodule Thyroid ultrasound (01/23/2024): Findings: Right thyroid lobe: 4.8 x 1.3 x 1.4 cm. Homogeneous echotexture with normal vascularity. There is alower pole heterogeneous 1.3 x 1.3 x 0.5 cm nodule Left thyroid lobe: 3.6 x 1.6 x 1.4 cm. Homogeneous echotexture with normal vascularity. There is anupper pole 1.0 x 0.6 x 0.5 cm solid nodule Isthmus: 7 mm. Heterogeneous nodules a lobulated single nodule measuring 1.5 x 1.7 x 0.7 cm and 1.3x 1.2 x 0.7 cm Impression: Bilateral heterogeneous nodules as noted. Cytological evaluation if needed. DXA: 05/08/24: PROCEDURE: BONE DENSITY STUDY TECHNIQUE: Lumbar vertebral and proximal femoral dual-energy X-ray absorptiometry (DXA) was performed on a central Talk Local device. COMPARISON: [facility], [place], BONE DENSITY STUDY, 06/27/2022, 11:07. SPINE ANALYSIS RESULTS: Average lumbar bone mineral density (BMD) (g/cm2): 0.838 Lumbar T-score (standard deviation relative to young adult mean BMD): -2.9 Lumbar Z-score (standard deviation relative to age matched control group): -1.0 Change since prior spine examination: Bone loss greater than expected for physiologic change. Consider further clinical evaluation. SPINE CLASSIFICATION: Osteoporosis (T-score < -2.5). HIP ANALYSIS RESULTS: Left femoral bone mineral density (BMD) (g/cm2): 0.846 Right femoral bone mineral density (BMD) (g/cm2): 0.87 Femur T-score (standard deviation relative to young adult mean BMD): -1.2 Femur Z-score (standard deviation relative to age matched control group): 0.3 Change since prior hip examination: Bone loss greater than expected for physiologic change. Consider further clinical evaluation. HIP CLASSIFICATION (World Health Organization): Osteopenia (T-score -1.0 to -2.5). ADDITIONAL FINDINGS: No significant additional findings. Ten year probability of major osteoporotic fracture 7.7%. Ten year probability of hip fracture 0.7%. ASSESSMENT AND PLAN: Tete Howard is a 68 year old female presenting to endocrinology for evaluation of Osteoporosis and results of FNAB Osteoporosis: On dxa scan done on 05/08/24 Her calcium and D intake seems adequate (taking supplements) Calcium labs ordered to check for secondary causes, including 24 hr urine calcium levels Discussed with patient that most likely could be age-/postmenopausal related Encouraged weight bearing exercise Based on results, will discuss appropriate treatment- she does not have GERD, and is naive to bone health medications, hence we might consider fosamax (oral BP) Multinodular goiter: First diagnosed in 2022, with US thyroid in 01/2023 and 01/2024, done in [facility]. After reviewing the characteristics of the nodules, FNAB of 1.5 cm isthmic thyroid nodule was performed on 06/26/2024, resulted benign Due to symptoms of dysphagia and difficulty breathing, with FNAB coming back as benign, I recommended confirming these symptoms are from thyroid, to proceed with management accordingly Discussed continuing to monitor the nodule with US thyroid- TSH and imaging in one year if no surgical indication MD [facility] Endocrinology [facility] Met[facility] [place] [facility] Medical Decision Making: Problems: Moderate: New problem with uncertain prognosis and 1+ chronic illnesses with change Data: Unique test result(s) reviewed: 3+ Unique test(s) ordered: 3+ Independent interpretation of test from other physician/QHCP Risk: Moderate: Moderate risk from testing/treatment Medical Decision Making Level: 4 - Moderate documented in this encounterUniversity Hospitals [facility]08-12-2024 Telephone encounter Note * Telephone Encounter - Su Flynn MA - 06/30/2024 8:15 AM EDT Sent my chart message with this information. Su Flynn MA [facility]08-12-2024 Miscellaneous Notes* Telephone Encounter - Su Flynn MA - 06/30/2024 8:15 AM EDT Sent my chart message with this information. Su Flynn MA * Telephone Encounter - Librado Guerrier MD - 06/29/2024 7:22 PM EDT I would recommend waiting for the cytology results. If the results are benign, its better to do barium swallow to see if compression coming from thyroid to determine surgical intervention. I have explained this to her on the day of Biopsy * Telephone Encounter - Suly Carmona MA - 06/26/2024 2:08 PM EDT Patient states she had a thyroid needle biopsy today and had discussed having a barium swallow test. Patient has decided she would like to have that done. Can she have an order? documented in this encounterUniversity Hospitals [facility]08-11-2024 Telephone encounter Note * Telephone Encounter - Librado Guerrier MD - 06/29/2024 7:22 PM EDT I would recommend waiting for the cytology results. If the results are benign, its better to do barium swallow to see if compression coming from thyroid to determine surgical intervention. I have explained this to her on the day of Biopsy [facility] Work Phone: 1(549) 850-828608-08-2024 Telephone encounter Note* Telephone Encounter - Suly Carmona MA - 06/26/2024 2:08 PM EDT Patient states she had a thyroid needle biopsy today and had discussed having a barium swallow test. Patient has decided she would like to have that done. Can she have an order? [facility]08-08-2024 Instructions* Patient Instructions* Librado Guerrier MD - 06/26/2024 1:47 PM EDT You had Fine needle aspiration of a thyroid nodule. 1) If there is soreness to touch or swallowing, can use ice over the area as needed 2) Can use Tylenol 500 mg every 6-8 hrs as needed (avoid using Ibuprofen,Aleeve as these can cause increased bleeding) 3) If you develop intense pain and/or swelling at the site of biopsy, please go to the ER 4) Results with be available in one week. If you do not hear from us in that time frame, please call the office for an update. documented in this encounterUniversity Hospitals Ahuja Medical Center08-08-2024 NoteHNO ID: [id number] Author: LIBRADO GUERRIER MD Service: ? Author Type: Physician Type: Progress Notes Filed: 06/26/2024 13:51 Note Text: Fine Needle Aspiration(FNA) Biopsy of thyroid nodule Tete Howard was identified by name and date, acknowledges here to have a Fine Needle Aspiration(FNA) of 1.5 cm isthmic thyroid nodule performed. Risks, benefits and alternatives D/W patient by: Dr Guerrier Time/Date: June 26, 2024 1:15 PM Referred by: No referring provider defined for this encounter. Primary Topper Press Operator: Blood thinners: no Discussed the risk and benefits of the procedure in detail. Explained that it is done under US guidance. Usually we do 3-4 needle passes for each nodule to ensure adequate sample. Explained the five possible outcomes from the pathology: 1. benign 2. Malignant 3. Suspicious for malignancy 4. Insufficient sample 5. Follicular neoplasm Patient verbalised understanding. Informed consent obtained Time out procedure performed [employer] / SAFETY CHECKLIST Procedure to be Performed: FNAB of 1.5 cm isthmic nodule Sign In: A Moment of CARE was completed. Personnel directly involved with the procedure wore the appropriate PPE (Personal Protective Equipment). Patient/Surrogate Stated/Verified: PATIENT VERIFIED(optional for EMERGENT procedures): Patient name, Date of , Relevant allergies, and The intended procedure Time Out Communication: Intended patient and procedure match the source documents. Consent documented and matches the intended procedure. Relevant labs, photos, and/or imaging studies have been reviewed. Sign Out: SIGN OUT (optional for EMERGENT procedures): All specimen containers correctly labeled. Librado Guerrier MD Procedure: Performed under ultrasound guidance Skin was prepped with alcohol swabs Ice and numbing spray were both used to numb the skin FNA Bx X 4 performed with a 25-G needle under U/S guidance for isthmic nodule by me (Librado Guerrier MD) During the aspiration needle was observed inside the nodule on 4 passes. Patient tolerated the procedure well Complications: NONE Character of Aspirate: On the 4 needle passes small amount of bloody liquid was obtained. Sign out communication: Patient was given instructions regarding any complications that may arise. Impression and Suggested Follow-up: Results will be communicated to the patient by Dr Guerrier and plans for management and follow up will be made based on these results. Discussed barium swallow for evaluation of dysphagia if benign results. She would also like to follow up with endocrinology for bone density Librado Guerrier [facility]08-08-2024 History of Present illness Narrative* Librado Guerrier MD - 06/26/2024 1:14 PM EDT Fine Needle Aspiration(FNA) Biopsy of thyroid nodule Tete Howard was identified by name and date, acknowledges here to have a Fine Needle Aspiration(FNA) of 1.5 cm isthmic thyroid nodule performed. Risks, benefits and alternatives D/W patient by: Dr Guerrier Time/Date: June 26, 2024 1:15 PM Referred by: No referring provider defined for this encounter. Primary Topper Press Operator: Blood thinners: no Discussed the risk and benefits of the procedure in detail. Explained that it is done under US guidance. Usually we do 3-4 needle passes for each nodule to ensure adequate sample. Explained the five possible outcomes from the pathology: 1. benign 2. Malignant 3. Suspicious for malignancy 4. Insufficient sample 5. Follicular neoplasm Patient verbalised understanding. Informed consent obtained Time out procedure performed UNIVERSAL PROTOCOL / SAFETY CHECKLIST Procedure to be Performed: FNAB of 1.5 cm isthmic nodule Sign In: A Moment of CARE was completed. Personnel directly involved with the procedure wore the appropriate PPE (Personal Protective Equipment). Patient/Surrogate Stated/Verified: PATIENT VERIFIED(optional for EMERGENT procedures): Patient name, Date of , Relevant allergies, and The intended procedure Time Out Communication: Intended patient and procedure match the source documents. Consent documented and matches the intended procedure. Relevant labs, photos, and/or imaging studies have been reviewed. Sign Out: SIGN OUT (optional for EMERGENT procedures): All specimen containers correctly labeled. Librado Guerrier MD Procedure: Performed under ultrasound guidance Skin was prepped with alcohol swabs Ice and numbing spray were both used to numb the skin FNA Bx X 4 performed with a 25-G needle under U/S guidance for isthmic nodule by me (Librado Guerrier MD) During the aspiration needle was observed inside the nodule on 4 passes. Patient tolerated the procedure well Complications: NONE Character of Aspirate: On the 4 needle passes small amount of bloody liquid was obtained. Sign out communication: Patient was given instructions regarding any complications that may arise. Impression and Suggested Follow-up: Results will be communicated to the patient by Dr Guerrier and plans for management and follow up will be made based on these results. Discussed barium swallow for evaluation of dysphagia if benign results. She would also like to follow up with endocrinology for bone density Librado Guerrier MD documented in this encounterUniversity [facility] Instructions* Patient Instructions* Librado Guerrier MD - 06/17/2024 4:15 PM EDT Please do lab work before scheduling for biopsy documented in this encounterUniversity Hospitals [facility]07-30-2024 NoteHNO ID: [id number] Author: LIBRADO GUERRIER MD Service: ? Author Type: Physician Type: Progress Notes Filed: 06/20/2024 18:37 Note Text: [facility] Initial Clinic Visit Note Chief Complaint: Multiple thyroid nodules HPI: Tete Howard is a 68 year old female was referred for evaluation of a thyroid nodules. History in brief, she was noted to have thyroid nodules when CT scan were done on neck for salivary gland issue last year, further evaluation with thyroid US revealed multinodular goiter. She was recommended to monitor. She was seen by endocrinology. 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 Family history of thyroid cancer: no Family history of thyroid nodules: no Family history: Elisha's disease in sister PAST MEDICAL HISTORY Diagnosis Date NONE PAST SURGICAL HISTORY Procedure Laterality Date BREAST BIOPSY Benign DELIVERY ONLY 1992 , low cervical COLONOSCOPY [place], age 51, rpt age 61 DILATION AND CURETTAGE DXAND/THER NONOBSTETRIC 2005 Dilation AND curettage - Benign pathology reviewed TONSILLECTOMY AND ADENOIDECTOMY ALLERGIES Allergen Reactions Codeine Vomiting Social History Tobacco Use Smoking status: Never Smokeless tobacco: Never Substance Use Topics Alcohol use: No Drug use: No FAMILY HISTORY Problem Relation Age of Onset Hypertension Mother Lipids Mother High Cholesterol GI Mother Heart Father heart attack and by-pass surgery Heart Paternal Grandmother heart attack Cancer Maternal Grandmother skin cancer Heart Maternal Aunt Several Maternal Aunts with heart disease Breast Cancer Maternal Aunt Breast Cancer Maternal Aunt Breast Cancer Other Maternal cousin - 50's Breast Cancer Other Maternal cousin - 50's MEDICATIONS: Current Outpatient Medications on File Prior to Visit Medication Sig azithromycin (ZITHROMAX) 500 mg tablet Take 500 mg by mouth three times a week. Sun and sun ethambutol (MYAMBUTOL) 400 mg tablet Take 400 mg by mouth every Sunday, Sunday, and Sunday. rifAMPin (RIFADIN) 300 mg capsule Take 600 mg by mouth three times a week. No current facility-administered medications on file prior to visit. REVIEW OF SYSTEMS: As per HPI PHYSICAL EXAMINATION: BP: 128/78 Temp: 37 ?C (98.6 ?F) Temp src: Temporal Artery Pulse: 82 SpO2: 97 % General: no acute distress, alert and orientated X 3, wears a mask Eyes:EOMI, pupils are equally round, anicteric sclera Neck - supple, no significant adenopathy Thyroid: enlarged in size, grossly asymmetric, bilateral palpable nodules Neuro: alert, oriented, normal speech, no focal findings noted CV: normal rate and regular rhythm, S1 and S2 normal. Chest: unlabored breathing on room air Abdominal: soft, non-tender. Bowel sounds normal. Musculoskeletal: no joint tenderness, deformity or swelling Extremities: no edema, no discoloration Skin: no rash or erythema LABS AND IMAGING No labs available for thyroid function Thyroid ultrasound (01/23/23): Findings: Right lobe: Large spongiform nodule in the right lobe/isthmus, a TR1 benign nodule. The nodule measures 2.2 x 5 x 11 mm. Nodule in the right lobe/isthmus measuring 13 x5x12 mm. The nodule is solid and hypoechoic a TR 4 moderately suspicious nodule. The right lobe measures 5.2 x 1.7 x 1.9 cm Left lobe: 2 nodules in the upper lobe measuring 5 x 7 mm TR 4 moderately suspicious nodule. A second spongiform nodule is seen in the left lobe measuring 2 x 4 x 3 mm, a TR 1 benign nodule. There is a cyst in the upper pole measuring 3 x 2 x 3 mm. The left lobe measures 4.8 x 1.5 x 1.7 cm. Heterogeneous appearance of left lobe of the thyroid Isthmus: Isthmus measures 0.4 cm in thickness. Other: None Conclusion: Right lobe/isthmus TR 4 nodule, recommend follow-up at 1, 2, 3 and 5 years. 2. Left lobe TR4 nodule Thyroid ultrasound (01/23/2024): Findings: Right thyroid lobe: 4.8 x 1.3 x 1.4 cm. Homogeneous echotexture with normal vascularity. There is a lower pole heterogeneous 1.3 x 1.3 x 0.5 cm nodule Left thyroid lobe: 3.6 x 1.6 x 1.4 cm. Homogeneous echotexture with normal vascularity. There is an upper pole 1.0 x 0.6 x 0.5 cm solid nodule Isthmus: 7 mm. Heterogeneous nodules a lobulated single nodule measuring 1.5 x 1.7 x 0.7 cm and 1.3 x 1.2 x 0.7 cm Impression: Bilateral heterogeneo (more content not included)...[facility] 06-17-2024 History of Present illness Narrative* Librado Guerrier MD - 06/17/2024 3:52 PM EDT [facility] Initial Clinic Visit Note Chief Complaint: Multiple thyroid nodules HPI: Tete Howard is a 68 year old female was referred for evaluation of a thyroid nodules. History in brief, she was noted to have thyroid nodules when CT scan were done on neck for salivarygland issue last year, further evaluation with thyroid US revealed multinodular goiter. She was recommended to monitor. She was seen by endocrinology. 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: no Family history of thyroid cancer: no Family history of thyroid nodules: no Family history: Elisha's disease in sister PAST MEDICAL HISTORY Diagnosis Date NONE PAST SURGICAL HISTORY Procedure Laterality Date BREAST BIOPSY Benign DELIVERY ONLY 1992 , low cervical COLONOSCOPY [place], age 51, rpt age 61 DILATION & CURETTAGE DX&/THER NONOBSTETRIC 2006 Dilation & curettage - Benign pathology reviewed TONSILLECTOMY & ADENOIDECTOMY <AGE 13 ALLERGIES Allergen Reactions Codeine Vomiting Social History Tobacco Use Smoking status: Never Smokeless tobacco: Never Substance Use Topics Alcohol use: No Drug use: No FAMILY HISTORY Problem Relation Age of Onset Hypertension Mother Lipids Mother High Cholesterol GI Mother Heart Father heart attack and by-pass surgery Heart Paternal Grandmother heart attack Cancer Maternal Grandmother skin cancer Heart Maternal Aunt Several Maternal Aunts with heart disease Breast Cancer Maternal Aunt Breast Cancer Maternal Aunt Breast Cancer Other Maternal cousin - 50's Breast Cancer Other Maternal cousin - 50's MEDICATIONS: Current Outpatient Medications on File Prior to Visit Medication Sig azithromycin (ZITHROMAX) 500 mg tablet Take 500 mg by mouth three times a week. Sun and sun ethambutol (MYAMBUTOL) 400 mg tablet Take 400 mg by mouth every Sunday, Sunday, and Sunday. rifAMPin (RIFADIN) 300 mg capsule Take 600 mg by mouth three times a week. No current facility-administered medications on file prior to visit. REVIEW OF SYSTEMS: As per HPI PHYSICAL EXAMINATION: BP: 128/78 Temp: 37 C (98.6 F) Temp src: Temporal Artery Pulse: 82 SpO2: 97 % General: no acute distress, alert and orientated X 3, wears a mask Eyes:EOMI, pupils are equally round, anicteric sclera Neck - supple, no significant adenopathy Thyroid: enlarged in size, grossly asymmetric, bilateral palpable nodules Neuro: alert, oriented, normal speech, no focal findings noted CV: normal rate and regular rhythm, S1 and S2 normal. Chest: unlabored breathing on room air Abdominal: soft, non-tender. Bowel sounds normal. Musculoskeletal: no joint tenderness, deformity or swelling Extremities: no edema, no discoloration Skin: no rash or erythema LABS AND IMAGING No labs available for thyroid function Thyroid ultrasound (01/23/23): Findings: Right lobe: Large spongiform nodule in the right lobe/isthmus, a TR1 benign nodule. The nodule measures 2.2 x 5 x 11 mm. Nodule in the right lobe/isthmus measuring 13 x5x12 mm. The nodule is solid and hypoechoic a TR 4 moderately suspicious nodule. The right lobe measures 5.2 x 1.7 x 1.9 cm Left lobe: 2 nodules in the upper lobe measuring 5 x 7 mm TR 4 moderately suspicious nodule. A second spongiform nodule is seen in the left lobe measuring 2 x 4 x 3 mm, a TR 1 benign nodule. There kandace cyst in the upper pole measuring 3 x 2 x 3 mm. The left lobe measures 4.8 x 1.5 x 1.7 cm. Heterogeneous appearance of left lobe of the thyroid Isthmus: Isthmus measures 0.4 cm in thickness. Other: None Conclusion: Right lobe/isthmus TR 4 nodule, recommend follow-up at 1, 2, 3 and 5 years. 2. Left lobe TR4 nodule Thyroid ultrasound (01/23/2024): Findings: Right thyroid lobe: 4.8 x 1.3 x 1.4 cm. Homogeneous echotexture with normal vascularity. There is alower pole heterogeneous 1.3 x 1.3 x 0.5 cm nodule Left thyroid lobe: 3.6 x 1.6 x 1.4 cm. Homogeneous echotexture with normal vascularity. There is anupper pole 1.0 x 0.6 x 0.5 cm solid nodule Isthmus: 7 mm. Heterogeneous nodules a lobulated single nodule measuring 1.5 x 1.7 x 0.7 cm and 1.3x 1.2 x 0.7 cm Impression: Bilateral heterogeneous nodules as noted. Cytological evaluation if needed. ASSESSMENT AND PLAN: Tete Howard is a 68 year old female presenting to endocrinology for evaluation of thyroid nodule. 1. (E04.1) Thyroid nodule This is a 68 year old female patient with past medical history of non mycobacterial pulmonary tuberculosis is presenting for evaluation of bilateral thyroid nodules. - No Thyroid labs available - [facility]. - No risk factors including radiation to head and neck, bit reports of symptoms which she is not sure if coming from thyroid vs lung a dn salivary gland issues We discussed that thyroid nodules are quite common. I counselled that most thyroid nodules are benign. Thyroid cancer occurs in 5 to 15 percent of thyroid nodules. The incidence depends in part upon age, gender, radiation exposure, and family history.Serum TSH is an independent risk factor for predicting malignancy in a thyroid nodule. Advised patient to do TSH do evaluate for functionality of the nodule Discussed the risk of cancer might vary with the level of suspicion which again depends on the characteristics of the nodule The features of vascularity and possible calcifications increase the suspicion although don't have high specificity or sensitivity On reviewing images, the Right thyroid nodule, both nodules in the isthmus appear lobulated, and all nodules are TR4/moderately suspicious as per TIRADS classification The right sided nodule is smaller in size than from US thyroid in 2022. Left thyroid lobe had 3 nodules in 2022, with one measured in 2023, but the size appears to not change much (5 x 7 cm in 2022?) There were no nodules in isthmus in 2022, now there are 2, which are TR4 as well. I discussed biopsy of the 1.5 cm nodule, where as the 1.3 cm nodule needs to be closely monitored Explained the US guided FNA procedure and discussed in brief the possible outcomes including insufficient sample and management if we do find cancer in the pathology Patient would like to have FNA performed and prefers to be done at my office. This will be scheduled accordingly. Follow up to be determined based on cytopathology results Librado Guerrier MD [facility] Endocrinology and Metabolism [place] [facility] Medical Decision Making: Problems: Moderate: 1+ chronic illnesses with change Data: Unique source(s) for external note(s) reviewed: 3+ Unique test result(s) reviewed: 3+ Unique test(s) ordered: 1 Independent interpretation of test from other physician/QHCP Risk: Moderate: Decision on minor surgery w/ risk factors Medical Decision Making Level: 4 - Moderate documented in this encounterUniversity Hospitals [facility]07-26-2024 Telephone encounter Note * Telephone Encounter - Funmi Watson RN - 06/13/2024 3:02 PM EDT Record request faxed to Alanis Kasper' office requesting OV notes, thyroid labs, and thyroid US report pertaining to endocrinology referral for thyroid nodules. Fax confirmation received. Funmi Watson RN June 13, 2024 3:03 PM [facility]07-26-2024 Miscellaneous Notes* Telephone Encounter - Funmi Watson RN - 06/13/2024 3:02 PM EDT Record request faxed to Alanis Kasper' office requesting OV notes, thyroid labs, and thyroid US report pertaining to endocrinology referral for thyroid nodules. Fax confirmation received. Funmi Watson RN June 13, 2024 3:03 PM documented in this encounterUniversity Hospitals [facility]08-16-2023 Procedure [facility]07-12-2022 NotePap Smear Specimen AdequacyJuly 2021 11:59pmComment.Satisfactory for evaluation. Endocervical component may not bedistinguished in cases of atrophy.[facility] INTERFACED A#[id number] Work Phone: Comment on above:Satisfactory for evaluation. Endocervical component may not bedistinguished in cases of atrophy.Consult note Author Sushant Pendleton [facility] Note Date/Time January 28, 2025 2:1 2pm [facility] Medical Records Department [address] [place] [address] Anesthesia Postop Eval I 01/28/25 1411 MR#: [id number] Acct: [id number] Name: TETE HOWARD Rep #:[id number] : 1955 69 From: Sushant Pendleton CRNA PCP: Dr. Benson Kasper MD Status:RE G SDC Y Race: C Location: [place] [address] Anesthesia: Postop Eval I Current Vital Signs Temperature: 97.8 F Pulse Rate: 68 Blood Pressure: 107/61 Respiratory Rate: 16 Pulse Ox: 96 Oxygen Delivery Method: Room Air Assessment Airway patent: Yes Spontaneous unlabored respirations: Yes Mental status: Awake nausea: No Vomiting: No Anesthesia Complication: No Fluid Hydration Crystalloid volume administer (ml): 0 Total IV fluid infused: 0 Progress Note Anesthesia document: Postop Eval 1 completed: Yes 01/28/25 1412 <Electronically signed by Sushant holbrook CRNA> Date _ Sushant Pendleton LINUX ADMIN Cosigner Signature: Date CC: ~ Signed [facility] Work Phone: Consult note Author Heriberto glen [facility] Note Date/Time January 28, 2025 2:2 9pm [facility] Medical Records Department [address] [place] [address] Anesthesia Postop Eval II 01/28/25 1429 MR#: [id number] Acct: [id number] Name: TETE HOWARD Rep #:[id number] : 1955 69 From: Heriberto Ortez MD PCP: Dr. Benson Kasper MD Status:[facility] Y Race: C Location: [place] [address] Anesthesia Postop Eval I Sum Postop Eval Completion status Anesthesia document: Postop Eval 1 completed: Yes Anesthesia Postop Eval I Summary Anesthesia Postop Eval I Summary: Anesthesia Postop Eval I: Assessment Summary Airway patent Yes 01/28/25 14:12 [email or web address] Spontaneous unlabored Yes 01/28/25 14:12 [email or web address] respirations Mental status Awake 01/28/25 14:12 [email or web address] nausea No 01/28/25 14:12 [email or web address] Vomiting No 01/28/25 14:12 [email or web address] Anesthesia Postop Eval I: Fluid Summary Crystalloid volume administer 0 01/28/25 14:12 [email or web address] (ml) Colloids volume administered ( ml) Blood Product volume administered (ml) Total IV fluid infused 0 01/28/25 14:12 [email or web address] Anesthesia Postop Eval I: Summary Notes Anesthesia Complication No 01/28/25 14:12 [email or web address] Anesthesia Complication Comment: Post-operative progress note Anesthesia: Postop Eval II Evaluation Mental status: Awake Pain Level: 0 nausea: No Vomiting: No 01/28/25 1429 <Electronically signed by Heriberto Ortez MD > Date _ Heriberto Ortez MD Cosigner Signature: Date CC: ~ Signed [facility] Work Phone: evaluation note* Diagnosis Onset Date Resolution Status [id number] [facility] Work Phone: Evaluation note* Diagnosis Onset Date Resolution Status Encounter for screening for malignant neoplasm of colo n [facility] Work Phone: evaluation noteNo assessment information available [facility] Work Phone: Evaluation note* Diagnosis Onset Date Resolution Status Multinodular goiter chronic Osteopenia chronic Osteoporosis noneactive Encounter for routine gynecological examination noneactive [facility] Work Phone: Evaluation note* Diagnosis Thyroid nodule- Primary Nontoxic uninodular goiter documented in this encounter [facility]* Diagnosis Thyroid nodule- Primary Nontoxic uninodular goiter [facility] Diagnosis Nontoxic multinodular goiter- Primary Osteoporosis without current pathological fracture, unspecified osteoporosis type documented in this encounter [facility]* Diagnosis Nontoxic multinodular goiter documented in this encounter [facility]* Diagnosis Osteoporosis without current pathological fracture, unspecified osteoporosis type- Primary [facility] Age-related osteoporosis without current pathological fracture [M81.0]- Primary Senile osteoporosis Nontoxic multinodular goiter [E04.2] Nontoxic multinodular goiter documented in this encounter [facility]* Diagnosis 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 Impetigo Inflamed seborrheic keratosis documented in this encounter [facility]* Diagnosis Age-related osteoporosis without current pathological fracture- Primary Senile osteoporosis Nontoxic multinodular goiter documented in this encounter [facility] CenterResaint [facility] for [facility] (narrative)No reason for referral information availableWWright-Patterson [facility] Work Phone: Chief Complaint and Reason for Visit 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) Reason for Visit [id number] Reason for Visit Encounter for screen ing for malignant neoplasm of colon Chief Complaint FNA/LEFT SUBMANDIBUL AR GLAND PAIN Chief Complaint FNA/LEFT SUBMANDIBUL AR GLAND PAIN 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) Reason for Visit Multinodular goiter Osteopenia Osteoporosis Encounter for routine gynecological examination Chief Complaint FNA/LEFT SUBMANDIBUL AR GLAND PAIN 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 x1 Father Status:Active Comments: d. age 77 of non-alcoholic liver cirrhosis Mother Status:Active Comments: d. about age 73 after surgery for GERD but had surgical complication and within days after Sister (s) Status:Active Comments:In good health. x1; Had Guilian [place] (possbily after Shingles vaccine). Brother (s) Status:Active Comments:In good health. x1 Father Status:Active Comments: d. age 77 of non-alcoholic liver cirrhosis Mother Status:Active Comments: d. about age 73 after surgery for GERD but had surgical complication and within days after Sister (s) Status:Active Comments:In good health. x1; Had Guilian [place] (possbily after Shingles vaccine). Brother (s) Status:Active Comments:In good health. x1 Father Status:Active Comments: d. age 77 of non-alcoholic liver cirrhosis Mother Status:Active Comments: d. about age 73 after surgery for GERD but had surgical complication and within days after Sister (s) Status:Active Comments:In good health. x1; Had Guilian [place]ale (possbily after Shingles vaccine). Brother (s) Status:Active Comments:In good health. x1 Father Status:Active Comments: d. age 77 of non-alcoholic liver cirrhosis Mother Status:Active Comments: d. about age 73 after surgery for GERD but had surgical complication and within days after Sister (s) Status:Active Comments:In good health. x1; Had Guilian [place] (possbily after Shingles vaccine). Brother (s) Status:Active Comments:In good health. x1 Father Status:Active Comments: d. age 77 of non-alcoholic liver cirrhosis Mother Status:Active Comments: d. about age 73 after surgery for GERD but had surgical complication and within days after Sister (s) Status:Active Comments:In good health. x1; Had Guilian [place] (possbily after Shingles vaccine). Brother (s) Status:Active Comments:In good health. x1 Father Status:Active Comments: d. age 77 of non-alcoholic liver cirrhosis Mother Status:Active Comments: d. about age 73 after surgery for GERD but had surgical complication and within days after Sister (s) Status:Active Comments:In good health. x1; Had Guilian [place] (possbily after Shingles vaccine). Brother (s) Status:Active Comments:In good health. x1 Father Status:Active Comments: d. age 77 of non-alcoholic liver cirrhosis Mother Status:Active Comments: d. about age 73 after surgery for GERD but had surgical complication and within days after Sister (s) Status:Active Comments:In good health. x1; Had Guilian [place] (possbily after Shingles vaccine). Brother (s) Status:Active Comments:In good health. x1 Father Status:Active Comments: d. age 77 of non-alcoholic liver cirrhosis Mother Status:Active Comments: d. about age 73 after surgery for GERD but had surgical complication and within days after Sister (s) Status:Active Comments:In good health. x1; Had Guilian [place] (possbily after Shingles vaccine). Brother (s) Status:Active Comments:In good health. x1 Father Status:Active Comments: d. age 77 of non-alcoholic liver cirrhosis Mother Status:Active Comments: d. about age 73 after surgery for GERD but had surgical complication and within days after Sister (s) Status:Active Comments:In good health. x1; Had Guilian [place] (possbily after Shingles vaccine). Brother (s) Status:Active Comments:In good health. x1 Father Status:Active Comments: d. age 77 of non-alcoholic liver cirrhosis Mother Status:Active Comments: d. about age 73 after surgery for GERD but had surgical complication and within days after Sister (s) Status:Active Comments:In good health. x1; Had Guilian [place] (possbily after Shingles vaccine). Brother (s) Status:Active Comments:In good health. x1 Father Status:Active Comments: d. age 77 of non-alcoholic liver cirrhosis Mother Status:Active Comments: d. about age 73 after surgery for GERD but had surgical complication and within days after Sister (s) Status:Active Comments:In good health. x1; Had Guilian [place] (possbily after Shingles vaccine). Brother (s) Status:Active Comments:In good health. x1 Father Status:Active Comments: d. age 77 of non-alcoholic liver cirrhosis Mother Status:Active Comments: d. about age 73 after surgery for GERD but had surgical complication and within days after Sister (s) Status:Active Comments:In good health. x1; Had Guilian [place] (possbily after Shingles vaccine). Brother (s) Status:Active Comments:In good health. x1 Father Status:Active Comments: d. age 77 of non-alcoholic liver cirrhosis Mother Status:Active Comments: d. about age 73 after surgery for GERD but had surgical complication and within days after Sister (s) Status:Active Comments:In good health. x1; Had Guilian [place] (possbily after Shingles vaccine). Brother (s) Status:Active Comments:In good health. x1 Father Status:Active Comments: d. age 77 of non-alcoholic liver cirrhosis Mother Status:Active Comments: d. about age 73 after surgery for GERD but had surgical complication and within days after Sister (s) Status:Active Comments:In good health. x1; Had Guilian [place] (possbily after Shingles vaccine). Brother (s) Status:Active Comments:In good health. x1 Father Status:Active Comments: d. age 77 of non-alcoholic liver cirrhosis Mother Status:Active Comments: d. about age 73 after surgery for GERD but had surgical complication and within days after Sister (s) Status:Active Comments:In good health. x1; Had Guilian [place] (possbily after Shingles vaccine). Brother (s) Status:Active Comments:In good health. x1 Father Status:Active Comments: d. age 77 of non-alcoholic liver cirrhosis Mother Status:Active Comments: d. about age 73 after surgery for GERD but had surgical complication and within days after Sister (s) Status:Active Comments:In good health. x1; Had Guilian [place] (possbily after Shingles vaccine). Brother (s) Status:Active Comments:In good health. x1 Father Status:Active Comments: d. age 77 of non-alcoholic liver cirrhosis Mother Status:Active Comments: d. about age 73 after surgery for GERD but had surgical complication and within days after Sister (s) Status:Active Comments:In good health. x1; Had Guilian [place] (possbily after Shingles vaccine). Brother (s) Status:Active Comments:In good health. x1 Father Status:Active Comments: d. age 77 of non-alcoholic liver cirrhosis Mother Status:Active Comments: d. about age 73 after surgery for GERD but had surgical complication and within days after Sister (s) Status:Active Comments:In good health. x1; Had Guilian [place] (possbily after Shingles vaccine). Brother (s) Status:Active Comments:In good health. x1 Father Status:Active Comments: d. age 77 of non-alcoholic liver cirrhosis Mother Status:Active Comments: d. about age 73 after surgery for GERD but had surgical complication and within days after Sister (s) Status:Active Comments:In good health. x1; Had Guilian [place] (possbily after Shingles vaccine). Brother (s) Status:Active Comments:In good health. x1 Father Status:Active Comments: d. age 77 of non-alcoholic liver cirrhosis Mother Status:Active Comments: d. about age 73 after surgery for GERD but had surgical complication and within days after Sister (s) Status:Active Comments:In good health. x1; Had Guilian [place] (possbily after Shingles vaccine). Brother (s) Status:Active Comments:In good health. x1 Father Status:Active Comments: d. age 77 of non-alcoholic liver cirrhosis Mother Status:Active Comments: d. about age 73 after surgery for GERD but had surgical complication and within days after Sister (s) Status:Active Comments:In good health. x1; Had Guilian [place] (possbily after Shingles vaccine). Brother (s) Status:Active Comments:In good health. x1 Father Status:Active Comments: d. age 77 of non-alcoholic liver cirrhosis Mother Status:Active Comments: d. about age 73 after surgery for GERD but had surgical complication and within days after Sister (s) Status:Active Comments:In good health. x1; Had Guilian [place] (possbily after Shingles vaccine). Brother (s) Status:Active Comments:In good health. x1 Father Status:Active Comments: d. age 77 of non-alcoholic liver cirrhosis Mother Status:Active Comments: d. about age 73 after surgery for GERD but had surgical complication and within days after Sister (s) Status:Active Comments:In good health. x1; Had Guilian [place] (possbily after Shingles vaccine). Brother (s) Status:Active Comments:In good health. x1 Father Status:Active Comments: d. age 77 of non-alcoholic liver cirrhosis Mother Status:Active Comments: d. about age 73 after surgery for GERD but had surgical complication and within days after Sister (s) Status:Active Comments:In good health. x1; Had Guilian [place] (possbily after Shingles vaccine). Brother (s) Status:Active Comments:In good health. x1 Father Status:Active Comments: d. age 77 of non-alcoholic liver cirrhosis Mother Status:Active Comments: d. about age 73 after surgery for GERD but had surgical complication and within days after Sister (s) Status:Active Comments:In good health. x1; Had Guilian [place] (possbily after Shingles vaccine). Brother (s) Status:Active Comments:In good health. x1 Father Status:Active Comments: d. age 77 of non-alcoholic liver cirrhosis Mother Status:Active Comments: d. about age 73 after surgery for GERD but had surgical complication and within days after Sister (s) Status:Active Comments:In good health. x1; Had Guilian [place] (possbily after Shingles vaccine). Brother (s) Status:Active Comments:In good health. x1 Father Status:Active Comments: d. age 77 of non-alcoholic liver cirrhosis Mother Status:Active Comments: d. about age 73 after surgery for GERD but had surgical complication and within days after Sister (s) Status:Active Comments:In good health. x1; Had Guilian [place] (possbily after Shingles vaccine). Brother (s) Status:Active Comments:In good health. x1 Father Status:Active Comments: d. age 77 of non-alcoholic liver cirrhosis Mother Status:Active Comments: d. about age 73 after surgery for GERD but had surgical complication and within days after Sister (s) Status:Active Comments:In good health. x1; Had Guilian [place] (possbily after Shingles vaccine). Brother (s) Status:Active Comments:In good health. x1 Father Status:Active Comments: d. age 77 of non-alcoholic liver cirrhosis Mother Status:Active Comments: d. about age 73 after surgery for GERD but had surgical complication and within days after Sister (s) Status:Active Comments:In good health. x1; Had Guilian [place] (possbily after Shingles vaccine). Brother (s) Status:Active Comments:In good health. x1 Father Status:Active Comments: d. age 77 of non-alcoholic liver cirrhosis Mother Status:Active Comments: d. about age 73 after surgery for GERD but had surgical complication and within days after Sister (s) Status:Active Comments:In good health. x1; Had Guilian [place] (possbily after Shingles vaccine). Brother (s) Status:Active Comments:In good health. x1 Father Status:Active Comments: d. age 77 of non-alcoholic liver cirrhosis Mother Status:Active Comments: d. about age 73 after surgery for GERD but had surgical complication and within days after Sister (s) Status:Active Comments:In good health. x1; Had Guilian [place] (possbily after Shingles vaccine). Brother (s) Status:Active Comments:In good health. x1 Father Status:Active Comments: d. age 77 of non-alcoholic liver cirrhosis Mother Status:Active Comments: d. about age 73 after surgery for GERD but had surgical complication and within days after Sister (s) Status:Active Comments:In good health. x1; Had Guilian [place] (possbily after Shingles vaccine). Brother (s) Status:Active Comments:In good health. x1 Father Status:Active Comments: d. age 77 of non-alcoholic liver cirrhosis Mother Status:Active Comments: d. about age 73 after surgery for GERD but had surgical complication and within days after Sister (s) Status:Active Comments:In good health. x1; Had Guilian [place] (possbily after Shingles vaccine). Brother (s) Status:Active Comments:In good health. x1 Father Status:Active Comments: d. age 77 of non-alcoholic liver cirrhosis Mother Status:Active Comments: d. about age 73 after surgery for GERD but had surgical complication and within days after Sister (s) Status:Active Comments:In good health. x1; Had Guilian [place] (possbily after Shingles vaccine). Brother (s) Status:Active Comments:In good health. x1 Father Status:Active Comments: d. age 77 of non-alcoholic liver cirrhosis Mother Status:Active Comments: d. about age 73 after surgery for GERD but had surgical complication and within days after Sister (s) Status:Active Comments:In good health. x1; Had Guilian [place] (possbily after Shingles vaccine). Brother (s) Status:Active Comments:In good health. x1 Father Status:Active Comments: d. age 77 of non-alcoholic liver cirrhosis Mother Status:Active Comments: d. about age 73 after surgery for GERD but had surgical complication and within days after Sister (s) Status:Active Comments:In good health. x1; Had Guilian [place] (possbily after Shingles vaccine). Summary Purpose Advance Directives No Advanced Directives Records Found Advance Directive Response Recorded Date/ Time Living Will No September 12 7:21am Power of Emergency Preparedness Coordinator No September 12, 2022 7:21am Advance Directive Response Recorded Date/ Time Living Will No September 12 8:21am Power of Emergency Preparedness Coordinator No September 12, 2022 8:21am Advance Directive Response Recorded Date/ Time Living Will No July 03 2:37pm Power of Emergency Preparedness Coordinator No July 03 2:37pm Advance Directive Response Recorded Date/ Time Living Will No January 26, 2025 3:23pm Power of Emergency Preparedness Coordinator No January 26 3:23pm Advance Directive Response Recorded Date/ Time Living Will No January 26, 2025 3:23pm Do you have a Healthcare Power of Emergency Preparedness Coordinator? No January 26, 2025 3:23pm Reason for Referral Specialty Diagnoses / Procedures Referred By Lloyd t Referred To Contact CT IMAGING Diagnoses Nontoxic multinodular goiter Procedures CT NECK SOFT TISSUE W IVCON CT SOFT TISSUE NECK W/CONTRAST MATERIAL Librado Guerrier MD [address] [place] [address] [place] [address] Referral ID Status Reason Start Date Expiration Date Visits Requested Visits Authorized [id number] Authorized Auto-Generat ed Referral 07/04/2024 08/03/2025 1 1 Specialty Diagnoses / Procedures Referred By Lloyd t Referred To Contact XR IMAGING Diagnoses Nontoxic multinodular goiter Procedures XR MODIFIED BARIUM SWALLOW W SPEECH THERAPY RADIOLOGIC EXAM SWALLOW FUNCTION CONTRAST STUDY Librado Guerrier MD [address] [place] [address] [place] [address] Referral ID Status Reason Start Date Expiration Date Visits Requested Visits Authorized [id number] New Request Auto-Generat ed Referral 07/04/2024 08/03/2025 1 1 Specialty Diagnoses / Procedures Referred By Contac t Referred To Contact US IMAGING Diagnoses Nontoxic multinodular goiter Procedures US THYROID/PARATHYROID US SOFT TISSUE HEAD & NECK REAL TIME IMGE Librado Clifford MD [address] [place] [address] [place] [address] Referral ID Status Reason Start Date Expiration Date Visits Requested Visits Authorized [id number] Authorized Auto-Generat ed Referral 07/04/2025 08/03/2025 1 1 Referral ID Status Reason Start Date Expiration Date V isits Requested Visits Authorized [id number] Closed Auto-Generate d Referral 07/04/2024 08/03/2025 1 1 Additional Source Comments Goals (unrecognized section and content) Goals may be documented in a n alternate sectionGoals may be documented in an alternate sectionGoals may be documented in an alternate sectionGoals may be documented in an alternate section INFORMATION SOURCE (unrecogn ized section and content) DATE CREATED AUTHOR 06/12/2022 [facility] DATE CREATED AUTHOR AUTHOR'S ORGANIZ ATION 03/10/2023 [facility] ([place]) DATE CREATED AUTHOR AUTHOR'S ORGANIZ ATION 11/28/2024 [facility] DATE CREATED AUTHOR AUTHOR'S ORGANIZ ATION 01/15/2025 [facility] DATE CREATED AUTHOR AUTHOR'S ORGANIZ ATION 05/20/2025 [facility] DATE CREATED AUTHOR AUTHOR'S ORGANIZ ATION 06/20/2025 [facility] Care Teams (unrecognized sec tion and content) Team Status: Active Member Role Status Dates Dr. Alanis Werner MD Family Provider Active Dr. Benson Kasper MD Primary Care Provider Active Team Status: Active Member Role Status Dates Dr. Benson Kasper MD Primary Care Provider, Referr ing Provider Active Dr. Benson Jason MD Attending Provider, Other Prov ider Active Team Status: Inactive Member Role Status Dates Dr. Benson Kasper MD Primary Care Provider, Referr ing Provider Active Dr. Benson Jason MD Attending Provider Active Team Status: Inactive Member Role Status Dates Dr. Benson Kasper MD Primary Care Provider Active Missy SOLIZ, PA Attending Provider Active Team Status: Inactive Member Role Status Dates Dr. Benson Kasper MD Primary Care Provider Active Dr. Shashi Durant MD Attending Provider, Referring Pr ovider Active Team Status: Inactive Member Role Status Dates Dr. Benson Kasper MD Primary Care Provider Active Dr. Shashi Durant MD Attending Provider Active Dr. Song Yun MD Referring Provider Activ e Team Status: Inactive Member Role Status Dates Dr. Benson Kasper MD Primary Care Provider, Referr ing Provider Active Dr. Syl Valdez MD Attending Provider Active Team Status: Inactive Member Role Status Dates Dr. Bneson Kasper MD Primary Care Provider, Referr ing Provider Active Dr. Aryan Luis MD Attending Provider Active Team Status: Inactive Member Role Status Dates Dr. Benson Kasper MD Primary Care Provider Active Dr. Syl Valdez MD Attending Provider, Referr ing Provider Active Team Status: Active Member Role Status Dates Dr. Benson Kasper MD Primary Care Provider Active Dr. Benson Argueta MD Attending Provider, Referrin g Provider Active Team Status: Inactive Member Role Status Dates Dr. Benson Kasper MD Primary Care Provider, Referr ing Provider Active Dr. Benson Argueta MD Attending Provider Active Team Status: Inactive Member Role Status Dates Dr. Benson Kasper MD Primary Care Provider Active Dr. Benson Argueta MD Attending Provider, Referrin g Provider Active Motor Room Controller Relationship Specialty Start Date End Date Alanis Werner PCP - General 03/15/04 Sanjay Kasper MD [id number] [place] [address] Referring Family Medicine 05/27/24 Motor Room Controller Relationship Specialty Start Date End Date Alanis Werner PCP - General 03/15/04 [place] [id number] [place] [address] Referring Family Medicine 05/27/24 Motor Room Controller Relationship Specialty Start Date End Date Alanis Werner PCP - General 03/15/04 [place] [address] [place] [id number] Referring Family Medicine 05/27/24 Motor Room Controller Relationship Specialty Start Date End Date WernerAlanis dodson Samanta PCP - General 03/15/04 [place] [address] [place] [id number] Referring Family Medicine 05/27/24 Motor Room Controller Relationship Specialty Start Date End Date Alanis Werner PCP - General 03/15/04 Sanjay Kasper MD [address] [place] [id number] Referring Family Medicine 05/27/24 Motor Room Controller Relationship Specialty Start Date End Date Alanis Werner PCP - General 03/15/04 Sanjay Kasper MD [address] [place] [id number] Referring Family Medicine 05/27/24 Motor Room Controller Relationship Specialty [place] [address] [place] [id number] PCP - General Family Medicine 07/14/24 [place] [address] [place] [address] [place] [address] Family Medicine 05/27/24 Motor Room Controller Relationship Specialty [place] [address] [place] [id number] PCP - General Family Medicine 07/14/24 [place] [address] [place] [id number] Family Medicine 05/27/24 Motor Room Controller Relationship Specialty Start [place] [address] [place] [id number] PCP - General Family Medicine 07/14/24 [place] [address] [place] [phone] Family Medicine 05/27/24 Motor Room Controller Relationship Specialty Start Date End Date Sanjay Kasper MD [address] [place] [id number] PCP - General Family Medicine 07/14/24 Sanjay Kasper MD [address] [place] [id number] Family Medicine 05/27/24 Motor Room Controller Relationship Specialty [place] [address] [place] [id number] PCP - General Family Medicine 07/14/24 [place] [address] [place] [id number] Family Medicine 05/27/24 Team Status: Active Member Role Status Dates Dr. Benson Kasper MD Primary Care Provider Active Team Status: Inactive Member Role Status Dates Dr. Benson Kasper MD Primary Care Provider Active Start: January 28, 2025 End: January 28, 2025 Dr. Benson Kasper MD Referring Provider Active Start: January 28, 2025 End: January 28, 2025 Dr. Benson rAgueta MD Attending Provider Active Start: January 28, 2025 End: January 28, 2025 Team Status: Inactive Member Role Status Dates Dr. Benson Kasper MD Primary Care Provider Active Start: February 02, 2025 End: February 02, 2025 Dr. Benson Argueta MD Attending Provider Active Start: February 02, 2025 End: February 02, 2025 Dr. Benson Argueta MD Referring Provider Active Start: February 02, 2025 End: February 02, 2025 Source Comments (unrecognize d section and content) In the event this informatio n is protected by the Federal Confidentiality of Alcohol and Drug Abuse Patient Records regulations: The Federal rules restrict any use of the information to criminally investigate or prosecute any alcohol or drug abuse patient.[facility] Center[facility] the event this information is protected by the Federal Confidentiality of Alcohol and Drug Abuse Patient Records regulations: The Federal rules restrict any use of the information to criminally investigate or prosecute any alcohol or drug abuse patient.[facility] CenterIn the event this information is protected by the Federal Confidentiality of Alcohol and Drug Abuse Patient Records regulations: The Federal rules restrict any use of the information to criminally investigate or prosecute any alcohol or drug abuse patient.[facility] CenterIn the event this information is protected by the Federal Confidentiality of Alcohol and Drug Abuse Patient Records regulations: The Federal rules restrict any use of the information to criminally investigate or prosecute any alcohol or drug abuse patient.[facility] Center[facility] the event this information is protected by the Federal Confidentiality of Alcohol and Drug Abuse Patient Records regulations: The Federal rules restrict any use of the information to criminally investigate or prosecute any alcohol or drug abuse patient.[facility] Center[facility] the event this information is protected by the Federal Confidentiality of Alcohol and Drug Abuse Patient Records regulations: The Federal rules restrict any use of the information to criminally investigate or prosecute any alcohol or drug abuse patient.[facility] CenterIn the event this information is protected by the Federal Confidentiality of Alcohol and Drug Abuse Patient Records regulations: The Federal rules restrict any use of the information to criminally investigate or prosecute any alcohol or drug abuse patient.[facility] CenterIn the event this information is protected by the Federal Confidentiality of Alcohol and Drug Abuse Patient Records regulations: The Federal rules restrict any use of the information to criminally investigate or prosecute any alcohol or drug abuse patient.[facility] CenterIn the event this information is protected by the Federal Confidentiality of Alcohol and Drug Abuse Patient Records regulations: The Federal rules restrict any use of the information to criminally investigate or prosecute any alcohol or drug abuse patient.[facility] CenterIn the event this information is protected by the Federal Confidentiality of Alcohol and Drug Abuse Patient Records regulations: The Federal rules restrict any use of the information to criminally investigate or prosecute any alcohol or drug abuse patient.[facility] CenterIn the event this information is protected by the Federal Confidentiality of Alcohol and Drug Abuse Patient Records regulations: The Federal rules restrict any use of the information to criminally investigate or prosecute any alcohol or drug abuse patient.[facility] CenterIn the event this information is protected by the Federal Confidentiality of Alcohol and Drug Abuse Patient Records regulations: The Federal rules restrict any use of the information to criminally investigate or prosecute any alcohol or drug abuse patient.[facility] Reason for Visit (unrecogniz ed section and content) Reason Comments Request Outside Medical Records Reason Comments Thyroid Nodule US 04/21/24 Osteoporosis DXA 05/08/[address] [facility] Reason Comments Thyroid Nodule FNAB isthmus Reason Comments Order for Barium swallow test Reason Comments F/U on Bone Density Results Test 05/08/24 Thyroid Problem FNA Reason Comments Patient Update CT scheduling Specialty Diagnoses / Procedures Referred By Contac t Referred To Contact CT IMAGING Diagnoses Nontoxic multinodular goiter Procedures CT NECK SOFT TISSUE W IVCON CT SOFT TISSUE NECK W/CONTRAST MATERIAL Librado Guerrier MD [address] [place] [address] [place] [id number] Referral ID Status Reason Start Date Expiration Date V isits Requested Visits Authorized [id number] Closed Auto-Generate d Referral 07/04/2024 08/03/2025 1 1 Reason Comments Thyroid Problem Labs 08/04/24 Reason Comments Derm Problem B/l hands - crack an d bleed They are raw and very itchy LESION, SKIN Spot concern right c hest Reason Comments Osteoporosis FOR RECORDS PERTAINING TO PATIENTS WHO ARE OR HAVE BEEN ENROLLED IN A CHEMICAL DEPENDENCY/SUBSTANCEABUSE PROGRAM, SOME INFORMATION MAY BE OMITTED. This clinical summary was aggregated from multiple sources. Caution should be exercised in using it in the provision of clinical care. This summary normalizes information from multiple sources, and as a consequence, information in this document may materially change the coding, format and clinical context of patient data. In addition, data may be omitted in some cases. CLINICAL DECISIONS SHOULD BE BASED ON THE PRIMARY CLINICAL RECORDS. [facility] [facility]. provides no warranty or guarantee of the accuracy or completeness of information in this document.
== END | disposition home or self-care (01) ==
PROVIDERS: PCP Family Medicine; Referring Provider Internal Medicine Pulmonary Disease; Visit Provider Internal Medicine Pulmonary Disease
DX: A31.0 Pulmonary mycobacterial infection (principal)
CPT/HCPCS: 71250

== ENCOUNTER → 2025-08-06 | Outpatient (CLI) | payer MEDICARE, BC, SELFPAY ==
--- NOTE | 2025-08-06 17:15 | BI_ITS ---
EXAM: SCRN MAMM (CAD)W/UDAY BILAT DATE: 08/06/2025 CLINICAL HISTORY: F, Age 69 y/o , SCREEN FOR BREAST CANCER No family history. TECHNIQUE: Procedure Code: [id number] Modality: MG Procedure: SCRN MAMM (CAD)W/UDAY BILAT COMPARISON: Prior exam(s) dated May 19, 2024.. FINDINGS: TISSUE DENSITY: The breasts are heterogeneously dense, which may obscure small masses. Bilateral Breast Mammographic Findings: No significant masses, calcifications or other abnormalities are identified. No suspicious masses, areas of developing architectural distortion, or suspicious calcifications. There has been no significant interval change. BI/SCRN MAMM (CAD)W/UDAY BILAT IMPRESSION: Stable bilateral screening mammogram. OVERALL FINAL ASSESSMENT BI-RADS 1: NEGATIVE. RECOMMENDATION: Routine annual follow-up in 1 Year A letter with findings and recommendations will be mailed to the patient. Reading Location: [place] [address]
== END | disposition home or self-care (01) ==
LOC: OPBI 14:39
PROVIDERS: PCP Family Medicine; Referring Provider Obstetrics & Gynecology; Visit Provider Obstetrics & Gynecology
DX: Z12.31 Encounter for screening mammogram for malignant neoplasm of breast (principal)
CPT/HCPCS: 77063; 77067